=== PATIENT | female | born 1970 | race Caucasian/White ===

== ENCOUNTER → 2016-09-09 | Outpatient (CLI) | payer BC ==
[~2016-09-09] MED LIST: ALPR1TAB2 PO; ATEN25TA PO; ATEN50TA PO; CARI350T PO; CEFD300C3 PO; CYCL10TA9 PO; DIAZ10TA3 PO; GABA-486 PO; GABA-488 PO; IPRA3AMP IH; IPRA4AER IH; LEVO100T7 PO; METH4TAB PO; METH5TAB5 PO; NITR-65 PO; NITR100C10 PO; ORPH100T PO; OXYC-202 PO; PHEN-639 PO; PRD20T PO; RT-ALBUINH IH; TRAM-42 PO
--- OUTSIDE RECORDS SUMMARY | 2016-09-09 15:17 | XMS REPORT | Continuity of Care Document ---
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 Phone INDIRA MEJIA MD PCP Insurance Providers Payer Name Policy Number [id number] Maximino Warner 01 Advance Directives Directive Response Recorded Date/Time Advance Directives No 12/15/15 12:30pm Resuscitation Status Full Code 12/15/15 12:30pm Chief Complaint and Reason for Visit Chief Complaint SYNCOPE,CONCUSSION,HYPERTHYROIDISM,UTI Reason for Visit Degenerative disc disease Hyperthyroidism Syncope and collapse Urinary tract infection Problems Active Problems Medical Problem Onset Date Status Abnormal finding on CT scan Unknown Acute Chronic generalized pain Unknown Acute Chronic low back pain with right-sided sciatica Unknown Acute Concussion with brief loss of consciousness Unknown Acute Degenerative disc disease Unknown Acute Hyperthyroidism Unknown Acute Syncope and collapse Unknown Acute Urinary tract infection Unknown Acute Medications Current Home Medications Medication Dose Units Route Directions Days/Qty Instructions Start Date Alprazolam 1 Mg 1 Mg Oral Twice A Day as needed for Spasms 09/13/15 Diazepam 10 Mg 10 Mg Oral Bedtime 12/15/15 Gabapentin 100 Mg 100 Mg Oral Twice A Day 12/15/15 Oxycodone Hcl/Acetaminophen 1 Each 1 Each Oral Three Times A Day Albuterol Sulfate 18 Gm 1-2 Puff Inhalation Twice A Day 12/15/15 Nitrofurantoin Monohyd/M-Cryst 100 Mg 100 Mg Oral Twice A Day 14 12/15 Atenolol 25 Mg 25 Mg Oral Daily 30 12/16/15 Past Home Medications Medication Directions Ordered Status Carisoprodol 350 Mg Tablet, 350 Mg Oral 09/13/15 Discontinued Methylprednisolone 4 Mg Tab.ds.pk, 4 Mg Oral As Directed 09/13/15 Discontinued Cyclobenzaprine Hcl 10 Mg Tablet, 10 Mg Oral Every 8HRS 09/13/15 Discontinued Tramadol Hcl 50 Mg Tablet, 50 Mg Oral Every 4HRS 09/13/15 Discontinued Atenolol 50 Mg Tablet, 50 Mg Oral Daily 12/15/15 Discontinued Social History Social History Problem Response Recorded Date/Time Alcohol Use Occasionally Uses 12/15/2015 12:30pm Recreational Drug Use N DENIES 12/15/2015 12:30pm Recent Foreign Travel No 12/15/2015 12:30pm Recent Infectious Disease Exposure No 12/15/2015 12:30pm Hospitalization with Isolation Denies 12/16/2015 5:20pm Smoking Status Current Everyday Smoker 12/15/2015 12:30pm Query Response Start Date Stop Date Smoking Status Current Everyday Smoker 08/14/2015 Hospital Discharge Instructions Patient Instructions Physician Instructions New, Converted or Re-Newed RX: Transmitted to Pharmacy Goal/Follow Up Appt: Follow-up with Dr. Mejia as scheduled 12/20/15 at 1:20pm Discharge Diet: No Restrictions Pneu Vac Indicated: Yes Care Plan Goal:: Follow-up with Dr. Mejia as scheduled 12/20/15 at 1:20pm Plan of Care Discharge Date 12/16/15 3:40pm Disposition 01 HOME, SELF-CARE Instructions/Education Provided Syncope (DC) Forms Provided Follow-Up Fax Prescriptions See Medication Section Referrals (Unspecified) - Reason(s) for Referral: follow up with dr moffett in one month. Care Plan and Goals See Discharge Instructions Section Functional Status Query Response Date Recorded Patient Orientation Person Place Time Situation December 16, 2015 5:20pm Patient Orientation Person Place Time Situation December 16, 2015 5:20pm Comprehension Ability Understands Concepts December 15, 2015 9:00pm Allergies, Adverse Reactions, Alerts Allergen Type Severity Reaction Status Last Updated Sulfa (Sulfonamide Antibiotics) ([id number]) Allergy Unknown HIVES Active 09/13/15 Immunizations No immunization records. Vital Signs Acute Vital Signs Vital Response Date/Time Temperature (Fahrenheit) 97.0 degrees F (97.6 - 99.5) 12/16/2015 12:24pm Temperature (Calculated Celsius) 36.40084 degrees C (36.4 - 37.5) 12/16/2015 12:24pm Temperature Source Tympanic 12/16/2015 12:24pm Pulse Rate (adult) 60 bpm (60 - 90) 12/16/2015 1:15pm Respiratory Rate 16 bpm (12 - 24) 12/16/2015 12:24pm O2 Sat by Pulse Oximetry 97 % (88 - 100) 12/16/2015 12:24pm Blood Pressure 125/56 mm Hg 12/16/2015 12:24pm Blood Pressure Mean 79 mm Hg 12/16/2015 12:24pm Pain Pain Intensity 7 12/16/2015 1:36pm Height (Feet) 5 feet 12/15/2015 12:30pm Height (Inches) 6.00 inches 12/15/2015 12:30pm Height (Calculated Centimeters) 167.007983 cm 12/15/2015 12:30pm Weight (Pounds) 108 pounds 12/16/2015 5:24am Weight (Ounces) 0.0 oz 12/16/2015 5:24am Weight (Calculated Grams) 33526.976 gm 12/16/2015 5:24am Weight (Calculated Kilograms) 48.258547 kilograms 12/16/2015 5:24am Calculated BMI 18.2 12/15/2015 12:30pm Results Laboratory Results Test Name Result Units Flags Reference Collection Date/Time Result Date/ Time Comments White Blood Count 3.6 10^3/uL L 4.3-11.0 12/16/2015 4:27am 12/16/2015 4: 44am Red Blood Count 4.50 10^6/uL 4.35-5.85 12/16/2015 4:27am 12/16/2015 4: 44am Hemoglobin 11.8 G/DL 11.5-16.0 12/16/2015 4:12/16/2015 4:44am Hematocrit 36 % 35-52 12/16/2015 4:27am 12/16/2015 4:44am Mean Corpuscular Volume 79 FL L 80-99 12/16/2015 4:am 12/16/2015 4: 44am Mean Corpuscular Hemoglobin 26 PG 25-34 12/16/2015 4:12/16/2015 4: 44am Mean Corpuscular Hemoglobin Concent 33 G/DL 32-36 12/16/2015 4: 4:44am Red Cell Distribution Width 13.3 % 10.0-14.5 12/16/2015 4:2015 4:44am Platelet Count 169 10^3/uL 130-400 12/16/2015 4:12/16/2015 4:44am Mean Platelet Volume 10.4 FL 7.4-10.4 12/16/2015 4:12/16/2015 4: 44am Neutrophils (%) (Auto) 39 % L 42-75 12/16/2015 4:12/16/2015 4:44am Lymphocytes (%) (Auto) 47 % H 12-44 12/16/2015 4:12/16/2015 4:44am Monocytes (%) (Auto) 11 % 0-12 12/16/2015 4:12/16/2015 4:44am Eosinophils (%) (Auto) 3 % 0-10 12/16/2015 4:12/16/2015 4:44am Basophils (%) (Auto) 0 % 0-10 12/16/2015 4:12/16/2015 4:44am Neutrophils # (Auto) 1.4 X 10^3 L 1.8-7.8 12/16/2015 4:12/16/2015 4: 44am Lymphocytes # (Auto) 1.7 X 10^3 1.0-4.0 12/16/2015 4:12/16/2015 4: 44am Monocytes # (Auto) 0.4 X 10^3 0.0-1.0 12/16/2015 4:12/16/2015 4: 44am Eosinophils # (Auto) 0.1 10^3/uL 0.0-0.3 12/16/2015 4:12/16/2015 4 :44am Basophils # (Auto) 0.0 10^3/uL 0.0-0.1 12/16/2015 4:12/16/2015 4: 44am Urine Color YELLOW 12/15/2015 10:12/15/2015 10:24am Urine Clarity SLIGHTLY CLOUDY 12/15/2015 10:12/15/2015 10: 24am Urine pH 6 5-9 12/15/2015 10:12/15/2015 10:24am Urine Specific [place] 1.010 * 1.016-1.022 12/15/2015 10:2015 10:24am Urine Protein NEGATIVE NEGATIVE 12/15/2015 10:12/15/2015 10: 24am Urine Glucose (UA) NEGATIVE NEGATIVE 12/15/2015 10:0912/15/2015 10 :24am Urine RBC (Auto) NEGATIVE NEGATIVE 12/15/2015 10:12/15/2015 10: 24am Urine Ketones NEGATIVE NEGATIVE 12/15/2015 10:12/15/2015 10: 24am Urine Nitrite POSITIVE * NEGATIVE 12/15/2015 10:12/15/2015 10: 24am Urine Bilirubin NEGATIVE NEGATIVE 12/15/2015 10:12/15/2015 10: 24am Urine Urobilinogen NORMAL MG/DL NORMAL 12/15/2015 10:12/15/2015 10 :24am Urine Leukocyte Esterase NEGATIVE NEGATIVE 12/15/2015 10:2015 10:24am Urine RBC NONE /HPF 12/15/2015 10:12/15/2015 10:24am Urine WBC 0-2 /HPF 12/15/2015 10:12/15/2015 10:24am Urine Bacteria LARGE /HPF * 12/15/2015 10:12/15/2015 10:24am Urine Squamous Epithelial Cells 2-5 /HPF 12/15/2015 10:2015 10:24am Urine Crystals NONE /LPF 12/15/2015 10:12/15/2015 10:24am Urine Casts NONE /LPF 12/15/2015 10:0912/15/2015 10:24am Urine Mucus NEGATIVE /LPF 12/15/2015 10:0912/15/2015 10:24am Urine Culture Indicated YES 12/15/2015 10:0912/15/2015 10:24am Sodium Level 141 MMOL/L 135-145 12/16/2015 4:2712/16/2015 4:55am Potassium Level 3.9 MMOL/L 3.6-5.0 12/16/2015 4:12/16/2015 4:55am Chloride Level 112 MMOL/L H 98-107 12/16/2015 4:12/16/2015 4:55am Carbon Dioxide Level 20 MMOL/L L 21-32 12/16/2015 4:12/16/2015 4: 55am Anion Gap 9 MMOL/L 5-14 12/16/2015 4:12/16/2015 4:55am Blood Urea Nitrogen 19 MG/DL H 7-18 12/16/2015 4:12/16/2015 4:55am Creatinine 0.60 MG/DL 0.60-1.30 12/16/2015 4:12/16/2015 4:55am BUN/Creatinine Ratio 32 12/16/2015 4:12/16/2015 4:55am Estimat Glomerular Filtration Rate > 60 12/16/2015 4:2015 4:55am GFR INTERPRETIVE DATA UNITS FOR ESTIMATED GFR (eGFR): mL/min/1.73 M2 REFERENCE RANGE FOR ESTIMATED GFR (eGFR) eGFR NORMAL eGFR >60 MODERATELY DECREASED eGFR 30-59 SEVERLY DECREASED eGFR 15-29 KIDNEY FAILURE <15 (OR DIALYSIS) Glucose Level 121 MG/DL H 70-105 12/16/2015 4:12/16/2015 4:55am Glucometer 122 MG/DL H 70-110 12/15/2015 8:41am 12/15/2015 8:58am Calcium Level 8.6 MG/DL 8.5-10.1 12/16/2015 4:12/16/2015 4:55am Magnesium Level 1.9 MG/DL 1.8-2.4 12/15/2015 8:3512/15/2015 9:30am Total Bilirubin 0.7 MG/DL 0.1-1.0 12/15/2015 8:35am 12/15/2015 9:30am Alkaline Phosphatase 116 U/L 40-136 12/15/2015 8:35am 12/15/2015 9: 30am Aspartate Amino Transf (AST/SGOT) 22 U/L 5-34 12/15/2015 8:35am 2015 9:30am Alanine Aminotransferase (ALT/SGPT) 22 U/L 0-55 12/15/2015 8:35am 12/14 9:30am Troponin I < 0.30 NG/ML <0.30 12/15/2015 8:35am 12/15/2015 10:29am Total Protein 7.3 G/DL 6.4-8.2 12/15/2015 8:35am 12/15/2015 9:30am Albumin 4.0 G/DL 3.2-4.5 12/15/2015 8:35am 12/15/2015 9:30am Thyroid Stimulating Hormone (TSH) 0.00 UIU/ML L 0.35-4.94 12/15/2015 8: 35am 12/15/2015 10:29am Free Thyroxine 3.07 NG/DL H 0.70-1.48 12/15/2015 8:35am 12/15/2015 10: 29am Acetaminophen Screen NEGATIVE NEGATIVE 12/15/2015 10:09am 12/15/2015 10:54am APAP=ACETAMINOPHEN/PARACETAMOL Microbiology Results Procedure Source Result Collection Date/Time Result Date/Time Urine Culture Urine, Clean Catch ESCHERICHIA COLI 12/15/2015 10:09am 2015 2:59pm Procedures Procedure Status Date Provider(s) Tracing only of electrocardiogram Active 12/15/15 YAMILET SHARP MD Color Doppler echocardiography Active 12/15/15 CHELSI MOFFETT MD FACP [facility] CCDS Encounters Encounter Location Arrival/Admit Date Discharge/Depart Date Attending Provider Discharged Inpatient (obs) [facility] 12/15/15 11:58am 12/16/15 3:40pm INDIRA MEJIA MD Recent Diagnosis Degenerative disc disease Hyperthyroidism Syncope and collapse Urinary tract infection
--- NOTE | 2016-09-09 16:06 | Diagnostic Imaging Report ---
PROCEDURE: CT chest without contrast. TECHNIQUE: Multiple contiguous axial images were obtained through the chest without the use of intravenous contrast. INDICATION: Pulmonary nodule. COMPARISON: CT thoracolumbar spine 09/13/2015. FINDINGS: Gnhrxwwy-jd-epiijtyo centrilobular emphysematous changes in both lungs, greatest in the lung apices. A 6 mm solid pulmonary nodule in the peripheral left upper lobe (series 2, image 16). Focal area of pleural thickening adjacent to the pulmonary nodule appears stable since the prior exam. Stable pleural thickening in the right lung apex. A 6 mm pulmonary nodule in the lingula is also stable (image 26). Tiny nonspecific nodular opacities in the left costophrenic angle were not previously identified. Calcified granuloma in the right lung base. Several scattered 2 mm or less pulmonary nodules in the right lung. No pleural or pericardial effusions. No mediastinal, hilar, or axillary lymphadenopathy. The visualized upper abdominal contents, including the adrenal glands, are unremarkable on this noncontrast exam. Thoracolumbar scoliosis. No acute osseous findings. IMPRESSION: 1. Mjrbqibo-fr-jurrtblw centrilobular emphysematous changes. 2. Scattered pulmonary nodules in both lungs measuring up to 6 mm. There are also scattered areas of pleural thickening/scarring. These findings appear stable since the prior 09/03/2015 thoracolumbar spine examination. Continued followup recommendations below. Fleischner Society Guidelines for Management of Small Pulmonary Nodules NODULE SIZE LOW RISK PATIENT HIGH RISK PATIENT 4mm or less No follow-up needed Follow-up CT at 12 months 4 to <6mm Follow-up CT at 12 months Initial follow-up CT at 6-12 months 6 to <8mm Initial follow-up CT at 6-12 months Initial follow-up CT at 3-6 months >8mm Follow-up CT at around 3, 9, and 24 Same as for low risk. months, PET, and/or biopsy. Dictated by: Dictated on workstation # [id number]
== END ==
LOC: RAD 15:14
PROVIDERS: ATTEND Family Medicine
DX: R91.8 Other nonspecific abnormal finding of lung field (principal); J43.8 Other emphysema
CPT/HCPCS: 71250

== ENCOUNTER 2016-11-23 18:07 | Observation (INO) | payer BC ==
[~2016-11-23] VITALS: Ht 167.6 cm; Wt 51.9 kg
[2016-11-23] MEDS ORDERED: CYCL10TA9 PO (18:21)
[2016-11-23] MEDS ORDERED: LEDI1TAB (18:21)
[2016-11-23] MEDS ORDERED: KETOROLAC 30 MG/ML VIAL IVP ONE (18:45)
[2016-11-23] MEDS ORDERED: NS 1000 ML IV BAG IV ONE (18:45)
[2016-11-23] MEDS ORDERED: ONDANSETRON 4 MG/2 ML (SDV) Z0FRAN IV ONE (18:45)
--- NOTE | 2016-11-23 18:45 | ED General ---
General Chief Complaint: Abdominal/GI Problems Stated Complaint: FEVER/VOMITING Nursing Triage Note: INTERMITTANT FEVER, N/V X2 DAYS Nursing Sepsis Screen: Possible Sepsis Risk Source of Information: Patient Exam Limitations: No Limitations History of Present Illness Time Seen by Provider: 18:42 Initial Comments Patient has been sick with a temperature as high as 100.6 since . She complains of myalgias worse back pain and headache. She also has a nonproductive cough. No sick contacts. No tick bites. Patient has been vomiting for 2 days and is benign. Keep down medications including her Percocet. Allergies and Home Medications Allergies Coded Allergies: Sulfa (Sulfonamide Antibiotics) (Verified Allergy, Unknown, HIVES, 02/23/16 ) Home Medications Alprazolam 1 Mg Tablet, 1 MG PO BID PRN for SPASMS, (Reported) Cyclobenzaprine HCl 10 Mg Tablet, #60 (Reported) Diazepam 10 Mg Tablet, 10 MG PO HS, (Reported) Gabapentin 300 Mg Capsule, 300 MG PO HS, (Reported) Ipratropium/Albuterol Sulfate 3 Ml Ampul.neb, 3 ML IH Q4H PRN for SHORTNESS OF BREATH, #50 Prescribed by: ESTRELLA JACKSON on 02/12/16 0849 Ledipasvir/Sofosbuvir 1 Each Tablet, #28 (Reported) Levothyroxine Sodium 100 Mcg Tablet, 100 MCG PO DAILY, (Reported) Oxycodone HCl/Acetaminophen 1 Each Tablet, 1 EACH PO QID PRN for BACK PAIN, ( Reported) Constitutional: chills, fever, malaise, weakness Respiratory: cough Cardiovascular: no symptoms reported Gastrointestinal: nausea, vomiting Genitourinary: no symptoms reported Musculoskeletal: no symptoms reported Skin: no symptoms reported All Other Systems Reviewed Negative Unless Noted: Yes Past Figczus-Thispg-Ckhfhk Hx Patient Social History Alcohol Use: Denies Use Recreational Drug Use: No Smoking Status: Current Everyday Smoker Type Used: Cigarettes Former Smoker/When Quit: Aug 14, 2015 2nd Hand Smoke Exposure: Yes Recent Foreign Travel: No Contact w/Someone Who Travel: No Recent Infectious Disease Expo: No Recent Hopitalizations: No Immunizations Up To Date Tetanus Booster (TDap): Less than 5yrs PED Vaccines UTD: Yes Seasonal Allergies Seasonal Allergies: No Surgeries HX Surgeries: Yes (PYELOPLASTY/URETERAL REPAIR/URETERAL STENT ) Surgeries: Section, Renal, Tubal Ligation Respiratory Hx Respiratory Disorders: Yes Respiratory Disorders: Asthma, COPD Cardiovascular Hx Cardiac Disorders: Yes (TACHYCARDIA WHEN HYPERTHYROIDISM) Cardiac Disorders: Syncope Neurological Hx Neurological Disorders: Yes Neurological Disorders: Concussion, Neuropathy 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 System : No Hx 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 Disorders: No Sexually Transmitted Disease: No HIV/AIDS: No Female 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 Disorders: 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 Genitourinary Hx Genitourinary Disorders: Yes (URETERAL STENOSIS--S/P PYELOPLASTY/URETERAL REPAIR/STENT) Genitourinary Disorders: Bladder Infection, Kidney Stones, UTI-Chronic Gastrointestinal Hx Gastrointestinal Disorders: Yes Gastrointestinal Disorders: Gastroesophageal Reflux Musculoskeletal Hx Musculoskeletal Disorders: Yes (SCIATICA, scoliosis, spinal stenosis, 5 BULGING DISCS) Musculoskeletal Disorders: Degenerate Disk Disease, Scoliosis, Chronic Back Pain Endocrine Hx Endocrine Disorders: Yes (GRAVES) Endocrine Disorders: Hyperthyroidism, Hypothyroidsim HEENT HX ENT Disorders: No Cancer Hx Cancer: No Psychosocial Hx Psychiatric Problems: Yes Behavioral Health Disorders: Anxiety Integumentary HX Skin/Integumentary Disorder: No Blood Transfusions Hx Blood Disorders: No Family Medical History Significant Family History: No Pertinent Family Hx Family Medial History: Alzheimer's disease 19 MOTHER FH: epilepsy 19 MOTHER FH: lupus 19 MOTHER Fibromyalgia 19 MOTHER Hypertension 19 MOTHER Thyroid disease 19 MOTHER (HYPOTHYROID) Physical Exam Vital Signs Vital Sign - Last 12Hours 11/23/16 18:22 Temp 97.8 Pulse 96 Resp 18 B/P (MAP) 144/102 Pulse Ox 98 O2 Delivery Room Air Capillary Refill : Less Than 3 Seconds General Appearance: No Apparent Distress, WD/WN, Thin Eyes: Bilateral Eye EOMI, Bilateral Eye Normal Inspection, Bilateral Eye PERRL HEENT: PERRL/EOMI, Pharynx Normal Neck: Supple Respiratory: Lungs Clear, Normal Breath Sounds Cardiovascular: Regular Rate, Rhythm Gastrointestinal: Soft Back: Normal Inspection Extremity: Normal Inspection Neurologic/Psychiatric: Alert, No Motor/Sensory Deficits Skin: Normal Color, Warm/Dry Focused Exam Lactic Acid Level Laboratory Tests Test 11/23/16 18:20 Lactic Acid Level 0.84 MMOL/L (0.50-2.00) Progress/Results/Core Measures Results/Orders Lab Results Laboratory Tests Test 11/23/16 18:20 Range/Units White Blood Count 7.9 4.3-11.0 10^3/uL Red Blood Count 5.16 4.35-5.85 10^6/uL Hemoglobin 15.0 11.5-16.0 G/DL Hematocrit 45 35-52 % Mean Corpuscular Volume 87 80-99 FL Mean Corpuscular Hemoglobin 29 25-34 PG Mean Corpuscular Hemoglobin Concent 33 32-36 G/DL Red Cell Distribution Width 12.9 10.0-14.5 % Platelet Count 318 130-400 10^3/uL Mean Platelet Volume 9.0 7.4-10.4 FL Neutrophils (%) (Auto) 72 42-75 % Lymphocytes (%) (Auto) 22 12-44 % Monocytes (%) (Auto) 5 0-12 % Eosinophils (%) (Auto) 1 0-10 % Basophils (%) (Auto) 0 0-10 % Neutrophils # (Auto) 5.7 1.8-7.8 X 10^3 Lymphocytes # (Auto) 1.8 1.0-4.0 X 10^3 Monocytes # (Auto) 0.4 0.0-1.0 X 10^3 Eosinophils # (Auto) 0.0 0.0-0.3 10^3/uL Basophils # (Auto) 0.0 0.0-0.1 10^3/uL Urine Color YELLOW Urine Clarity VERY CLOUDY H Urine pH 6 5-9 Urine Specific [place] 1.015 L 1.016-1.022 Urine Protein 1+ H NEGATIVE Urine Glucose (UA) NEGATIVE NEGATIVE Urine Ketones NEGATIVE NEGATIVE Urine Nitrite NEGATIVE NEGATIVE Urine Bilirubin NEGATIVE NEGATIVE Urine Urobilinogen 1 NORMAL MG/DL Urine Leukocyte Esterase 1+ H NEGATIVE Urine RBC (Auto) 2+ H NEGATIVE Urine RBC NONE /HPF Urine WBC 5-10 H /HPF Urine Squamous Epithelial Cells 5-10 /HPF Urine Crystals NONE /LPF Urine Bacteria LARGE H /HPF Urine Casts NONE /LPF Urine Mucus NEGATIVE /LPF Urine Culture Indicated YES Sodium Level 143 135-145 MMOL/L Potassium Level 3.4 L 3.6-5.0 MMOL/L Chloride Level 106 98-107 MMOL/L Carbon Dioxide Level 26 21-32 MMOL/L Anion Gap 11 5-14 MMOL/L Blood Urea Nitrogen 9 7-18 MG/DL Creatinine 0.85 0.60-1.30 MG/DL Estimat Glomerular Filtration Rate > 60 BUN/Creatinine Ratio 11 Glucose Level 94 70-105 MG/DL Lactic Acid Level 0.84 0.50-2.00 MMOL/L Calcium Level 10.0 8.5-10.1 MG/DL Total Bilirubin 0.4 0.1-1.0 MG/DL Aspartate Amino Transf (AST/SGOT) 18 5-34 U/L Alanine Aminotransferase (ALT/SGPT) 10 0-55 U/L Alkaline Phosphatase 95 40-136 U/L Total Protein 8.5 H 6.4-8.2 G/DL Albumin 4.3 3.2-4.5 G/DL Lipase 22 8-78 U/L Thyroid Stimulating Hormone (TSH) 1.50 0.35-4.94 UIU/ML My Orders Orders - JORDIN BERGMAN MD Cbc With Automated Diff (11/23/16 18:40) Comprehensive Metabolic Panel (11/23/16 18:40) Lactic Acid Analyzer (11/23/16 18:40) Lipase (11/23/16 18:40) Thyroid Stimulating Hormone (11/23/16 18:40) Ua Culture If Indicated (11/23/16 18:40) Chest 1 View, Ap/Pa Only (11/23/16 18:40) Ketorolac Injection (Toradol Injection) (11/23/16 18:45) Ondansetron Injection (Zofran Injectio (11/23/16 18:45) Ns Iv 1000 Ml (Sodium Chloride 0.9%) (11/23/16 18:45) Saline Lock/Iv-Start (11/23/16 19:04) Urine Culture (11/23/16 18:20) Fentanyl Injection (Sublimaze Injection (11/23/16 20:00) Ceftriaxone Injection (Rocephin Injectio (11/23/16 20:45) Medications Given in ED Current Medications Medications Dose Ordered Sig/Kayla Route Start Time Stop Time Status Last Admin Dose Admin Fentanyl Citrate 100 mcg ONCE ONCE IVP 11/23/16 20:00 11/23/16 20:01 DC 11/23/16 19:57 100 MCG Ketorolac Tromethamine 30 mg ONCE ONCE IVP 11/23/16 18:45 11/23/16 18:46 DC 11/23/16 18:56 30 MG Ondansetron HCl 4 mg ONCE ONCE IV 11/23/16 18:45 11/23/16 18:46 DC 11/23/16 18:56 4 MG Sodium Chloride 1,000 ml ONCE ONCE IV 11/23/16 18:45 11/23/16 18:46 DC 11/23/16 18:56 1,000 ML Vital Signs/I&O Vital Sign - Last 12Hours 11/23/16 18:22 Temp 97.8 Pulse 96 Resp 18 B/P (MAP) 144/102 Pulse Ox 98 O2 Delivery Room Air Blood Pressure Mean: 116 Progress Note : Time: 20:39 Progress Note Patient still very sick. She states she feels like she will just start vomiting again if she goes home. UTI treated with Rocephin in the emergency department. I spoke with Dr. Aldana who agrees to admit for observation. Departure Communication Time/Spoke to Admitting Phy: 20:40 Communication I spoke with Dr. Luis Aldana who agreed to admit. Impression Impression: Primary Impression: Urinary tract infection Additional Impressions: Dehydration Intractable vomiting Disposition: ADMITTED INPATIENT Condition: Stable Decision to Admit Reason: Admit from ER (General) Decision to Admit/Date: November 23, 2016 Time/Decision to Admit Time: 20:40 Departure-Patient Inst. Referrals: ESTRELLA JACKSON DO (PCP/Family) Primary Care Physician JORDIN BERGMAN MD November 23, 2016 18:44
[2016-11-23 19:08] LABS: BILIRUBIN,URINE NEGATIVE (NEGATIVE); KETONES,URINE NEGATIVE (NEGATIVE); LEUKOCYTE ESTERASE ,URINE 1+ (NEGATIVE); NITRITE,URINE NEGATIVE (NEGATIVE); PH,URINE 6 (5-9); PROTEIN,URINE 1+ (NEGATIVE); UROBILINOGEN,URINE 1 MG/DL (NORMAL)
[2016-11-23 19:11] LABS: BASOPHILS % (AUTO) 0 % (0-10); EOSINOPHILS % (AUTO) 1 % (0-10); LYMPHOCYTES # (AUTO) 1.8 X 10^3 (1.0-4.0); LYMPHOCYTES % (AUTO) 22 % (12-44); MEAN CORPUSCULAR HEMOGLOBIN 29 PG (25-34); MEAN CORPUSCULAR HGB CONC 33 G/DL (32-36); MEAN CORPUSCULAR VOLUME 87 FL (80-99); MONOCYTES # (AUTO) 0.4 X 10^3 (0.0-1.0); MONOCYTES % (AUTO) 5 % (0-12); NEUTROPHILS # (AUTO) 5.7 X 10^3 (1.8-7.8); NEUTROPHILS % (AUTO) 72 % (42-75); PLATELET COUNT 318 10^3/uL (130-400); RED BLOOD COUNT 5.16 10^6/uL (4.35-5.85); RED CELL DISTRIBUTION WIDTH 12.9 % (10.0-14.5); WHITE BLOOD COUNT 7.9 10^3/uL (4.3-11.0)
--- NOTE | 2016-11-23 19:14 | Diagnostic Imaging Report ---
INDICATION: Fever for two days. History of COPD and asthma. Patient has had lumbar surgery. Patient had pneumonia at 8 weeks of age and never regained full inflation of the left lung. FINDINGS: Portable upright view of the chest is compared to a chest radiograph from February [address] scan from September 09. Loss of volume on the left side is again identified. Pleural thickening of the left apex is stable. Emphysematous changes are present with chronic blunting of the left costophrenic angle. A nodule over the left chest is consistent with the patient's nipple. A similar nodule is seen in the right chest. Heart size and vascularity are normal. IMPRESSION: Stable chest with emphysematous changes, loss of volume on the left side and pleural thickening. Dictated by: Dictated on workstation # [id number]
[2016-11-23 19:40] LABS: ALANINE AMINOTRANSFERASE 10 U/L (0-55); ALBUMIN 4.3 G/DL (3.2-4.5); ANION GAP 11 MMOL/L (5-14); ASPARTATE AMINO TRANSFERASE 18 U/L (5-34); BILIRUBIN,TOTAL 0.4 MG/DL (0.1-1.0); BLOOD UREA NITROGEN 9 MG/DL (7-18); BUN/CREATININE RATIO 11; CARBON DIOXIDE 26 MMOL/L (21-32); CHLORIDE 106 MMOL/L (98-107); CREATININE SERUM 0.85 MG/DL (0.60-1.30); GFR ESTIMATED > 60; GLUCOSE 94 MG/DL (70-105); LIPASE 22 U/L (8-78); POTASSIUM 3.4 MMOL/L (3.6-5.0); SODIUM 143 MMOL/L (135-145); TOTAL PROTEIN 8.5 G/DL (6.4-8.2)
[2016-11-23] MEDS ORDERED: fentaNYL INJECTION 100 MCG/2 ML AMP IVP ONE (20:00)
[2016-11-23] MEDS ORDERED: cefTRIAXone INJECTION 1,000 MG in NS (IVPB) 50 ML IV ONE (20:45)
[2016-11-23] MEDS ORDERED: CATHETER FLUSH 10 ML SYR IV PRN (21:45)
[2016-11-23] MEDS ORDERED: ONDANSETRON 4 MG/2 ML (SDV) Z0FRAN IV PRN (21:45)
[2016-11-23] MEDS: CATHETER FLUSH 10 ML SYR IV SCH (21:51)
[2016-11-23] MEDS: NS IV 1000 ML 1,000 ML IV SCH (21:52)
[2016-11-23] MEDS ORDERED: RT-ALBUINH IH (22:10)
[2016-11-23] MEDS: morphine INJ 4 MG/ML 1 ML (VIAL/SYRINGE) IV PRN (22:44)
[2016-11-24 00:21] VITALS: BP 119/68
[2016-11-24] MEDS: morphine INJ 4 MG/ML 1 ML (VIAL/SYRINGE) IV PRN ×2 (02:37→06:48)
[2016-11-24 04:23] VITALS: BP 119/70
[2016-11-24] MEDS: NS IV 1000 ML 1,000 ML IV SCH ×2 (06:48→10:50)
[2016-11-24] MEDS: CATHETER FLUSH 10 ML SYR IV SCH ×2 (06:48→08:45)
[2016-11-24 08:00] VITALS: BP 96/54
--- NOTE | 2016-11-24 08:37 | History & Physical ---
History of Present Illness History of Present Illness Reason for visit/HPI 44-year-old female with intractable nausea and vomiting presenting to the emergency department on 11/23/16 found to have a urinary tract infection with cultures growing Escherichia coli. Patient has not been on any antibiotics recently. patient reports starting on , November 20, 2016 she started having fevers around 100.6 Fahrenheit along with suprapubic pain. She reports the fevers broke and for the past couple days she has had intractable nausea and vomiting. Her throat is sore from retching and vomiting. Denies any blood in her emesis. Patient does have chronic pain which she follows with Dr. Morro Chairez. Patient also has a history of hepatitis C in which she underwent treatment with harvoni. While in the emergency department, patient received IV fluids and Zofran and Rocephin for her urinary tract infection. patient was admitted for observation to get control over her intractable nausea and vomiting and start treatment on her infection. No overnight events. Patient does continue to report pain not completely controlled with morphine IV. Patient did eat 3 cups of Jell-O this morning and is wanting to advance her diet. Patient has not had any episodes of emesis on fourth floor. Date of Admission November 23, 2016 at 20:35 I consulted on this patient on 11/24/16 08:[address] Birch Admitting Physician Tanner Barragan MD Consult Allergies and Home Medications Allergies Coded Allergies: Sulfa (Sulfonamide Antibiotics) (Verified Allergy, Unknown, HIVES, 02/23/16 ) Home Medications Albuterol Sulfate 1 Puff Puff, 2 PUFF IH Q4H, (Reported) 1 PUFF = 90 MCG Alprazolam 1 Mg Tablet, 1 MG PO BID PRN for SPASMS, (Reported) Cyclobenzaprine HCl 10 Mg Tablet, PO HS PRN for BACK PAIN, #60 (Reported) Diazepam 10 Mg Tablet, 10 MG PO HS, (Reported) Gabapentin 300 Mg Capsule, 600 MG PO HS, (Reported) Ipratropium/Albuterol Sulfate 3 Ml Ampul.neb, 3 ML IH Q4H PRN for SHORTNESS OF BREATH, #50 Prescribed by: ESTRELLA BIRCH on 02/12/16 0849 Levothyroxine Sodium 100 Mcg Tablet, 88 MCG PO DAILY, (Reported) Oxycodone HCl/Acetaminophen 1 Each Tablet, 1 EACH PO Q4H PRN for BACK PAIN, ( Reported) Past Cjyrffi-Ggryby-Gjlszc Hx Patient Social History Alcohol Use: Rarely Uses Recreational Drug Use: No Smoking Status: Current Everyday Smoker Former smoker/When Quit: Aug 14, 2015 Type Used: Cigarettes 2nd Hand Smoke Exposure: Yes Physical Abuse Screen: No Sexual Abuse: No Recent Foreign Travel: No Contact w/other who traveled: No Recent Hopitalizations: No Recent Infectious Disease Expo: No Immunizations Up To Date Tetanus Booster (TDap): Less than 5yrs Seasonal Allergies Seasonal Allergies: No Surgeries HX Surgeries: Yes (PYELOPLASTY/URETERAL REPAIR/URETERAL STENT ) Surgeries: Section, Renal, Tubal Ligation Respiratory Hx Respiratory Disorders: Yes Cardiovascular Hx Cardiovascular Disorders: Yes (TACHYCARDIA WHEN HYPERTHYROIDISM) Cardiac Disorders: Syncope Neurological Hx Neurological Disorders: Yes Neurological Disorders: Concussion, Neuropathy 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 System : No Hx 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 Disorders: No Sexually Transmitted Disease: No HIV/AIDS: No Female 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 Disorders: Denies Genitourinary Hx Genitourinary Disorders: Yes (URETERAL STENOSIS--S/P PYELOPLASTY/URETERAL REPAIR/STENT) Genitourinary Disorders: Kidney Infection Gastrointestinal Hx Gastrointestinal Disorders: Yes Gastrointestinal Disorders: Gastroesophageal Reflux, Liver Disease/Jaundice ( history of hepatitis C) Musculoskeletal Hx Musculoskeletal Disorders: Yes (SCIATICA, scoliosis, spinal stenosis, 5 BULGING DISCS) Musculoskeletal Disorders: Degenerate Disk Disease, Scoliosis, Chronic Back Pain Endocrine Hx Endocrine Disorders: Yes (GRAVES) Endocrine Disorders: Hyperthyroidism (s/p ablation), Hypothyroidsim HEENT HX ENT Disorders: No Cancer Hx Cancer: No Psychosocial Hx Psychiatric Problems: Yes Behavioral Health Disorders: Anxiety Integumentary HX Skin/Integumentary Disorder: No Blood Transfusions Hx Blood Disorders: No Family Medical History Significant Family History: No Pertinent Family Hx Family Hx: Alzheimer's disease 19 MOTHER FH: epilepsy 19 MOTHER FH: lupus 19 MOTHER Fibromyalgia 19 MOTHER Hypertension 19 MOTHER Thyroid disease 19 MOTHER (HYPOTHYROID) Review of Systems Review of Systems General: No Chills, No Night Sweats HEENT: No Head Aches, No Visual Changes Pulmonary: No Dyspnea, No Cough Cardiovascular: No: Chest Pain, Orthopnea, Palpitations Gastrointestinal: Abdominal Pain, Nausea, No: Vomiting Genitourinary: Dysuria, Frequency Musculoskeletal: back pain, No: neck pain, shoulder pain Neurological: No: Numbness, Weakness All Other Systems Reviewed All Other Systems Reviewed: Yes Physical Exam Vital Signs Vital Sign - Last 12Hours 11/23/16 18:22 Temp 97.8 Pulse 96 Resp 18 B/P (MAP) 144/102 Pulse Ox 98 O2 Delivery Room Air Capillary Refill : Less Than 3 Seconds General Appearance: No No Apparent Distress, WD/WN HEENT: PERRL/EOMI Neck: Full Range of Motion, Non Tender, Supple Respiratory: Chest Non Tender, Normal Breath Sounds, No Accessory Muscle Use, No Respiratory Distress Cardiovascular: Regular Rate, Rhythm, No Edema Gastrointestinal: Tenderness (suprapubic ) Rectal: Deferred Extremity: Normal Capillary Refill, Normal Inspection, Normal Range of Motion, Non Tender, No Calf Tenderness Neurologic/Psychiatric: Alert, Oriented x3, No Motor/Sensory Deficits Skin: Normal Color, Warm/Dry Assessment/Plan Assessment/Plan Assessment/Plan 46 yo F intractable nausea/vomiting- improved- zofran UTI w/o hematuria- on rocephin - e.coli growing in culture- will look for susceptibilities- plan on d/c to home with 5 days of cefdinir Chronic pain- morphine while inpt- pt to resume her home meds on discharge hypokalemia- due to vomiting- will correct with resolution of vomiting anxiety- takes xanax h/o hep c- s/p harvoni treatment cigarette dependence- pt plans to quit so she can get her back surgery. Dispo: advancing diet today- if no issues with lunch will d/c to home this afternoon. plan on d/c to home with 5 days of cefdinir Problems: Clinical Quality Measures DVT/VTE Risk/Contraindication: Risk Factor Score Per Nursin RFS Level Per Nursing on Admit: 4+=Very High TANNER BARRAGAN MD November 24, 2016 08:37
[2016-11-24] MEDS ORDERED: ENOXAPARIN 40 MG/0.4 ML (LOVENOX) SYR SQ SCH (09:00)
[2016-11-24] MEDS ORDERED: cefTRIAXone 1 GM/NS 50 ML IVPB IV SCH ×2 (09:00)
[2016-11-24] MEDS ORDERED: oxyCODONE/APAP 10/325MG (PERCOCET 10) TABLET PO PRN (11:15)
[2016-11-24] MEDS ORDERED: CEFD300C3 PO (12:43)
[2016-11-24] MEDS ORDERED: ONDA4TAB11 PO (12:43)
--- NOTE | 2016-11-24 12:45 | Discharge Inst-Simple/Standard ---
Discharge Inst-Standard Patient Instructions/Follow Up Plan of Care/Instructions/FU: complete cefdinir 300mg BID x 5 days stay hydration with water may use zofran for nausea Follow up with Dr. Birch in 1 week Activity as Tolerated: Yes Discharge Diet: Regular Diet [facility] to [facility]: new concerns worsening symptoms Planned Outpatient Orders/Ref. Pneu Vac Indicated: Yes RICHARD BARRAGAN MD November 24, 2016 12:45 pm
== END 2016-11-24 12:44 | disposition home or self-care (01) ==
LOC: EDUNIT# 18:07 → ER 18:08 → 4TH 20:35 → UNDOADMOB 20:35 → 4TH 21:15 → UNDODISOB 11-24 13:18
PROVIDERS: ADMIT Family Medicine; ATTEND Family Medicine
DX: N39.0 Urinary tract infection, site not specified (principal); B96.20 Unspecified Escherichia coli [E. coli] as the cause of diseases classified elsewhere; E87.6 Hypokalemia; F41.9 Anxiety disorder, unspecified; B19.20 Unspecified viral hepatitis C without hepatic coma; F17.210 Nicotine dependence, cigarettes, uncomplicated
CPT/HCPCS: 36415; 71010; 80053; 81000; 83605; 83690; 84443; 85025; 87088; 87186; G0378

== ENCOUNTER 2016-12-11 09:55 | Emergency (ER) | payer BC ==
[~2016-12-11] VITALS: Ht 167.6 cm; Wt 52.2 kg
[~2016-12-11 09:55] MED LIST changes: +LEDI1TAB; +ONDA4TAB11 PO
--- NOTE | 2016-12-11 10:52 | ED Fall/Injury ---
General Chief Complaint: Trauma-Non Activation Stated Complaint: SYNCOPAL EPISODE/FALL R WRIST/R ANKLE INJURY Nursing Triage Note: SEE TRAUMA NOTE. Source: patient Exam Limitations: no limitations History of Present Illness Time seen by provider: 10:50 Initial Comments To ER from home with reports of a fall. Patient states that she has a history of vasovagal syncope and falls frequently. This morning she was having an episode of dizziness and she felt syncope one of her typical syncopal episodes coming on. She walked to the kitchen to get a towel to put around her neck. In doing so she fell. She landed on the right arm and complains of pain to the right wrist, right ankle, she did strike her head on the floor. She states that she is awaiting back surgery Location Injury Occurred: HOME Severity: moderate Injuries/Pain Location: head, neck Loss of Consciousness: brief (seconds) Associated Symptoms (Fall): Headache, Neck Pain Allergies and Home Medications Allergies Coded Allergies: Sulfa (Sulfonamide Antibiotics) (Verified Allergy, Unknown, HIVES, 02/23/16 ) Home Medications Albuterol Sulfate 1 Puff Puff, 2 PUFF IH Q4H, (Reported) 1 PUFF = 90 MCG Alprazolam 1 Mg Tablet, 1 MG PO BID PRN for SPASMS, (Reported) Cefdinir 300 Mg Capsule, 300 MG PO BID for 5 Days, #10 Prescribed by: RICHARD BARRAGAN on 11/24/16 1243 Cyclobenzaprine HCl 10 Mg Tablet, PO HS PRN for BACK PAIN, #60 (Reported) Diazepam 10 Mg Tablet, 10 MG PO HS, (Reported) Gabapentin 300 Mg Capsule, 600 MG PO HS, (Reported) Ipratropium/Albuterol Sulfate 3 Ml Ampul.neb, 3 ML IH Q4H PRN for SHORTNESS OF BREATH, #50 Prescribed by: ESTRELLA JACKSON on 02/12/16 0849 Levothyroxine Sodium 100 Mcg Tablet, 88 MCG PO DAILY, (Reported) Ondansetron 4 Mg Tab.rapdis, 4 MG PO Q6H PRN for NAUSEA/VOMITING-1ST LINE, #30 Prescribed by: RICHARD BARRAGAN on 11/24/16 1243 Oxycodone HCl/Acetaminophen 1 Each Tablet, 1 EACH PO Q4H PRN for BACK PAIN, ( Reported) Constitutional: see HPI Eyes: No Symptoms Reported Ears, Nose, Mouth, Throat: no symptoms reported Respiratory: no symptoms reported Cardiovascular: no symptoms reported Genitourinary: no symptoms reported Musculoskeletal: see HPI Skin: no symptoms reported Psychiatric/Neurological: No Symptoms Reported Past Yqmonty-Dfdqzu-Wcxsil Hx Patient Social History Alcohol Use: Occasionally Uses Recreational Drug Use: No Smoking Status: Current Everyday Smoker Type Used: Cigarettes Former Smoker/When Quit: Aug 14, 2015 2nd Hand Smoke Exposure: Yes Recent Foreign Travel: No Contact w/Someone Who Travel: No Recent Infectious Disease Expo: No Recent Hopitalizations: No Immunizations Up To Date Tetanus Booster (TDap): Less than 5yrs PED Vaccines UTD: Yes Seasonal Allergies Seasonal Allergies: No Surgeries HX Surgeries: Yes (PYELOPLASTY/URETERAL REPAIR/URETERAL STENT ) Surgeries: Section, Renal, Tubal Ligation Respiratory Hx Respiratory Disorders: Yes Respiratory Disorders: Asthma, COPD, Emphysema Cardiovascular Hx Cardiac Disorders: Yes (TACHYCARDIA WHEN HYPERTHYROIDISM) Cardiac Disorders: Syncope Neurological Hx Neurological Disorders: Yes Neurological Disorders: Concussion, Neuropathy 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 System Hx 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 Disorders: No Sexually Transmitted Disease: No HIV/AIDS: No Female 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 Disorders: Denies AROMATHERAPIST History: Tubal Ligation Genitourinary Hx Genitourinary Disorders: Yes (URETERAL STENOSIS--S/P PYELOPLASTY/URETERAL REPAIR/STENT) Genitourinary Disorders: Kidney Infection Gastrointestinal Hx Gastrointestinal Disorders: Yes Gastrointestinal Disorders: Gastroesophageal Reflux, Liver Disease/Jaundice Musculoskeletal Hx Musculoskeletal Disorders: Yes (SCIATICA, scoliosis, spinal stenosis, 5 BULGING DISCS) Musculoskeletal Disorders: Degenerate Disk Disease, Scoliosis, Chronic Back Pain Endocrine Hx Endocrine Disorders: Yes (GRAVES) Endocrine Disorders: Hyperthyroidism, Hypothyroidsim HEENT HX ENT Disorders: No Cancer Hx Cancer: No Psychosocial Hx Psychiatric Problems: Yes Behavioral Health Disorders: Anxiety Integumentary HX Skin/Integumentary Disorder: No Blood Transfusions Hx Blood Disorders: No Family Medical History Significant Family History: No Pertinent Family Hx Family Medial History: Alzheimer's disease 19 MOTHER FH: epilepsy 19 MOTHER FH: lupus 19 MOTHER Fibromyalgia 19 MOTHER Hypertension 19 MOTHER Thyroid disease 19 MOTHER (HYPOTHYROID) Physical Exam Vital Signs Vital Sign - Last 12Hours 12/11/16 10:25 Temp 98.1 Pulse 73 Resp 16 B/P (MAP) 108/60 Pulse Ox 98 O2 Delivery Room Air Capillary Refill : Less Than 3 Seconds General Appearance: WD/WN, no apparent distress HEENT: PERRL/EOMI, normal ENT inspection Neck: non-tender, full range of motion Cardiovascular: regular rate, rhythm, no murmur Respiratory: normal breath sounds, no respiratory distress, no accessory muscle use Gastrointestinal: normal bowel sounds, non tender, soft Extremities: normal range of motion, non-tender, normal inspection Neurologic/Psychiatric: alert, normal mood/affect, oriented x 3 Skin: normal color, warm/dry Progress/Results/Core Measures Results/Orders My Orders Orders - ALEM NAVARRO APRN Ct Head/Cervical Spine Wo (12/11/16 10:46) Wrist, Right, 3 Views Or More (12/11/16 10:46) Ankle, Right, 3 Views (12/11/16 10:46) Vital Signs/I&O Vital Sign - Last 12Hours 12/11/16 10:25 Temp 98.1 Pulse 73 Resp 16 B/P (MAP) 108/60 Pulse Ox 98 O2 Delivery Room Air Blood Pressure Mean: 76 Departure Communication Progress Notes K tracks shows that she is currently on Xanax 1 mg tablet twice a day, oxycodone 10 325 one tablet every 4 hours, tramadol 50 mg 3 times a day, Valium 10 mg daily. Impression Impression: Primary Impression: Syncope and collapse Additional Impressions: Wrist contusion Chronic pain Disposition: 01 HOME, SELF-CARE Condition: Stable Departure-Patient Inst. Decision time for Depature: 10:54 Referrals: ESTRELLA JACKSON DO (PCP/Family) Primary Care Physician Patient Instructions: CHRONIC PAIN Add. Discharge Instructions: All discharge instructions reviewed with patient and/or family. Voiced understanding. ALEM NAVARRO APRN Dec 11, 2016 10:52
--- NOTE | 2016-12-11 11:17 | Diagnostic Imaging Report ---
PROCEDURE: CT head and CT cervical spine without contrast. TECHNIQUE: Multiple contiguous axial images were obtained through the brain and cervical spine without the use of intravenous contrast. Sagittal and coronal reformations through the cervical spine were then performed. INDICATION: Passed out today and hit the back of the head. Neck pain posteriorly and to the right side. FINDINGS: CT head: There is no intracranial hemorrhage, edema, or mass effect. The brain parenchyma and chadwick-white differentiation is preserved. There is no extra-axial fluid collection or hemorrhage. The calvarium, the paranasal sinuses, and orbits visualized portions appear grossly unremarkable. CT cervical spine: There is satisfactory alignment of the posterior spinal line, the facet joints, and lateral masses of C1 and C2. There is a straightening of the upper cervical curvature, is presumably positional. No widening of the predental space with degenerative changes around the atlantodental joint seen. The vertebral body heights are preserved. No significant disc height loss is seen. There are posterior osteophytes noted at C4-C5 and C5-C6 levels. There is [id number] foramina stenosis on the left side at C5-C6 level. The other foramina demonstrate minimal or no significant stenosis. No fracture seen. The prevertebral soft tissues appear unremarkable. The lung apices demonstrate apical bulla. IMPRESSION: CT head: Unremarkable exam. CT cervical spine: No fracture seen. Degenerative changes. Bilateral apical lung bulla. Dictated by: Dictated on workstation # [id number]
--- NOTE | 2016-12-11 11:21 | Diagnostic Imaging Report ---
Three views of the right ankle. INDICATION: Fall. FINDINGS: There is no fracture, dislocation or radiopaque foreign body. The ankle mortise is normal in configuration. IMPRESSION: Unremarkable exam. Dictated by: Dictated on workstation # [id number]
--- NOTE | 2016-12-11 11:30 | Diagnostic Imaging Report ---
Three views of the right wrist. INDICATION: Pain around the right chest after passing out. FINDINGS: No fracture, dislocation or radiopaque foreign body. Joint alignment is satisfactory. IMPRESSION: Unremarkable exam. Dictated by: Dictated on workstation # [id number]
[2016-12-11 11:48] VITALS: BP 108/60
== END 2016-12-11 11:48 | disposition home or self-care (01) ==
LOC: EDUNIT# 09:55 → ER 09:59
DX: S60.211A Contusion of right wrist, initial encounter (principal); R55 Syncope and collapse; J44.9 Chronic obstructive pulmonary disease, unspecified; F17.210 Nicotine dependence, cigarettes, uncomplicated; W18.30XA Fall on same level, unspecified, initial encounter
CPT/HCPCS: 70450; 72125; 73110; 73610; 99282

== ENCOUNTER 2016-12-21 11:38 | Emergency (ER) | payer BC ==
[~2016-12-21] VITALS: Ht 167.6 cm; Wt 52.3 kg
--- NOTE | 2016-12-21 12:53 | ED General ---
General Stated Complaint: WEIGHT LOSS/THROAT DISCOMFORT Source of Information: Patient Exam Limitations: No Limitations History of Present Illness Time Seen by Provider: 12:50 Initial Comments to ER with reports of throat discomfort. She states that when she is talking she feels as though her throat spasms and is achy. This is been for several weeks. She also reports weight loss for 7 months. She states that she has not addressed this with her primary care provider. She did see her primary care provider who wanted some labs to be done however the patient has these lab orders with her but has not yet had them done. She takes Synthroid for Graves' disease. She was formerly on Xanax 3 times a day and Percocet but she stopped taking these 2 days ago because she felt like they might be masking something. Currently she states she feels "like I'm going to, unglued on the inside". No fevers or chills. Chronic low back pain for which she states she is to have surgery. Timing/Duration: Constant Severity: Moderate Associated Systoms: No Cough Allergies and Home Medications Allergies Coded Allergies: Sulfa (Sulfonamide Antibiotics) (Verified Allergy, Unknown, HIVES, 02/23/16 ) Home Medications Albuterol Sulfate 1 Puff Puff, 2 PUFF IH Q4H, (Reported) 1 PUFF = 90 MCG Alprazolam 1 Mg Tablet, 1 MG PO BID PRN for SPASMS, (Reported) Cefdinir 300 Mg Capsule, 300 MG PO BID for 5 Days, #10 Prescribed by: RICHARD BARRAGAN on 11/24/16 1243 Cyclobenzaprine HCl 10 Mg Tablet, PO HS PRN for BACK PAIN, #60 (Reported) Diazepam 10 Mg Tablet, 10 MG PO HS, (Reported) Gabapentin 300 Mg Capsule, 600 MG PO HS, (Reported) Ipratropium/Albuterol Sulfate 3 Ml Ampul.neb, 3 ML IH Q4H PRN for SHORTNESS OF BREATH, #50 Prescribed by: ESTRELLA BIRCH on 02/12/16 0849 Levothyroxine Sodium 100 Mcg Tablet, 88 MCG PO DAILY, (Reported) Ondansetron 4 Mg Tab.rapdis, 4 MG PO Q6H PRN for NAUSEA/VOMITING-1ST LINE, #30 Prescribed by: RICHARD BARRAGAN on 11/24/16 1243 Oxycodone HCl/Acetaminophen 1 Each Tablet, 1 EACH PO Q4H PRN for BACK PAIN, ( Reported) Constitutional: see HPI, No chills, No fever, weight loss EENTM: see HPI Respiratory: no symptoms reported Cardiovascular: no symptoms reported Genitourinary: no symptoms reported Musculoskeletal: see HPI, back pain Skin: no symptoms reported Psychiatric/Neurological: No Symptoms Reported Hematologic/Lymphatic: No Symptoms Reported Past Mhuiutn-Ikbrxg-Jninzn Hx Patient Social History Type Used: Cigarettes Former Smoker/When Quit: Aug 14, 2015 2nd Hand Smoke Exposure: Yes Recent Foreign Travel: No Contact w/Someone Who Travel: No Recent Hopitalizations: No Immunizations Up To Date Tetanus Booster (TDap): Less than 5yrs PED Vaccines UTD: Yes Seasonal Allergies Seasonal Allergies: No Surgeries HX Surgeries: Yes (PYELOPLASTY/URETERAL REPAIR/URETERAL STENT ) Surgeries: Section, Renal, Tubal Ligation Respiratory Hx Respiratory Disorders: Yes Respiratory Disorders: Asthma, COPD, Emphysema Cardiovascular Hx Cardiac Disorders: Yes (TACHYCARDIA WHEN HYPERTHYROIDISM) Cardiac Disorders: Syncope Neurological Hx Neurological Disorders: Yes Neurological Disorders: Concussion, Neuropathy 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 System Hx 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 Disorders: No Sexually Transmitted Disease: No HIV/AIDS: No Female 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 Disorders: Denies [employer]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 Genitourinary Hx Genitourinary Disorders: Yes (URETERAL STENOSIS--S/P PYELOPLASTY/URETERAL REPAIR/STENT) Genitourinary Disorders: Kidney Infection Gastrointestinal Hx Gastrointestinal Disorders: Yes Gastrointestinal Disorders: Gastroesophageal Reflux, Liver Disease/Jaundice Musculoskeletal Hx Musculoskeletal Disorders: Yes (SCIATICA, scoliosis, spinal stenosis, 5 BULGING DISCS) Musculoskeletal Disorders: Degenerate Disk Disease, Scoliosis, Chronic Back Pain Endocrine Hx Endocrine Disorders: Yes (GRAVES) Endocrine Disorders: Hyperthyroidism, Hypothyroidsim HEENT HX ENT Disorders: No Cancer Hx Cancer: No Psychosocial Hx Psychiatric Problems: Yes Behavioral Health Disorders: Anxiety Integumentary HX Skin/Integumentary Disorder: No Blood Transfusions Hx Blood Disorders: No Family Medical History Significant Family History: No Pertinent Family Hx Family Medial History: Alzheimer's disease 19 MOTHER FH: epilepsy 19 MOTHER FH: lupus 19 MOTHER Fibromyalgia 19 MOTHER Hypertension 19 MOTHER Thyroid disease 19 MOTHER (HYPOTHYROID) Physical Exam Vital Signs Vital Sign - Last 12Hours 12/21/16 13:19 Temp 98.7 Pulse 105 Resp 18 B/P (MAP) 153/112 Pulse Ox 98 O2 Delivery Room Air Capillary Refill : General Appearance: No Apparent Distress, WD/WN, Anxious Eyes: Bilateral Eye EOMI, Bilateral Eye Normal Inspection, Bilateral Eye PERRL HEENT: PERRL/EOMI, TMs Normal, Normal ENT Inspection Neck: Full Range of Motion, Normal Inspection Respiratory: Normal Breath Sounds, No Accessory Muscle Use, No Respiratory Distress Cardiovascular: Normal Peripheral Pulses, Tachycardia (115-120 regular) Gastrointestinal: Non Tender, Soft Extremity: Normal Capillary Refill, Normal Inspection Neurologic/Psychiatric: Alert, Oriented x3, No Motor/Sensory Deficits Skin: Normal Color, Warm/Dry Progress/Results/Core Measures Results/Orders Lab Results Laboratory Tests Test 12/21/16 12:50 12/21/16 12:55 Range/Units White Blood Count 7.3 4.3-11.0 10^3/uL Red Blood Count 5.46 4.35-5.85 10^6/uL Hemoglobin 15.8 11.5-16.0 G/DL Hematocrit 47 35-52 % Mean Corpuscular Volume 87 80-99 FL Mean Corpuscular Hemoglobin 29 25-34 PG Mean Corpuscular Hemoglobin Concent 33 32-36 G/DL Red Cell Distribution Width 12.9 10.0-14.5 % Platelet Count 232 130-400 10^3/uL Mean Platelet Volume 8.9 7.4-10.4 FL Neutrophils (%) (Auto) 67 42-75 % Lymphocytes (%) (Auto) 27 12-44 % Monocytes (%) (Auto) 5 0-12 % Eosinophils (%) (Auto) 0 0-10 % Basophils (%) (Auto) 1 0-10 % Neutrophils # (Auto) 4.9 1.8-7.8 X 10^3 Lymphocytes # (Auto) 2.0 1.0-4.0 X 10^3 Monocytes # (Auto) 0.4 0.0-1.0 X 10^3 Eosinophils # (Auto) 0.0 0.0-0.3 10^3/uL Basophils # (Auto) 0.0 0.0-0.1 10^3/uL Sodium Level 140 135-145 MMOL/L Potassium Level 4.3 3.6-5.0 MMOL/L Chloride Level 105 98-107 MMOL/L Carbon Dioxide Level 27 21-32 MMOL/L Anion Gap 8 5-14 MMOL/L Blood Urea Nitrogen 12 7-18 MG/DL Creatinine 0.81 0.60-1.30 MG/DL Estimat Glomerular Filtration Rate > 60 BUN/Creatinine Ratio 15 0-20 Glucose Level 109 H 70-105 MG/DL Calcium Level 10.2 H 8.5-10.1 MG/DL Total Bilirubin 0.5 0.1-1.0 MG/DL Aspartate Amino Transf (AST/SGOT) 21 5-34 U/L Alanine Aminotransferase (ALT/SGPT) 14 0-55 U/L Alkaline Phosphatase 111 40-136 U/L Total Protein 8.6 H 6.4-8.2 GM/DL Albumin 4.5 3.2-4.5 GM/DL Thyroid Stimulating Hormone (TSH) 2.05 0.35-4.94 UIU/ML Free Thyroxine 1.04 0.70-1.48 NG/DL Urine Color YELLOW Urine Clarity SLIGHTLY CLOUDY Urine pH 7 5-9 Urine Specific Baker 1.010 L 1.016-1.022 Urine Protein NEGATIVE NEGATIVE Urine Glucose (UA) NEGATIVE NEGATIVE Urine Ketones NEGATIVE NEGATIVE Urine Nitrite NEGATIVE NEGATIVE Urine Bilirubin NEGATIVE NEGATIVE Urine Urobilinogen NORMAL NORMAL MG/DL Urine Leukocyte Esterase 1+ H NEGATIVE Urine RBC (Auto) NEGATIVE NEGATIVE Urine RBC NONE /HPF Urine WBC 0-2 /HPF Urine Squamous Epithelial Cells 5-10 /HPF Urine Crystals NONE /LPF Urine Bacteria NEGATIVE /HPF Urine Casts NONE /LPF Urine Mucus NEGATIVE /LPF Urine Culture Indicated NO Urine Opiates Screen NEGATIVE NEGATIVE Urine Oxycodone Screen NEGATIVE NEGATIVE Urine Methadone Screen NEGATIVE NEGATIVE Urine Propoxyphene Screen NEGATIVE NEGATIVE Urine Barbiturates Screen NEGATIVE NEGATIVE Ur Tricyclic Antidepressants Screen POSITIVE H NEGATIVE Urine Phencyclidine Screen NEGATIVE NEGATIVE Urine Amphetamines Screen NEGATIVE NEGATIVE Urine Methamphetamines Screen NEGATIVE NEGATIVE Urine Benzodiazepines Screen NEGATIVE NEGATIVE Urine Cocaine Screen NEGATIVE NEGATIVE Urine Cannabinoids Screen NEGATIVE NEGATIVE My Orders Orders - ALEM NAVARRO APRN Ua Culture If Indicated (12/21/16 12:49) Cbc With Automated Diff (12/21/16 12:49) Thyroid Stimulating Hormone (12/21/16 12:49) Free T4 (Free Thyroxine) (12/21/16 12:49) Comprehensive Metabolic Panel (12/21/16 12:49) Ekg Tracing (12/21/16 12:49) Chest Pa/Lat (2 View) (12/21/16 12:49) Metoprolol Tartrate (Ir) Tab (Lopressor (12/21/16 13:00) Drug Screen Stat (Urine) (12/21/16 12:56) Hydrocodone/Apap 10/325 Tablet (Lortab 1 (12/21/16 13:45) Medications Given in ED Current Medications Medications Dose Ordered Sig/Kayla Route Start Time Stop Time Status Last Admin Dose Admin Metoprolol Tartrate 25 mg ONCE ONCE PO 12/21/16 13:00 12/21/16 13:01 DC 12/21/16 13:03 25 MG Vital Signs/I&O Vital Sign - Last 12Hours 12/21/16 13:19 Temp 98.7 Pulse 105 Resp 18 B/P (MAP) 153/112 Pulse Ox 98 O2 Delivery Room Air Diagnostic Imaging Diagonstic Imaging: Xray Comments NAME: JESSE WARNER [facility] REC#: [id number] PT STATUS: REG ER : 1970 PHYSICIAN: ALEM NAVARRO APRN ADMIT DATE: 12/21/16/ER Signed Date of Exam:12/21/16 CHEST PA/LAT (2 VIEW) INDICATION: Back pain. FINDINGS: PA and lateral chest shows the heart size and vascularity to be normal. There is obstructive airway disease with no mass or infiltrate seen. There is no pleural effusion. IMPRESSION: COPD. No acute abnormality is seen. There is no significant change from 11/23/16. Dictated by: Dictated on workstation # [id number] Dict: 12/21/16 1318 Trans: 12/21/16 1325 [id number] Interpreted by: ASHLEY KINSEY MD Electronically signed by: ASHLEY KINSEY MD 12/21/16 1325 Departure Impression Impression: Primary Impression: Chronic back pain Additional Impressions: Hypertension Anxiety Weight loss Disposition: 01 HOME, SELF-CARE Condition: Stable Departure-Patient Inst. Decision time for Depature: 13:44 Referrals: ESTRELLA BIRCH DO (PCP/Family) Primary Care Physician Patient Instructions: NO INSTRUCTIONS GIVEN Add. Discharge Instructions: 1. Follow-up with Dr. Birch later this week for further evaluation 2. Copy Copies To 1: ESTRELLA BIRCH DO; TANESHA PATTERSON MD, PETER J APRN Dec 21, 2016 12:53
[2016-12-21] MEDS ORDERED: meTOprolol TARTRATE 25 MG (LOPRESSOR) TABLET PO ONE (13:00)
[2016-12-21 13:09] LABS: BILIRUBIN,URINE NEGATIVE (NEGATIVE); KETONES,URINE NEGATIVE (NEGATIVE); LEUKOCYTE ESTERASE ,URINE 1+ (NEGATIVE); NITRITE,URINE NEGATIVE (NEGATIVE); PH,URINE 7 (5-9); PROTEIN,URINE NEGATIVE (NEGATIVE); UROBILINOGEN,URINE NORMAL (NORMAL)
[2016-12-21 13:14] LABS: BASOPHILS % (AUTO) 1 % (0-10); EOSINOPHILS % (AUTO) 0 % (0-10); LYMPHOCYTES % (AUTO) 27 % (12-44); MEAN CORPUSCULAR HEMOGLOBIN 29 PG (25-34); MEAN CORPUSCULAR HGB CONC 33 G/DL (32-36); MEAN CORPUSCULAR VOLUME 87 FL (80-99); MEAN PLATELET VOLUME 8.9 FL (7.4-10.4); MONOCYTES # (AUTO) 0.4 X 10^3 (0.0-1.0); MONOCYTES % (AUTO) 5 % (0-12); NEUTROPHILS # (AUTO) 4.9 X 10^3 (1.8-7.8); NEUTROPHILS % (AUTO) 67 % (42-75); PLATELET COUNT 232 10^3/uL (130-400); RED BLOOD COUNT 5.46 10^6/uL (4.35-5.85); RED CELL DISTRIBUTION WIDTH 12.9 % (10.0-14.5); WHITE BLOOD COUNT 7.3 10^3/uL (4.3-11.0)
[2016-12-21 13:17] LABS: WBC,URINE 0-2 /HPF
[2016-12-21 13:22] LABS: ALANINE AMINOTRANSFERASE 14 U/L (0-55); ALBUMIN 4.5 GM/DL (3.2-4.5); ANION GAP 8 MMOL/L (5-14); ASPARTATE AMINO TRANSFERASE 21 U/L (5-34); BILIRUBIN,TOTAL 0.5 MG/DL (0.1-1.0); BLOOD UREA NITROGEN 12 MG/DL (7-18); BUN/CREATININE RATIO 15 (0-20); CALCIUM 10.2 MG/DL (8.5-10.1); CARBON DIOXIDE 27 MMOL/L (21-32); CHLORIDE 105 MMOL/L (98-107); CREATININE SERUM 0.81 MG/DL (0.60-1.30); GFR ESTIMATED > 60; GLUCOSE 109 MG/DL (70-105); HEMOLYSIS 7 (-100-29); ICTERUS 0.4 (-100-1.9); LIPEMIA 3 (-100-49); POTASSIUM 4.3 MMOL/L (3.6-5.0); SODIUM 140 MMOL/L (135-145); TOTAL PROTEIN 8.6 GM/DL (6.4-8.2)
--- NOTE | 2016-12-21 13:25 | Diagnostic Imaging Report ---
INDICATION: Back pain. FINDINGS: PA and lateral chest shows the heart size and vascularity to be normal. There is obstructive airway disease with no mass or infiltrate seen. There is no pleural effusion. IMPRESSION: COPD. No acute abnormality is seen. There is no significant change from 11/23/16. Dictated by: Dictated on workstation # [id number]
[2016-12-21 13:43] LABS: THYROID STIMULATING HORMONE 2.05 UIU/ML (0.35-4.94)
[2016-12-21] MEDS ORDERED: HYDROcodone/APAP 10 MG/325 MG (LORTAB) TAB PO ONE (13:45)
[2016-12-21 14:07] VITALS: BP 140/94
--- OUTSIDE RECORDS SUMMARY | 2016-12-22 18:30 | XMS REPORT | Continuity of Care Document ---
Author Author [facility] Organization [facility] Address Unknown Phone Unavailable Allergies Active Description Code Type Severity Reaction Onset Reported/Identified Relationship to Patient Clinical Status Yes Sulfa (Sulfonamide Antibiotics) [id number] Drug Allergy Unknown HIVES 02/23/2016 Medications Problems Date Dx Coded Attending Type Code Diagnosis Diagnosed By 09/13/2015 CATE CORBIN DO K Ot F17.211 NICOTINE DEPENDENCE, CIGARETTES, IN [place] 09/13/2015 SHAQUILLE DO CATE K Ot G89.29 OTHER CHRONIC PAIN 09/13/2015 SHAQUILLE DO CATE K Ot M51.36 OTHER INTERVERTEBRAL DISC DEGENERATION, 09/13/2015 SHAQUILLE FALCON CATE K Ot M54.41 LUMBAGO WITH SCIATICA, RIGHT SIDE 09/14/2015 SHAQUILLE DO CATE K Ot F17.211 09/14/2015 SHAQUILLE DO CATE K Ot G89.29 09/14/2015 SHAQUILLE DO CATE K Ot M51.36 09/14/2015 SHAQUILLE DO CATE K Ot M54.41 10/12/2015 DOMONIQUE VALENZUELA SWEATER OPERATOR Ot E03.9 HYPOTHYROIDISM, UNSPECIFIED 10/25/2015 DOMONIQUE VALENZUELA SWEATER OPERATOR Ot E03.9 HYPOTHYROIDISM, UNSPECIFIED 10/26/2015 INDIRA MEJIA MD Ot Z12.31 ENCNTR SCREEN MAMMOGRAM FOR MALIGNANT NE 11/02/2015 DOMONIQUE VALENZUELA Ot E03.9 HYPOTHYROIDISM, UNSPECIFIED 11/02/2015 MARLA FRANCISCO, RICHARD Samuel Ot C34.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 11/02/2015 MARLA FRANCISCO, RICHARD Samuel Ot C79.31 SECONDARY MALIGNANT NEOPLASM OF BRAIN 11/02/2015 INDIRA MEJIA MD Ot Z12.31 ENCNTR SCREEN MAMMOGRAM FOR MALIGNANT NE 11/05/2015 INDIRA MEJIA MD Ot M51.26 OTHER INTERVERTEBRAL DISC DISPLACEMENT, 11/05/2015 INDIRA MEJIA MD Ot M51.27 OTHER INTERVERTEBRAL DISC DISPLACEMENT, 11/07/2015 INDIRA MEJIA MD Ot Z12.31 ENCNTR SCREEN MAMMOGRAM FOR MALIGNANT NE 11/08/2015 RICHARD GUTIÉRREZ MD Ot 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 11/22/2015 RICHARD GUTIÉRREZ MD Ot C34.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 11/22/2015 RICHARD GUTIÉRREZ MD Ot C79.31 SECONDARY MALIGNANT NEOPLASM OF BRAIN 11/23/2015 RICHARD GUTIÉRREZ MD Ot 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 11/27/2015 INDIRA MEJIA MD, Ot M51.26 OTHER INTERVERTEBRAL DISC DISPLACEMENT, 11/27/2015 INDIRA MEJIA MD, Ot M51.27 OTHER INTERVERTEBRAL DISC DISPLACEMENT, 12/15/2015 DOMONIQUE VALENZUELA Ot E03.9 HYPOTHYROIDISM, UNSPECIFIED 12/15/2015 RICHARD GUTIÉRREZ MD Ot C34.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 12/15/2015 RICHARD GUTIÉRREZ MD, Ot C79.31 SECONDARY MALIGNANT NEOPLASM OF BRAIN 12/15/2015 INDIRA MEJIA MD, Ot Z12.31 ENCNTR SCREEN MAMMOGRAM FOR MALIGNANT NE 12/15/2015 RICHARD GUTIÉRREZ MD Ot 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 12/15/2015 INDIRA MEJIA MD, Ot M51.26 OTHER INTERVERTEBRAL DISC DISPLACEMENT, 12/15/2015 INDIRA MEJIA MD, Ot M51.27 OTHER INTERVERTEBRAL DISC DISPLACEMENT, 12/16/2015 INDIRA MEJIA MD Ot B96.20 UNSP ESCHERICHIA COLI THE CAUSE OF DI 12/16/2015 INDIRA MEJIA MD Ot E05.90 THYROTOXICOSIS, UNSP WITHOUT THYROTOXIC 12/16/2015 INDIRA MEJIA MD Ot F17.210 NICOTINE DEPENDENCE, CIGARETTES, UNCOMPL 12/16/2015 INDIRA MEJIA MD Ot G89.29 OTHER CHRONIC PAIN 12/16/2015 INDIRA MEJAI MD, Ot J44.9 CHRONIC OBSTRUCTIVE PULMONARY DISEASE, U 12/16/2015 INDIRA MEJIA MD Ot M51.9 UNSP THORACIC, THORACOLUM AND LUMBOSACR 12/16/2015 HUERTER MD, INDIRA F Ot N39.0 URINARY TRACT INFECTION, SITE NOT SPECIF 12/16/2015 INDIRA MEJIA MD Ot R55 SYNCOPE AND COLLAPSE 12/16/2015 INDIRA MEJIA MD Ot S06.0X1A CONCUSSION W LOC OF 30 MINUTES OR LESS , 12/16/2015 INDIRA MEJIA MD Ot W19.XXXA UNSPECIFIED FALL, INITIAL ENCOUNTER 12/16/2015 INDIRA MEJIA MD Ot 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, 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 01/15/2016 MARLA FRANCISCO, RICHARD Samuel Ot C34.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 01/15/2016 RICHARD GUTIÉRREZ MD Ot C79.31 SECONDARY MALIGNANT NEOPLASM OF BRAIN 02/10/2016 DOMONIQUE VALENZUELA Ot E03.9 HYPOTHYROIDISM, UNSPECIFIED 02/10/2016 INDIRA MEJIA MD Ot Z12.31 ENCNTR SCREEN MAMMOGRAM FOR MALIGNANT NE 02/10/2016 RICHARD GUTIÉRREZ MD Ot 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 02/10/2016 INDIRA MEJIA MD Ot M51.26 OTHER INTERVERTEBRAL DISC DISPLACEMENT, 02/10/2016 INDIRA MEJIA MD Ot M51.27 OTHER INTERVERTEBRAL DISC DISPLACEMENT, 02/10/2016 RICHARD GUTIÉRREZ MD Ot C34.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 02/10/2016 RICHARD GUTIÉRREZ MD Ot C79.31 SECONDARY MALIGNANT NEOPLASM OF BRAIN 02/12/2016 ORENDER DO, ESTRELLA S Ot E03.9 HYPOTHYROIDISM, UNSPECIFIED 02/12/2016 ORENDER DO, ESTRELLA S Ot E05.90 THYROTOXICOSIS, UNSP WITHOUT THYROTOXIC 02/12/2016 ORENDER DO, ESTRELLA S Ot F17.210 NICOTINE DEPENDENCE, CIGARETTES, UNCOMPL 02/12/2016 ORENDER DO, ESTRELLA S Ot J44.9 CHRONIC OBSTRUCTIVE PULMONARY DISEASE , U 02/12/2016 ORENDER DO, ESTRELLA S Ot M54.5 LOW BACK PAIN 02/12/2016 ORENDER DO, ESTRELLA S Ot N39.0 URINARY TRACT INFECTION, SITE NOT SPECIF 02/12/2016 ORENDER DO, ESTRELLA S Ot R00.1 BRADYCARDIA, UNSPECIFIED 02/12/2016 ORENDER DO, ESTRELLA S Ot E03.9 HYPOTHYROIDISM, UNSPECIFIED 02/12/2016 ESTRELLA JACKSON DO Ot E05.90 THYROTOXICOSIS, UNSP WITHOUT THYROTOXIC 02/12/2016 ESTRELLA JACKSON DO Ot F17.210 NICOTINE DEPENDENCE, CIGARETTES, UNCOMPL 02/12/2016 ESTRELLA JACKSON DO Ot J44.9 CHRONIC OBSTRUCTIVE PULMONARY DISEASE , U 02/12/2016 ESTRELLA JACKSON DO Ot M54.5 LOW BACK PAIN 02/12/2016 ESTRELLA JACKSON DO Ot N39.0 URINARY TRACT INFECTION, SITE NOT SPECIF 02/12/2016 ESTRELLA JACKSON DO Ot R00.1 BRADYCARDIA, UNSPECIFIED 02/23/2016 MARLA FRANCISCO, RICHARD Samuel Ot C34.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 02/23/2016 RICHARD GUTIÉRREZ MD Ot C79.31 SECONDARY MALIGNANT NEOPLASM OF BRAIN 02/23/2016 ALEM NAVARRO SUPERVISOR HEAT TREATING Ot S61.011A LACERATION W/O FB OF RIGHT THUMB W/O DAM 02/23/2016 ALEM NAVARRO SUPERVISOR HEAT TREATING Ot S63.502A UNSPECIFIED SPRAIN OF LEFT WRIST, INITIA 02/23/2016 ALEM NAVARRO SUPERVISOR HEAT TREATING Ot W45.8XXA OTH FOREIGN BODY OR OBJECT ENTERING THRO 02/23/2016 ALEM NAVARRO SUPERVISOR HEAT TREATING Ot X58.XXXA EXPOSURE TO OTHER SPECIFIED FACTORS, INI 02/23/2016 ALEM NAVARRO SUPERVISOR HEAT TREATING Ot Y92.[address] IN [facility] NON[facility] ( PRIVATE 02/23/2016 ALEM NAVARRO SUPERVISOR HEAT TREATING Ot Y99.8 OTHER EXTERNAL CAUSE STATUS 02/23/2016 DOMONIQUE VALENZUELA [facility] Ot E03.9 HYPOTHYROIDISM, UNSPECIFIED 02/23/2016 INDIRA MEJIA MD Ot Z12.31 ENCNTR SCREEN MAMMOGRAM FOR MALIGNANT NE 02/23/2016 MARLA FRANCISCO, RICHARD Samuel Ot 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 02/23/2016 INDIRA MEJIA MD Ot M51.26 OTHER INTERVERTEBRAL DISC DISPLACEMENT, 02/23/2016 INDIRA MEJIA MD Ot M51.27 OTHER INTERVERTEBRAL DISC DISPLACEMENT, 02/23/2016 RICHARD GUTIÉRREZ MD Ot C34.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 02/23/2016 MARLA FRANCISCO, RICHARD E Ot C79.31 SECONDARY MALIGNANT NEOPLASM OF BRAIN 02/26/2016 SHAQUILLE CATE Carbone Ot F17.210 NICOTINE DEPENDENCE, CIGARETTES, UNCOMPL 02/26/2016 SHAQUILLE CATE FALCON K Ot G89.29 OTHER CHRONIC PAIN 02/26/2016 SHAQUILLE , CATE K Ot K59.00 CONSTIPATION, UNSPECIFIED 02/26/2016 SHAQUILLE CATE K Ot M54.5 LOW BACK PAIN 02/26/2016 SHAQUILLE DO, CATE K Ot R10.31 RIGHT LOWER QUADRANT PAIN 02/26/2016 SHAQUILLE CATE K Ot R10.32 LEFT LOWER QUADRANT PAIN 02/27/2016 SHAQUILLE CATE K Ot F17.210 NICOTINE DEPENDENCE, CIGARETTES, UNCOMPL 02/27/2016 SHAQUILLE CATE K Ot G89.29 OTHER CHRONIC PAIN 02/27/2016 SHAQUILLE CATE K Ot K59.00 CONSTIPATION, UNSPECIFIED 02/27/2016 SHAQUILLE CATE K Ot M54.5 LOW BACK PAIN 02/27/2016 SHAQUILLE CATE K Ot R10.31 RIGHT LOWER QUADRANT PAIN 02/27/2016 SHAQIULLE , CATE K Ot R10.32 LEFT LOWER QUADRANT PAIN 02/28/2016 ALEM NAVARRO APRN Ot S61.011A LACERATION W/O FB OF RIGHT THUMB W/O DAM 02/28/2016 ALEM NAVARRO SUPERVISOR HEAT TREATING Ot S63.502A UNSPECIFIED SPRAIN OF LEFT WRIST, INITIA 02/28/2016 ALEM NAVARRO APRN Ot W45.8XXA OTH FOREIGN BODY OR OBJECT ENTERING THRO 02/28/2016 ALEM NAVARRO SUPERVISOR HEAT TREATING Ot X58.XXXA EXPOSURE TO OTHER SPECIFIED FACTORS, INI 02/28/2016 ALEM NAVARRO APRN Ot Y92.[address] IN [facility] ( PRIVATE 02/28/2016 ALEM NAVARRO SUPERVISOR HEAT TREATING Ot Y99.8 OTHER EXTERNAL CAUSE STATUS 03/07/2016 SHAQUILLE CATE Tona Ot F17.210 NICOTINE DEPENDENCE, CIGARETTES, UNCOMPL 03/07/2016 SHAQUILLE CATE Carbone Ot G89.29 OTHER CHRONIC PAIN 03/07/2016 SHAQUILLE , CATE K Ot K59.00 CONSTIPATION, UNSPECIFIED 03/07/2016 SHAQUILLE , CATE Carbone Ot M54.5 LOW BACK PAIN 03/07/2016 SHAQUILLE , CATE Carbone Ot R10.31 RIGHT LOWER QUADRANT PAIN 03/07/2016 SHAQUILLE , CATE Carbone Ot R10.32 LEFT LOWER QUADRANT PAIN 04/04/2016 ALEM NAVARRO APRN Ot S61.011A LACERATION W/O FB OF RIGHT THUMB W/O DAM 04/04/2016 ALEM NAVARRO APRN Ot S63.502A UNSPECIFIED SPRAIN OF LEFT WRIST, INITIA 04/04/2016 ALEM NAVARRO APRN Ot W45.8XXA OTH FOREIGN BODY OR OBJECT ENTERING THRO 04/04/2016 ALEM NAVARRO APRN Ot X58.XXXA EXPOSURE TO OTHER SPECIFIED FACTORS, INI 04/04/2016 ALEM NAVARRO APRN Ot Y92.[address] IN [facility] NON[facility] ( PRIVATE 04/04/2016 ALEM NAVARRO APRN Ot Y99.8 OTHER EXTERNAL CAUSE STATUS 04/04/2016 ALEM NAVARRO APRN Ot S61.011A LACERATION W/O FB OF RIGHT THUMB W/O DAM 04/04/2016 ALEM NAVARRO APRN Ot S63.502A UNSPECIFIED SPRAIN OF LEFT WRIST, INITIA 04/04/2016 ALEM NAVARRO APRN Ot W45.8XXA OTH FOREIGN BODY OR OBJECT ENTERING THRO 04/04/2016 ALEM NAVARRO APRN Ot X58.XXXA EXPOSURE TO OTHER SPECIFIED FACTORS, INI 04/04/2016 ALEM NAVARRO APRN Ot Y92.[address] IN [facility] ( PRIVATE 04/04/2016 ALEM NAVARRO APRN Ot Y99.8 OTHER EXTERNAL CAUSE STATUS 04/25/2016 DOMONIQUE VALENZUELA [facility] Ot E03.9 HYPOTHYROIDISM, UNSPECIFIED 04/25/2016 INDIRA MEJIA MD Ot Z12.31 ENCNTR SCREEN MAMMOGRAM FOR MALIGNANT NE 04/25/2016 MARLA FRANCISCO, RICHARD Samuel Ot 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 04/25/2016 INDIRA MEJIA MD Ot M51.26 OTHER INTERVERTEBRAL DISC DISPLACEMENT, 04/25/2016 INDIRA MEJIA MD Ot M51.27 OTHER INTERVERTEBRAL DISC DISPLACEMENT, 04/25/2016 RICHARD GUTIÉRREZ MD Ot C34.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 04/25/2016 RICHARD GUTIÉRREZ MD Ot C79.31 SECONDARY MALIGNANT NEOPLASM OF BRAIN 04/25/2016 DOMONIQUE VALENZUELAP Ot E03.9 HYPOTHYROIDISM, UNSPECIFIED 04/25/2016 INDIRA MEIJA MD Ot Z12.31 ENCNTR SCREEN MAMMOGRAM FOR MALIGNANT NE 04/25/2016 RICHARD GUTIÉRREZ MD Ot 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 04/25/2016 INDIRA MEJIA MD Ot M51.26 OTHER INTERVERTEBRAL DISC DISPLACEMENT, 04/25/2016 INDIRA MEJIA MD, Ot M51.27 OTHER INTERVERTEBRAL DISC DISPLACEMENT, 04/25/2016 RICHARD GUTIÉRREZ MD Ot C34.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 04/25/2016 RICHARD GUTIÉRREZ MD Ot C79.31 SECONDARY MALIGNANT NEOPLASM OF BRAIN 04/28/2016 DOMONIQUE VALENZUELA [facility] Ot E03.9 HYPOTHYROIDISM, UNSPECIFIED 04/28/2016 INDIRA MEJIA MD Ot Z12.31 ENCNTR SCREEN MAMMOGRAM FOR MALIGNANT NE 04/28/2016 RICHARD GUTIÉRREZ MD Ot 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 04/28/2016 INDIRA MEJIA MD Ot M51.26 OTHER INTERVERTEBRAL DISC DISPLACEMENT, 04/28/2016 INDIRA MEJIA MD Ot M51.27 OTHER INTERVERTEBRAL DISC DISPLACEMENT, 04/28/2016 RICHARD GUTIÉRREZ MD Ot C34.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 04/28/2016 RICHARD GUTIÉRREZ MD Ot C79.31 SECONDARY MALIGNANT NEOPLASM OF BRAIN 05/01/2016 Ot B17.10 ACUTE HEPATITIS C WITHOUT HEPATIC COMA 05/02/2016 Ot B17.10 ACUTE HEPATITIS C WITHOUT HEPATIC COMA 05/02/2016 Ot E03.9 HYPOTHYROIDISM, UNSPECIFIED 05/02/2016 Ot N91.1 SECONDARY AMENORRHEA 05/02/2016 Ot B17.10 ACUTE HEPATITIS C WITHOUT HEPATIC COMA 05/16/2016 Ot B17.10 ACUTE HEPATITIS C WITHOUT HEPATIC COMA 05/16/2016 Ot E03.9 HYPOTHYROIDISM, UNSPECIFIED 05/16/2016 Ot N91.1 SECONDARY AMENORRHEA 06/04/2016 DOMONIQUE VALENZUELA Ot E03.9 HYPOTHYROIDISM, UNSPECIFIED 06/04/2016 INDIRA MEJIA MD Ot Z12.31 ENCNTR SCREEN MAMMOGRAM FOR MALIGNANT NE 06/04/2016 MARLA FRANCISCO, RICHARD Samuel Ot 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 06/04/2016 INDIRA MEJIA MD Ot M51.26 OTHER INTERVERTEBRAL DISC DISPLACEMENT, 06/04/2016 INDIRA MEJIA MD Ot M51.27 OTHER INTERVERTEBRAL DISC DISPLACEMENT, 06/04/2016 MARLA FRANCISCO, RICHARD Samuel Ot C34.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 06/04/2016 RICHARD GUTIÉRREZ MD Ot C79.31 SECONDARY MALIGNANT NEOPLASM OF BRAIN 06/04/2016 Ot B17.10 ACUTE HEPATITIS C WITHOUT HEPATIC COMA 06/04/2016 Ot E03.9 HYPOTHYROIDISM, UNSPECIFIED 06/04/2016 Ot N91.1 SECONDARY AMENORRHEA 06/10/2016 ERIN, NANCY L SUPERVISOR HEAT TREATING Ot B19.20 UNSPECIFIED VIRAL HEPATITIS C WITHOUT HE 06/11/2016 ERIN, NANCY L SUPERVISOR HEAT TREATING Ot B19.20 UNSPECIFIED VIRAL HEPATITIS C WITHOUT HE 06/12/2016 ERIN, NANCY L SUPERVISOR HEAT TREATING Ot B19.20 UNSPECIFIED VIRAL HEPATITIS C WITHOUT HE 06/25/2016 AIDA MARCH DO Ot E03.9 HYPOTHYROIDISM, UNSPECIFIED 06/27/2016 ERIN, NANCY L SUPERVISOR HEAT TREATING Ot B19.20 UNSPECIFIED VIRAL HEPATITIS C WITHOUT HE 09/09/2016 ORENDER DO, ESTRELLA S Ot J43.8 OTHER EMPHYSEMA 09/09/2016 ORENDER DO, ESTRELLA S Ot R91.8 OTHER NONSPECIFIC ABNORMAL FINDING OF ELVA 09/11/2016 ORENDER DO, ESTRELLA S Ot J43.8 OTHER EMPHYSEMA 09/11/2016 ORENDER DO, ESTRELLA S Ot R91.8 OTHER NONSPECIFIC ABNORMAL FINDING OF ELVA 09/15/2016 ORENDER DO, ESTRELLA S Ot J43.8 OTHER EMPHYSEMA 09/15/2016 ORENDER DO, ESTRELLA S Ot R91.8 OTHER NONSPECIFIC ABNORMAL FINDING OF ELVA 09/24/2016 ORENDER DO, ESTRELLA S Ot J43.8 OTHER EMPHYSEMA 09/24/2016 ORENDER DO, ESTRELLA S Ot R91.8 OTHER NONSPECIFIC ABNORMAL FINDING OF ELVA 11/24/2016 RICHARD BARRAGAN MD Ot B19.20 UNSPECIFIED VIRAL HEPATITIS C WITHOUT HE 11/24/2016 RICHARD BARRAGAN MD Ot B96.20 UNSP ESCHERICHIA COLI THE CAUSE OF DI 11/24/2016 RICHARD BARRAGAN MD Ot E87.6 HYPOKALEMIA 11/24/2016 RICHARD BARRAGAN MD Ot F17.210 NICOTINE DEPENDENCE, CIGARETTES, UNCOMPL 11/24/2016 RICHARD BARRAGAN MD Ot F41.9 ANXIETY DISORDER, UNSPECIFIED 11/24/2016 RICHARD BARRAGAN MD Ot N39.0 URINARY TRACT INFECTION, SITE NOT SPECIF 12/17/2016 ALEM NAVARRO APRN Ot F17.210 NICOTINE DEPENDENCE, CIGARETTES, UNCOMPL 12/17/2016 ALEM NAVARRO APRN Ot J44.9 CHRONIC OBSTRUCTIVE PULMONARY DISEASE, U 12/17/2016 ALEM NAVARRO APRN Ot R55 SYNCOPE AND COLLAPSE 12/17/2016 ALEM NAVARRO APRN Ot S60.211A CONTUSION OF RIGHT WRIST, INITIAL ENCOUN 12/17/2016 ALEM NAVARRO APRN Ot S69.91XA UNSP INJURY OF RIGHT WRIST, HAND AND FIN 12/17/2016 ALEM NAVARRO APRN Ot W18.30XA FALL ON SAME LEVEL, UNSPECIFIED, INITIAL Procedures Encounters ACCT No. Visit Date/Time Discharge Status Pt. Type Provider Facility Loc./Unit Complaint [id number] 12/11/2016 09:59:00 2016 11:48:00 DIS Outpatient ALEM NAVARRO APRN [facility] ER SYNCOPAL EPISODE/FALL R WRIST/R ANKLE INJURY [id number] 11/23/2016 20:35:00 2016 13:18:00 DIS Inpatient RICHARD BARRAGAN MD [facility] 4TH UTI,INTRACTABLE VOMITING,DEHYDRATION [id number] 06/10/2016 08:00:00 2015 15:20:00 DIS Outpatient NANCY KHAN APRN [facility] RAD POSITIVE HEP C [id number] 06/06/2016 05:36:00 2015 10:01:00 DIS Outpatient MARIBEL JARQUIN MD [facility] PREOP POSITIVE HEP C [id number] 02/26/2016 02:51:00 2015 05:18:00 DIS Emergency CATE CORBIN DO [facility] ER SEVERE BACK PAIN [id number] 02/23/2016 12:19:00 2015 13:30:00 DIS Emergency ALEM NAVARRO SUPERVISOR HEAT TREATING [facility] ER R HAND LAC/L WRIST INJ [id number] 02/10/2016 17:20:00 2015 11:28:00 DIS Inpatient ESTRELLA JACKSON DO [facility] ICU BRADYCARDIA, UTI, H/O COPD [id number] 12/18/2015 14:36:00 2015 00:01:00 DIS Outpatient RICHARD GUTIÉRREZ MD [facility] ONC [id number] 09/13/2015 19:14:00 2015 22:44:00 DIS Emergency CATE CORBIN DO [facility] ER BACK PAIN AND RIGHT LEG PAIN [id number] 09/09/2016 15:14:00 ACT Outpatient ESTRELLA JACKSON DO [facility] RAD PULMONARY NODULE [id number] 06/09/2016 14:08:00 ACT Outpatient MARCHANA CRISTINA GALLO DOISON Naheed [facility] LAB HYPOTHYROIDISM [id number] 05/01/2016 07:45:00 Document Registration [id number] 04/30/2016 07:06:00 Document Registration [id number] 01/16/2016 00:10:00 PEN Preadmit RICHARD GUTIÉRREZ MD [facility] ONC [id number] 12/15/2015 11:58:00 ACT Inpatient INDIRA MEJIA MD [facility] ICU SYNCOPE,CONCUSSION,HYPERTHYROIDISM,UTI [id number] 11/07/2015 13:20:00 ACT Outpatient RICHARD GUTIÉRREZ MD [facility] CARD GRAVES DISEASE [id number] 11/02/2015 13:40:00 ACT Outpatient INDIRA MEJIA MD [facility] RAD LUMBAR DISC DISEASE [id number] 10/24/2015 10:00:00 ACT Outpatient INDIRA MEJIA MD [facility] RAD SCREENING [id number] 10/11/2015 11:00:00 ACT Outpatient DOMONIQUE VALENZUELA [facility] CARD HYPOTHYROIDISM
== END 2016-12-21 14:07 | disposition home or self-care (01) ==
LOC: EDUNIT# 11:38 → ER 11:39
DX: M54.9 Dorsalgia, unspecified (principal); G89.29 Other chronic pain; F41.9 Anxiety disorder, unspecified; I10 Essential (primary) hypertension; R63.4 Abnormal weight loss; J43.9 Emphysema, unspecified; E03.9 Hypothyroidism, unspecified; Z87.891 Personal history of nicotine dependence; Z98.51 Tubal ligation status
CPT/HCPCS: 36415; 71020; 80053; 80306; 81000; 84439; 84443; 85025; 93005

== ENCOUNTER → 2016-12-22 | Outpatient (CLI) | payer BC ==
[2016-12-22 16:31] LABS: %SAT TOTAL IRON BINDING CAPIC 21 % (15-50); TIBC 381 ug/dL (280-380)
[2016-12-22 16:42] LABS: UIBC 300 ug/dL
[2016-12-23 07:10] LABS: FOLLICLE STIMULATING HORMONE 63.8 mIU/mL; LUTEINIZING HORMONE 24.9 mIU/mL
== END ==
LOC: LAB 14:40
PROVIDERS: ATTEND Internal Medicine Endocrinology, Diabetes & Metabolism
DX: N91.1 Secondary amenorrhea (principal); R63.4 Abnormal weight loss; E03.9 Hypothyroidism, unspecified
CPT/HCPCS: 36415; 82728; 83001; 83002; 83540; 84443; 86255

== ENCOUNTER 2017-01-15 18:46 | Emergency (ER) | payer OTHER, BC ==
[~2017-01-15] VITALS: Ht 167.6 cm; Wt 53.1 kg
[2017-01-15] MEDS ORDERED: fentaNYL INJECTION 100 MCG/2 ML AMP IM STA (20:05)
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
[2017-01-15] MEDS ORDERED: ORPHENADRINE 60 MG/2 ML (NORFLEX) AMP IM ONE (21:00)
[2017-01-15] MEDS ORDERED: PRD20T PO (21:18)
[2017-01-15 21:26] VITALS: BP 128/99
== END 2017-01-15 21:26 | disposition home or self-care (01) ==
LOC: EDUNIT# 18:46 → ER 18:48
DX: S16.1XXA Strain of muscle, fascia and tendon at neck level, initial encounter (principal); J43.9 Emphysema, unspecified; J45.909 Unspecified asthma, uncomplicated; E03.9 Hypothyroidism, unspecified; E05.90 Thyrotoxicosis, unspecified without thyrotoxic crisis or storm; F41.9 Anxiety disorder, unspecified; F17.210 Nicotine dependence, cigarettes, uncomplicated; Z98.51 Tubal ligation status; Z96.0 Presence of urogenital implants; V47.6XXA Car passenger injured in collision with fixed or stationary object in traffic accident, initial encounter; Y92.481 Parking lot as the place of occurrence of the external cause
CPT/HCPCS: 72125; 96372; 99284

== ENCOUNTER 2017-03-26 08:14 | Outpatient (RCR) | payer OTHER, BC | END 2017-03-28 | disposition home or self-care (01) | PROVIDERS: ATTEND Internal Medicine | DX: V47.1XXA Car passenger injured in collision with fixed or stationary object in nontraffic accident, initial encounter; Y99.8 Other external cause status; Y92.410 Unspecified street and highway as the place of occurrence of the external cause; S13.4XXA Sprain of ligaments of cervical spine, initial encounter ==

== ENCOUNTER 2017-04-10 08:37 | Outpatient (RCR) | payer OTHER, BC | END 2017-04-24 16:18 | disposition home or self-care (01) | PROVIDERS: ATTEND Internal Medicine | DX: S13.4XXA Sprain of ligaments of cervical spine, initial encounter (principal); V47.1XXA Car passenger injured in collision with fixed or stationary object in nontraffic accident, initial encounter ==

== ENCOUNTER 2017-07-16 16:01 | Emergency (ER) | payer SELFPAY ==
[~2017-07-16] VITALS: Ht 170.2 cm; Wt 61.2 kg
[2017-07-16] MEDS ORDERED: LACTATED RINGERS 1,000 ML IV ONE ×2 (16:57→19:00)
[2017-07-16] MEDS ORDERED: ORPHENADRINE 60 MG/2 ML (NORFLEX) AMP IV STA (16:57)
[2017-07-16] MEDS ORDERED: KETOROLAC 30 MG/ML VIAL IVP STA (16:57)
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
[2017-07-16 17:30] LABS: BASOPHILS # (AUTO) 0.1 10^3/uL (0.0-0.1); BASOPHILS % (AUTO) 1 % (0-10); EOSINOPHILS # (AUTO) 0.2 10^3/uL (0.0-0.3); EOSINOPHILS % (AUTO) 2 % (0-10); HEMATOCRIT 38 % (35-52); HEMOGLOBIN 13.2 G/DL (11.5-16.0); LYMPHOCYTES # (AUTO) 2.9 X 10^3 (1.0-4.0); LYMPHOCYTES % (AUTO) 42 % (12-44); MEAN CORPUSCULAR HEMOGLOBIN 31 PG (25-34); MEAN CORPUSCULAR HGB CONC 35 G/DL (32-36); MEAN CORPUSCULAR VOLUME 90 FL (80-99); MEAN PLATELET VOLUME 8.9 FL (7.4-10.4); MONOCYTES # (AUTO) 0.4 X 10^3 (0.0-1.0); MONOCYTES % (AUTO) 6 % (0-12); NEUTROPHILS # (AUTO) 3.3 X 10^3 (1.8-7.8); NEUTROPHILS % (AUTO) 48 % (42-75); PLATELET COUNT 226 10^3/uL (130-400); RED BLOOD COUNT 4.27 10^6/uL (4.35-5.85); RED CELL DISTRIBUTION WIDTH 13.2 % (10.0-14.5); WHITE BLOOD COUNT 6.8 10^3/uL (4.3-11.0)
[2017-07-16 17:49] LABS: ALANINE AMINOTRANSFERASE 18 U/L (0-55); ALBUMIN 3.8 GM/DL (3.2-4.5); ALKALINE PHOSPHATASE 77 U/L (40-136); BILIRUBIN,TOTAL 0.2 MG/DL (0.1-1.0); BUN/CREATININE RATIO 9; CARBON DIOXIDE 27 MMOL/L (21-32); CHLORIDE 103 MMOL/L (98-107); CREATININE SERUM 0.82 MG/DL (0.60-1.30); GFR ESTIMATED > 60; GLUCOSE 83 MG/DL (70-105); POTASSIUM 3.9 MMOL/L (3.6-5.0); SODIUM 140 MMOL/L (135-145)
--- NOTE | 2017-07-16 18:52 | Diagnostic Imaging Report ---
INDICATION: Fall. Pain. COMPARISON: 12/21/2016. FINDINGS: Single frontal view of the chest is obtained. Heart size is normal. The pulmonary vessels appear unremarkable. There is no pneumothorax, mediastinal widening, or pleural fluid. Some chronic blunting of the left costophrenic angle is unchanged. No new pulmonary parenchymal abnormality is seen. IMPRESSION: No acute abnormality is seen. No interval change from the prior study. Dictated by: Dictated on workstation # [id number]
--- NOTE | 2017-07-16 18:52 | Diagnostic Imaging Report ---
INDICATION: Fall. Pain. COMPARISON: None FINDINGS: AP view of the pelvis and 2 views of the right hip were obtained. No acute fracture, malalignment or osseous destructive process is seen. There is some degenerative spurring and mild joint space narrowing of the hips bilaterally slightly worse on the left. The sacroiliac joints appear unremarkable. IMPRESSION: Degenerative changes. No acute fracture is seen. Dictated by: Dictated on workstation # [id number]
--- NOTE | 2017-07-16 18:53 | Diagnostic Imaging Report ---
INDICATION: Fall. Pain. COMPARISON: None. EXAMINATION: Three views of the right shoulder were obtained. FINDINGS: No acute fracture, malalignment or osseous destructive process is seen. The glenohumeral and acromioclavicular joints appear unremarkable. IMPRESSION: Negative right shoulder. Dictated by: Dictated on workstation # [id number]
[2017-07-16] MEDS ORDERED: ORPHENADRINE 60 MG/2 ML (NORFLEX) AMP ONE (19:00)
[2017-07-16] MEDS ORDERED: KETOROLAC 30 MG/ML VIAL ONE (19:00)
--- NOTE | 2017-07-16 19:16 | Diagnostic Imaging Report ---
INDICATION: Fall with right-sided chest pain and back pain. EXAMINATION: CT of the chest was obtained without IV contrast. FINDINGS: There is volume loss of the left hemithorax with shift of the mediastinum toward the left side. There are no overt enlarged nodes in the mediastinum or gregory. There are no enlarged axillary nodes. There is some chronic pleural thickening in the left costophrenic angle without evidence of fluid. There are calcified granulomata in the right lower lobe. There are biapical emphysematous changes. There is some dependent atelectatic change in the right base. There is some apparent parenchymal scarring in the left lung base, anteriorly, which appears similar to 09/09/2016. There is some left apical scarring. There is no pneumothorax. Nodular density in the left upper lobe, laterally, measures about 5 mm, which is stable compared to the previous study. IMPRESSION: Chronic volume loss in left hemithorax, similar to the previous study of 09/09/2016. Stable 5 mm nodule in the left upper lobe, laterally. Stable emphysematous changes. Stable parenchymal scarring in the left upper lung field and base as well as in the right lower lobe. Old granulomatous changes in right base. No pleural fluid, pneumothorax or other acute finding. Consider continued followup of left upper lobe nodule up to two years, to exclude growth. The most recent prior as well as the oldest chest CT was from 09/09/2016. Dictated by: Dictated on workstation # [id number]
--- NOTE | 2017-07-16 19:24 | Diagnostic Imaging Report ---
PROCEDURE: CT head and CT cervical spine without contrast. TECHNIQUE: Multiple contiguous axial images were obtained through the brain and cervical spine without the use of intravenous contrast. Sagittal and coronal reformations through the cervical spine were then performed. INDICATION: Fall on ice. Neck pain. COMPARISON: Cervical spine CT 01/15/2017. FINDINGS: Head CT: No acute intracranial hemorrhage, mass effect or midline shift is seen. The ventricles appear normal. There is ill-defined low density in the left occipital lobe and posterior parietal lobe which is transcortical best demonstrated on series 2 image 19. Some subtle edema here is not entirely excluded. No additional focal abnormality is seen. The paranasal sinuses and mastoids are clear as visualized. There is no evidence of basilar skull fracture. Cervical spine CT: No acute fracture, malalignment or osseous destructive process is seen. Vertebral body heights are maintained. There are degenerative changes in the cervical spine with disc space narrowing and spurring at C4/C5 and C5/C6. Uncovertebral joint spurring at these levels results in moderate foraminal narrowing. There are multiple levels of facet degenerative changes. The prevertebral soft tissues appear unremarkable. There is coarse parenchymal opacity in the right lung apices likely represents some scarring. IMPRESSION: 1. Possible area of edema involving the posterior left parietal and left occipital lobe, nonspecific. MRI would be of additional benefit for further evaluation. 2. There is, however, no evidence of acute intracranial hemorrhage and there is no mass effect or midline shift. 3. No acute cervical spine fracture is seen. Degenerative changes as described. Report was called to Dr. Yana Lala in the [facility] ER at 7:21 p.m. By meme (for ). Dictated by: Dictated on workstation # [id number]
--- NOTE | 2017-07-16 19:29 | Diagnostic Imaging Report ---
INDICATION: Fell on ice with back pain EXAMINATION: CT of the thoracic and lumbar spine was obtained with axial slices without contrast and sagittal and coronal reconstructions. FINDINGS: There is dextroscoliotic change of the thoracic spine and levoscoliotic change of the lumbar spine. There is disc space narrowing degenerative endplate change at L3-4, without subluxation. Remaining disc levels are otherwise unremarkable. There is no acute fracture or compression deformity. IMPRESSION: Scoliotic changes of the thoracolumbar spine, as described above. No acute fracture or subluxation. There is disc space narrowing and degenerative endplate change as well as facet degenerative change at L3-4. There is some facet degenerative change at L4-5 and L5-S1 as well. There is no acute appearing abnormality. Dictated by: Dictated on workstation # [id number]
[2017-07-16 20:15] LABS: BILIRUBIN,URINE NEGATIVE (NEGATIVE); CLARITY,URINE CLEAR; COLOR,URINE YELLOW; GLUCOSE, URINE (UA) NEGATIVE (NEGATIVE); KETONES,URINE NEGATIVE (NEGATIVE); LEUKOCYTE ESTERASE ,URINE NEGATIVE (NEGATIVE); NITRITE,URINE POSITIVE (NEGATIVE); PH,URINE 6.5 (5-9); PROTEIN,URINE NEGATIVE (NEGATIVE); UROBILINOGEN,URINE NORMAL (NORMAL)
[2017-07-16] MEDS ORDERED: methylPREDNISolone 125 MG (Solu-MEDROL) VIAL IVP ONE (20:15)
[2017-07-16] MEDS ORDERED: METH4TAB PO (20:18)
[2017-07-16 20:27] LABS: BACTERIA,URINE LARGE /HPF
[2017-07-16 20:28] LABS: AMPHETAMINE SCREEN, URINE NEGATIVE (NEGATIVE); BARBITURATE SCREEN URINE NEGATIVE (NEGATIVE); BENZODIAZEPINES SCREEN URINE POSITIVE (NEGATIVE); CANNABINOID SCREEN, URINE NEGATIVE (NEGATIVE); COCAINE SCREEN URINE NEGATIVE (NEGATIVE); METHADONE STAT NEGATIVE (NEGATIVE); METHAMPHETAMINE SCREEN URINE S NEGATIVE (NEGATIVE); OPIATE SCREEN URINE NEGATIVE (NEGATIVE); OXYCODONE STAT POSITIVE (NEGATIVE); PROPOXYPHENE STAT NEGATIVE (NEGATIVE); TRICYCLIC ANTIDEPRESSANTS SCRE POSITIVE (NEGATIVE)
[2017-07-16 20:32] VITALS: BP 142/92
== END 2017-07-16 20:31 | disposition home or self-care (01) ==
LOC: EDUNIT# 16:01 → ER 16:03
DX: S09.90XA Unspecified injury of head, initial encounter (principal); S16.1XXA Strain of muscle, fascia and tendon at neck level, initial encounter; S29.012A Strain of muscle and tendon of back wall of thorax, initial encounter; M54.5 Low back pain; G89.29 Other chronic pain; R93.0 Abnormal findings on diagnostic imaging of skull and head, not elsewhere classified; F41.9 Anxiety disorder, unspecified; E03.9 Hypothyroidism, unspecified; M48.00 Spinal stenosis, site unspecified; K21.9 Gastro-esophageal reflux disease without esophagitis; J43.9 Emphysema, unspecified; F12.90 Cannabis use, unspecified, uncomplicated; F17.210 Nicotine dependence, cigarettes, uncomplicated; Z98.51 Tubal ligation status; Z87.59 Personal history of other complications of pregnancy, childbirth and the puerperium; Z96.0 Presence of urogenital implants; W00.0XXA Fall on same level due to ice and snow, initial encounter
CPT/HCPCS: 36415; 70450; 71045; 71250; 72125; 72128; 72131; 73030; 80053; 80306; 81000; 84703; 85025; 87088; 87186; 96361; 96374; 96375

== ENCOUNTER → 2017-07-27 | Outpatient (CLI) | payer SELFPAY ==
--- NOTE | 2017-07-27 10:50 | Diagnostic Imaging Report ---
PROCEDURE: MR imaging of the brain without contrast. TECHNIQUE: Multiplanar, multisequence MR imaging of the brain was performed without contrast. INDICATION: Fall with head pain. Comparison with prior CT head 07/16/2017. FINDINGS: The ventricles and sulci are within normal limits. There is no hydrocephalus. There is no midline shift. There is no intracranial mass, hemorrhage or extra-axial fluid collection. There are no areas of diffusion restriction appreciated to suggest an acute CVA. The frontal, ethmoid, sphenoid and maxillary sinuses are clear. Mastoid air cells are clear. The globes and intraorbital structures are unremarkable. The central, arterial and dural venous sinus flow voids are preserved. IMPRESSION: Unremarkable MRI brain. Dictated by: Dictated on workstation # [id number]
== END ==
LOC: RAD 09:08
PROVIDERS: ATTEND Family Medicine
DX: R51 Headache (principal); R93.0 Abnormal findings on diagnostic imaging of skull and head, not elsewhere classified; W19.XXXA Unspecified fall, initial encounter
CPT/HCPCS: 70551

== ENCOUNTER 2017-10-04 14:09 | Emergency (ER) | payer SELFPAY ==
[~2017-10-04] VITALS: Ht 167.6 cm; Wt 61.2 kg
--- OUTSIDE RECORDS SUMMARY | 2017-10-04 14:19 | XMS REPORT | Continuity of Care Document ---
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 0.1-1.0 Serum or plasma alkaline phosphatase measurement (enzymatic activity/volume) 154 U/L 40-136 Serum or plasma aspartate aminotransferase measurement (enzymatic activity/ volume) 44 U/L 5-34 Serum or plasma alanine aminotransferase measurement (enzymatic activity/volume ) 38 U/L 0-55 Serum or plasma protein measurement (mass/volume) 7.8 g/dL 6.4-8.2 Serum or plasma albumin measurement (mass/volume) 4.4 g/dL 3.2-4.5 Magnesium - 02/10/16 16:35 Magnesium 2.4 mg/dL 1.8-2.4 Serum or plasma troponin i.cardiac measurement (mass/volume) - 02/10/16 16:35 Serum or plasma troponin i.cardiac measurement (mass/volume) < ng/ mL <0.30 Serum or plasma thyroxine (T4) free measurement (mass/volume) - 02/10/16 16:35 Serum or plasma thyroxine (T4) free measurement (mass/volume) < ng/ dL 0.70-1.48 Serum or plasma lithium measurement (moles/volume) - 02/10/16 16:35 BNP level < pg/mL <100.0 Complete blood count (CBC) with automated white blood cell (WBC) differential - 02/10/16 16:35 Blood leukocytes automated count (number/volume) 4.8 10*3/uL 4.3-11.0 Blood erythrocytes automated count (number/volume) 5.16 10*6/uL 4.35-5.85 Venous blood hemoglobin measurement (mass/volume) 13.9 g/dL 11.5-16.0 Blood hematocrit (volume fraction) 42 % 35-52 Automated erythrocyte mean corpuscular volume 82 [foz_us] 80-99 Automated erythrocyte mean corpuscular hemoglobin (mass per erythrocyte) 27 pg 25-34 Automated erythrocyte mean corpuscular hemoglobin concentration measurement ( mass/volume) 33 g/dL 32-36 Automated erythrocyte distribution width ratio 16.4 % 10.0-14.5 Automated blood platelet count (count/volume) 155 10*3/uL 130-400 Automated blood platelet mean volume measurement 8.7 [foz_us] 7.4-10.4 Automated blood neutrophils/100 leukocytes 49 % 42-75 Automated blood lymphocytes/100 leukocytes 44 % 12-44 Blood monocytes/100 leukocytes 4 % 0-12 Automated blood eosinophils/100 leukocytes 2 % 0-10 Automated blood basophils/100 leukocytes 1 % 0-10 Blood neutrophils automated count (number/volume) 2.3 10*3 1.8-7.8 Blood lymphocytes automated count (number/volume) 2.1 10*3 1.0-4.0 Blood monocytes automated count (number/volume) 0.2 10*3 0.0-1.0 Automated eosinophil count 0.1 10*3/uL 0.0-0.3 Automated blood basophil count (count/volume) 0.1 10*3/uL 0.0-0.1 Serum or plasma thyrotropin measurement by detection limit <=0.05 miu/l (units/ volume) - 02/10/16 16:35 Serum or plasma thyrotropin measurement by detection limit <=0.05 miu/l (units/ volume) 41.09 u[iU]/mL 0.35-4.94 Serum or plasma acetaminophen measurement (mass/volume) - 02/10/16 16:35 Serum or plasma acetaminophen measurement (mass/volume) < ug/mL 10-30 Serum or plasma ethanol measurement (mass/volume) - 02/10/16 16:35 Serum or plasma ethanol measurement (mass/volume) < mg/dL <10 Complete blood count (CBC) with automated white blood cell (WBC) differential - 02/11/16 04:25 Blood leukocytes automated count (number/volume) 4.4 10*3/uL 4.3-11.0 Blood erythrocytes automated count (number/volume) 5.14 10*6/uL 4.35-5.85 Venous blood hemoglobin measurement (mass/volume) 13.6 g/dL 11.5-16.0 Blood hematocrit (volume fraction) 42 % 35-52 Automated erythrocyte mean corpuscular volume 81 [foz_us] 80-99 Automated erythrocyte mean corpuscular hemoglobin (mass per erythrocyte) 27 pg 25-34 Automated erythrocyte mean corpuscular hemoglobin concentration measurement ( mass/volume) 33 g/dL 32-36 Automated erythrocyte distribution width ratio 16.3 % 10.0-14.5 Automated blood platelet count (count/volume) 162 10*3/uL 130-400 Automated blood platelet mean volume measurement 9.0 [foz_us] 7.4-10.4 Automated blood neutrophils/100 leukocytes 69 % 42-75 Automated blood lymphocytes/100 leukocytes 30 % 12-44 Blood monocytes/100 leukocytes 1 % 0-12 Automated blood eosinophils/100 leukocytes 0 % 0-10 Automated blood basophils/100 leukocytes 0 % 0-10 Blood neutrophils automated count (number/volume) 3.0 10*3 1.8-7.8 Blood lymphocytes automated count (number/volume) 1.3 10*3 1.0-4.0 Blood monocytes automated count (number/volume) 0.0 10*3 0.0-1.0 Automated eosinophil count 0.0 10*3/uL 0.0-0.3 Automated blood basophil count (count/volume) 0.0 10*3/uL 0.0-0.1 Comprehensive metabolic panel - 02/11/16 04:25 Serum or plasma sodium measurement (moles/volume) 137 mmol/L 135-145 Serum or plasma potassium measurement (moles/volume) 4.5 mmol/L 3.6-5.0 Serum or plasma chloride measurement (moles/volume) 105 mmol/L 98-107 Carbon dioxide 21 mmol/L 21-32 Serum or plasma anion gap determination (moles/volume) 11 mmol/L 5-14 Serum or plasma urea nitrogen measurement (mass/volume) 16 mg/dL 7-18 Serum or plasma creatinine measurement (mass/volume) 1.00 mg/dL 0.60-1.30 Serum or plasma urea nitrogen/creatinine mass ratio 16 NRG Serum or plasma creatinine measurement with calculation of estimated glomerular filtration rate 60 NRG Serum or plasma glucose measurement (mass/volume) 150 mg/dL 70-105 Serum or plasma calcium measurement (mass/volume) 9.1 mg/dL 8.5-10.1 Serum or plasma total bilirubin measurement (mass/volume) 0.3 mg/dL 0.1-1.0 Serum or plasma alkaline phosphatase measurement (enzymatic activity/volume) 147 U/L 40-136 Serum or plasma aspartate aminotransferase measurement (enzymatic activity/ volume) 41 U/L 5-34 Serum or plasma alanine aminotransferase measurement (enzymatic activity/volume ) 39 U/L 0-55 Serum or plasma protein measurement (mass/volume) 7.2 g/dL 6.4-8.2 Serum or plasma albumin measurement (mass/volume) 4.1 g/dL 3.2-4.5 Complete blood count (CBC) with automated white blood cell (WBC) differential - 02/12/16 04:05 Blood leukocytes automated count (number/volume) 5.9 10*3/uL 4.3-11.0 Blood erythrocytes automated count (number/volume) 4.61 10*6/uL 4.35-5.85 Venous blood hemoglobin measurement (mass/volume) 12.5 g/dL 11.5-16.0 Blood hematocrit (volume fraction) 38 % 35-52 Automated erythrocyte mean corpuscular volume 83 [foz_us] 80-99 Automated erythrocyte mean corpuscular hemoglobin (mass per erythrocyte) 27 pg 25-34 Automated erythrocyte mean corpuscular hemoglobin concentration measurement ( mass/volume) 33 g/dL 32-36 Automated erythrocyte distribution width ratio 16.7 % 10.0-14.5 Automated blood platelet count (count/volume) 162 10*3/uL 130-400 Automated blood platelet mean volume measurement 9.6 [foz_us] 7.4-10.4 Automated blood neutrophils/100 leukocytes 61 % 42-75 Automated blood lymphocytes/100 leukocytes 36 % 12-44 Blood monocytes/100 leukocytes 3 % 0-12 Automated blood eosinophils/100 leukocytes 0 % 0-10 Automated blood basophils/100 leukocytes 0 % 0-10 Blood neutrophils automated count (number/volume) 3.6 10*3 1.8-7.8 Blood lymphocytes automated count (number/volume) 2.1 10*3 1.0-4.0 Blood monocytes automated count (number/volume) 0.2 10*3 0.0-1.0 Automated eosinophil count 0.0 10*3/uL 0.0-0.3 Automated blood basophil count (count/volume) 0.0 10*3/uL 0.0-0.1 Comprehensive metabolic panel - 02/12/16 04:05 Serum or plasma sodium measurement (moles/volume) 140 mmol/L 135-145 Serum or plasma potassium measurement (moles/volume) 3.9 mmol/L 3.6-5.0 Serum or plasma chloride measurement (moles/volume) 109 mmol/L 98-107 Carbon dioxide 23 mmol/L 21-32 Serum or plasma anion gap determination (moles/volume) 8 mmol/L 5-14 Serum or plasma urea nitrogen measurement (mass/volume) 15 mg/dL 7-18 Serum or plasma creatinine measurement (mass/volume) 1.00 mg/dL 0.60-1.30 Serum or plasma urea nitrogen/creatinine mass ratio 15 NRG Serum or plasma creatinine measurement with calculation of estimated glomerular filtration rate 60 NRG Serum or plasma glucose measurement (mass/volume) 118 mg/dL 70-105 Serum or plasma calcium measurement (mass/volume) 8.5 mg/dL 8.5-10.1 Serum or plasma total bilirubin measurement (mass/volume) 0.2 mg/dL 0.1-1.0 Serum or plasma alkaline phosphatase measurement (enzymatic activity/volume) 110 U/L 40-136 Serum or plasma aspartate aminotransferase measurement (enzymatic activity/ volume) 27 U/L 5-34 Serum or plasma alanine aminotransferase measurement (enzymatic activity/volume ) 28 U/L 0-55 Serum or plasma protein measurement (mass/volume) 6.2 g/dL 6.4-8.2 Serum or plasma albumin measurement (mass/volume) 3.5 g/dL 3.2-4.5 Magnesium - 02/12/16 04:05 Magnesium 2.3 mg/dL 1.8-2.4 Complete blood count (CBC) with automated white blood cell (WBC) differential - 02/26/16 03:04 Blood leukocytes automated count (number/volume) 2.1 10*3/uL 4.3-11.0 Blood erythrocytes automated count (number/volume) 5.41 10*6/uL 4.35-5.85 Venous blood hemoglobin measurement (mass/volume) 14.5 g/dL 11.5-16.0 Blood hematocrit (volume fraction) 44 % 35-52 Automated erythrocyte mean corpuscular volume 81 [foz_us] 80-99 Automated erythrocyte mean corpuscular hemoglobin (mass per erythrocyte) 27 pg 25-34 Automated erythrocyte mean corpuscular hemoglobin concentration measurement ( mass/volume) 33 g/dL 32-36 Automated erythrocyte distribution width ratio 17.7 % 10.0-14.5 Automated blood platelet count (count/volume) 142 10*3/uL 130-400 Automated blood platelet mean volume measurement 8.7 [foz_us] 7.4-10.4 Automated blood neutrophils/100 leukocytes 38 % 42-75 Automated blood lymphocytes/100 leukocytes 55 % 12-44 Blood monocytes/100 leukocytes 4 % 0-12 Automated blood eosinophils/100 leukocytes 1 % 0-10 Automated blood basophils/100 leukocytes 1 % 0-10 Blood neutrophils automated count (number/volume) 0.8 10*3 1.8-7.8 Blood lymphocytes automated count (number/volume) 1.2 10*3 1.0-4.0 Blood monocytes automated count (number/volume) 0.1 10*3 0.0-1.0 Automated eosinophil count 0.0 10*3/uL 0.0-0.3 Automated blood basophil count (count/volume) 0.0 10*3/uL 0.0-0.1 Comprehensive metabolic panel - 02/26/16 03:04 Serum or plasma sodium measurement (moles/volume) 139 mmol/L 135-145 Serum or plasma potassium measurement (moles/volume) 3.9 mmol/L 3.6-5.0 Serum or plasma chloride measurement (moles/volume) 104 mmol/L 98-107 Carbon dioxide 23 mmol/L 21-32 Serum or plasma anion gap determination (moles/volume) 12 mmol/L 5-14 Serum or plasma urea nitrogen measurement (mass/volume) 13 mg/dL 7-18 Serum or plasma creatinine measurement (mass/volume) 1.33 mg/dL 0.60-1.30 Serum or plasma urea nitrogen/creatinine mass ratio 10 NRG Serum or plasma creatinine measurement with calculation of estimated glomerular filtration rate 43 NRG Serum or plasma glucose measurement (mass/volume) 99 mg/dL 70-105 Serum or plasma calcium measurement (mass/volume) 8.8 mg/dL 8.5-10.1 Serum or plasma total bilirubin measurement (mass/volume) 0.4 mg/dL 0.1-1.0 Serum or plasma alkaline phosphatase measurement (enzymatic activity/volume) 174 U/L 40-136 Serum or plasma aspartate aminotransferase measurement (enzymatic activity/ volume) 120 U/L 5-34 Serum or plasma alanine aminotransferase measurement (enzymatic activity/volume ) 120 U/L 0-55 Serum or plasma protein measurement (mass/volume) 7.9 g/dL 6.4-8.2 Serum or plasma albumin measurement (mass/volume) 4.4 g/dL 3.2-4.5 Serum or plasma amylase measurement (enzymatic activity/volume) - 02/26/16 03: 04 Serum or plasma amylase measurement (enzymatic activity/volume) 83 U /L 25-125 Lipase - 02/26/16 03:04 Lipase 28 U/L 8-78 Acute hepatitis panel - 02/26/16 03:04 Confirmatory quantitative serum or plasma hepatitis B virus surface antigen measurement Non-Reactive Non-Reactive Hepatitis A virus IgM antibody assay Non-Reactive Non- Reactive Hepatitis B virus core IgM antibody assay Non-Reactive Non-Reactive Serum hepatitis C virus antibody detection Reactive Non- Reactive Hepatitis C virus ab signal/cutoff in serum or plasma by immunoassay > % 0.00-0.79 Serum or plasma choriogonadotropin ( test) detection - 02/26/16 03:20 Serum or plasma choriogonadotropin ( test) detection NEGATIVE NEGATIVE Complete urinalysis with reflex to culture - 02/26/16 03:20 Urine color determination TIFFANI NRG Urine clarity determination CLEAR NRG Urine pH measurement by test strip 6.5 5-9 Specific gravity of urine by test strip 1.015 1.016- 1.022 Urine protein assay by test strip, semi-quantitative 1+ NEGATIVE Urine glucose detection by automated test strip NEGATIVE NEGATIVE Erythrocytes detection in urine sediment by light microscopy NEGATIVE NEGATIVE Urine ketones detection by automated test strip NEGATIVE NEGATIVE Urine nitrite detection by test strip NEGATIVE NEGATIVE Urine total bilirubin detection by test strip NEGATIVE NEGATIVE Urine urobilinogen measurement by automated test strip (mass/volume) 1 mg/dL NORMAL Urine leukocyte esterase detection by dipstick 1+ NEGATIVE Automated urine sediment erythrocyte count by microscopy (number/high power field) NONE NRG Automated urine sediment leukocyte count by microscopy (number/high power field ) RARE NRG Bacteria detection in urine sediment by light microscopy TRACE NRG Squamous epithelial cells detection in urine sediment by light microscopy 10-25 NRG Crystals detection in urine sediment by light microscopy NONE NRG Casts detection in urine sediment by light microscopy NONE NRG Mucus detection in urine sediment by light microscopy NEGATIVE NRG Complete urinalysis with reflex to culture NO NRG Urine drug screening test - 02/26/16 03:20 Urine phencyclidine detection by screening method NEGATIVE NEGATIVE Urine benzodiazepines detection by screening method POSITIVE NEGATIVE Urine cocaine detection NEGATIVE NEGATIVE Urine amphetamines detection by screening method NEGATIVE NEGATIVE Urine methamphetamine detection by screening method NEGATIVE NEGATIVE Urine cannabinoids detection by screening method NEGATIVE NEGATIVE Urine opiates detection by screening method POSITIVE NEGATIVE Urine barbiturates detection POSITIVE NEGATIVE Screening urine tricyclic antidepressants detection NEGATIVE NEGATIVE Hepatitis C virus RNA viral load by probe and target amplification method ( units/volume) - 04/30/16 07:41 Hepatitis C virus (HCV) RNA viral load measurement (log number/volume) 6.63 % <=1.07 Hepatitis C virus (HCV) RNA detection by PCR with reflex to quantitation [id number] <=11 HEPATITIS C GENOTYPE - 04/30/16 07:41 Blood hepatitis C virus genotype identification by probe and target amplification method Type 1A NRG Serum or plasma estradiol (E2) measurement (mass/volume) - 04/30/16 07:42 Serum or plasma estradiol (E2) measurement (mass/volume) < pg/mL NRG [id number] - 04/30/16 07:42 Serum or plasma follicle stimulating hormone (FSH) and luteinizing hormone (LH ) panel (units/volume) 55.0 % NRG Luteinizing hormone (LH) measurement - 04/30/16 07:42 Luteinizing hormone (LH) measurement 22.6 % NRG THYROID STIMULATING HORMONE - 06/09/16 14:25 THYROID STIMULATING HORMONE 0.35 u[iU]/mL 0.35-4.94 Complete blood count (CBC) with automated white blood cell (WBC) differential - 06/10/16 08:20 Blood leukocytes automated count (number/volume) 5.7 10*3/uL 4.3-11.0 Blood erythrocytes automated count (number/volume) 4.92 10*6/uL 4.35-5.85 Venous blood hemoglobin measurement (mass/volume) 14.9 g/dL 11.5-16.0 Blood hematocrit (volume fraction) 45 % 35-52 Automated erythrocyte mean corpuscular volume 92 [foz_us] 80-99 Automated erythrocyte mean corpuscular hemoglobin (mass per erythrocyte) 30 pg 25-34 Automated erythrocyte mean corpuscular hemoglobin concentration measurement ( mass/volume) 33 g/dL 32-36 Automated erythrocyte distribution width ratio 13.1 % 10.0-14.5 Automated blood platelet count (count/volume) 248 10*3/uL 130-400 Automated blood platelet mean volume measurement 9.0 [foz_us] 7.4-10.4 Automated blood neutrophils/100 leukocytes 47 % 42-75 Automated blood lymphocytes/100 leukocytes 45 % 12-44 Blood monocytes/100 leukocytes 6 % 0-12 Automated blood eosinophils/100 leukocytes 2 % 0-10 Automated blood basophils/100 leukocytes 1 % 0-10 Blood neutrophils automated count (number/volume) 2.7 10*3 1.8-7.8 Blood lymphocytes automated count (number/volume) 2.6 10*3 1.0-4.0 Blood monocytes automated count (number/volume) 0.4 10*3 0.0-1.0 Automated eosinophil count 0.1 10*3/uL 0.0-0.3 Automated blood basophil count (count/volume) 0.0 10*3/uL 0.0-0.1 PT panel in platelet poor plasma by coagulation assay - 06/10/16 08:20 Prothrombin time (PT) in platelet poor plasma by coagulation assay 13.2 s 12.2-14.7 INR in platelet poor plasma or blood by coagulation assay 1.0 0.8-1.4 Activated partial thromboplastin time (aPTT) in platelet poor plasma bycoagulation assay - 06/10/16 08:20 Activated partial thromboplastin time (aPTT) in platelet poor plasma bycoagulation assay 29 s 24-35 Urine beta human chorionic gonadotropin (hCG) measurement - 06/10/16 08:20 Urine beta human chorionic gonadotropin (hCG) measurement NEGATIVE NEGATIVE Methicillin resistant Staphylococcus aureus (MRSA) screening culture - 09:05 Methicillin resistant Staphylococcus aureus (MRSA) screening culture NEG NRG Complete blood count (CBC) with automated white blood cell (WBC) differential - 11/23/16 18:20 Blood leukocytes automated count (number/volume) 7.9 10*3/uL 4.3-11.0 Blood erythrocytes automated count (number/volume) 5.16 10*6/uL 4.35-5.85 Venous blood hemoglobin measurement (mass/volume) 15.0 g/dL 11.5-16.0 Blood hematocrit (volume fraction) 45 % 35-52 Automated erythrocyte mean corpuscular volume 87 [foz_us] 80-99 Automated erythrocyte mean corpuscular hemoglobin (mass per erythrocyte) 29 pg 25-34 Automated erythrocyte mean corpuscular hemoglobin concentration measurement ( mass/volume) 33 g/dL 32-36 Automated erythrocyte distribution width ratio 12.9 % 10.0-14.5 Automated blood platelet count (count/volume) 318 10*3/uL 130-400 Automated blood platelet mean volume measurement 9.0 [foz_us] 7.4-10.4 Automated blood neutrophils/100 leukocytes 72 % 42-75 Automated blood lymphocytes/100 leukocytes 22 % 12-44 Blood monocytes/100 leukocytes 5 % 0-12 Automated blood eosinophils/100 leukocytes 1 % 0-10 Automated blood basophils/100 leukocytes 0 % 0-10 Blood neutrophils automated count (number/volume) 5.7 10*3 1.8-7.8 Blood lymphocytes automated count (number/volume) 1.8 10*3 1.0-4.0 Blood monocytes automated count (number/volume) 0.4 10*3 0.0-1.0 Automated eosinophil count 0.0 10*3/uL 0.0-0.3 Automated blood basophil count (count/volume) 0.0 10*3/uL 0.0-0.1 Complete urinalysis with reflex to culture - 11/23/16 18:20 Urine color determination YELLOW NRG Urine clarity determination VERY CLOUDY NRG Urine pH measurement by test strip 6 5-9 Specific gravity of urine by test strip 1.015 1.016- 1.022 Urine protein assay by test strip, semi-quantitative 1+ NEGATIVE Urine glucose detection by automated test strip NEGATIVE NEGATIVE Erythrocytes detection in urine sediment by light microscopy 2+ NEGATIVE Urine ketones detection by automated test strip NEGATIVE NEGATIVE Urine nitrite detection by test strip NEGATIVE NEGATIVE Urine total bilirubin detection by test strip NEGATIVE NEGATIVE Urine urobilinogen measurement by automated test strip (mass/volume) 1 mg/dL NORMAL Urine leukocyte esterase detection by dipstick 1+ NEGATIVE Automated urine sediment erythrocyte count by microscopy (number/high power field) NONE NRG Automated urine sediment leukocyte count by microscopy (number/high power field ) [HPF] NRG Bacteria detection in urine sediment by light microscopy LARGE NRG Squamous epithelial cells detection in urine sediment by light microscopy 5-10 NRG Crystals detection in urine sediment by light microscopy NONE NRG Casts detection in urine sediment by light microscopy NONE NRG Mucus detection in urine sediment by light microscopy NEGATIVE NRG Complete urinalysis with reflex to culture YES NRG Blood lactic acid measurement (moles/volume) - 11/23/16 18:20 Blood lactic acid measurement (moles/volume) 0.84 mmol/L 0.50-2.00 Comprehensive metabolic panel - 11/23/16 18:20 Serum or plasma sodium measurement (moles/volume) 143 mmol/L 135-145 Serum or plasma potassium measurement (moles/volume) 3.4 mmol/L 3.6-5.0 Serum or plasma chloride measurement (moles/volume) 106 mmol/L 98-107 Carbon dioxide 26 mmol/L 21-32 Serum or plasma anion gap determination (moles/volume) 11 mmol/L 5-14 Serum or plasma urea nitrogen measurement (mass/volume) 9 mg/dL 7-18 Serum or plasma creatinine measurement (mass/volume) 0.85 mg/dL 0.60-1.30 Serum or plasma urea nitrogen/creatinine mass ratio 11 NRG Serum or plasma creatinine measurement with calculation of estimated glomerular filtration rate > NRG Serum or plasma glucose measurement (mass/volume) 94 mg/dL 70-105 Serum or plasma calcium measurement (mass/volume) 10.0 mg/dL 8.5-10.1 Serum or plasma total bilirubin measurement (mass/volume) 0.4 mg/dL 0.1-1.0 Serum or plasma alkaline phosphatase measurement (enzymatic activity/volume) 95 U/L 40-136 Serum or plasma aspartate aminotransferase measurement (enzymatic activity/ volume) 18 U/L 5-34 Serum or plasma alanine aminotransferase measurement (enzymatic activity/volume ) 10 U/L 0-55 Serum or plasma protein measurement (mass/volume) 8.5 g/dL 6.4-8.2 Serum or plasma albumin measurement (mass/volume) 4.3 g/dL 3.2-4.5 Lipase - 11/23/16 18:20 Lipase 22 U/L 8-78 THYROID STIMULATING HORMONE - 11/23/16 18:20 THYROID STIMULATING HORMONE 1.50 u[iU]/mL 0.35-4.94 Bacterial urine culture - 11/23/16 18:20 Bacterial urine culture [id number] NR COLONY COUNT >100,000/ML NR FTX;REPORTABLE SENSITIVITY REPORTED 11/24/16 16:[address] [facility] Bacterial susceptibility panel - 11/23/16 18:20 Gentamicin susceptibility test by minimum inhibitory concentration < = NRG Trimethoprim/sulfamethoxazole susceptibility test by minimum inhibitoryconcentration <= NRG Ampicillin susceptibility test by minimum inhibitory concentration > = NRG Tobramycin susceptibility test by minimum inhibitory concentration < = NRG Cefazolin susceptibility test by minimum inhibitory concentration < = NRG Ceftriaxone susceptibility test by minimum inhibitory concentration <= NRG Ampicillin/sulbactam susceptibility test by minimum inhibitory concentration 16 NRG Piperacillin/tazobactam susceptibility test by minimum inhibitory concentration <= NRG Ciprofloxacin susceptibility test by minimum inhibitory concentration 1 NRG Meropenem susceptibility test by minimum inhibitory concentration < = NRG Nitrofurantoin susceptibility test by minimum inhibitory concentration <= NRG Aztreonam susceptibility test by minimum inhibitory concentration < = NRG Extended spectrum beta lactamase (ESBL) producing bacteria susceptibility test by minimum inhibitory concentration - NRG Complete blood count (CBC) with automated white blood cell (WBC) differential - 12/21/16 12:50 Blood leukocytes automated count (number/volume) 7.3 10*3/uL 4.3-11.0 Blood erythrocytes automated count (number/volume) 5.46 10*6/uL 4.35-5.85 Venous blood hemoglobin measurement (mass/volume) 15.8 g/dL 11.5-16.0 Blood hematocrit (volume fraction) 47 % 35-52 Automated erythrocyte mean corpuscular volume 87 [foz_us] 80-99 Automated erythrocyte mean corpuscular hemoglobin (mass per erythrocyte) 29 pg 25-34 Automated erythrocyte mean corpuscular hemoglobin concentration measurement ( mass/volume) 33 g/dL 32-36 Automated erythrocyte distribution width ratio 12.9 % 10.0-14.5 Automated blood platelet count (count/volume) 232 10*3/uL 130-400 Automated blood platelet mean volume measurement 8.9 [foz_us] 7.4-10.4 Automated blood neutrophils/100 leukocytes 67 % 42-75 Automated blood lymphocytes/100 leukocytes 27 % 12-44 Blood monocytes/100 leukocytes 5 % 0-12 Automated blood eosinophils/100 leukocytes 0 % 0-10 Automated blood basophils/100 leukocytes 1 % 0-10 Blood neutrophils automated count (number/volume) 4.9 10*3 1.8-7.8 Blood lymphocytes automated count (number/volume) 2.0 10*3 1.0-4.0 Blood monocytes automated count (number/volume) 0.4 10*3 0.0-1.0 Automated eosinophil count 0.0 10*3/uL 0.0-0.3 Automated blood basophil count (count/volume) 0.0 10*3/uL 0.0-0.1 Comprehensive metabolic panel - 12/21/16 12:50 Serum or plasma sodium measurement (moles/volume) 140 mmol/L 135-145 Serum or plasma potassium measurement (moles/volume) 4.3 mmol/L 3.6-5.0 Serum or plasma chloride measurement (moles/volume) 105 mmol/L 98-107 Carbon dioxide 27 mmol/L 21-32 Serum or plasma anion gap determination (moles/volume) 8 mmol/L 5-14 Serum or plasma urea nitrogen measurement (mass/volume) 12 mg/dL 7-18 Serum or plasma creatinine measurement (mass/volume) 0.81 mg/dL 0.60-1.30 Serum or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
[2017-10-04] MEDS ORDERED: RT-ALBUTEROL/IPRATROPIUM 3 ML (DUONEB) VIAL INH ONE (14:30)
[2017-10-04] MEDS ORDERED: RT-ALBUTEROL SULF 2.5 MG/3 ML PRE-MIX VIAL ONE (14:30)
--- NOTE | 2017-10-04 14:51 | ED Cough/URI ---
General Chief Complaint: Respiratory Problems Stated Complaint: COUGH Nursing Triage Note: AMB TO ROOM C/O COUGH CONGESTION FOR 3 DAYS. COUGHING UP GREEN PHELGM Source: patient Exam Limitations: no limitations History of Present Illness Date Seen by Provider: Oct 04, 2017 Time Seen by Provider: 14:50 Initial Comments 47-year-old female patient presents to the emergency department complaints of cough, congestion, and shortness of air for 3 days. Patient states she has been coughing up green phlegm. Patient has a history of emphysema, COPD, and asthma. States she has been using her albuterol inhaler without improvement in symptoms. Timing/Duration: getting worse, other (3 day onset) Severity/Quality: productive cough Prior Episodes/Possible Cause: occasional episodes Modifying Factors: Worse With Albuterol Inhaler, Worse With Coughing Allergies and Home Medications Allergies Coded Allergies: Sulfa (Sulfonamide Antibiotics) (Verified Allergy, Unknown, HIVES, 02/23/16 ) Home Medications Albuterol Sulfate 1 Puff Puff, 2 PUFF IH Q4H, (Reported) 1 PUFF = 90 MCG Albuterol Sulfate 2.5 Mg/3 Ml Vial.neb, 2.5 MG IH Q6H PRN for SHORTNESS OF BREATH Prescribed by: THIAGO THAYER on 10/04/17 1720 Alprazolam 1 Mg Tablet, 1 MG PO BID PRN for SPASMS, (Reported) Cyclobenzaprine HCl 10 Mg Tablet, PO HS PRN for BACK PAIN, (Reported) Diazepam 10 Mg Tablet, 10 MG PO HS, (Reported) Doxycycline Hyclate 100 Mg Capsule, 100 MG PO BID Prescribed by: THIAGO THAYER on 10/04/17 1720 Gabapentin 300 Mg Capsule, 600 MG PO HS, (Reported) Ipratropium/Albuterol Sulfate 3 Ml Ampul.neb, 3 ML IH Q4H PRN for SHORTNESS OF BREATH Prescribed by: ESTRELLA JACKSON on 02/12/16 0849 Levothyroxine Sodium 100 Mcg Tablet, 88 MCG PO DAILY, (Reported) Ondansetron 4 Mg Tab.rapdis, 4 MG PO Q6H PRN for NAUSEA/VOMITING-1ST LINE Prescribed by: RICHARD BARRAGAN on 11/24/16 1243 Oxycodone HCl/Acetaminophen 1 Each Tablet, 1 EACH PO Q4H PRN for BACK PAIN, ( Reported) Prednisone 20 Mg Tab, 40 MG PO DAILY Prescribed by: SANYA LAGUNAS on 01/15/172117 Prednisone 20 Mg Tab, 40 MG PO DAILY Prescribed by: THIAGO TAHYER on 10/04/17 1720 Patient Home Medication List Home Medication List Reviewed: Yes Review of Systems Constitutional: chills, No diaphoresis, No fever, malaise, other (fatigue) EENTM: nose congestion, No ear pain, No throat pain, No throat swelling Respiratory: cough, phlegm, short of breath, wheezing Cardiovascular: no symptoms reported Gastrointestinal: No abdominal pain, No constipation, No diarrhea, loss of appetite, No nausea, No vomiting Genitourinary: no symptoms reported Musculoskeletal: no symptoms reported Skin: no symptoms reported Psychiatric/Neurological: No Symptoms Reported All Other Systems Reviewed Negative Unless Noted: Yes (Negative excepted noted.) Past Zcnqatn-Gjjham-Dbulhx Hx Patient Social History Alcohol Use: Denies Use Number of Drinks Today: AA Alcohol Beverage of Choice: Beer Recreational Drug Use: No Type Used: Cigarettes 2nd Hand Smoke Exposure: Yes Recent Foreign Travel: No Contact w/Someone Who Travel: No Recent Infectious Disease Expo: No Recent Hopitalizations: No Immunizations Up To Date Tetanus Booster (TDap): Less than 5yrs PED Vaccines UTD: Yes Seasonal Allergies Seasonal Allergies: No Past Medical History Surgeries: Yes (PYELOPLASTY/URETERAL REPAIR/URETERAL STENT;) Section, Renal, Tubal Ligation Respiratory: Yes Asthma, COPD, Emphysema Currently Using CPAP: No Currently Using BIPAP: No Cardiac: Yes (TACHYCARDIA WHEN HYPERTHYROIDISM) Syncope Neurological: Yes Concussion, Neuropathy 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 Disorders: No Female 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 Disorders: Denies [employer] History: Tubal Ligation, Menopausal Sexually Transmitted Disease: No HIV/AIDS: No Genitourinary: Yes Kidney Infection Gastrointestinal: Yes (HEPATITIS C-NO TREATMENT) Gastroesophageal Reflux, Liver Disease/Jaundice, Hepatitis Musculoskeletal: Yes (SCIATICA, scoliosis, spinal stenosis, 5 BULGING DISCS) Degenerate Disk Disease, Scoliosis, Chronic Back Pain Endocrine: Yes (GRAVES DISEASE) Hyperthyroidism, Hypothyroidsim HEENT: No Cancer: No Psychosocial: Yes Anxiety Integumentary: No Blood Disorders: No Family Medical History Reviewed Nursing Family Hx Alzheimer's disease 19 MOTHER FH: epilepsy 19 MOTHER FH: lupus 19 MOTHER Fibromyalgia 19 MOTHER Hypertension 19 MOTHER Thyroid disease 19 MOTHER (HYPOTHYROID) No Pertinent Family Hx Physical Exam Vital Signs Vital Signs - First Documented 4/8/18 14:12 Temp 98.2 Pulse 88 Resp 18 B/P (MAP) 142/111 (121) Pulse Ox 98 O2 Delivery Room Air Capillary Refill : Less Than 3 Seconds General Appearance: WD/WN, mild distress HEENT: PERRL/EOMI, normal ENT inspection, TMs normal, pharyngeal erythema Neck: non-tender, supple, normal inspection Respiratory: respiratory distress, decreased breath sounds, No accessory muscle use, rhonchi, wheezing Cardiovascular: normal peripheral pulses, regular rate, rhythm, no edema, no murmur Gastrointestinal: normal bowel sounds, non tender, soft, no organomegaly, No distended Extremities: no pedal edema, no calf tenderness, normal capillary refill Neurologic/Psychiatric: alert, normal mood/affect, oriented x 3 Skin: normal color, warm/dry Progress/Results/Core Measures Suspected Sepsis Recent Fever Within 48 Hours: No Infection Criteria Present: None New/Unexplained Altered Menta: No Sepsis Screen: No Definite Risk Sepsis Diagnosis: SIRS Temperature:98.2 Pulse: 88 Respiratory Rate: 18 Laboratory Tests 10/04/17 15:09: White Blood Count 9.9 Blood Pressure 142 /111 Mean: 121 Laboratory Tests 10/04/17 15:09: Creatinine 0.85, Platelet Count 309, Total Bilirubin 0.4 Results/Orders Lab Results Laboratory Tests Test 10/04/17 15:09 10/04/17 15:25 Range/Units White Blood Count 9.9 4.3-11.0 10^3/uL Red Blood Count 4.97 4.35-5.85 10^6/uL Hemoglobin 14.8 11.5-16.0 G/DL Hematocrit 44 35-52 % Mean Corpuscular Volume 89 80-99 FL Mean Corpuscular Hemoglobin 30 25-34 PG Mean Corpuscular Hemoglobin Concent 34 32-36 G/DL Red Cell Distribution Width 13.2 10.0-14.5 % Platelet Count 309 130-400 10^3/uL Mean Platelet Volume 8.8 7.4-10.4 FL Neutrophils (%) (Auto) 70 42-75 % Lymphocytes (%) (Auto) 23 12-44 % Monocytes (%) (Auto) 5 0-12 % Eosinophils (%) (Auto) 2 0-10 % Basophils (%) (Auto) 0 0-10 % Neutrophils # (Auto) 7.0 1.8-7.8 X 10^3 Lymphocytes # (Auto) 2.2 1.0-4.0 X 10^3 Monocytes # (Auto) 0.5 0.0-1.0 X 10^3 Eosinophils # (Auto) 0.2 0.0-0.3 10^3/uL Basophils # (Auto) 0.0 0.0-0.1 10^3/uL D-Dimer 0.30 0.00-0.49 UG/ML Sodium Level 142 135-145 MMOL/L Potassium Level 3.5 L 3.6-5.0 MMOL/L Chloride Level 105 98-107 MMOL/L Carbon Dioxide Level 27 21-32 MMOL/L Anion Gap 10 5-14 MMOL/L Blood Urea Nitrogen 9 7-18 MG/DL Creatinine 0.85 0.60-1.30 MG/DL Estimat Glomerular Filtration Rate > 60 BUN/Creatinine Ratio 11 Glucose Level 122 H 70-105 MG/DL Calcium Level 10.2 H 8.5-10.1 MG/DL Total Bilirubin 0.4 0.1-1.0 MG/DL Aspartate Amino Transf (AST/SGOT) 20 5-34 U/L Alanine Aminotransferase (ALT/SGPT) 11 0-55 U/L Alkaline Phosphatase 95 40-136 U/L Troponin I < 0.30 <0.30 NG/ML C-Reactive Protein High Sensitivity 0.28 0.00-0.50 MG/DL Total Protein 8.4 H 6.4-8.2 GM/DL Albumin 4.6 H 3.2-4.5 GM/DL Urine Color YELLOW Urine Clarity SLIGHTLY CLOUDY Urine pH 6.5 5-9 Urine Specific [place] 1.010 L 1.016-1.022 Urine Protein NEGATIVE NEGATIVE Urine Glucose (UA) NEGATIVE NEGATIVE Urine Ketones NEGATIVE NEGATIVE Urine Nitrite POSITIVE H NEGATIVE Urine Bilirubin NEGATIVE NEGATIVE Urine Urobilinogen NORMAL NORMAL MG/DL Urine Leukocyte Esterase 1+ H NEGATIVE Urine RBC (Auto) NEGATIVE NEGATIVE Urine RBC RARE /HPF Urine WBC 5-10 H /HPF Urine Squamous Epithelial Cells 10-25 H /HPF Urine Renal Epithelial Cells NONE /HPF Urine Crystals NONE /LPF Urine Bacteria LARGE H /HPF Urine Casts NONE /LPF Urine Mucus NEGATIVE /LPF Urine Culture Indicated YES Urine Opiates Screen POSITIVE H NEGATIVE Urine Oxycodone Screen NEGATIVE NEGATIVE Urine Methadone Screen NEGATIVE NEGATIVE Urine Propoxyphene Screen NEGATIVE NEGATIVE Urine Barbiturates Screen NEGATIVE NEGATIVE Ur Tricyclic Antidepressants Screen POSITIVE H NEGATIVE Urine Phencyclidine Screen NEGATIVE NEGATIVE Urine Amphetamines Screen NEGATIVE NEGATIVE Urine Methamphetamines Screen NEGATIVE NEGATIVE Urine Benzodiazepines Screen POSITIVE H NEGATIVE Urine Cocaine Screen NEGATIVE NEGATIVE Urine Cannabinoids Screen NEGATIVE NEGATIVE Micro Results Microbiology 10/04/17 Influenza Types A,B Antigen (YOLIS) - Final, Complete My Orders Orders - THIAGO THAYER PA Albuterol/Ipra Inhalation Soln (Duoneb I (10/04/17 14:30) Svn Sm Volume Nebulizer Rt-Rfs (10/04/17 14:20) Albuterol Pre-Mix Nebs (Rt) (Proventil (10/04/17 14:30) Chest 1 View, Ap/Pa Only (10/04/17 14:57) Cbc With Automated Diff (10/04/17 14:58) Comprehensive Metabolic Panel (10/04/17 14:58) Hs C Reactive Protein (10/04/17 14:58) Fibrin Degradation Products (10/04/17 14:58) Drug Screen Stat (Urine) (10/04/17 14:58) Troponin I (10/04/17 14:58) Ua Culture If Indicated (10/04/17 14:58) Saline Lock/Iv-Start (10/04/17 14:58) Methylprednisolone Sod Succ (Solu-Medrol (10/04/17 14:58) Ketorolac Injection (Toradol Injection) (10/04/17 14:58) Diazepam Injection (Valium Injection) (10/04/17 15:00) Morphine Injection (Morphine Injection (10/04/17 16:00) Ceftriaxone Injection (Rocephin Injectio (10/04/17 16:00) Ns Iv 1000 Ml (Sodium Chloride 0.9%) (10/04/17 16:00) Dexamethasone Injection (Decadron Inject (10/04/17 16:00) Guaifenesin Tablet (Mucinex Tablet) (10/04/17 16:00) Influenza A And B Antigens (10/04/17 16:00) Urine Culture (10/04/17 15:25) Dexamethasone Pf Injection (Decadron Pf (10/04/17 16:15) Dexamethasone Injection (Decadron Inject (10/04/17 16:06) Dexamethasone Injection (Decadron Inject (10/04/17 16:15) Rx-Doxycycline Tablet (Rx-Vibramycin Tab (10/04/17 17:20) Rx-Albuterol Nebs (Rx-Proventil Nebs) (10/04/17 17:20) Oxycodone/Apap 5/325mg Tablet (Percocet (10/04/17 17:30) Medications Given in ED Current Medications Medications Dose Ordered Sig/Kayla Route Start Time Stop Time Status Last Admin Dose Admin Albuterol Sulfate 2.5 mg STK-MED ONCE .ROUTE 10/04/17 14:30 10/04/17 14:35 DC 10/04/17 14:38 12.5 MG Albuterol/ Ipratropium 3 ml ONCE ONCE INH 10/04/17 14:30 10/04/17 14:31 DC 10/04/17 14:28 3 ML Ceftriaxone Sodium 1000 mg/ Sodium Chloride 100 ml @ 200 mls/hr ONCE ONCE IV 10/04/17 16:00 10/04/17 16:29 DC 10/04/17 16:35 200 MLS/HR Dexamethasone Sodium Phosphate 12 mg ONCE ONCE IH 10/04/17 16:15 10/04/17 16:16 DC 10/04/17 16:16 12 MG Diazepam 5 mg ONCE ONCE IV 10/04/17 15:00 10/04/17 15:02 DC 10/04/17 15:20 5 MG Guaifenesin 600 mg ONCE ONCE PO 10/04/17 16:00 10/04/17 16:04 DC 10/04/17 16:40 600 MG Oxycodone/ Acetaminophen 2 tab ONCE ONCE PO 10/04/17 17:30 10/04/17 17:31 DC 10/04/17 17:45 2 TAB Sodium Chloride 1,000 ml @ 0 mls/hr Q0M ONCE IV 10/04/17 16:00 10/04/17 16:04 DC 10/04/17 16:35 1,000 MLS/HR Vital Signs/I&O 10/04/17 10/04/17 10/04/17 10/04/17 14:12 14:28 14:39 16:16 Temp 98.2 Pulse 88 Resp 18 B/P (MAP) 142/111 (121) Pulse Ox 98 96 99 94 O2 Delivery Room Air Room Air Room Air Room Air 10/04/17 18:04 Pulse 95 Resp 18 B/P (MAP) 142/104 Pulse Ox 97 O2 Delivery Room Air Capillary Refill : Less Than 3 Seconds Blood Pressure Mean: 121 Diagnostic Imaging Diagonstic Imaging: Xray Plain Films/CT/US/NM/MRI: chest Comments INDICATION: Chest pain and shortness of breath. COMPARISON: Prior chest CT from 07/16/2017. FINDINGS: Left thoracic volume loss, unchanged. Chronic interstitial changes appear stable. Nodular density along the left lateral chest wall is stable. There is no new infiltrate evident. There is no effusion. There is no pneumothorax. Mediastinal contours are appropriate without findings to suggest failure. IMPRESSION: Stable radiographic appearance of the chest. No acute cardiopulmonary process evident. Dictated by: Dictated on workstation # [id number] Reviewed: Reviewed by Me (radiology report reviewed by me) Departure Communication (Admissions) All laboratory and diagnostic findings discussed with the patient. Patient was given a DuoNeb treatment followed by a one-hour long albuterol treatment. Patient was unable to tolerate the hour-long albuterol treatment and due to feeling "jittery and shaky". Patient was also given 125 mg of Solu-Medrol IV and 2 mg of Decadron inhaled with improvement in symptoms. Patient showed minimal expiratory wheeze bilaterally following medications. Patient states she feels much better. Patient is alert/oriented 4, no acute distress. Plan for discharge to home. Patient to return immediately for worsened symptoms or any other concerns. Otherwise she is to follow-up with her PCP in the next 1-2 days for recheck. Patient verbalizes understanding and agrees with the treatment plan. Impression Primary Impression: Acute bronchitis Qualified Codes: J20.9 - Acute bronchitis, unspecified Additional Impressions: COPD exacerbation acute exacerbation of chronic back pain Disposition: HOME, SELF-CARE Condition: Improved Departure-Patient Inst. Decision time for Depature: 17:16 Referrals: INDIRA MEJIA MD (PCP/Family) Primary Care Physician Patient Instructions: Acute Bronchitis, Adult (DC) Add. Discharge Instructions: All discharge instructions reviewed with patient and/or family. Voiced understanding. Medications as instructed. Tylenol extra strength over-the- counter as directed for pain. Ibuprofen [id number] 800 mg by mouth every 8 hours as needed for pain. Throat lozenges and throat sprays as needed for symptoms. You may use a humidifier if needed. Mucinex [id number] as needed for congestion. Follow-up with [facility] early this week for recheck. Call for appointment time first thing Thursday morning. Return to the emergency department for worsened symptoms or any other concerns. Scripts Prednisone (Prednisone) 20 Mg Tab 40 MG PO DAILY, #10 TAB 0 Refills Prov: THIAGO THAYER 10/04/17 Albuterol Sulfate (Albuterol Sulfate) 2.5 Mg/3 Ml Vial.neb 2.5 MG IH Q6H Y for SHORTNESS OF BREATH, #25 EA 0 Refills Prov: THIAGO THAYER 10/04/17 Doxycycline Hyclate (Doxycycline Hyclate) 100 Mg Capsule 100 MG PO BID, #14 CAP 0 Refills Prov: THIAGO THAYER 10/04/17 Copy Copies To 1: INDIRA MEJIA MD, GRETCHEN L PA Oct 04, 2017 14:51
[2017-10-04] MEDS ORDERED: KETOROLAC 30 MG/ML VIAL IVP STA (14:58)
[2017-10-04] MEDS ORDERED: methylPREDNISolone 125 MG (Solu-MEDROL) VIAL IV STA (14:58)
[2017-10-04] MEDS ORDERED: DIAZEPAM INJ 10 MG/2 ML (VALIUM) SYR IV ONE (15:00)
--- NOTE | 2017-10-04 15:16 | Diagnostic Imaging Report ---
EXAMINATION: Single view of the chest. INDICATION: Chest pain and shortness of breath. COMPARISON: Prior chest CT from 07/16/2017. FINDINGS: Left thoracic volume loss, unchanged. Chronic interstitial changes appear stable. Nodular density along the left lateral chest wall is stable. There is no new infiltrate evident. There is no effusion. There is no pneumothorax. Mediastinal contours are appropriate without findings to suggest failure. IMPRESSION: Stable radiographic appearance of the chest. No acute cardiopulmonary process evident. Dictated by: Dictated on workstation # [id number]
[2017-10-04 15:18] LABS: BASOPHILS % (AUTO) 0 % (0-10); EOSINOPHILS # (AUTO) 0.2 10^3/uL (0.0-0.3); EOSINOPHILS % (AUTO) 2 % (0-10); HEMATOCRIT 44 % (35-52); HEMOGLOBIN 14.8 G/DL (11.5-16.0); LYMPHOCYTES # (AUTO) 2.2 X 10^3 (1.0-4.0); LYMPHOCYTES % (AUTO) 23 % (12-44); MEAN CORPUSCULAR HEMOGLOBIN 30 PG (25-34); MEAN CORPUSCULAR HGB CONC 34 G/DL (32-36); MEAN CORPUSCULAR VOLUME 89 FL (80-99); MEAN PLATELET VOLUME 8.8 FL (7.4-10.4); MONOCYTES # (AUTO) 0.5 X 10^3 (0.0-1.0); MONOCYTES % (AUTO) 5 % (0-12); NEUTROPHILS % (AUTO) 70 % (42-75); PLATELET COUNT 309 10^3/uL (130-400); RED BLOOD COUNT 4.97 10^6/uL (4.35-5.85); RED CELL DISTRIBUTION WIDTH 13.2 % (10.0-14.5); WHITE BLOOD COUNT 9.9 10^3/uL (4.3-11.0)
[2017-10-04 15:35] LABS: BILIRUBIN,URINE NEGATIVE (NEGATIVE); CLARITY,URINE SLIGHTLY CLOUDY; COLOR,URINE YELLOW; GLUCOSE, URINE (UA) NEGATIVE (NEGATIVE); KETONES,URINE NEGATIVE (NEGATIVE); LEUKOCYTE ESTERASE ,URINE 1+ (NEGATIVE); NITRITE,URINE POSITIVE (NEGATIVE); PH,URINE 6.5 (5-9); PROTEIN,URINE NEGATIVE (NEGATIVE); UROBILINOGEN,URINE NORMAL (NORMAL)
[2017-10-04 15:36] LABS: ALANINE AMINOTRANSFERASE 11 U/L (0-55); ALBUMIN 4.6 GM/DL (3.2-4.5); ALKALINE PHOSPHATASE 95 U/L (40-136); BILIRUBIN,TOTAL 0.4 MG/DL (0.1-1.0); BUN/CREATININE RATIO 11; CALCIUM 10.2 MG/DL (8.5-10.1); CARBON DIOXIDE 27 MMOL/L (21-32); CHLORIDE 105 MMOL/L (98-107); CREATININE SERUM 0.85 MG/DL (0.60-1.30); GFR ESTIMATED > 60; GLUCOSE 122 MG/DL (70-105); POTASSIUM 3.5 MMOL/L (3.6-5.0); SODIUM 142 MMOL/L (135-145); TOTAL PROTEIN 8.4 GM/DL (6.4-8.2)
[2017-10-04 15:43] LABS: AMPHETAMINE SCREEN, URINE NEGATIVE (NEGATIVE); BARBITURATE SCREEN URINE NEGATIVE (NEGATIVE); BENZODIAZEPINES SCREEN URINE POSITIVE (NEGATIVE); CANNABINOID SCREEN, URINE NEGATIVE (NEGATIVE); COCAINE SCREEN URINE NEGATIVE (NEGATIVE); METHADONE STAT NEGATIVE (NEGATIVE); METHAMPHETAMINE SCREEN URINE S NEGATIVE (NEGATIVE); OPIATE SCREEN URINE POSITIVE (NEGATIVE); OXYCODONE STAT NEGATIVE (NEGATIVE); PROPOXYPHENE STAT NEGATIVE (NEGATIVE); TRICYCLIC ANTIDEPRESSANTS SCRE POSITIVE (NEGATIVE)
[2017-10-04 15:53] LABS: BACTERIA,URINE LARGE /HPF; RBC,URINE RARE /HPF
[2017-10-04] MEDS ORDERED: morphine INJ 10 MG/ML 1ML (SYR OR VIAL) IVP STA (16:00)
[2017-10-04] MEDS ORDERED: guaiFENesin (MUCINEX) 600 MG TAB PO ONE (16:00)
[2017-10-04] MEDS ORDERED: NS IV 1000 ML 1,000 ML IV ONE (16:00)
[2017-10-04] MEDS ORDERED: cefTRIAXone INJECTION 1,000 MG in NS (IVPB) 100 ML IV ONE (16:00)
[2017-10-04] MEDS ORDERED: DEXAMETHASONE 10 MG/ML (DECADRON) 1 ML VIAL INH ONE (16:00)
[2017-10-04] MEDS ORDERED: DEXAMETHASONE 4 MG/ML SDV (DECADRON) ONE (16:06)
[2017-10-04] MEDS ORDERED: DEXAMETHASONE 4 MG/ML SDV (DECADRON) IH ONE (16:15)
[2017-10-04] MEDS ORDERED: DEXAMETHASONE PF 10 MG/ML (DECADRON) VIAL INH ONE (16:15)
[2017-10-04] MEDS ORDERED: RX-ALBUTEROL NEB 2.5 MG/3 ML PACK #5 IH STA (17:20)
[2017-10-04] MEDS ORDERED: ALBU2.5V4 IH (17:20)
[2017-10-04] MEDS ORDERED: DOXY100C2 PO (17:20)
[2017-10-04] MEDS ORDERED: PRD20T PO (17:20)
[2017-10-04] MEDS ORDERED: RX-DOXYCYCLINE 100 MG (VIBRAMYCIN) TAB PPK#2 PO STA (17:20)
[2017-10-04] MEDS ORDERED: oxyCODONE/APAP 5/325MG (PERCOCET 5) TABLET PO ONE (17:30)
[2017-10-04 18:04] VITALS: BP 142/104
== END 2017-10-04 18:03 | disposition home or self-care (01) ==
LOC: EDUNIT# 14:09 → ER 14:10
DX: J20.9 Acute bronchitis, unspecified (principal); J44.1 Chronic obstructive pulmonary disease with (acute) exacerbation; M54.9 Dorsalgia, unspecified; G89.29 Other chronic pain; E05.90 Thyrotoxicosis, unspecified without thyrotoxic crisis or storm; E03.9 Hypothyroidism, unspecified; F41.9 Anxiety disorder, unspecified; B19.20 Unspecified viral hepatitis C without hepatic coma; K21.9 Gastro-esophageal reflux disease without esophagitis; Z88.2 Allergy status to sulfonamides; Z79.51 Long term (current) use of inhaled steroids; Z87.19 Personal history of other diseases of the digestive system; Z79.52 Long term (current) use of systemic steroids; Z77.22 Contact with and (suspected) exposure to environmental tobacco smoke (acute) (chronic); Z96.0 Presence of urogenital implants; Z87.59 Personal history of other complications of pregnancy, childbirth and the puerperium; Z98.51 Tubal ligation status
CPT/HCPCS: 36415; 71045; 80053; 80306; 81000; 84484; 85025; 85379; 86141; 87088; 87186; 87804; 94640

== ENCOUNTER → 2017-12-15 | Outpatient (CLI) | payer SELFPAY ==
[~2017-12-15] MED LIST changes: +ALBU2.5V4 IH; +DOXY100C2 PO
--- NOTE | 2017-12-15 12:36 | Diagnostic Imaging Report ---
PROCEDURE: MRI lumbar spine. TECHNIQUE: Multiplanar, multisequence MRI of the lumbar spine was performed without contrast. INDICATION: Back pain. FINDINGS: There is some left convexity degenerative lumbar rotoscoliosis. The vertebral body heights are well maintained. There is no spondylolysis or spondylolisthesis. No fractures are identified. Conus medullaris is seen at L1 and is normal in appearance. T12-L1 disc is unremarkable. At L1-2, there is some minimal annular bulging as well as some facet disease and thickening of the ligamentum flavum. There is slight effacement of the ventral thecal sac with moderate right and mild left neural foraminal encroachment. At L2-3, there is loss of disc height and signal intensity. There is some facet disease and thickening of the ligamentum flavum. There is slight effacement of the ventral thecal sac and mild central spinal stenosis. There is moderate right and moderate left neural foraminal encroachment. At L3-4, there is loss of disc height and signal intensity. There is broad-based annular bulging, facet disease, and thickening of the ligamentum flavum. There is moderate central spinal stenosis with encroachment upon the lateral recess bilaterally. There is severe right neural foraminal encroachment and moderate left neural foraminal encroachment. At L4-5, there is loss of disc height and signal intensity. There is broad-based annular bulging, facet disease, and thickening of the ligamentum flavum. There is moderate central spinal stenosis with mild encroachment upon the left lateral recess. There is mild bilateral neural foraminal encroachment. At L5-S1, there is mild annular bulging and facet disease. There is slight effacement of the ventral thecal sac with mild left neural foraminal encroachment. The abdominal aorta is nonaneurysmal. Kidneys are unremarkable. IMPRESSION: Diffuse lumbar spondylosis and multilevel degenerative disc disease with some left convexity degenerative lumbar rotoscoliosis as detailed above. Dictated by: Dictated on workstation # [id number]
== END ==
LOC: RAD 10:52
PROVIDERS: ATTEND Internal Medicine
DX: M48.061 Spinal stenosis, lumbar region without neurogenic claudication (principal); M99.73 Connective tissue and disc stenosis of intervertebral foramina of lumbar region; M51.17 Intervertebral disc disorders with radiculopathy, lumbosacral region; M47.26 Other spondylosis with radiculopathy, lumbar region; M41.86 Other forms of scoliosis, lumbar region
CPT/HCPCS: 72148

== ENCOUNTER 2018-04-17 16:01 | Emergency (ER) | payer SELFPAY ==
[~2018-04-17] VITALS: Ht 167.6 cm; Wt 62.1 kg
[~2018-04-17 16:01] MED LIST changes: -IPRA3AMP IH; +IPRA3AMP31 IH; -OXYC-202 PO; +OXYC1TAB12 PO
[2018-04-17] MEDS ORDERED: ORPHENADRINE 60 MG/2 ML (NORFLEX) AMP IM ONE (16:45)
[2018-04-17] MEDS ORDERED: KETOROLAC 60 MG/2 ML VIAL IM ONE (16:45)
--- NOTE | 2018-04-17 17:19 | ED Back Pain ---
General Chief Complaint: Back Problems Stated Complaint: BACK PAIN,NECK PAIN/HAS HAD BACK PROBLEMS Nursing Triage Note: ARRIVED VIA AMB TO ROOM 07. PT HAS CHRONIC BACK PAIN BUT FELL WHEN SITTING DOWN ON THURSDAY CAUSING MORE PAIN. STATES SHE ALSO HAS HEAD PAIN BUT DID NOT HIT HER HEAD. ASLO STATES SHE TAKES PERCOCET 10'S FOR PAIN BUT THEY ARE NOT HELPING. Nursing Sepsis Screen: No Definite Risk Source of Information: Patient Exam Limitations: No Limitations History of Present Illness Date Seen by Provider: Apr 17, 2018 Time Seen by Provider: 16:25 Initial Comments Patient is a 47-year-old female who presents to the emergency room with complaints of low back pain for the past 5 days she reports that she always has chronic low back pain but last Thursday she slipped out of a chair landing right on her tailbone and this has caused her more pain than normal. She has Percocet 10mg at home but they're not helping with the pain. Denies numbness and tingling to genital region and loss of bowel or bladder. Location: Lumbar Spine Timing/Duration: 1 Week Associated Symptoms: No numbness in legs/feet, No tingling in legs/feet, No loss of bladder control, No loss of bowel control Allergies and Home Medications Allergies Coded Allergies: Sulfa (Sulfonamide Antibiotics) (Verified Allergy, Unknown, HIVES, 02/23/16 ) Home Medications Albuterol Sulfate 1 Puff Puff, 2 PUFF IH Q4H, (Reported) 1 PUFF = 90 MCG Albuterol Sulfate 2.5 Mg/3 Ml Vial.neb, 2.5 MG IH Q6H PRN for SHORTNESS OF BREATH Prescribed by: THIAGO THAYER on 10/04/17 1720 Alprazolam 1 Mg Tablet, 1 MG PO BID PRN for SPASMS, (Reported) Gabapentin 300 Mg Capsule, 600 MG PO HS, (Reported) Ipratropium/Albuterol Sulfate 3 Ml Ampul.neb, 3 ML IH Q4H PRN for SHORTNESS OF BREATH Prescribed by: ESTRELLA JACKSON on 02/12/16 0849 Levothyroxine Sodium 100 Mcg Tablet, 88 MCG PO DAILY, (Reported) Oxycodone HCl/Acetaminophen 1 Each Tablet, 1 EACH PO Q4H PRN for BACK PAIN, ( Reported) Patient Home Medication List Home Medication List Reviewed: Yes Review of Systems Constitutional: see HPI; No chills, No fever Musculoskeletal: see HPI, back pain All Other Systems Reviewed Negative Unless Noted: Yes Past Ssrnaka-Cusndb-Qqlowo Hx Past Med/Social Hx: Reviewed Nursing Past Med/Soc Hx Patient Social History Alcohol Use: Denies Use Alcohol Beverage of Choice: Beer Recreational Drug Use: No Smoking Status: Current Everyday Smoker Type Used: Cigarettes 2nd Hand Smoke Exposure: Yes Recent Foreign Travel: No Contact w/Someone Who Travel: No Recent Infectious Disease Expo: No Recent Hopitalizations: No Immunizations Up To Date Tetanus Booster (TDap): Less than 5yrs PED Vaccines UTD: Yes Seasonal Allergies Seasonal Allergies: No Past Medical History Surgeries: Yes (PYELOPLASTY/URETERAL REPAIR/URETERAL STENT;) Section, Renal, Tubal Ligation Respiratory: Yes Asthma, COPD, Emphysema Currently Using CPAP: No Currently Using BIPAP: No Cardiac: Yes (TACHYCARDIA WHEN HYPERTHYROIDISM) Syncope Neurological: Yes Concussion, Neuropathy 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 Disorders: No Female 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 Disorders: Denies [employer] History: Tubal Ligation, Menopausal Sexually Transmitted Disease: No HIV/AIDS: No Genitourinary: Yes Kidney Infection Gastrointestinal: Yes (HEPATITIS C-NO TREATMENT) Gastroesophageal Reflux, Liver Disease/Jaundice, Hepatitis Musculoskeletal: Yes (SCIATICA, scoliosis, spinal stenosis, 5 BULGING DISCS) Degenerate Disk Disease, Scoliosis, Chronic Back Pain Endocrine: Yes (GRAVES DISEASE) Hyperthyroidism, Hypothyroidsim HEENT: No Cancer: No Psychosocial: Yes Anxiety Integumentary: No Blood Disorders: No Family Medical History Reviewed Nursing Family Hx Alzheimer's disease 19 MOTHER FH: epilepsy 19 MOTHER FH: lupus 19 MOTHER Fibromyalgia 19 MOTHER Hypertension 19 MOTHER Thyroid disease 19 MOTHER (HYPOTHYROID) No Pertinent Family Hx Physical Exam Vital Signs Vital Signs - First Documented 04/17/18 16:11 Temp 98.0 Pulse 120 Resp 18 B/P (MAP) 129/100 (110) Pulse Ox 100 O2 Delivery Room Air Capillary Refill : Less Than 3 Seconds Height, Weight, BMI Height: 5'6.00" Weight: 137lbs. 5.0oz. 62.809805gu; 18.5 BMI Method:Stated General Appearance: No Apparent Distress, WD/WN HEENT: PERRL/EOMI, TMs Normal, Normal ENT Inspection, Pharynx Normal Cardiovascular: Regular Rate, Rhythm, No Edema, No Gallop, No JVD, No Murmur, Normal Peripheral Pulses Respiratory: Chest Non Tender, Lungs Clear, Normal Breath Sounds, No Accessory Muscle Use, No Respiratory Distress, Accessory Muscle Use Back: Normal Inspection, No CVA Tenderness, No Vertebral Tenderness, CVA Tenderness (L), CVA Tenderness (R), Other Extremity: Normal Capillary Refill Neurologic/Psychiatric: Alert, Oriented x3, Normal Mood/Affect Skin: Normal Color, Warm/Dry Progress/Results/Core Measures Results/Orders My Orders Orders - OLAYINKA STEEL Ketorolac Injection (Toradol Injection) (04/17/18 16:45) Orphenadrine Injection (Norflex Injectio (04/17/18 16:45) Ct Lumbar Spine Wo (04/17/18 16:34) Morphine Injection (Morphine Injection (04/17/18 18:30) Medications Given in ED Vital Signs/I&O 04/17/18 04/17/18 16:11 19:26 Temp 98.0 98.0 Pulse 120 100 Resp 18 16 B/P (MAP) 129/100 (110) 132/102 (112) Pulse Ox 100 99 O2 Delivery Room Air Room Air Blood Pressure Mean: 110 Progress Progress Note : Time: 18:30 Progress Note I have seen and evaluated the patient. Her pain has improved with medication administration. She was informed of unchanged CT findings. She agrees with plans of care, plans for discharge, return precautions were given. Diagnostic Imaging Diagonstic Imaging: CT Comments NAME: JESSE WARNER [facility] REC#: [id number] PHYSICIAN: OLAYINKA STEEL CC: ARAMIS STEEL LARRY C MD Page 2 of 2 RADIOLOGY REPORT VIA [place], [place] CC: ARAMIS STEEL LARRY C MD Page 1 of 1 RADIOLOGY REPORT NAME: TIMMYJESSE Tu [facility] REC#: [id number] PT STATUS: REG ER : 1970 PHYSICIAN: OLAYINKA STEEL ADMIT DATE: 04/17/18/ER Signed Date of Exam: 04/17/18 CT LUMBAR SPINE WO PROCEDURE: CT lumbar spine without contrast. TECHNIQUE: Multiple contiguous axial images were obtained through the lumbar spine without the use of intravenous contrast. Sagittal and coronal reformations were then performed. INDICATION: Back pain after fall. FINDINGS: There is some left convexity degenerative lumbar rotoscoliosis. The vertebral body heights are well-maintained. There is no spondylolysis or spondylolisthesis. There is marked degenerative disc disease at L3-4 particularly on the right where there is loss of disc space, subchondral sclerosis and marginal osteophytosis. At L2-3, there is broad-based annular bulging, facet disease and thickening of ligamentum flavum. There is moderate spinal stenosis with encroachment on the lateral recess bilaterally and mild bilateral neural foraminal encroachment. At L3-4, there is loss of disc height. There is broad-based annular bulging, facet disease and thickening of ligamentum flavum. There is moderate spinal stenosis. There is moderate right and mild left neural foraminal encroachment. At L4-5, there is broad-based annular bulging, facet disease and thickening of ligamentum flavum. There is moderate spinal stenosis and mild bilateral neural foraminal encroachment. At L5-S1, there is broad-based annular bulging with slight effacement of ventral thecal sac and mild bilateral neural foraminal encroachment. Abdominal aorta is nonaneurysmal. There are no other focal soft tissue abnormalities. IMPRESSION: Moderate lumbar spondylosis and degenerative disc disease without acute fracture or traumatic subluxation. Dictated by: Dictated on workstation # [id number] Dict: 04/17/18 1804 Trans: 04/17/181850 Interpreted by: ANTONIO FERRO MD Electronically signed by: ANTONIO FERRO MD 04/17/181850 Reviewed: Reviewed by Me Departure Impression Primary Impression: Chronic back pain Disposition: 01 HOME, SELF-CARE Condition: Stable/Unchanged Departure-Patient Inst. Decision time for Depature: 18:38 Referrals: INDIRA MEJIA MD (PCP/Family) Primary Care Physician Patient Instructions: Low Back Pain (DC) Add. Discharge Instructions: Continue your home medications as previous described. Follow-up with Dr. Yu first thing Thursday morning by calling for an appointment time. Return back to the emergency room for any worsening symptoms or concerns as needed. All discharge instructions reviewed with patient and/or family. Voiced understanding. OLAYINKA STEEL Apr 17, 2018 17:19
--- NOTE | 2018-04-17 18:13 | Diagnostic Imaging Report ---
PROCEDURE: CT lumbar spine without contrast. TECHNIQUE: Multiple contiguous axial images were obtained through the lumbar spine without the use of intravenous contrast. Sagittal and coronal reformations were then performed. INDICATION: Back pain after fall. FINDINGS: There is some left convexity degenerative lumbar rotoscoliosis. The vertebral body heights are well-maintained. There is no spondylolysis or spondylolisthesis. There is marked degenerative disc disease at L3-4 particularly on the right where there is loss of disc space, subchondral sclerosis and marginal osteophytosis. At L2-3, there is broad-based annular bulging, facet disease and thickening of ligamentum flavum. There is moderate spinal stenosis with encroachment on the lateral recess bilaterally and mild bilateral neural foraminal encroachment. At L3-4, there is loss of disc height. There is broad-based annular bulging, facet disease and thickening of ligamentum flavum. There is moderate spinal stenosis. There is moderate right and mild left neural foraminal encroachment. At L4-5, there is broad-based annular bulging, facet disease and thickening of ligamentum flavum. There is moderate spinal stenosis and mild bilateral neural foraminal encroachment. At L5-S1, there is broad-based annular bulging with slight effacement of ventral thecal sac and mild bilateral neural foraminal encroachment. Abdominal aorta is nonaneurysmal. There are no other focal soft tissue abnormalities. IMPRESSION: Moderate lumbar spondylosis and degenerative disc disease without acute fracture or traumatic subluxation. Dictated by: Dictated on workstation # [id number]
[2018-04-17] MEDS ORDERED: morphine INJ 10 MG/ML 1ML (SYR OR VIAL) IJ ONE (18:30)
[2018-04-17 19:26] VITALS: BP 132/102
== END 2018-04-17 19:30 | disposition home or self-care (01) ==
LOC: EDUNIT# 16:01 → ER 16:04
DX: M54.5 Low back pain (principal); G89.29 Other chronic pain; J43.9 Emphysema, unspecified; E05.90 Thyrotoxicosis, unspecified without thyrotoxic crisis or storm; K21.9 Gastro-esophageal reflux disease without esophagitis; E03.9 Hypothyroidism, unspecified; F41.9 Anxiety disorder, unspecified; F17.210 Nicotine dependence, cigarettes, uncomplicated; Z96.0 Presence of urogenital implants; Z87.448 Personal history of other diseases of urinary system; Z87.19 Personal history of other diseases of the digestive system; Z98.51 Tubal ligation status; Z88.2 Allergy status to sulfonamides; Z79.51 Long term (current) use of inhaled steroids
CPT/HCPCS: 72131

== ENCOUNTER 2018-05-27 08:31 | Emergency (ER) | payer SELFPAY ==
[~2018-05-27] VITALS: Ht 167.6 cm; Wt 61.2 kg
[2018-05-27] MEDS ORDERED: IBUPROFEN 600 MG (MOTRIN) TAB PO ONE (09:15)
[2018-05-27 09:36] LABS: BASOPHILS % (AUTO) 0 % (0-10); EOSINOPHILS # (AUTO) 0.2 10^3/uL (0.0-0.3); EOSINOPHILS % (AUTO) 2 % (0-10); HEMATOCRIT 39 % (35-52); HEMOGLOBIN 12.8 G/DL (11.5-16.0); LYMPHOCYTES # (AUTO) 1.5 X 10^3 (1.0-4.0); LYMPHOCYTES % (AUTO) 15 % (12-44); MEAN CORPUSCULAR HEMOGLOBIN 30 PG (25-34); MEAN CORPUSCULAR HGB CONC 33 G/DL (32-36); MEAN CORPUSCULAR VOLUME 90 FL (80-99); MEAN PLATELET VOLUME 8.6 FL (7.4-10.4); MONOCYTES # (AUTO) 0.5 X 10^3 (0.0-1.0); MONOCYTES % (AUTO) 5 % (0-12); NEUTROPHILS # (AUTO) 7.8 X 10^3 (1.8-7.8); NEUTROPHILS % (AUTO) 78 % (42-75); PLATELET COUNT 212 10^3/uL (130-400); RED BLOOD COUNT 4.33 10^6/uL (4.35-5.85); RED CELL DISTRIBUTION WIDTH 13.5 % (10.0-14.5)
[2018-05-27 09:44] LABS: BILIRUBIN,URINE NEGATIVE (NEGATIVE); CLARITY,URINE SLIGHTLY CLOUDY; COLOR,URINE YELLOW; GLUCOSE, URINE (UA) NEGATIVE (NEGATIVE); KETONES,URINE NEGATIVE (NEGATIVE); LEUKOCYTE ESTERASE ,URINE 1+ (NEGATIVE); NITRITE,URINE POSITIVE (NEGATIVE); PH,URINE 7 (5-9); PROTEIN,URINE NEGATIVE (NEGATIVE); UROBILINOGEN,URINE NORMAL (NORMAL)
[2018-05-27 09:53] LABS: ALANINE AMINOTRANSFERASE 12 U/L (0-55); ALBUMIN 3.8 GM/DL (3.2-4.5); ALKALINE PHOSPHATASE 104 U/L (40-136); BILIRUBIN,TOTAL 0.2 MG/DL (0.1-1.0); BUN/CREATININE RATIO 11; CALCIUM 9.2 MG/DL (8.5-10.1); CARBON DIOXIDE 23 MMOL/L (21-32); CHLORIDE 102 MMOL/L (98-107); CREATININE SERUM 0.87 MG/DL (0.60-1.30); GFR ESTIMATED > 60; GLUCOSE 100 MG/DL (70-105); POTASSIUM 4.3 MMOL/L (3.6-5.0); SODIUM 136 MMOL/L (135-145); TOTAL PROTEIN 7.3 GM/DL (6.4-8.2)
[2018-05-27 09:59] LABS: BACTERIA,URINE MODERATE /HPF
--- NOTE | 2018-05-27 11:18 | ED General ---
General Chief Complaint: Fever-Adult/Adol Stated Complaint: FEVER Nursing Triage Note: ARRIVED VIA AMB WITH COMPLAINTS OF FEVER AND FEELING WEEK STARTING YESTERDAY. STATES SHE HAS BEEN TAKING HER PRESCRIBED PERCOCET BUT THE FEVER KEEPS COMING BACK. Nursing Sepsis Screen: Possible Sepsis Risk Source of Information: Patient History of Present Illness Date Seen by Provider: May 27, 2018 Time Seen by Provider: 11:14 Initial Comments The patient is a 47-year-old white female who presents with complaints of fever and body aches beginning last Thursday. This is apparently waxed and waned. She had Percocet at home for pain and took it and found that it helped reduce her fever. She has a cough but no sputum production. There has been no burning or frequency of urination. There has been no nausea vomiting or diarrhea. Timing/Duration: 5-6 Days Severity: Moderate Modifying Factors: improves with Medication Allergies and Home Medications Allergies Coded Allergies: Sulfa (Sulfonamide Antibiotics) (Verified Allergy, Unknown, HIVES, 02/23/16 ) Home Medications Albuterol Sulfate 1 Puff Puff, 2 PUFF IH Q4H, (Reported) 1 PUFF = 90 MCG Albuterol Sulfate 2.5 Mg/3 Ml Vial.neb, 2.5 MG IH Q6H PRN for SHORTNESS OF BREATH Prescribed by: THIAGO THAYER on 10/04/17 1720 Alprazolam 1 Mg Tablet, 1 MG PO BID PRN for SPASMS, (Reported) Gabapentin 300 Mg Capsule, 600 MG PO HS, (Reported) Ipratropium/Albuterol Sulfate 3 Ml Ampul.neb, 3 ML IH Q4H PRN for SHORTNESS OF BREATH Prescribed by: ESTRELLA JACKSON on 02/12/16 0849 Levothyroxine Sodium 100 Mcg Tablet, 88 MCG PO DAILY, (Reported) Oxycodone HCl/Acetaminophen 1 Each Tablet, 1 EACH PO Q4H PRN for BACK PAIN, ( Reported) Patient Home Medication List Home Medication List Reviewed: Yes Review of Systems Review of Systems Constitutional: see HPI EENTM: no symptoms reported Respiratory: cough Cardiovascular: no symptoms reported Gastrointestinal: no symptoms reported Genitourinary: no symptoms reported Musculoskeletal: muscle pain, muscle stiffness Skin: no symptoms reported Psychiatric/Neurological: No Symptoms Reported Hematologic/Lymphatic: No Symptoms Reported Immunological/Allergic: no symptoms reported Past Pcdjyfg-Yxzdgq-Ebzzxa Hx Patient Social History Alcohol Use: Denies Use Alcohol Beverage of Choice: Beer Recreational Drug Use: No Smoking Status: Current Everyday Smoker Type Used: Cigarettes 2nd Hand Smoke Exposure: Yes Recent Foreign Travel: No Contact w/Someone Who Travel: No Recent Infectious Disease Expo: No Recent Hopitalizations: No Immunizations Up To Date Tetanus Booster (TDap): Less than 5yrs PED Vaccines UTD: Yes Seasonal Allergies Seasonal Allergies: No Past Medical History Surgeries: Yes (PYELOPLASTY/URETERAL REPAIR/URETERAL STENT;) Section, Renal, Tubal Ligation Respiratory: Yes Asthma, COPD, Emphysema Currently Using CPAP: No Currently Using BIPAP: No Cardiac: Yes (TACHYCARDIA WHEN HYPERTHYROIDISM) Syncope Neurological: Yes Concussion, Neuropathy 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 Disorders: No Female 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 Disorders: Denies [employer] History: Tubal Ligation, Menopausal Sexually Transmitted Disease: No HIV/AIDS: No Genitourinary: Yes Kidney Infection Gastrointestinal: Yes (HEPATITIS C-NO TREATMENT) Gastroesophageal Reflux, Liver Disease/Jaundice, Hepatitis Musculoskeletal: Yes (SCIATICA, scoliosis, spinal stenosis, 5 BULGING DISCS) Degenerate Disk Disease, Scoliosis, Chronic Back Pain Endocrine: Yes (GRAVES DISEASE) Hyperthyroidism, Hypothyroidsim HEENT: No Cancer: No Psychosocial: Yes Anxiety Integumentary: No Blood Disorders: No Family Medical History Alzheimer's disease 19 MOTHER FH: epilepsy 19 MOTHER FH: lupus 19 MOTHER Fibromyalgia 19 MOTHER Hypertension 19 MOTHER Thyroid disease 19 MOTHER (HYPOTHYROID) No Pertinent Family Hx Physical Exam Vital Signs Vital Signs - First Documented 05/27/18 09:07 Temp 102.3 Pulse 106 Resp 16 B/P (MAP) 139/99 (112) Pulse Ox 96 O2 Delivery Room Air Capillary Refill : Less Than 3 Seconds Height, Weight, BMI Height: 5'6.00" Weight: 135lbs. 5.0oz. 61.063408is; 18.5 BMI Method:Stated General Appearance: Mild Distress, Moderate Distress Eyes: Bilateral Eye Normal Inspection HEENT: Normal ENT Inspection Neck: Full Range of Motion Respiratory: Chest Non Tender, Lungs Clear, Normal Breath Sounds, No Accessory Muscle Use, No Respiratory Distress Cardiovascular: Regular Rate, Rhythm, No Edema, No Gallop, No JVD, No Murmur, Normal Peripheral Pulses Gastrointestinal: Normal Bowel Sounds, Tenderness Back: Normal Inspection Extremity: Normal Capillary Refill, Normal Inspection, Normal Range of Motion, Non Tender, No Calf Tenderness, No Pedal Edema Neurologic/Psychiatric: Alert, Oriented x3, No Motor/Sensory Deficits, Normal Mood/Affect Skin: Normal Color, Warm/Dry Lymphatic: No Adenopathy Comments Heavily tattooed Focused Exam Lactate Level 05/27/18 09:20: Lactic Acid Level 1.02 Lactic Acid Level Laboratory Tests Test 05/27/18 09:20 Lactic Acid Level 1.02 MMOL/L (0.50-2.00) Progress/Results/Core Measures Suspected Sepsis Recent Fever Within 48 Hours: Yes Infection Criteria Present: Suspected New Infection New/Unexplained Altered Menta: No Sepsis Screen: Possible Sepsis Risk SIRS Temperature:99.3 Pulse: 106 Respiratory Rate: 16 Laboratory Tests 05/27/18 09:20: White Blood Count 10.0 Blood Pressure 139 /99 Mean: 112 05/27/18 09:20: Lactic Acid Level 1.02 Laboratory Tests 05/27/18 09:20: Creatinine 0.87, Platelet Count 212, Total Bilirubin 0.2 Results/Orders Lab Results Laboratory Tests Test 05/27/18 09:20 05/27/18 09:37 Range/Units White Blood Count 10.0 4.3-11.0 10^3/uL Red Blood Count 4.33 L 4.35-5.85 10^6/uL Hemoglobin 12.8 11.5-16.0 G/DL Hematocrit 39 35-52 % Mean Corpuscular Volume 90 80-99 FL Mean Corpuscular Hemoglobin 30 25-34 PG Mean Corpuscular Hemoglobin Concent 33 32-36 G/DL Red Cell Distribution Width 13.5 10.0-14.5 % Platelet Count 212 130-400 10^3/uL Mean Platelet Volume 8.6 7.4-10.4 FL Neutrophils (%) (Auto) 78 H 42-75 % Lymphocytes (%) (Auto) 15 12-44 % Monocytes (%) (Auto) 5 0-12 % Eosinophils (%) (Auto) 2 0-10 % Basophils (%) (Auto) 0 0-10 % Neutrophils # (Auto) 7.8 1.8-7.8 X 10^3 Lymphocytes # (Auto) 1.5 1.0-4.0 X 10^3 Monocytes # (Auto) 0.5 0.0-1.0 X 10^3 Eosinophils # (Auto) 0.2 0.0-0.3 10^3/uL Basophils # (Auto) 0.0 0.0-0.1 10^3/uL Sodium Level 136 135-145 MMOL/L Potassium Level 4.3 3.6-5.0 MMOL/L Chloride Level 102 98-107 MMOL/L Carbon Dioxide Level 23 21-32 MMOL/L Anion Gap 11 5-14 MMOL/L Blood Urea Nitrogen 10 7-18 MG/DL Creatinine 0.87 0.60-1.30 MG/DL Estimat Glomerular Filtration Rate > 60 BUN/Creatinine Ratio 11 Glucose Level 100 70-105 MG/DL Lactic Acid Level 1.02 0.50-2.00 MMOL/L Calcium Level 9.2 8.5-10.1 MG/DL Corrected Calcium 9.4 8.5-10.1 MG/DL Total Bilirubin 0.2 0.1-1.0 MG/DL Aspartate Amino Transf (AST/SGOT) 18 5-34 U/L Alanine Aminotransferase (ALT/SGPT) 12 0-55 U/L Alkaline Phosphatase 104 40-136 U/L Total Protein 7.3 6.4-8.2 GM/DL Albumin 3.8 3.2-4.5 GM/DL Urine Color YELLOW Urine Clarity SLIGHTLY CLOUDY Urine pH 7 5-9 Urine Specific [place] 1.010 L 1.016-1.022 Urine Protein NEGATIVE NEGATIVE Urine Glucose (UA) NEGATIVE NEGATIVE Urine Ketones NEGATIVE NEGATIVE Urine Nitrite POSITIVE H NEGATIVE Urine Bilirubin NEGATIVE NEGATIVE Urine Urobilinogen NORMAL NORMAL MG/DL Urine Leukocyte Esterase 1+ H NEGATIVE Urine RBC (Auto) NEGATIVE NEGATIVE Urine RBC NONE /HPF Urine WBC 5-10 H /HPF Urine Squamous Epithelial Cells 10-25 H /HPF Urine Crystals NONE /LPF Urine Bacteria MODERATE H /HPF Urine Casts NONE /LPF Urine Mucus NEGATIVE /LPF Urine Culture Indicated YES Micro Results Microbiology 05/27/18 Influenza Types A,B Antigen (YOLIS) - Final, Complete My Orders Orders - RIKY SANTANA MD Cbc With Automated Diff (05/27/18 09:08) Comprehensive Metabolic Panel (05/27/18 09:08) Ua Culture If Indicated (05/27/18 09:08) Blood Culture (05/27/18 09:08) Lactic Acid Analyzer (05/27/18 09:08) Ibuprofen Tablet (Motrin Tablet) (05/27/18 09:15) Influenza A And B Antigens (05/27/18 09:35) Urine Culture (05/27/18 09:37) Chest 1 View, Ap/Pa Only (05/27/18 11:06) Medications Given in ED Current Medications Medications Dose Ordered Sig/Kayla Route Start Time Stop Time Status Last Admin Dose Admin Ibuprofen 600 mg ONCE ONCE PO 05/27/18 09:15 05/27/18 09:16 DC 05/27/18 09:24 600 MG Vital Signs/I&O 05/27/18 05/27/18 09:07 10:45 Temp 102.3 99.3 Pulse 106 Resp 16 B/P (MAP) 139/99 (112) Pulse Ox 96 O2 Delivery Room Air Capillary Refill : Less Than 3 Seconds Blood Pressure Mean: 112 Point of Care Testing Urine -Bedside: Negative Departure Communication (Admissions) Chest x-ray is very similar to previous. Impression Primary Impression: upper respiratory infection Additional Impression: urinary tract infection Disposition: 01 HOME, SELF-CARE Condition: Stable/Unchanged Departure-Patient Inst. Decision time for Depature: 12:06 Referrals: INDIRA MEJIA MD (PCP/Family) Primary Care Physician Patient Instructions: Dehydration, Adult (DC) Add. Discharge Instructions: All discharge instructions reviewed with patient and/or family. Voiced understanding. Plenty of liquids. Get ibuprofen at the pharmacy and take 600 mg up to 4 times daily as needed to control fever. Omnicef for urinary tract Scripts Cefdinir (Cefdinir) 300 Mg Capsule 300 MG PO twice a day, #10 CAP Prov: RIKY SANTANA MD 05/27/18 RIKY SANTANA MD May 27, 2018 11:18
[2018-05-27] MEDS ORDERED: CEFD300C3 PO (12:07)
--- NOTE | 2018-05-27 12:15 | Diagnostic Imaging Report ---
INDICATION: Fever. TIME OF EXAMINATION: 11:33 a.m. COMPARISON: Correlation is made with prior study from 10/04/2017. FINDINGS: Right convexity thoracic scoliotic curvature is seen. The heart is enlarged but stable. There is some density in the left base. The right lung is clear. Apical thickening on the left is unchanged. No pneumothorax is identified. IMPRESSION: Cardiomegaly and chronic left apical thickening. There is some density in the left base which may be chronic as well. Dictated by: Dictated on workstation # [id number]
[2018-05-27 12:28] VITALS: BP 105/70
== END 2018-05-27 12:28 | disposition home or self-care (01) ==
LOC: EDUNIT# 08:31 → ER 08:32
DX: J06.9 Acute upper respiratory infection, unspecified (principal); N39.0 Urinary tract infection, site not specified; J43.9 Emphysema, unspecified; E05.90 Thyrotoxicosis, unspecified without thyrotoxic crisis or storm; K21.9 Gastro-esophageal reflux disease without esophagitis; F41.9 Anxiety disorder, unspecified; E03.9 Hypothyroidism, unspecified; F17.210 Nicotine dependence, cigarettes, uncomplicated; Z88.2 Allergy status to sulfonamides; Z87.19 Personal history of other diseases of the digestive system; Z79.51 Long term (current) use of inhaled steroids
CPT/HCPCS: 36415; 71045; 80053; 81000; 83605; 84703; 85025; 87040; 87077; 87088; 87186; 87804

== ENCOUNTER 2018-07-05 22:13 | Emergency (ER) | payer SELFPAY ==
[~2018-07-05] VITALS: Ht 162.6 cm; Wt 54.4 kg
--- OUTSIDE RECORDS SUMMARY | 2018-07-05 22:19 | XMS REPORT ---
Author Author INDIRA MEJIA Organization 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 Active 33865506 Problem Scoliosis M41.9 Active 755386426 Problem Hyperthyroidism E05.90 Active 01404959 Problem Postablative hypothyroidism E89.0 Active 547832543 Problem Mild intermittent asthma without complication J45.20 Active 288549905 Problem Strain of neck muscle, subsequent encounter S16.1XXD Active 829823541 Problem Lumbar disc disease M51.9 Active 76994620 Problem Cigarette nicotine dependence without complication F17.210 Active 84670712 Problem Tachycardia R00.0 Active 6095569 ALLERGIES No Information ENCOUNTERS Encounter Location Date Diagnosis [place] [id number] [place] [address] 67661- 9372 May, Lumbar disc disease M51.9 [place] [address] [place] [id number] [place] [address] 49528- 5700 Apr, Lumbar disc disease M51.9 [facility] [id number] [place] [address] 14198- 5699 Mar, Lumbar disc disease M51.9 [place] [address] 05043- 3530 15 Mar, 2018 Hyperthyroidism E05.90 [place] [address] [id number] [place] [address] 93608- 1143 08 Mar, 2018 Lumbar disc disease M51.9 ; Mild intermittent asthma without complication J45.20 and Postablative hypothyroidism E89.0 [facility] [address] [place] [address] 28356- 4380 Feb, Lumbar disc disease M51.9 [facility] [id number] [place] [address] 16030- 1316 Jan, Lumbar disc disease M51.9 [facility] [id number] [place] [address] 75756 2546 Jan, Hyperthyroidism E05.90 [facility] [id number] [place] [address] 92003 2546 Dec, Lumbar disc disease M51.9 [facility] [id number] [place] [address] 10189- 8636 Dec, Hyperthyroidism E05.90 [facility] [id number] [place] [address] 20623- 8326 Dec, [facility] [id number] [place] [address] 66640- 0309 Dec, Lumbar disc disease M51.9 ; Acute cystitis without hematuria N30.00 and Postablative hypothyroidism E89.0 [facility] [id number] [place] [address] 81490- 2835 Nov, Lumbar disc disease M51.9 [facility] [id number] [place] [address] 43499- 4045 Nov, Lumbar disc disease M51.9 [facility] [id number] [place] [address] 77182- 0983 October, Lumbar radiculopathy M54.16 [facility] [id number] [place] [address] 56040- 4246 October, [facility] [id number] [place] [address] 13972- 1317 October, Lumbar disc disease M51.9 [facility] [id number] [place] [address] 68437- 8204 October, [facility] [address] [address]- 7925 October, Lumbar disc disease M51.9 [facility] [address] [place] [address] 589631- 1767 October, Lumbar disc disease M51.9 [facility] [id number] [place] [address] 55183- 1280 Sep, [facility] [id number] [place] [address] 71225- 3672 Sep, Lumbar disc disease M51.9 [facility] [id number] [place] [address] 21811- 3105 Aug, [facility] [address] [place] [address] 68355- 6701 Aug, Lumbar disc disease M51.9 [facility] [id number] [place] [address] 64026- 5146 Aug, Lumbar disc disease M51.9 [facility] [address] [place] [address] 20928- 1603 Jul, Lumbar disc disease M51.9 [facility] [address] [place] [address] 02698- 7428 Jul, [facility] [address] [place] [address] 69642- 8608 Jul, Lumbar disc disease M51.9 and Mild intermittent asthma without complication J45.20 [facility] [address] [address] 4911 Jun, [facility] [id number] [place] [address] 58241- 3457 Jun, [facility] [address] [place] [address] [id number] [address] Jun, Abnormal CT of the head R93.0 [facility] [id number] [address]- 1750 Jun, Lumbar disc disease M51.9 [facility] [address] [facility] [id number] [address]- 0468 May, Lumbar disc disease M51.9 and Strain of neck muscle, subsequent encounter S16.1XXD [facility] [address] [id number] [address]- 9896 Apr, Strain of neck muscle, subsequent encounter S16.1XXD [facility] [address] [id number] [place] [address]- 4351 Apr, Strain of neck muscle, subsequent encounter S16.1XXD [facility] [address] [facility] [id number] [place] [address] 02977- 2036 Apr, [facility] [address] [facility] [id number] [place] [address] 12968- 3378 Apr, Strain of neck muscle, subsequent encounter S16.1XXD ; Lumbar disc disease M51.9 and Cigarette nicotine dependence without complication F17.210 [facility] [address] [id number] [place] [address] 5[address] Mar, [facility] [address] [facility] [id number] [address] 2845 Mar, [facility] [address] [facility] [id number] [address]- 1553 Mar, Strain of neck muscle, subsequent encounter S16.1XXD and Lumbar disc disease M51.9 [facility] [address] [facility] [id number] [place] [address]- 3316 Feb, Tachycardia R00.[address] [facility] [address] [facility] [id number] [place] [address] 73153- 4106 Feb, Strain of neck muscle, subsequent encounter S16.1XXD and Tachycardia R00.0 [facility] [address] [facility] [id number] [place] [address]- 8726 Jan, [facility] [address] [address]- 8150 Jan, Acute strain of neck muscle, initial encounter S16.1XXA [facility] [address] [facility] [id number] [place] [address] 2542 Jan, Hyperthyroidism E05.90 [facility] [address] [place] [id number] [place] [address] 30277- 4356 Dec, Hyperthyroidism E05.90 [facility] [address] [facility] [id number] [place] [address] 01885 2545 Dec, [facility] [id number] [place] [address] 50751- 4031 Dec, [facility] [address] [place] [id number] [place] [address] 11047- 1826 Dec, Hyperthyroidism E05.90 and Lumbar disc disease M51.9 [facility] [address] [place] [address] 98247- 8885 Dec, [facility] [address] [place] [address] [id number] [place] [address] 13432- 7874 Dec, [facility] [address] [address]- 0590 Dec, [facility] [address] [address]- 2413 Nov, [facility] [address] [place] [address] 79697 2541 Nov, Lumbar disc disease M51.9 ; Hyperthyroidism E05.[address] [facility] [address] [address] 2546 Nov, [facility] [address] [address] 2541 Nov, [facility] [address] [place] [address] 80219- 8142 October, Arthritis M19.90 [place] [address] [place] [address] [id number] [place] [address] 40584- 9750 October, Lumbar disc disease M51.9 ; Scoliosis M41.9 ; Arthritis M19.90 and Reactive depression F32.9 [place] [address] [place] [id number] [place] [address] 85019- 8523 October, Unspecified thoracic, thoracolumbar and lumbosacral intervertebral disc disorder M51.9 [place] [address] [place] [id number] [place] [address] 86034- 0007 October, [place] [address] 18773- 1593 October, Lumbar disc disease M51.9 and Anxiety F41.9 [place] [id number] [place] [address] 44661- 3660 Sep, [place] [address] [place] [id number] [place] [address] 45476- 7508 Sep, Screening for breast cancer Z12.39 ; Hyperthyroidism E05.90 and Scoliosis M41.9 [place] [id number] [place] [address] 60609- 3945 Sep, Thyrotoxicosis without thyroid storm E05.90 [place] [address] [place] [id number] [place] [address] 61267- 3016 Sep, Thyrotoxicosis without thyroid storm E05.90 [place] [address] [place] [id number] [place] [address] 89578- 4845 Sep, Scoliosis M41.9 ; Arthritis M19.90 and Hyperthyroidism E05.90 IMMUNIZATIONS No Known Immunizations SOCIAL HISTORY Never Assessed REASON FOR VISIT Controlled Med Refill PLAN OF CARE VITAL SIGNS MEDICATIONS Medication Instructions Dosage Frequency Start Date End Date Duration Status Valium 10 mg Orally Twice a day 1 tablet 12h 05 Mar, 2017 28 days Active Tramadol HCl 50 mg Orally 3 times a day 1 tablet as needed 8h 28 days Active Percocet 10-325 MG Orally q4 h prn pain 1 tablet as needed 17 Dec, 2018 28 days Active RESULTS No Results PROCEDURES No Known procedures INSTRUCTIONS MEDICATIONS ADMINISTERED No Known Medications MEDICAL (GENERAL) HISTORY Type Description Date Medical History copd Medical History asthma Medical History hyperthyroidism s/p radioiodine ablation 11/07/15 Medical History chronic pain - degenerative disc disease, coliosis, spinal stenosis Medical History nodule in left lung Medical History hx kidney stones Surgical History x 1 Surgical History tubal ligation Surgical History pyloplasty 2013 Surgical History Ablation 10/2015 Surgical History Kidney/scar tissue/stints 2014 Hospitalization History thyroid storm 2015 Hospitalization History respiratory issues. numerous hospitalizations Hospitalization History VC Syncope 12/16/2015 Hospitalization History UTI
--- OUTSIDE RECORDS SUMMARY | 2018-07-05 22:20 | XMS REPORT ---
Author Author INDIRA MEJIA [facility] Address [address] [place] [address] Care Team Providers Care Mixer Blender Name Role Phone INDIRA MEJIA Unavailable PROBLEMS ALLERGIES No Information ENCOUNTERS IMMUNIZATIONS No Known Immunizations SOCIAL HISTORY No smoking Hx information available REASON FOR VISIT PLAN OF CARE VITAL SIGNS MEDICATIONS RESULTS No Results PROCEDURES No Known procedures INSTRUCTIONS MEDICATIONS ADMINISTERED No Known Medications MEDICAL (GENERAL) HISTORY
--- OUTSIDE RECORDS SUMMARY | 2018-07-05 22:20 | XMS REPORT ---
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 Active 95369523 Problem Scoliosis M41.9 Active 977858314 Problem Hyperthyroidism E05.90 Active 57830517 Problem Postablative hypothyroidism E89.0 Active 117740947 Problem Mild intermittent asthma without complication J45.20 Active 534322919 Problem Strain of neck muscle, subsequent encounter S16.1XXD Active 676165300 Problem Lumbar disc disease M51.9 Active 15547312 Problem Cigarette nicotine dependence without complication F17.210 Active 07437281 Problem Tachycardia R00.0 Active 8530767 ALLERGIES No Information ENCOUNTERS Encounter Location Date Diagnosis [facility] [id number] [place] [address] 14139- 8321 Mar, [facility] [address] [place] [address] 58630- 8133 Jan, Lumbar disc disease M51.9 [facility] [address] [place] [address] 18107- 0621 Jan, Hyperthyroidism E05.90 [facility] [address] [place] [id number] [place] [address] 69168- 6790 Dec, Lumbar disc disease M51.9 [facility] [address] [place] [address] 98973- 1293 Dec, Hyperthyroidism E05.90 [facility] [address] [place] [address] 91284- 5252 Dec, [facility] [address] [facility] [id number], [place] [address]- 2011 Dec, Lumbar disc disease M51.9 ; Acute cystitis without hematuria N30.00 and Postablative hypothyroidism E89.0 [facility] [address] [id number], [place] [address]- 9026 Nov, Lumbar disc disease M51.9 [facility] [id number] [place] [address] 15378- 8072 Nov, Lumbar disc disease M51.9 [facility] [address] [id number] [place] [address] 17378- 6586 October, Lumbar radiculopathy M54.16 [facility] [address] [id number] [place] [address] 11822- 9106 October, [facility] [address] [facility] [id number] [place] [address] 92098- 6760 October, Lumbar disc disease M51.9 [facility] [address] [id number], [place] [address]- 3909 October, [facility] [address] [facility] [id number] [place] [address] 13202- 9522 October, Lumbar disc disease M51.9 [facility] [address] [facility] [id number], [place] [address]- 4116 October, Lumbar disc disease M51.9 [facility] [address] [facility] [id number], [place] [address]- 5189 Sep, [facility] [address] [id number], [place] [address]- 0996 Sep, Lumbar disc disease M51.9 [facility] [address] [facility] [id number], [place] [address]- 3316 Aug, [facility] [address] [facility] [id number], [place] [address]- 4137 Aug, Lumbar disc disease M51.9 [facility] [address] [place] [address] 27513- 8013 Aug, Lumbar disc disease M51.9 [facility] [address] [place] [id number] [place] [address] 53477- 0949 Jul, Lumbar disc disease M51.9 [facility] [id number] [place] [address] 91542- 2647 Jul, [facility] [address] [id number] [place] [address] 51501- 3503 Jul, Lumbar disc disease M51.9 and Mild intermittent asthma without complication J45.20 [facility] [address] [id number] [place] [address] 64728- 5370 Jun, [facility] [address] [id number] [place] [address] 00272- 5220 Jun, [facility] [id number] Jun, Abnormal CT of the head R93.0 [facility] [address] [place] [id number] [place] [address] 35409- 3959 Jun, Lumbar disc disease M51.9 [facility] [address] [id number] [place] [address] 31395- 6017 13 May, 2017 Lumbar disc disease M51.9 and Strain of neck muscle, subsequent encounter S16.1XXD [facility] [id number] [place] [address] 28607- 4283 Apr, Strain of neck muscle, subsequent encounter S16.1XXD [facility] [id number] [place] [address] 69545- 9227 17 Apr, 2017 Strain of neck muscle, subsequent encounter S16.1XXD [facility] [address] [place] [address] 74390- 3980 Apr, [facility] [id number] [place] [address] 08373- 2704 Apr, Strain of neck muscle, subsequent encounter S16.1XXD ; Lumbar disc disease M51.9 and Cigarette nicotine dependence without complication F17.210 [facility] [address] [address]- 1046 Mar, [facility] [id number] [place] [address] 24541- 3919 Mar, [facility] [id number] [place] [address] 47181- 7998 Mar, Strain of neck muscle, subsequent encounter S16.1XXD and Lumbar disc disease M51.9 [facility] [id number] [place] [address] 80443- 3046 Feb, Tachycardia R00.0 [facility] [id number] [place] [address] 56125- 8052 Feb, Strain of neck muscle, subsequent encounter S16.1XXD and Tachycardia R00.0 [facility] [address] [place] [address] 87135- 8980 Jan, [facility] [id number] [place] [address] 36674- 3156 Jan, Acute strain of neck muscle, initial encounter S16.1XXA [facility] [address] [place] [address] 34984- 8117 Jan, Hyperthyroidism E05.90 [facility] [address] [place] [address] 19178- 8145 Dec, [facility] [id number] [place] [address] 57077- 6536 Dec, Hyperthyroidism E05.90 [facility] [address] [place] [address] 88266- 6281 Dec, [facility] [address] [place] [address] 31835- 6267 Dec, Hyperthyroidism E05.90 and Lumbar disc disease M51.9 [facility] [address] [id number] [address]- 7554 Dec, [facility] [id number] [place] [address] 18166- 3615 Dec, [facility] [id number] [place] [address] 63531- 9976 Dec, [facility] [id number] [place] [address] 37387- 9722 Nov, [facility] [id number] [place] [address] 31367- 4442 Nov, Lumbar disc disease M51.9 ; Hyperthyroidism E05.90 and Anxiety F41.9 [facility] [id number] [place] [address] 16738- 4093 Nov, [facility] [id number] [place] [address] 72123- 9882 Nov, [facility] [id number] [place] [address] 83611- 2156 October, Arthritis M19.90 [facility] [id number] [place] [address] 34429- 0586 October, Lumbar disc disease M51.9 ; Scoliosis M41.9 ; Arthritis M19.90 and Reactive depression F32.9 [facility] [id number] [place] [address] 77863- 6385 October, Unspecified thoracic, thoracolumbar and lumbosacral intervertebral disc disorder M51.9 [facility] [id number] [place] [address] 77085- 0828 October, [facility] [id number] [place] [address] 64379- 6584 October, Lumbar disc disease M51.9 and Anxiety F41.9 [facility] [id number] [place] [address] 39218- 0402 Sep, [place] [id number] [address]- 0160 Sep, Screening for breast cancer Z12.39 ; Hyperthyroidism E05.90 and Scoliosis M41.9 [place] [place] [address] [id number] [address] Sep, Thyrotoxicosis without thyroid storm E05.90 [address] [id number] [address] Sep, Thyrotoxicosis without thyroid storm E05.90 [place] [id number] [address] Sep, Scoliosis M41.9 ; Arthritis M19.90 and Hyperthyroidism E05.90 IMMUNIZATIONS No Known Immunizations SOCIAL HISTORY Never Assessed REASON FOR VISIT medication refill PLAN OF CARE VITAL SIGNS MEDICATIONS Medication Instructions Dosage Frequency Start Date End Date Duration Status Levothyroxine Sodium 100 MCG Orally Once a day 1 tablet 24h Active RESULTS No Results PROCEDURES No Known [...] Surgical History tubal ligation Surgical History pyloplasty 2014 Surgical History Ablation 10/2015 Surgical History Kidney/scar tissue/stints 2014 Hospitalization History thyroid storm 2015 Hospitalization History respiratory issues. numerous hospitalizations Hospitalization History [facility] Syncope 12/16/2015 Hospitalization History UTI
--- OUTSIDE RECORDS SUMMARY | 2018-07-05 22:20 | XMS REPORT ---
Author Author INDIRA MEJIA [facility] Address [address] [place] [address] Care Team Providers Care Retention Representative Name Role Phone INDIRA MEJIA Unavailable PROBLEMS Type Condition ICD9-CM Code USO78-OG Code Onset Dates Condition Status SNOMED Code Problem Arthritis M19.90 Active 1055626 Problem Anxiety F41.9 Active 09815900 Problem Thyrotoxicosis without thyroid storm E05.90 Active 58822428 Problem Scoliosis M41.9 Active 407519623 Problem Hyperthyroidism E05.90 Active 28232632 Problem Postablative hypothyroidism E89.0 Active 183497595 Problem Mild intermittent asthma without complication J45.20 Active 338400725 Problem Strain of neck muscle, subsequent encounter S16.1XXD Active 381849533 Problem Lumbar disc disease M51.9 Active 82388694 Problem Cigarette nicotine dependence without complication F17.210 Active 52765176 Problem Tachycardia R00.0 Active [id number] ALLERGIES No Information ENCOUNTERS Encounter Location Date Diagnosis [place] [id number] [place] [address] 91846- 7495 Mar, Hyperthyroidism E05.90 [place] [address] [place] [id number] [place] [address] 50450- 7220 Mar, Lumbar disc disease M51.9 ; Mild intermittent asthma without complication J45.20 and Postablative hypothyroidism E89.0 [facility] [id number] [place] [address] 13911- 2726 Feb, Lumbar disc disease M51.9 [place] [address] [place] [id number] [place] [address] 04056- 8433 Jan, Lumbar disc disease M51.9 [facility] [id number] [place] [address] 25597- 3934 Jan, Hyperthyroidism E05.90 [facility] [address] [facility] [id number] [place] [address] 09212- 9323 Dec, Lumbar disc disease M51.9 [facility] [address] [id number] [place] [address] 57535 2546 Dec, Hyperthyroidism E05.90 [facility] [id number] [place] [address] 19028 2546 Dec, [facility] [id number] [place] [address] 55527 2540 Dec, Lumbar disc disease M51.9 ; Acute cystitis without hematuria N30.00 and Postablative hypothyroidism E89.0 [facility] [id number] [place] [address] 12799- 6849 Nov, Lumbar disc disease M51.9 [facility] [id number] [place] [address] 83475- 6172 Nov, Lumbar disc disease M51.9 [facility] [id number] [place] [address] 65226- 4975 October, Lumbar radiculopathy M54.16 [facility] [id number] [place] [address] 06809- 7190 October, [facility] [id number] [place] [address] 74048- 4250 October, Lumbar disc disease M51.9 [facility] [id number] [place] [address] 75646- 2625 October, [facility] [id number] [place] [address] 62859- 6473 October, Lumbar disc disease M51.9 [facility] [address] [place] [id number] [place] [address] [id number] 1242 October, Lumbar disc disease M51.9 [facility] [address] [id number] [place] [address] 67388- 3717 Sep, [facility] [address] [place] [address] 81911- 8765 Sep, Lumbar disc disease M51.9 [facility] [address] [id number] [place] [address] 46955- 6608 Aug, [facility] [id number] [place] [address] 22083- 1548 Aug, Lumbar disc disease M51.9 [facility] [id number] [place] [address] 35368- 2027 Aug, Lumbar disc disease M51.9 [facility] [address] [place] [id number] [place] [address] 52318- 3551 Jul, Lumbar disc disease M51.9 [facility] [address] [place] [id number] [place] [address] 96730- 0741 Jul, [facility] [address] [place] [address] [id number] [place] [address] 88584- 0235 Jul, Lumbar disc disease M51.9 and Mild intermittent asthma without complication J45.20 [facility] [address] [place] [id number] [place] [address] 44092- 1145 Jun, [facility] [address] [address] [id number] [place] [address] 43029- 5737 Jun, [facility] [address] [place] [id number] [place] [id number], [address] of the head R93.0 [facility] [address] [place] [address] 89356- 1111 Jun, Lumbar disc disease M51.9 [facility] [address] [place] [id number] [place] [address] 05225- 0989 May, Lumbar disc disease M51.9 and Strain of neck muscle, subsequent encounter S16.1XXD [facility] [address] [place] [address] 36361- 3654 Apr, Strain of neck muscle, subsequent encounter S16.1XXD [facility] [address] [id number] [address]- 5124 Apr, Strain of neck muscle, subsequent encounter S16.1XXD [facility] [id number] [place] [address] 10338- 4656 Apr, [facility] [address] [facility] [id number] [place] [address] 11335- 5369 Apr, Strain of neck muscle, subsequent encounter S16.1XXD ; Lumbar disc disease M51.9 and Cigarette nicotine dependence without complication F17.210 [facility] [id number] [place] [address] 10477- 7772 Mar, [facility] [address] [facility] [id number] [place] [address] 43389- 8551 Mar, [facility] [address] [facility] [id number] [place] [address] 52793- 6488 Mar, Strain of neck muscle, subsequent encounter S16.1XXD and Lumbar disc disease M51.9 [facility] [id number] [place] [address] 08812- 9830 Feb, Tachycardia R00.0 [facility] [address] [facility] [id number] [place] [address] 46607- 0142 Feb, Strain of neck muscle, subsequent encounter S16.1XXD and Tachycardia R00.0 [facility] [address] [facility] [id number] [place] [address] 83704- 9075 Jan, [facility] [address] [facility] [id number] [place] [address] 98291- 2548 Jan, Acute strain of neck muscle, initial encounter S16.1XXA [facility] [address] [facility] [id number] [place] [address] 96135 2546 Jan, Hyperthyroidism E05.90 [facility] [address] [facility] [id number] [place] [address] 44276 2546 Dec, Hyperthyroidism E05.90 [facility] [address] [address]- 1615 Dec, [facility] [address] [place] [id number] [place] [address] 66976- 8136 Dec, [facility] [address] [place] [id number] [place] [address] 11641- 4699 Dec, Hyperthyroidism E05.90 and Lumbar disc disease M51.9 [facility] [address] [place] [id number] [place] [address] 70297- 3748 Dec, [facility] [address] [place] [id number] [place] [address] 95225- 1612 Dec, [facility] [address] [place] [id number] [place] [address] 36988- 5452 Dec, [facility] [address] [place] [id number] [place] [address] 18267- 8897 Nov, [facility] [address] [place] [id number] [place] [address] 61846- 9870 Nov, Lumbar disc disease M51.9 ; Hyperthyroidism E05.90 and Anxiety F41.9 [facility] [address] [place] [id number] [place] [address] 88992- 5836 Nov, [facility] [address] [place] [id number] [place] [address] 61264- 7225 Nov, [facility] [address] [place] [id number] [place] [address] 84175- 2438 October, Arthritis M19.90 [facility] [address] [place] [id number] [place] [address] 26839- 2119 October, Lumbar disc disease M51.9 ; Scoliosis M41.9 ; Arthritis M19.90 and Reactive depression F32.9 [facility] [address] [address]- 2216 October, Unspecified thoracic, thoracolumbar and lumbosacral intervertebral disc disorder M51.9 [place] [id number] [place] [address] 11254- 6195 October, [place] [address] [place] [id number] [place] [address] 33531- 8012 October, Lumbar disc disease M51.9 and Anxiety F41.9 [place] [id number] [place] [address] 67797- 3318 Sep, [place] [address] [place] [id number] [place] [address] 15627- 6285 Sep, Screening for breast cancer Z12.39 ; Hyperthyroidism E05.90 and Scoliosis M41.9 [place] [id number] [place] [address] 74004- 2411 Sep, Thyrotoxicosis without thyroid storm E05.90 [place] [id number] [place] [address] 96890- 4470 Sep, Thyrotoxicosis without thyroid storm E05.90 [place] [address] [place] [id number] [place] [address] 52105- 8003 Sep, Scoliosis M41.9 ; Arthritis M19.90 and Hyperthyroidism E05.90 IMMUNIZATIONS No Known Immunizations SOCIAL HISTORY Never Assessed REASON FOR VISIT PLAN OF CARE VITAL SIGNS MEDICATIONS Medication Instructions Dosage Frequency Start Date End Date Duration Status Levothyroxine Sodium 125 MCG Orally Once a day 1 tablet [...]
--- OUTSIDE RECORDS SUMMARY | 2018-07-05 22:20 | XMS REPORT ---
Author Author [facility] Address [address] [place] [address] Care Team Providers Care Weld Technician Name Role Phone INDIRA MEJIA Unavailable PROBLEMS Type Condition ICD9-CM Code IQM99-YK Code Onset Dates Condition Status SNOMED Code Problem Arthritis M19.90 Active 0804928 Problem Anxiety F41.9 Active 83728886 Problem Thyrotoxicosis without thyroid storm E05.90 Active 89638731 Problem Scoliosis M41.9 Active 417063032 Problem Hyperthyroidism E05.90 Active 18975986 Problem Postablative hypothyroidism E89.0 Active 088953771 Problem Mild intermittent asthma without complication J45.20 Active 220967466 Problem Strain of neck muscle, subsequent encounter S16.1XXD Active 949013121 Problem Lumbar disc disease M51.9 Active 79786895 Problem Cigarette nicotine dependence without complication F17.210 Active 01625694 Problem Tachycardia R00.0 Active [id number] ALLERGIES No Information ENCOUNTERS Encounter Location Date Diagnosis [facility] [id number] [place] [address] 78961- 8428 Mar, [facility] [address] [place] [address] 28481- 3791 Jan, Lumbar disc disease M51.9 [facility] [address] [place] [address] 79643- 7476 Jan, Hyperthyroidism E05.90 [facility] [address] [place] [id number] [place] [address] 84435- 2960 Dec, Lumbar disc disease M51.9 [facility] [address] [place] [address] 80543- 0102 Dec, Hyperthyroidism E05.90 [facility] [address] [place] [address] 41896- 7329 Dec, [facility] [address] [facility] [id number], [place] [address]- 7237 Dec, Lumbar disc disease M51.9 ; Acute cystitis without hematuria N30.00 and Postablative hypothyroidism E89.0 [facility] [address] [id number], [place] [address]- 4466 Nov, Lumbar disc disease M51.9 [facility] [id number] [place] [address] 03174- 3391 Nov, Lumbar disc disease M51.9 [facility] [id number] [place] [address] 41386- 5286 October, Lumbar radiculopathy M54.16 [facility] [id number] [place] [address] 07347- 9706 October, [facility] [address] [facility] [id number] [place] [address] 14779- 4819 October, Lumbar disc disease M51.9 [facility] [address] [id number], [place] [address]- 5303 October, [facility] [address] [facility] [id number] [place] [address] 72966- 7602 October, Lumbar disc disease M51.9 [facility] [address] [facility] [id number], [place] [address]- 6746 October, Lumbar disc disease M51.9 [facility] [address] [facility] [id number], [place] [address]- 4757 Sep, [facility] [address] [id number], [place] [address]- 6396 Sep, Lumbar disc disease M51.9 [facility] [address] [facility] [id number], [place] [address]- 6826 Aug, [facility] [address] [facility] [id number], [place] [address]- 4314 Aug, Lumbar disc disease M51.9 [facility] [address] [place] [address] 89746- 3357 Aug, Lumbar disc disease M51.9 [facility] [address] [place] [id number] [place] [address] 46308- 2149 Jul, Lumbar disc disease M51.9 [facility] [address] [place] [id number] [place] [address] 79335- 1320 Jul, [facility] [address] [place] [id number] [place] [address] 47827- 9990 Jul, Lumbar disc disease M51.9 and Mild intermittent asthma without complication J45.20 [facility] [address] [place] [id number] [place] [address] 46577- 3819 Jun, [facility] [address] [id number] [place] [address] 58622- 1313 Jun, [facility] [id number] Jun, Abnormal CT of the head R93.0 [facility] [address] [place] [id number] [place] [address] 03903- 0519 Jun, Lumbar disc disease M51.9 [facility] [address] [place] [id number] [place] [address] 87149- 0356 13 May, 2017 Lumbar disc disease M51.9 and Strain of neck muscle, subsequent encounter S16.1XXD [facility] [address] [place] [id number] [place] [address] 67412- 0463 Apr, Strain of neck muscle, subsequent encounter S16.1XXD [facility] [address] [address] [id number] [place] [address] 36542- 8444 17 Apr, 2017 Strain of neck muscle, subsequent encounter S16.1XXD [facility] [address] [place] [address] 51195- 3775 Apr, [facility] [address] [id number] [place] [address] 00225- 5287 Apr, Strain of neck muscle, subsequent encounter S16.1XXD ; Lumbar disc disease M51.9 and Cigarette nicotine dependence without complication F17.210 [facility] [address] [place] [address] 62883- 1563 Mar, [facility] [id number] [place] [address] 19541- 0702 Mar, [facility] [address] [address] [id number] [place] [address] 94065- 6782 Mar, Strain of neck muscle, subsequent encounter S16.1XXD and Lumbar disc disease M51.9 [facility] [address] [place] [id number] [place] [address] 67257- 6586 Feb, Tachycardia R00.0 [facility] [id number] [place] [address] 23124- 5379 Feb, Strain of neck muscle, subsequent encounter S16.1XXD and Tachycardia R00.0 [facility] [id number] [place] [address] 38476- 1316 Jan, [facility] [id number] [place] [address] 68753- 6594 Jan, Acute strain of neck muscle, initial encounter S16.1XXA [facility] [address] [place] [address] 86237- 5546 Jan, Hyperthyroidism E05.90 [facility] [address] [place] [address] 47661- 2930 Dec, Hyperthyroidism E05.90 [facility] [id number] [place] [address] 84081- 5316 Dec, [facility] [address] [place] [address] 22263- 5533 Dec, [facility] [address] [place] [address] 69686- 0456 Dec, Hyperthyroidism E05.90 and Lumbar disc disease M51.9 [facility] [address] [id number], [place] [address]- 8801 Dec, [facility] [id number] [place] [address] 06393- 9946 Dec, [facility] [id number] [place] [address] 13899- 4975 Dec, [facility] [id number] [place] [address] 96575- 7181 Nov, [facility] [id number] [place] [address] 88678- 6316 Nov, Lumbar disc disease M51.9 ; Hyperthyroidism E05.90 and Anxiety F41.9 [facility] [id number] [place] [address] 73216- 0343 Nov, [facility] [id number] [place] [address] 17460- 9400 Nov, [facility] [id number] [place] [address] 03373- 8117 October, Arthritis M19.90 [facility] [id number] [place] [address] 83869- 2140 October, Lumbar disc disease M51.9 ; Scoliosis M41.9 ; Arthritis M19.90 and Reactive depression F32.9 [facility] [id number] [place] [address] 39369- 7934 October, Unspecified thoracic, thoracolumbar and lumbosacral intervertebral disc disorder M51.9 [facility] [id number] [place] [address] 23811- 5458 October, [facility] [id number] [place] [address] 39868- 1131 October, Lumbar disc disease M51.9 and Anxiety F41.9 [facility] [id number] [place] [address] 17782- 1390 Sep, [place] [address] [facility] [id number], [place] [address]- 6795 Sep, Screening for breast cancer Z12.39 ; Hyperthyroidism E05.90 and Scoliosis M41.9 [place] [address] [id number], [place] [address]- 5177 Sep, Thyrotoxicosis without thyroid storm E05.90 [place] [address], [place] [address]- 6671 Sep, Thyrotoxicosis without thyroid storm E05.90 [place] [address] [facility] [id number], [place] [address]- 7581 Sep, Scoliosis M41.9 ; Arthritis M19.90 and Hyperthyroidism E05.90 IMMUNIZATIONS No Known Immunizations SOCIAL HISTORY Never Assessed REASON FOR VISIT Controlled Med Refill PLAN OF CARE VITAL SIGNS MEDICATIONS Medication Instructions Dosage Frequency Start Date End Date Duration Status Tramadol HCl 50 mg Orally 3 times a day 1 tablet as needed 8h Active Valium 10 mg Orally Twice a day 1 tablet 12h Mar, Active Percocet 10-325 MG Orally q4 h prn pain 1 tablet as needed Jan, 28 days Active RESULTS No Results PROCEDURES [...]
--- OUTSIDE RECORDS SUMMARY | 2018-07-05 22:20 | XMS REPORT ---
Author Author INDIRA MEJIA [facility] Address [address] [place] [address] Care Team Providers Care Hand Heel Seat Fitter Name Role Phone INDIRA MEJIA Unavailable PROBLEMS Type Condition ICD9-CM Code ZRU62-JV Code Onset Dates Condition Status SNOMED Code Problem Arthritis M19.90 Active 3344014 Problem Anxiety F41.9 Active 50229976 Problem Thyrotoxicosis without thyroid storm E05.90 Active 58829179 Problem Scoliosis M41.9 Active 477740680 Problem Hyperthyroidism E05.90 Active 47366577 Problem Postablative hypothyroidism E89.0 Active 694481844 Problem Mild intermittent asthma without complication J45.20 Active 739122984 Problem Strain of neck muscle, subsequent encounter S16.1XXD Active 522358468 Problem Lumbar disc disease M51.9 Active 11861702 Problem Cigarette nicotine dependence without complication F17.210 Active 15803430 Problem Tachycardia R00.0 Active 9461526 ALLERGIES No Information ENCOUNTERS Encounter Location Date Diagnosis [facility] [id number] [place] [address] 67945- 5472 Jan, Lumbar disc disease M51.9 [facility] [id number] [place] [address] 54481- 3262 Jan, Hyperthyroidism E05.90 [facility] [id number] [place] [address] 82297- 7452 Dec, Lumbar disc disease M51.9 [facility] [id number] [place] [address] 74491- 5914 Dec, Hyperthyroidism E05.90 [facility] [address] [address] 5268 Dec, [facility] [id number] [place] [address] 87321- 7659 Dec, Lumbar disc disease M51.9 ; Acute cystitis without hematuria N30.00 and Postablative hypothyroidism E89.0 [facility] [id number] [place] [address] 61937- 3676 Nov, Lumbar disc disease M51.9 [facility] [id number] [place] [address] 36814- 4966 Nov, Lumbar disc disease M51.9 [facility] [id number] [place] [address] 08223- 0550 October, Lumbar radiculopathy M54.16 [facility] [id number] [place] [address] 77345- 1296 October, [facility] [id number] [place] [address] 60279- 7580 October, Lumbar disc disease M51.9 [facility] [id number] [place] [address] 48645- 1116 October, [facility] [id number] [place] [address] 31920- 0438 October, Lumbar disc disease M51.9 [facility] [id number] [place] [address] 78444- 1250 October, Lumbar disc disease M51.9 [facility] [id number] [place] [address] 71794- 5576 Sep, [facility] [id number] [place] [address] 08012- 3380 Sep, Lumbar disc disease M51.9 [facility] [id number] [place] [address] 10460- 2066 Aug, [facility] [id number] [place] [address] 61517- 5006 Aug, Lumbar disc disease M51.9 [facility] [id number] [place] [address] 81551- 9000 Aug, Lumbar disc disease M51.9 [facility] [address] [facility] [id number], [place] [address]- 3010 Jul, Lumbar disc disease M51.9 [facility] [address] [facility] [id number], [place] [address] 5700 07 Jul, 2017 [facility] [id number] [place] [address] 69006- 7239 Jul, Lumbar disc disease M51.9 and Mild intermittent asthma without complication J45.20 [facility] [id number], [place] [address]- 6385 Jun, [facility] [id number] [place] [address] 71146- 1559 Jun, [facility] [id number] [place] [id number], [address] of the head R93.0 [facility] [id number] [place] [address] 94709- 9097 Jun, Lumbar disc disease M51.9 [facility] [id number] [place] [address] 56977- 6068 May, Lumbar disc disease M51.9 and Strain of neck muscle, subsequent encounter S16.1XXD [facility] [address], [place] [address]- 4908 Apr, Strain of neck muscle, subsequent encounter S16.1XXD [facility] [address], [place] [address]- 3154 Apr, Strain of neck muscle, subsequent encounter S16.1XXD [facility] [id number] [place] [address] 76634- 7043 Apr, [facility] [id number], [place] [address]- 4966 06 Apr, 2017 Strain of neck muscle, subsequent encounter S16.1XXD ; Lumbar disc disease M51.9 and Cigarette nicotine dependence without complication F17.210 [facility] [id number] [place] [address] 24279- 2015 Mar, [facility] [id number] [place] [address] 13131- 0950 Mar, [facility] [id number] [place] [address] 21457- 9835 Mar, Strain of neck muscle, subsequent encounter S16.1XXD and Lumbar disc disease M51.9 [facility] [id number] [place] [address] 71725- 2783 Feb, Tachycardia R00.0 [facility] [id number] [place] [address] 82970- 9605 Feb, Strain of neck muscle, subsequent encounter S16.1XXD and Tachycardia R00.0 [facility] [id number] [place] [address] 04923- 3090 Jan, [facility] [id number] [place] [address] 53231- 5949 Jan, Acute strain of neck muscle, initial encounter S16.1XXA [facility] [id number] [place] [address] 85650- 5983 Jan, Hyperthyroidism E05.90 [facility] [id number] [place] [address] 76902- 9816 Dec, Hyperthyroidism E05.90 [facility] [id number] [place] [address] 26658- 254 Dec, [facility] [id number] [place] [address] 09498- 4377 Dec, [facility] [id number] [place] [address] 58614- 2544 Dec, Hyperthyroidism E05.90 and Lumbar disc disease M51.9 [facility] [id number] [place] [address] 89584- 2824 Dec, [facility] [id number] [place] [address] 53460- 5216 Dec, [facility] [id number] [place] [address] 02964- 6326 Dec, [facility] [id number] [place] [address] 49039- 0028 Nov, [facility] [id number] [place] [address] 77708- 7537 Nov, Lumbar disc disease M51.9 ; Hyperthyroidism E05.90 and Anxiety F41.9 [facility] [id number] [place] [address] 98098- 4401 Nov, [facility] [id number] [place] [address] 69820- 4492 Nov, [facility] [id number] [place] [address] 79923- 4412 October, Arthritis M19.90 [facility] [id number] [place] [address] 24849- 6495 October, Lumbar disc disease M51.9 ; Scoliosis M41.9 ; Arthritis M19.90 and Reactive depression F32.9 [facility] [id number] [place] [address] 91693- 7862 October, Unspecified thoracic, thoracolumbar and lumbosacral intervertebral disc disorder M51.9 [facility] [id number] [place] [address] 11727- 1564 October, [facility] [id number] [place] [address] 48704- 0551 October, Lumbar disc disease M51.9 and Anxiety F41.9 [facility] [id number] [place] [address] 34603- 2556 Sep, [facility] [id number] [place] [address] 19556- 3333 Sep, Screening for breast cancer Z12.39 ; Hyperthyroidism E05.90 and Scoliosis M41.9 [place] [id number], [place] [address]- 1948 Sep, Thyrotoxicosis without thyroid storm E05.90 [place] [address] [facility] [id number], [place] [address]- 5454 Sep, Thyrotoxicosis without thyroid storm E05.90 [place] [address] [facility] [id number], [place] [address]- 4086 Sep, Scoliosis M41.9 ; Arthritis M19.90 and Hyperthyroidism E05.90 IMMUNIZATIONS No Known Immunizations SOCIAL HISTORY Never Assessed REASON FOR VISIT Controlled Med Refill PLAN OF CARE VITAL SIGNS MEDICATIONS Medication Instructions Dosage Frequency Start Date End Date Duration Status Valium 10 mg Orally Twice a day 1 tablet 12h Mar, Active Percocet 10-325 MG Orally q4 h prn pain 1 tablet as needed Dec, 28 days Active Tramadol HCl 50 mg Orally 3 times a day 1 tablet as needed 8h Active RESULTS No Results PROCEDURES No Known [...]
--- OUTSIDE RECORDS SUMMARY | 2018-07-05 22:20 | XMS REPORT ---
Author Author INDIRA MEJIA [facility] Address [address] [place] [address] Care Team Providers Care Superintendent Police Name Role Phone INDIRA MEJIA Unavailable PROBLEMS Type Condition ICD9-CM Code WSU55-XT Code Onset Dates Condition Status SNOMED Code Problem Arthritis M19.90 Active 1110708 Problem Anxiety F41.9 Active 47643707 Problem Thyrotoxicosis without thyroid storm E05.90 Active 89666342 Problem Scoliosis M41.9 Active 693933334 Problem Hyperthyroidism E05.90 Active 24416736 Problem Postablative hypothyroidism E89.0 Active 454081005 Problem Mild intermittent asthma without complication J45.20 Active 195477619 Problem Strain of neck muscle, subsequent encounter S16.1XXD Active 429699874 Problem Lumbar disc disease M51.9 Active 39545349 Problem Cigarette nicotine dependence without complication F17.210 Active 68471404 Problem Tachycardia R00.0 Active 9344382 ALLERGIES No Information ENCOUNTERS Encounter Location Date Diagnosis [facility] [id number] [place] [address] 63914- 7989 Jan, Lumbar disc disease M51.9 [facility] [id number] [place] [address] 11315- 2903 Jan, Hyperthyroidism E05.90 [facility] [id number] [place] [address] 75595- 0298 Dec, Lumbar disc disease M51.9 [facility] [id number] [place] [address] 32217- 7309 Dec, Hyperthyroidism E05.90 [facility] [address], [place] [address]- 3490 Dec, [facility] [id number] [place] [address] 27956- 9493 Dec, Lumbar disc disease M51.9 ; Acute cystitis without hematuria N30.00 and Postablative hypothyroidism E89.0 [facility] [id number] [place] [address] 42239- 2136 Nov, Lumbar disc disease M51.9 [facility] [id number] [place] [address] 87478- 0196 Nov, Lumbar disc disease M51.9 [facility] [id number] [place] [address] 61285- 9386 October, Lumbar radiculopathy M54.16 [facility] [id number] [place] [address] 48567- 4496 October, [facility] [id number] [place] [address] 96378- 6777 October, Lumbar disc disease M51.9 [facility] [id number] [place] [address] 07039- 4296 October, [facility] [id number] [place] [address] 00248- 5388 October, Lumbar disc disease M51.9 [facility] [id number] [place] [address] 23264- 8583 October, Lumbar disc disease M51.9 [facility] [id number] [place] [address] 80883- 5516 Sep, [facility] [id number] [place] [address] 56340- 7465 Sep, Lumbar disc disease M51.9 [facility] [id number] [place] [address] 10555- 5466 Aug, [facility] [id number] [place] [address] 62526- 2946 Aug, Lumbar disc disease M51.9 [facility] [id number] [place] [address] 89908- 0536 Aug, Lumbar disc disease M51.9 [facility] [address] [facility] [id number], [place] [address]- 7064 Jul, Lumbar disc disease M51.9 [facility] [address] [facility] [id number], [place] [address]- 9194 07 Jul, 2017 [facility] [id number] [place] [address] 77312- 3866 Jul, Lumbar disc disease M51.9 and Mild intermittent asthma without complication J45.20 [facility] [address] [id number], [place] [address]- 4493 Jun, [facility] [id number] [place] [address] 50451- 2777 Jun, [facility] [id number] [place] [id number], [address] of the head R93.0 [facility] [id number] [place] [address] 16675- 5549 Jun, Lumbar disc disease M51.9 [facility] [id number] [place] [address] 05121- 4047 May, Lumbar disc disease M51.9 and Strain of neck muscle, subsequent encounter S16.1XXD [facility] [address], [place] [address]- 0108 Apr, Strain of neck muscle, subsequent encounter S16.1XXD [facility] [address], [place] [address]- 9939 Apr, Strain of neck muscle, subsequent encounter S16.1XXD [facility] [id number] [place] [address] 18753- 3075 Apr, [facility] [id number], [place] [address]- 4618 06 Apr, 2017 Strain of neck muscle, subsequent encounter S16.1XXD ; Lumbar disc disease M51.9 and Cigarette nicotine dependence without complication F17.210 [facility] [id number] [place] [address] 83993- 2432 Mar, [facility] [id number] [place] [address] 45421- 3969 Mar, [facility] [id number] [place] [address] 94966- 9280 Mar, Strain of neck muscle, subsequent encounter S16.1XXD and Lumbar disc disease M51.9 [facility] [id number] [place] [address] 45398- 3080 Feb, Tachycardia R00.0 [facility] [id number] [place] [address] 56542- 9494 Feb, Strain of neck muscle, subsequent encounter S16.1XXD and Tachycardia R00.0 [facility] [id number] [place] [address] 34227- 7274 Jan, [facility] [id number] [place] [address] 92472- 2169 Jan, Acute strain of neck muscle, initial encounter S16.1XXA [facility] [id number] [place] [address] 02379- 8470 Jan, Hyperthyroidism E05.90 [facility] [id number] [place] [address] 77520- 5826 Dec, Hyperthyroidism E05.90 [facility] [id number] [place] [address] 81812- 2548 Dec, [facility] [id number] [place] [address] 72797- 6432 Dec, [facility] [id number] [place] [address] 80528- 2543 Dec, Hyperthyroidism E05.90 and Lumbar disc disease M51.9 [facility] [id number] [place] [address] 66256- 8034 Dec, [facility] [id number] [place] [address] 34131- 8717 Dec, [facility] [id number] [place] [address] 25435- 8008 Dec, [facility] [id number] [place] [address] 96029- 3958 Nov, [facility] [id number] [place] [address] 01619- 1478 Nov, Lumbar disc disease M51.9 ; Hyperthyroidism E05.90 and Anxiety F41.9 [facility] [id number] [place] [address] 80491- 6135 Nov, [facility] [id number] [place] [address] 00270- 3351 Nov, [facility] [id number] [place] [address] 83101- 6889 October, Arthritis M19.90 [facility] [id number] [place] [address] 51912- 6607 October, Lumbar disc disease M51.9 ; Scoliosis M41.9 ; Arthritis M19.90 and Reactive depression F32.9 [facility] [id number] [place] [address] 49072- 9807 October, Unspecified thoracic, thoracolumbar and lumbosacral intervertebral disc disorder M51.9 [facility] [id number] [place] [address] 41970- 6205 October, [facility] [id number] [place] [address] 06655- 4903 October, Lumbar disc disease M51.9 and Anxiety F41.9 [facility] [id number] [place] [address] 34033- 4552 Sep, [facility] [id number] [place] [address] 38257- 4718 Sep, Screening for breast cancer Z12.39 ; Hyperthyroidism E05.90 and Scoliosis M41.9 [place] [id number], [place] [address]- 7534 Sep, Thyrotoxicosis without thyroid storm E05.90 [place] [id number], [place] [address]- 2701 Sep, Thyrotoxicosis without thyroid storm E05.90 [place] [id number], [place] [address]- 8178 Sep, Scoliosis M41.9 ; Arthritis M19.90 and Hyperthyroidism E05.90 IMMUNIZATIONS No Known Immunizations SOCIAL HISTORY Never Assessed REASON FOR VISIT Med change PLAN OF CARE VITAL SIGNS MEDICATIONS Medication [...]
--- OUTSIDE RECORDS SUMMARY | 2018-07-05 22:21 | XMS REPORT ---
Author Author INDIRA MEJIA [facility] Address [address] [place] [address] Care Team Providers Care Cost Accountant Name Role Phone INDIRA MEJIA Unavailable PROBLEMS Type Condition ICD9-CM Code GLZ28-EW Code Onset Dates Condition Status SNOMED Code Problem Arthritis M19.90 Active 0950961 Problem Anxiety F41.9 Active 34329671 Problem Thyrotoxicosis without thyroid storm E05.90 Active 41499303 Problem Scoliosis M41.9 Active 463066140 Problem Hyperthyroidism E05.90 Active 06229600 Problem Postablative hypothyroidism E89.0 Active 665125917 Problem Mild intermittent asthma without complication J45.20 Active 519438596 Problem Strain of neck muscle, subsequent encounter S16.1XXD Active 635173941 Problem Lumbar disc disease M51.9 Active 73525100 Problem Cigarette nicotine dependence without complication F17.210 Active 93258002 Problem Tachycardia R00.0 Active 4681816 ALLERGIES No Information ENCOUNTERS Encounter Location Date Diagnosis [facility] [id number] [place] [address] 64907- 6930 Jan, Lumbar disc disease M51.9 [facility] [id number] [place] [address] 74729- 6996 Jan, Hyperthyroidism E05.90 [facility] [id number] [place] [address] 23439- 0854 Dec, Lumbar disc disease M51.9 [facility] [id number] [place] [address] 06819- 1376 Dec, Hyperthyroidism E05.90 [facility] [address] [address] 6927 Dec, [facility] [id number] [place] [address] 42683- 0395 Dec, Lumbar disc disease M51.9 ; Acute cystitis without hematuria N30.00 and Postablative hypothyroidism E89.0 [facility] [id number] [place] [address] 86623- 0486 Nov, Lumbar disc disease M51.9 [facility] [id number] [place] [address] 31873- 8816 Nov, Lumbar disc disease M51.9 [facility] [id number] [place] [address] 69367- 3484 October, Lumbar radiculopathy M54.16 [facility] [id number] [place] [address] 24317- 5156 October, [facility] [id number] [place] [address] 22164- 9631 October, Lumbar disc disease M51.9 [facility] [id number] [place] [address] 43534- 2736 October, [facility] [id number] [place] [address] 55542- 9473 October, Lumbar disc disease M51.9 [facility] [id number] [place] [address] 41454- 8981 October, Lumbar disc disease M51.9 [facility] [id number] [place] [address] 65723- 6026 Sep, [facility] [id number] [place] [address] 96077- 8384 Sep, Lumbar disc disease M51.9 [facility] [id number] [place] [address] 65379- 8236 Aug, [facility] [id number] [place] [address] 33402- 6836 Aug, Lumbar disc disease M51.9 [facility] [id number] [place] [address] 38211- 5748 Aug, Lumbar disc disease M51.9 [facility] [address] [facility] [id number] [address]- 4731 Jul, Lumbar disc disease M51.9 [facility] [address] [facility] [id number], [place] [address]- 2936 07 Jul, 2017 [facility] [id number] [place] [address] 92113- 5561 Jul, Lumbar disc disease M51.9 and Mild intermittent asthma without complication J45.20 [facility] [address] [id number] [address]- 9873 Jun, [facility] [id number] [place] [address] 15343- 5290 Jun, [facility] [id number] [place] [id number], [address] of the head R93.0 [facility] [address] [place] [address] 63689- 7323 Jun, Lumbar disc disease M51.9 [facility] [id number] [place] [address] 15941- 1393 May, Lumbar disc disease M51.9 and Strain of neck muscle, subsequent encounter S16.1XXD [facility] [address] [address]- 1342 Apr, Strain of neck muscle, subsequent encounter S16.1XXD [facility] [address], [place] [address]- 8301 Apr, Strain of neck muscle, subsequent encounter S16.1XXD [facility] [id number] [place] [address] 95613- 0594 Apr, [facility] [address] [id number] [address]- 3848 06 Apr, 2017 Strain of neck muscle, subsequent encounter S16.1XXD ; Lumbar disc disease M51.9 and Cigarette nicotine dependence without complication F17.210 [facility] [address] [place] [address] 55006- 5529 Mar, [facility] [id number] [place] [address] 47440- 1044 Mar, [facility] [id number] [place] [address] 68329- 1102 Mar, Strain of neck muscle, subsequent encounter S16.1XXD and Lumbar disc disease M51.9 [facility] [id number] [place] [address] 81815- 5024 Feb, Tachycardia R00.0 [facility] [id number] [place] [address] 89988- 3975 Feb, Strain of neck muscle, subsequent encounter S16.1XXD and Tachycardia R00.0 [facility] [id number] [place] [address] 76649- 6234 Jan, [facility] [id number] [place] [address] 58820- 2779 Jan, Acute strain of neck muscle, initial encounter S16.1XXA [facility] [id number] [place] [address] 01515- 4021 Jan, Hyperthyroidism E05.90 [facility] [id number] [place] [address] 35060- 1306 Dec, Hyperthyroidism E05.90 [facility] [id number] [place] [address] 68263- 254 Dec, [facility] [id number] [place] [address] 11953- 5347 Dec, [facility] [id number] [place] [address] 55165- 2547 Dec, Hyperthyroidism E05.90 and Lumbar disc disease M51.9 [facility] [id number] [place] [address] 25405- 1444 Dec, [facility] [id number] [place] [address] 22858- 9264 Dec, [facility] [id number] [place] [address] 53211- 9425 Dec, [facility] [id number] [place] [address] 40451- 3731 Nov, [facility] [id number] [place] [address] 83488- 8996 Nov, Lumbar disc disease M51.9 ; Hyperthyroidism E05.90 and Anxiety F41.9 [facility] [id number] [place] [address] 13209- 3951 Nov, [facility] [id number] [place] [address] 82946- 4507 Nov, [facility] [id number] [place] [address] 18083- 3190 October, Arthritis M19.90 [facility] [id number] [place] [address] 59383- 3893 October, Lumbar disc disease M51.9 ; Scoliosis M41.9 ; Arthritis M19.90 and Reactive depression F32.9 [facility] [id number] [place] [address] 98013- 1398 October, Unspecified thoracic, thoracolumbar and lumbosacral intervertebral disc disorder M51.9 [facility] [id number] [place] [address] 16794- 8032 October, [facility] [id number] [place] [address] 30100- 5421 October, Lumbar disc disease M51.9 and Anxiety F41.9 [facility] [id number] [place] [address] 61801- 9700 Sep, [facility] [id number] [place] [address] 95041- 7231 Sep, Screening for breast cancer Z12.39 ; Hyperthyroidism E05.90 and Scoliosis M41.9 [place] [address] [address]- 8307 Sep, Thyrotoxicosis without thyroid storm E05.90 [place] [id number] [address]- 3497 Sep, Thyrotoxicosis without thyroid storm E05.90 [place] [id number] [address]- 9834 Sep, Scoliosis M41.9 ; Arthritis M19.90 and Hyperthyroidism E05.90 IMMUNIZATIONS No Known Immunizations SOCIAL HISTORY Never Assessed REASON FOR VISIT Requests return call/labs PLAN OF CARE VITAL SIGNS MEDICATIONS Unknown Medications RESULTS No Results PROCEDURES No Known procedures [...]
--- OUTSIDE RECORDS SUMMARY | 2018-07-05 22:21 | XMS REPORT ---
Author Author INDIRA MEJIA [facility] Address [address] [place] [address] Care Team Providers Care Television Operator Name Role Phone INDIRA MEJIA Unavailable PROBLEMS Type Condition ICD9-CM Code GZX92-UK Code Onset Dates Condition Status SNOMED Code Problem Arthritis M19.90 Active 6062667 Problem Anxiety F41.9 Active 46916491 Problem Thyrotoxicosis without thyroid storm E05.90 Active 19236023 Problem Scoliosis M41.9 Active 419660466 Problem Hyperthyroidism E05.90 Active 24985909 Problem Postablative hypothyroidism E89.0 Active 942402040 Problem Mild intermittent asthma without complication J45.20 Active 236363430 Problem Strain of neck muscle, subsequent encounter S16.1XXD Active 614545951 Problem Lumbar disc disease M51.9 Active 40131283 Problem Cigarette nicotine dependence without complication F17.210 Active 89676402 Problem Tachycardia R00.0 Active 8122345 ALLERGIES No Information ENCOUNTERS Encounter Location Date Diagnosis [place] [id number] [place] [address] 28487- 3447 Jan, Hyperthyroidism E05.90 [place] [address] [place] [address] 30723- 0057 Dec, Lumbar disc disease M51.9 [facility] [address] [place] [address] 37370- 7575 Dec, Hyperthyroidism E05.90 [facility] [place] [id number] [place] [address] 03397- 8149 Dec, [place] [id number] [place] [address] 90883- 1118 Dec, Lumbar disc disease M51.9 ; Acute cystitis without hematuria N30.00 and Postablative hypothyroidism E89.0 [place] [address] [id number] [address]- 0706 Nov, Lumbar disc disease M51.9 [facility] [place] [address] [facility] [id number] [place] [address]- 6716 Nov, Lumbar disc disease M51.9 [facility] [place] [address] [id number] [place] [address]- 5136 October, Lumbar radiculopathy M54.16 [facility] [place] [address] [id number] [place] [address]- 5156 October, [facility] [place] [id number] [place] [address] 11499- 4616 October, Lumbar disc disease M51.9 [facility] [place] [address] [id number], [place] [address]- 6296 October, [facility] [place] [address] [facility] [id number], [place] [address]- 0746 October, Lumbar disc disease M51.9 [facility] [place] [address] [facility] [id number], [place] [address]- 5736 October, Lumbar disc disease M51.9 [facility] [place] [address] [facility] [id number], [place] [address]- 2866 Sep, [facility] [place] [address] [id number], [place] [address]- 2136 Sep, Lumbar disc disease M51.9 [facility] [place] [address] [facility] [id number], [place] [address]- 8986 Aug, [facility] [place] [address] [id number], [place] [address] 2546 Aug, Lumbar disc disease M51.9 [facility] [place] [address] [facility] [id number], [place] [address]- 2546 Aug, Lumbar disc disease M51.9 [facility] [place] [address] [facility] [id number], [place] [address]- 3435 12 Jul, 2017 Lumbar disc disease M51.9 [facility] [place] [address] [place] [address] 04796- 1460 07 Jul, 2017 [facility] [place] [address] [place] [address] 76953- 1845 05 Jul, 2017 Lumbar disc disease M51.9 and Mild intermittent asthma without complication J45.20 [facility] [place] [id number] [place] [address] 30396- 4978 Jun, [facility] [place] [address] [place] [address] 95492- 7784 Jun, [facility] [address] [id number] Jun, Abnormal CT of the head R93.0 [facility] [place] [address] [place] [address] 67281- 2570 Jun, Lumbar disc disease M51.9 [facility] [place] [address] [place] [address] 80435- 4412 May, Lumbar disc disease M51.9 and Strain of neck muscle, subsequent encounter S16.1XXD [facility] [place] [address] [place] [address] 92578- 1824 Apr, Strain of neck muscle, subsequent encounter S16.1XXD [facility] [place] [address] [place] [address] 15854- 4725 Apr, Strain of neck muscle, subsequent encounter S16.1XXD [facility] [place] [address] [place] [address] 75134- 2021 Apr, [facility] [place] [id number] [place] [address] 62501- 7965 06 Apr, 2017 Strain of neck muscle, subsequent encounter S16.1XXD ; Lumbar disc disease M51.9 and Cigarette nicotine dependence without complication F17.210 [facility] [place] [address] [place] [address] 69204- 3818 Mar, [facility] [place] [address] [facility] [id number], [place] [address]- 3919 Mar, [facility] [place] [address] [facility] [id number], [place] [address]- 2556 Mar, Strain of neck muscle, subsequent encounter S16.1XXD and Lumbar disc disease M51.9 [facility] [place] [address] [id number], [place] [address] 2546 Feb, Tachycardia R00.0 [facility] [place] [address] [facility] [id number], [place] [address] 2546 Feb, Strain of neck muscle, subsequent encounter S16.1XXD and Tachycardia R00.0 [facility] [place] [address] [facility] [id number], [place] [address]- 8396 Jan, [facility] [place] [address] [facility] [id number], [place] [address]- 2547 Jan, Acute strain of neck muscle, initial encounter S16.1XXA [facility] [place] [address] [facility] [id number], [place] [address] 2546 Jan, Hyperthyroidism E05.90 [facility] [place] [address] [facility] [id number], [place] [address]- 5286 Dec, [facility] [place] [address] [facility] [id number], [place] [address]- 0156 Dec, Hyperthyroidism E05.90 [facility] [place] [address] [facility] [id number], [place] [address]- 2546 Dec, [facility] [place] [address] [facility] [id number], [place] [address] 2549 Dec, Hyperthyroidism E05.90 and Lumbar disc disease M51.9 [facility] [place] [address] [facility] [id number], [place] [address] 2546 Dec, [facility] [place] [address] [facility] [id number], [place] [address]- 6422 Dec, [facility] [place] [address], [place] [address]- 7981 Dec, [facility] [place] [id number] [place] [address] 33824- 2930 Nov, [facility] [id number] [place] [address] 10727- 7234 Nov, Lumbar disc disease M51.9 ; Hyperthyroidism E05.90 and Anxiety F41.9 [facility] [place] [id number] [place] [address] 24045- 0681 Nov, [facility] [id number] [place] [address] 29819- 8706 Nov, [facility] [id number] [place] [address] 46141- 0667 October, Arthritis M19.90 [facility] [place] [id number] [place] [address] 19960- 9842 October, Lumbar disc disease M51.9 ; Scoliosis M41.9 ; Arthritis M19.90 and Reactive depression F32.9 [facility] [place] [id number] [place] [address] 64620- 0423 October, Unspecified thoracic, thoracolumbar and lumbosacral intervertebral disc disorder M51.9 [facility] [place] [address] [place] [address] 10116- 2686 October, [facility] [id number] [place] [address] 77161- 9620 October, Lumbar disc disease M51.9 and Anxiety F41.9 [facility] [place] [id number] [place] [address] 98688- 2585 Sep, [facility] [address] [place] [address] 23457- 0786 Sep, Screening for breast cancer Z12.39 ; Hyperthyroidism E05.90 and Scoliosis M41.9 [facility] [place] [address] [facility] [id number] [place] [address]- 1330 Sep, Thyrotoxicosis without thyroid storm E05.90 [facility] [place] [address] [facility] [id number], [place] [address] Sep, Thyrotoxicosis without thyroid storm E05.90 [facility] [place] [address] [facility] [id number], [place] [address] Sep, Scoliosis M41.9 ; Arthritis M19.90 and Hyperthyroidism E05.90 IMMUNIZATIONS No Known Immunizations SOCIAL HISTORY Never Assessed REASON FOR VISIT Controlled x's 3_ _ 11/30 PLAN OF CARE VITAL SIGNS MEDICATIONS Medication Instructions Dosage Frequency Start Date End Date Duration Status Tramadol HCl 50 mg Orally 3 times a day 1 tablet as needed 8h Active Valium 10 mg Orally Twice a day 1 tablet 12h Mar, Active Percocet 10-325 MG Orally q4 h prn pain 1 tablet as needed Nov, 28 days Active RESULTS No Results PROCEDURES [...]
--- OUTSIDE RECORDS SUMMARY | 2018-07-05 22:21 | XMS REPORT ---
Author Author INDIRA MEJIA [facility] Address [address] [place] [address] Care Team Providers Care Improvement Analyst Name Role Phone INDIRA MEJIA Unavailable PROBLEMS Type Condition ICD9-CM Code [id number] Code Onset Dates Condition Status SNOMED Code Problem Arthritis M19.90 Active 5566526 Problem Anxiety F41.9 Active 41364523 Problem Thyrotoxicosis without thyroid storm E05.90 Active 07808228 Problem Scoliosis M41.9 Active 396862985 Problem Hyperthyroidism E05.90 Active 09739478 Problem Postablative hypothyroidism E89.0 Active 200851766 Problem Mild intermittent asthma without complication J45.20 Active 719433360 Problem Strain of neck muscle, subsequent encounter S16.1XXD Active 208023568 Problem Lumbar disc disease M51.9 Active 45327917 Problem Cigarette nicotine dependence without complication F17.210 Active 55802589 Problem Tachycardia R00.0 Active 0557864 ALLERGIES No Information ENCOUNTERS Encounter Location Date Diagnosis [facility] [id number] [place] [address] 29433- 3179 Jan, Lumbar disc disease M51.9 [facility] [id number] [place] [address] 85557- 2708 Jan, Hyperthyroidism E05.90 [facility] [id number] [place] [address] 85835- 9021 Dec, Lumbar disc disease M51.9 [facility] [id number] [place] [address] 58223- 5772 Dec, Hyperthyroidism E05.90 [facility] [address] [address] 0768 Dec, [facility] [id number] [place] [address] 64022- 6299 Dec, Lumbar disc disease M51.9 ; Acute cystitis without hematuria N30.00 and Postablative hypothyroidism E89.0 [facility] [id number] [place] [address] 50536- 9316 Nov, Lumbar disc disease M51.9 [facility] [id number] [place] [address] 67865- 3086 Nov, Lumbar disc disease M51.9 [facility] [id number] [place] [address] 99762- 9959 October, Lumbar radiculopathy M54.16 [facility] [id number] [place] [address] 57866- 8696 October, [facility] [id number] [place] [address] 33861- 6968 October, Lumbar disc disease M51.9 [facility] [id number] [place] [address] 97158- 7906 October, [facility] [id number] [place] [address] 65881- 1114 October, Lumbar disc disease M51.9 [facility] [id number] [place] [address] 60660- 0853 October, Lumbar disc disease M51.9 [facility] [id number] [place] [address] 80274- 8646 Sep, [facility] [id number] [place] [address] 38285- 7248 Sep, Lumbar disc disease M51.9 [facility] [id number] [place] [address] 42007- 2826 Aug, [facility] [id number] [place] [address] 34477- 6926 Aug, Lumbar disc disease M51.9 [facility] [id number] [place] [address] 94409- 6572 Aug, Lumbar disc disease M51.9 [facility] [address] [facility] [id number] [address] 1695 Jul, Lumbar disc disease M51.9 [facility] [address] [facility] [id number], [place] [address] 2[address] 07 Jul, 2017 [facility] [id number] [place] [address] 05077- 7392 Jul, Lumbar disc disease M51.9 and Mild intermittent asthma without complication J45.20 [facility] [id number] [address] 1929 Jun, [facility] [id number] [place] [address] 31656- 3196 Jun, [facility] [id number] [place] [id number], [address] of the head R93.0 [facility] [id number] [place] [address] 24313- 2941 Jun, Lumbar disc disease M51.9 [facility] [id number] [place] [address] 54214- 8443 May, Lumbar disc disease M51.9 and Strain of neck muscle, subsequent encounter S16.1XXD [facility] [address], [place] [address]- 2666 Apr, Strain of neck muscle, subsequent encounter S16.1XXD [facility] [address], [place] [address]- 9230 Apr, Strain of neck muscle, subsequent encounter S16.1XXD [facility] [id number] [place] [address] 80133- 3009 Apr, [facility] [id number] [address]- 6714 06 Apr, 2017 Strain of neck muscle, subsequent encounter S16.1XXD ; Lumbar disc disease M51.9 and Cigarette nicotine dependence without complication F17.210 [facility] [id number] [place] [address] 93568- 9335 Mar, [facility] [id number] [place] [address] 81629- 8734 Mar, [facility] [id number] [place] [address] 62362- 1580 Mar, Strain of neck muscle, subsequent encounter S16.1XXD and Lumbar disc disease M51.9 [facility] [id number] [place] [address] 81970- 9737 Feb, Tachycardia R00.0 [facility] [id number] [place] [address] 83339- 6890 Feb, Strain of neck muscle, subsequent encounter S16.1XXD and Tachycardia R00.0 [facility] [id number] [place] [address] 18741- 5547 Jan, [facility] [id number] [place] [address] 29691- 6926 Jan, Acute strain of neck muscle, initial encounter S16.1XXA [facility] [id number] [place] [address] 19495- 7853 Jan, Hyperthyroidism E05.90 [facility] [id number] [place] [address] 64591- 3666 Dec, Hyperthyroidism E05.90 [facility] [id number] [place] [address] 66451- 2541 Dec, [facility] [id number] [place] [address] 80786- 1240 Dec, [facility] [id number] [place] [address] 22441- 254 Dec, Hyperthyroidism E05.90 and Lumbar disc disease M51.9 [facility] [id number] [place] [address] 04329- 9871 Dec, [facility] [id number] [place] [address] 82834- 6666 Dec, [facility] [id number] [place] [address] 27040- 1885 Dec, [facility] [id number] [place] [address] 19152- 6543 Nov, [facility] [id number] [place] [address] 92203- 4108 Nov, Lumbar disc disease M51.9 ; Hyperthyroidism E05.90 and Anxiety F41.9 [facility] [id number] [place] [address] 29602- 3859 Nov, [facility] [id number] [place] [address] 47683- 5833 Nov, [facility] [id number] [place] [address] 21648- 0413 October, Arthritis M19.90 [facility] [id number] [place] [address] 23977- 0812 October, Lumbar disc disease M51.9 ; Scoliosis M41.9 ; Arthritis M19.90 and Reactive depression F32.9 [facility] [id number] [place] [address] 63171- 5878 October, Unspecified thoracic, thoracolumbar and lumbosacral intervertebral disc disorder M51.9 [facility] [id number] [place] [address] 32470- 5699 October, [facility] [id number] [place] [address] 91478- 5945 October, Lumbar disc disease M51.9 and Anxiety F41.9 [facility] [id number] [place] [address] 74010- 3901 Sep, [facility] [id number] [place] [address] 83918- 1475 Sep, Screening for breast cancer Z12.39 ; Hyperthyroidism E05.90 and Scoliosis M41.9 [facility] [id number] [address]- 4172 Sep, Thyrotoxicosis without thyroid storm E05.90 [facility] [id number] [address]- 3007 Sep, Thyrotoxicosis without thyroid storm E05.90 [facility] [address] [facility] [id number], [place] [address]- 7714 Sep, Scoliosis M41.9 ; Arthritis M19.90 and Hyperthyroidism E05.90 IMMUNIZATIONS No Known Immunizations SOCIAL HISTORY Never Assessed REASON FOR VISIT Controled x's 3- Due 12/28 PLAN OF CARE VITAL SIGNS MEDICATIONS Medication Instructions Dosage Frequency Start Date End Date Duration Status Tramadol HCl 50 mg Orally 3 times a day 1 tablet as needed 8h Active Percocet 10-325 MG Orally q4 h prn pain 1 tablet as needed Dec, 28 days Active Valium 10 mg Orally Twice a day 1 tablet 12h Mar, Active RESULTS No Results PROCEDURES No Known [...]
--- OUTSIDE RECORDS SUMMARY | 2018-07-05 22:21 | XMS REPORT ---
Author Author INDIRA MEJIA [facility] Address [address] [place] [address] Care Team Providers Care District Plant Supervisor Name Role Phone INDIRA MEJIA Unavailable PROBLEMS Type Condition ICD9-CM Code [id number] Code Onset Dates Condition Status SNOMED Code Problem Arthritis M19.90 Active 0829554 Problem Anxiety F41.9 Active 94107474 Problem Thyrotoxicosis without thyroid storm E05.90 Active 24655628 Problem Scoliosis M41.9 Active 317353471 Problem Hyperthyroidism E05.90 Active 03280195 Problem Postablative hypothyroidism E89.0 Active 863821744 Problem Mild intermittent asthma without complication J45.20 Active 920478074 Problem Strain of neck muscle, subsequent encounter S16.1XXD Active 146234515 Problem Lumbar disc disease M51.9 Active 04288514 Problem Cigarette nicotine dependence without complication F17.210 Active 21756358 Problem Tachycardia R00.0 Active 3963809 ALLERGIES Substance Reaction Event Type Date Status Sulfamethoxazole-Trimethoprim hives Drug Allergy Dec, Active Morphine Sulfate nausea Drug Allergy Dec, Active ENCOUNTERS Encounter Location Date Diagnosis [facility] [id number] [address]- 2092 Jan, Lumbar disc disease M51.9 [facility] [id number] [address]- 9249 Jan, Hyperthyroidism E05.90 [facility] [address], [place] [address]- 3284 Dec, Lumbar disc disease M51.9 [facility] [address], [place] [address]- 6041 Dec, Hyperthyroidism E05.90 [facility] [address] [address]- 2507 Dec, [facility] [address] [facility] [id number], [place] [address]- 2321 Dec, Lumbar disc disease M51.9 ; Acute cystitis without hematuria N30.00 and Postablative hypothyroidism E89.0 [facility] [address] [id number], [place] [address] 2546 Nov, Lumbar disc disease M51.9 [facility] [id number] [place] [address] 29029 2546 Nov, Lumbar disc disease M51.9 [facility] [address] [id number], [place] [address]- 9666 October, Lumbar radiculopathy M54.16 [facility] [address] [facility] [id number], [place] [address]- 9566 October, [facility] [address] [facility] [id number] [place] [address] 84714- 5586 October, Lumbar disc disease M51.9 [facility] [address] [id number], [place] [address]- 3948 October, [facility] [address] [facility] [id number], [place] [address]- 4000 October, Lumbar disc disease M51.9 [facility] [address] [facility] [id number], [place] [address]- 1216 October, Lumbar disc disease M51.9 [facility] [address] [facility] [id number] [address]- 7166 Sep, [facility] [address] [id number], [place] [address]- 1690 Sep, Lumbar disc disease M51.9 [facility] [address] [facility] [id number], [place] [address]- 2726 Aug, [facility] [address] [facility] [id number], [place] [address]- 2556 Aug, Lumbar disc disease M51.9 [facility] [id number] [place] [address] 68181- 2716 Aug, Lumbar disc disease M51.9 [facility] [id number] [place] [address] 35718- 5884 12 Jul, 2017 Lumbar disc disease M51.9 [facility] [id number] [place] [address] 10396- 2867 Jul, [facility] [id number] [place] [address] 00400- 5424 Jul, Lumbar disc disease M51.9 and Mild intermittent asthma without complication J45.20 [facility] [id number] [place] [address] 82752- 8871 Jun, [facility] [id number] [place] [address] 28325- 4247 Jun, [facility] [id number] Jun, Abnormal CT of the head R93.0 [facility] [id number] [place] [address] 59272- 7960 Jun, Lumbar disc disease M51.9 [facility] [id number] [place] [address] 54024- 1492 May, Lumbar disc disease M51.9 and Strain of neck muscle, subsequent encounter S16.1XXD [facility] [id number] [place] [address] 37412- 9632 Apr, Strain of neck muscle, subsequent encounter S16.1XXD [facility] [id number] [place] [address] 13061- 8660 17 Apr, 2017 Strain of neck muscle, subsequent encounter S16.1XXD [facility] [id number] [place] [address] 56404- 2375 Apr, [facility] [id number] [place] [address] 92692- 1095 Apr, Strain of neck muscle, subsequent encounter S16.1XXD ; Lumbar disc disease M51.9 and Cigarette nicotine dependence without complication F17.210 [facility] [id number] [place] [address] 21032- 1929 Mar, [facility] [id number] [place] [address] 67550- 4737 Mar, [facility] [id number] [place] [address] 13889- 5706 Mar, Strain of neck muscle, subsequent encounter S16.1XXD and Lumbar disc disease M51.9 [facility] [id number] [place] [address] 01674- 8061 Feb, Tachycardia R00.0 [facility] [id number] [place] [address] 89417- 9653 Feb, Strain of neck muscle, subsequent encounter S16.1XXD and Tachycardia R00.0 [facility] [id number] [place] [address] 69911- 7000 Jan, [facility] [id number] [place] [address] 06266- 5943 Jan, Acute strain of neck muscle, initial encounter S16.1XXA [facility] [id number] [place] [address] 79503- 3315 Jan, Hyperthyroidism E05.90 [facility] [id number] [place] [address] 65669- 8967 Dec, Hyperthyroidism E05.90 [facility] [id number] [place] [address] 53496- 1300 Dec, [facility] [id number] [place] [address] 41661- 6132 Dec, [facility] [id number] [place] [address] 18864- 6183 Dec, Hyperthyroidism E05.90 and Lumbar disc disease M51.9 [facility] [id number] [place] [address] 94420- 6450 Dec, [facility] [id number] [place] [address] 58907- 5767 Dec, [facility] [id number] [place] [address] 96439- 0707 Dec, [facility] [id number] [place] [address] 50965- 0901 Nov, [facility] [id number] [place] [address] 21923- 9964 Nov, Lumbar disc disease M51.9 ; Hyperthyroidism E05.90 and Anxiety F41.9 [facility] [id number] [place] [address] 73801- 5573 Nov, [facility] [id number] [place] [address] 62577- 3756 Nov, [facility] [id number] [place] [address] 34193- 2785 October, Arthritis M19.90 [facility] [id number] [place] [address] 89110- 3058 October, Lumbar disc disease M51.9 ; Scoliosis M41.9 ; Arthritis M19.90 and Reactive depression F32.9 [facility] [id number] [place] [address] 56422- 6423 October, Unspecified thoracic, thoracolumbar and lumbosacral intervertebral disc disorder M51.9 [facility] [id number] [place] [address] 44967- 1866 October, [facility] [id number] [place] [address] 68930- 4665 October, Lumbar disc disease M51.9 and Anxiety F41.9 [facility] [id number] [place] [address] 27339- 7542 Sep, [facility] [id number] [address]- 0293 Sep, Screening for breast cancer Z12.39 ; Hyperthyroidism E05.90 and Scoliosis M41.9 [facility] [address], [place] [address]- 4883 Sep, Thyrotoxicosis without thyroid storm E05.90 [facility] [id number] [place] [address] 25312- 3322 Sep, Thyrotoxicosis without thyroid storm E05.90 [facility] [id number] [place] [address] 93968- 6049 Sep, Scoliosis M41.9 ; Arthritis M19.90 and Hyperthyroidism E05.90 IMMUNIZATIONS No Known Immunizations SOCIAL HISTORY Never Assessed REASON FOR VISIT 3 mo f/u, Pt reports that for the last month her right kidney has been hurting ( PT notes that in 2011 she had to have robotic surgery on her left kidney to 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, Along with a stint placement/removal ) - Harry MILLS PLAN OF CARE Activity Details Follow Up 3 Months Reason: VITAL SIGNS Height 66 in 2018-01-11 Weight 130.1 lbs 2018-01-11 Temperature 98.8 degrees Fahrenheit 2018-01-11 Heart Rate 106 bpm 2018-01-11 Respiratory Rate 18 2018-01-11 Oximetry on room air:97 % 2018-01-11 BMI 21.00 kg/m2 2018-01-11 Blood pressure systolic 130 mmHg 2018-01-11 Blood pressure diastolic 72 mmHg 2018-01-11 MEDICATIONS Medication Instructions Dosage Frequency Start Date End Date Duration Status Ventolin HFA 108 (90 Base) MCG/ACT Inhalation every 4 hrs 2 puffs as needed 4h Active Levothyroxine Sodium 88 MCG Orally Once a day 1 tablet on an empty stomach in the morning 24h Active Cipro 500 mg Orally 2 times a day 1 tablet 12h 16 Dec, 2017 Dec, 03 days Active Amitriptyline HCl 25 MG Orally 3 times a day 1 tablet 8h Active Gabapentin 600 MG TAKE ONE (1) TABLET BY MOUTH FOUR (4) TIMES DAILY 30 Active Neurontin 600 MG Orally 4 times a day 1 6h 30 days Active Atenolol 25 mg Orally Once a day 0.5 tablet 24h 21 Sep, 2015 Active Tramadol HCl 50 mg Orally 3 times a day 1 tablet as needed 8h Active Valium 10 mg Orally Twice a day 1 tablet 12h Mar, Active Percocet 10-325 MG Orally q4 h prn pain 1 tablet as needed Dec, 28 days Active RESULTS No Results PROCEDURES Procedure Date Ordered Result Body Site URINALYSIS, AUTO, W/O SCOPE January 11, 2018 COMPREHEN METABOLIC PANEL January 11, 2018 ASSAY THYROID STIM HORMONE January 11, 2018 VENIPUNCT, ROUTINE* January 11, 2018 INSTRUCTIONS MEDICATIONS ADMINISTERED No Known Medications MEDICAL [...]
--- OUTSIDE RECORDS SUMMARY | 2018-07-05 22:21 | XMS REPORT ---
Author Author INDIRA MEJIA [facility] Address [address] [place] [address] Care Team Providers Care Forger Helper Name Role Phone INDIRA MEJIA Unavailable PROBLEMS Type Condition ICD9-CM Code RJS88-MQ Code Onset Dates Condition Status SNOMED Code Problem Arthritis M19.90 Active 9080144 Problem Anxiety F41.9 Active 80496925 Problem Thyrotoxicosis without thyroid storm E05.90 Active 35977026 Problem Scoliosis M41.9 Active 493521706 Problem Hyperthyroidism E05.90 Active 48571689 Problem Postablative hypothyroidism E89.0 Active 178957355 Problem Mild intermittent asthma without complication J45.20 Active 230478965 Problem Strain of neck muscle, subsequent encounter S16.1XXD Active 382120993 Problem Lumbar disc disease M51.9 Active 24333887 Problem Cigarette nicotine dependence without complication F17.210 Active 20302058 Problem Tachycardia R00.0 Active 0884952 ALLERGIES No Information ENCOUNTERS Encounter Location Date Diagnosis [place] [id number] [place] [address] 76377- 2657 Jan, Hyperthyroidism E05.90 [place] [address] [place] [address] 62864- 9161 Dec, Lumbar disc disease M51.9 [facility] [address] [place] [address] 27310- 4537 Dec, Hyperthyroidism E05.90 [facility] [address] [place] [id number] [place] [address] 07950- 6391 Dec, [place] [address] [place] [id number] [place] [address] 28185- 4126 Dec, Lumbar disc disease M51.9 ; Acute cystitis without hematuria N30.00 and Postablative hypothyroidism E89.0 [place] [address] [id number] [address] 9329 Nov, Lumbar disc disease M51.9 [facility] [address] [facility] [place] [id number] [place] [address] 2486 Nov, Lumbar disc disease M51.9 [facility] [address] [id number] [place] [address] 8516 October, Lumbar radiculopathy M54.16 [facility] [address] [id number] [place] [address]- 3886 October, [facility] [id number] [place] [address] 51254- 3836 October, Lumbar disc disease M51.9 [facility] [address] [id number] [address] 3836 October, [facility] [address] [facility] [place] [id number] [address]- 8596 October, Lumbar disc disease M51.9 [facility] [address] [facility] [place] [id number] [address]- 6776 October, Lumbar disc disease M51.9 [facility] [address] [facility] [place] [id number] [address]- 1086 Sep, [facility] [address] [id number] [address] 8826 Sep, Lumbar disc disease M51.9 [facility] [address] [facility] [id number] [address] 4386 Aug, [facility] [address] [id number] [address] 2546 Aug, Lumbar disc disease M51.9 [facility] [address] [facility] [place] [id number] [address]- 2546 Aug, Lumbar disc disease M51.9 [facility] [address] [facility] [id number] [address] 3851 12 Jul, 2017 Lumbar disc disease M51.9 [facility] [address] [place] [address] 58004- 1565 07 Jul, 2017 [facility] [address] [place] [address] 91663- 3247 05 Jul, 2017 Lumbar disc disease M51.9 and Mild intermittent asthma without complication J45.20 [facility] [id number] [place] [address] 08909- 0791 Jun, [facility] [address] [place] [address] 95423- 3850 Jun, [facility] [id number] Jun, Abnormal CT of the head R93.0 [facility] [address] [place] [address] 19993- 6093 Jun, Lumbar disc disease M51.9 [facility] [address] [place] [address] 70069- 7207 May, Lumbar disc disease M51.9 and Strain of neck muscle, subsequent encounter S16.1XXD [facility] [address] [place] [address] 92031- 0562 Apr, Strain of neck muscle, subsequent encounter S16.1XXD [facility] [address] [place] [address] 84088- 7458 Apr, Strain of neck muscle, subsequent encounter S16.1XXD [facility] [address] [place] [address] 16868- 6531 Apr, [facility] [address] [place] [id number] [place] [address] 38187- 6859 06 Apr, 2017 Strain of neck muscle, subsequent encounter S16.1XXD ; Lumbar disc disease M51.9 and Cigarette nicotine dependence without complication F17.210 [facility] [address] [place] [address] 62687- 8625 Mar, [facility] [address] [facility] [place] [id number] [address]- 9576 Mar, [facility] [address] [facility] [place] [id number] [address]- 2966 Mar, Strain of neck muscle, subsequent encounter S16.1XXD and Lumbar disc disease M51.9 [facility] [address] [id number] [address] 2546 Feb, Tachycardia R00.0 [facility] [address] [facility] [place] [id number] [address] 2546 Feb, Strain of neck muscle, subsequent encounter S16.1XXD and Tachycardia R00.0 [facility] [address] [facility] [id number]370[place] 1176 Jan, [facility] [address] [facility] [id number] [address]- 254 Jan, Acute strain of neck muscle, initial encounter S16.1XXA [facility] [address] [facility] [id number] [address] 2541 Jan, Hyperthyroidism E05.90 [facility] [address] [facility] [place] [id number] [address] 2546 Dec, Hyperthyroidism E05.90 [facility] [address] [facility] [id number] [address] 2546 Dec, [facility] [address] [facility] [id number] [address] 2546 Dec, [facility] [address] [facility] [id number] [address] 2541 Dec, Hyperthyroidism E05.90 and Lumbar disc disease M51.9 [facility] [address] [facility] [id number] [address] 2546 Dec, [facility] [address]65100[place] [address]- 4536 Dec, [facility] [address]100[place] [address]- 3506 Dec, [facility] [address] [place] [address] [id number] [place] [address] 04944- 8076 Nov, [facility] [address] [place] [address] [id number] [place] [address] 21948- 0293 Nov, Lumbar disc disease M51.9 ; Hyperthyroidism E05.90 and Anxiety F41.9 [facility] [address] [place] [address] [id number] [place] [address] 59092- 1227 Nov, [facility] [address] [place] [id number] [place] [address] 00684- 6366 Nov, [facility] [address] [place] [id number] [place] [address] 14929- 8128 October, Arthritis M19.90 [facility] [address] [place] [address] [id number] [place] [address] 92619- 0683 October, Lumbar disc disease M51.9 ; Scoliosis M41.9 ; Arthritis M19.90 and Reactive depression F32.9 [facility] [address] [place] [id number] [place] [address] 68445- 6743 October, Unspecified thoracic, thoracolumbar and lumbosacral intervertebral disc disorder M51.9 [facility] [address] [place] [address] 91156- 5867 October, [facility] [address] [address] [id number] [place] [address] 94584- 2302 October, Lumbar disc disease M51.9 and Anxiety F41.9 [facility] [address] [place] [address] [id number] [place] [address] 65920- 8698 Sep, [facility] [address] [place] [address] 25095- 1520 Sep, Screening for breast cancer Z12.39 ; Hyperthyroidism E05.90 and Scoliosis M41.9 [facility] [address] [facility] [id number] [place] [address]- 2621 Sep, Thyrotoxicosis without thyroid storm E05.90 [facility] [address] [facility] [id number] [address]- 8654 Sep, Thyrotoxicosis without thyroid storm E05.90 [facility] [address] [facility] [id number] [address]- 3428 Sep, Scoliosis M41.9 ; Arthritis M19.90 and Hyperthyroidism E05.90 IMMUNIZATIONS No Known Immunizations SOCIAL HISTORY Never Assessed REASON FOR VISIT MRI required PLAN OF CARE VITAL SIGNS MEDICATIONS Unknown [...]
--- OUTSIDE RECORDS SUMMARY | 2018-07-05 22:22 | XMS REPORT ---
Author Author INDIRA MEJIA [facility] Address [address] [place] [address] Care Team Providers Care Slots Manager Name Role Phone INDIRA MEJIA Unavailable PROBLEMS Type Condition ICD9-CM Code QYY02-[place] Code Onset Dates Condition Status SNOMED Code Problem Arthritis M19.90 Active 9559053 Problem Anxiety F41.9 Active 65066105 Problem Thyrotoxicosis without thyroid storm E05.90 Active 31156510 Problem Scoliosis M41.9 Active 358717366 Problem Hyperthyroidism E05.90 Active 80658856 Problem Postablative hypothyroidism E89.0 Active 914689388 Problem Mild intermittent asthma without complication J45.20 Active 140733481 Problem Strain of neck muscle, subsequent encounter S16.1XXD Active 149217650 Problem Lumbar disc disease M51.9 Active 10944067 Problem Cigarette nicotine dependence without complication F17.210 Active 05560484 Problem Tachycardia R00.0 Active 5634188 ALLERGIES No Information ENCOUNTERS Encounter Location Date Diagnosis [place] [address] [place] [address] 29925- 8164 Jan, Hyperthyroidism E05.90 [place] [address] [place] [id number] [place] [address] 59424- 3941 Dec, Lumbar disc disease M51.9 [facility] [address] [place] [address] 94599- 0643 Dec, Hyperthyroidism E05.90 [facility] [address] [place] [id number] [place] [address] 60976- 7442 Dec, [place] [address] [place] [id number] [place] [address] 45636- 9873 Dec, Lumbar disc disease M51.9 ; Acute cystitis without hematuria N30.00 and Postablative hypothyroidism E89.0 [place] [address] [id number], [place] [address]- 7517 Nov, Lumbar disc disease M51.9 [facility] [address] [facility] [id number] [place] [address]- 0406 Nov, Lumbar disc disease M51.9 [facility] [address] [id number] [place] [address]- 5166 October, Lumbar radiculopathy M54.16 [facility] [address] [id number] [place] [address]- 3036 October, [facility] [id number] [place] [address] 86003- 4946 October, Lumbar disc disease M51.9 [facility] [address] [id number], [place] [address]- 3066 October, [facility] [address] [facility] [id number], [place] [address]- 8206 October, Lumbar disc disease M51.9 [facility] [address] [facility] [id number], [place] [address]- 7306 October, Lumbar disc disease M51.9 [facility] [address] [facility] [id number], [place] [address]- 6036 Sep, [facility] [address] [id number], [place] [address]- 3466 Sep, Lumbar disc disease M51.9 [facility] [address] [facility] [id number], [place] [address]- 5366 Aug, [facility] [address] [id number], [place] [address] 2546 Aug, Lumbar disc disease M51.9 [facility] [address] [facility] [id number], [place] [address]- 2546 Aug, Lumbar disc disease M51.9 [facility] [address] [facility] [id number], [place] [address]- 3865 12 Jul, 2017 Lumbar disc disease M51.9 [facility] [address] [place] [address] 83553- 7097 07 Jul, 2017 [facility] [address] [place] [address] 18940- 3367 05 Jul, 2017 Lumbar disc disease M51.9 and Mild intermittent asthma without complication J45.20 [facility] [address] [place] [id number] [place] [address] 64486- 5391 Jun, [facility] [address] [place] [address] 93924- 4904 Jun, [facility] [id number] Jun, Abnormal CT of the head R93.0 [facility] [address] [place] [address] 22252- 3685 Jun, Lumbar disc disease M51.9 [facility] [address] [place] [address] 41639- 7940 May, Lumbar disc disease M51.9 and Strain of neck muscle, subsequent encounter S16.1XXD [facility] [address] [place] [address] 28440- 5586 Apr, Strain of neck muscle, subsequent encounter S16.1XXD [facility] [address] [place] [address] 68550- 2269 Apr, Strain of neck muscle, subsequent encounter S16.1XXD [facility] [address] [place] [address] 29910- 2595 Apr, [facility] [address] [place] [id number] [place] [address] 79535- 9386 06 Apr, 2017 Strain of neck muscle, subsequent encounter S16.1XXD ; Lumbar disc disease M51.9 and Cigarette nicotine dependence without complication F17.210 [facility] [address] [place] [address] 00197- 0744 Mar, [facility] [address] [facility] [id number], [place] [address]- 7570 Mar, [facility] [address] [facility] [id number], [place] [address]- 4016 Mar, Strain of neck muscle, subsequent encounter S16.1XXD and Lumbar disc disease M51.9 [facility] [address] [id number], [place] [address] 2546 Feb, Tachycardia R00.0 [facility] [address] [facility] [id number], [place] [address] 2546 Feb, Strain of neck muscle, subsequent encounter S16.1XXD and Tachycardia R00.0 [facility] [address] [facility] [id number][place] [address]- 7136 Jan, [facility] [address] [facility] [id number], [place] [address]- 2548 Jan, Acute strain of neck muscle, initial encounter S16.1XXA [facility] [address] [facility] [id number], [place] [address] 2546 Jan, Hyperthyroidism E05.90 [facility] [address] [facility] [id number], [place] [address]- 7086 Dec, [facility] [address] [facility] [id number], [place] [address]- 8446 Dec, Hyperthyroidism E05.90 [facility] [address] [facility] [id number], [place] [address]- 2546 Dec, [facility] [address] [facility] [id number], [place] [address] 2548 Dec, Hyperthyroidism E05.90 and Lumbar disc disease M51.9 [facility] [address] [facility] [id number], [place] [address] 2546 Dec, [facility] [address] [facility] [id number], [place] [address]- 1735 Dec, [facility] [address]65100[place], [place] [address]- 6519 Dec, [facility] [address] [place] [id number] [place] [address] 73787- 8851 Nov, [facility] [address] [place] [address] [id number] [place] [address] 30597- 8284 Nov, Lumbar disc disease M51.9 ; Hyperthyroidism E05.90 and Anxiety F41.9 [facility] [address] [place] [id number] [place] [address] 45367- 8264 Nov, [facility] [address] [place] [id number] [place] [address] 12856- 1424 Nov, [facility] [address] [place] [id number] [place] [address] 12720- 9621 October, Arthritis M19.90 [facility] [address] [place] [id number] [place] [address] 00663- 3052 October, Lumbar disc disease M51.9 ; Scoliosis M41.9 ; Arthritis M19.90 and Reactive depression F32.9 [facility] [address] [place] [id number] [place] [address] 92776- 8053 October, Unspecified thoracic, thoracolumbar and lumbosacral intervertebral disc disorder M51.9 [facility] [address] [place] [address] 38339- 5886 October, [facility] [address] [place] [id number] [place] [address] 54314- 5382 October, Lumbar disc disease M51.9 and Anxiety F41.9 [facility] [address] [place] [id number] [place] [address] 49215- 3309 Sep, [facility] [address] [place] [address] 15481- 5823 Sep, Screening for breast cancer Z12.39 ; Hyperthyroidism E05.90 and Scoliosis M41.9 [facility] [address] [facility] [id number] [place] [address]- 1903 Sep, Thyrotoxicosis without thyroid storm E05.90 [facility] [address] [facility] [id number], [place] [address]- 6393 Sep, Thyrotoxicosis without thyroid storm E05.90 [facility] [address] [facility] [id number], [place] [address]- 2771 Sep, Scoliosis M41.9 ; Arthritis M19.90 and Hyperthyroidism E05.90 IMMUNIZATIONS No Known Immunizations SOCIAL HISTORY Never Assessed REASON FOR VISIT Requests return call PLAN OF CARE VITAL SIGNS MEDICATIONS Unknown [...]
--- OUTSIDE RECORDS SUMMARY | 2018-07-05 22:22 | XMS REPORT ---
Author Author INDIRA MEJIA [facility] Address [address] [place] [address] Care Team Providers Care Sailmaker Name Role Phone INDIRA MEJIA Unavailable PROBLEMS Type Condition ICD9-CM Code BAL04-JM Code Onset Dates Condition Status SNOMED Code Problem Arthritis M19.90 Active 9100976 Problem Anxiety F41.9 Active 71531002 Problem Thyrotoxicosis without thyroid storm E05.90 Active 27796172 Problem Scoliosis M41.9 Active 663887112 Problem Hyperthyroidism E05.90 Active 69085963 Problem Postablative hypothyroidism E89.0 Active 745428527 Problem Mild intermittent asthma without complication J45.20 Active 926157951 Problem Strain of neck muscle, subsequent encounter S16.1XXD Active 194288195 Problem Lumbar disc disease M51.9 Active 50489246 Problem Cigarette nicotine dependence without complication F17.210 Active 10573189 Problem Tachycardia R00.0 Active 5587672 ALLERGIES No Information ENCOUNTERS Encounter Location Date Diagnosis [place] [id number] [place] [address] 71169- 9230 Dec, Lumbar disc disease M51.9 [place] [id number] [place] [address] 40778- 1399 Dec, Hyperthyroidism E05.90 [facility] [id number] [place] [address] 60593- 5220 Dec, [place] [id number] [place] [address] 62291- 1314 Dec, Lumbar disc disease M51.9 ; Acute cystitis without hematuria N30.00 and Postablative hypothyroidism E89.0 [place] [id number] [place] [address] 30551- 3273 Nov, Lumbar disc disease M51.9 [place] [address] [id number] [address] 8485 Nov, Lumbar disc disease M51.9 [facility] [address] [id number] [address] 1196 October, Lumbar radiculopathy M54.16 [facility] [address] [id number] [address] 2036 October, [facility] [address] [facility] [id number] [place] [address] 14488- 8125 October, Lumbar disc disease M51.9 [facility] [address] [id number] [place] [address] 13011- 7936 October, [facility] [address] [facility] [id number] [place] [address] 20159- 5288 October, Lumbar disc disease M51.9 [facility] [address] [facility] [id number] [place] [address] 87321- 8539 October, Lumbar disc disease M51.9 [facility] [address] [id number] [address] 9394 Sep, [facility] [address] [facility] [id number][place] [address]- 5657 Sep, Lumbar disc disease M51.9 [facility] [address] [facility] [id number] [address]- 2276 Aug, [facility] [address] [facility] [id number][place] [address]- 4941 Aug, Lumbar disc disease M51.9 [facility] [address] [id number][place] [address]- 6239 Aug, Lumbar disc disease M51.9 [facility] [address] [facility] [id number][place] [address]- 1006 Jul, Lumbar disc disease M51.9 [facility] [address] [facility] [id number] [address]- 1678 07 Jul, 2017 [facility] [id number] [place] [address] 24051- 8355 05 Jul, 2017 Lumbar disc disease M51.9 and Mild intermittent asthma without complication J45.20 [facility] [address] [id number][place] [address]- 4515 Jun, [facility] [id number] [place] [address] 01158- 3117 Jun, [facility] [id number] [place] [id number], [address] of the head R93.0 [facility] [address] [place] [address] 18892- 3266 Jun, Lumbar disc disease M51.9 [facility] [id number] [place] [address] 92966- 0776 May, Lumbar disc disease M51.9 and Strain of neck muscle, subsequent encounter S16.1XXD [facility] [id number] [place] [address] 24084- 4447 Apr, Strain of neck muscle, subsequent encounter S16.1XXD [facility] [address] [id number] [address]- 0614 Apr, Strain of neck muscle, subsequent encounter S16.1XXD [facility] [address] [id number] [address]- 8956 Apr, [facility] [id number] [place] [address] 07775- 1064 Apr, Strain of neck muscle, subsequent encounter S16.1XXD ; Lumbar disc disease M51.9 and Cigarette nicotine dependence without complication F17.210 [facility] [address] [id number] [address]- 5781 Mar, [facility] [id number] [place] [address] 37964- 6675 Mar, [facility] [address] [facility] [id number] 8142 Mar, Strain of neck muscle, subsequent encounter S16.1XXD and Lumbar disc disease M51.9 [facility] [address] [id number] [address] 2546 Feb, Tachycardia R00.0 [facility] [address] [facility] [id number] [address] 2546 Feb, Strain of neck muscle, subsequent encounter S16.1XXD and Tachycardia R00.0 [facility] [address] [id number][place] [address]- 9536 Jan, [facility] [address] [facility] [id number] [address]- 2546 Jan, Acute strain of neck muscle, initial encounter S16.1XXA [facility] [address] [facility] [id number][place] [address]- 1127 Jan, Hyperthyroidism E05.90 [facility] [address] [facility] [id number] [place] [address] 10516 2546 Dec, Hyperthyroidism E05.90 [facility] [address] [facility] [id number][place] [address]- 3466 Dec, [facility] [address]65100[place] [address]- 6680 Dec, [facility] [address] [place] [address] 34656 2548 Dec, Hyperthyroidism E05.90 and Lumbar disc disease M51.9 [facility] [address] [facility] [id number] [address] 2546 Dec, [facility] [address] [facility] [id number][place] [address]- 2546 Dec, [facility] [address]65100[place] [address]- 4488 Dec, [facility] [id number] [place] [address] 81343- 7494 Nov, [facility] [address] 70861- 0018 Nov, Lumbar disc disease M51.9 ; Hyperthyroidism E05.90 and Anxiety F41.9 [facility] [address] 97671- 1065 Nov, [facility] [id number] [place] [address] 24077- 0265 Nov, [facility] [address] 48800- 1389 October, Arthritis M19.90 [facility] [id number] [place] [address] 98562- 0130 October, Lumbar disc disease M51.9 ; Scoliosis M41.9 ; Arthritis M19.90 and Reactive depression F32.9 [facility] [id number] [place] [address] 51615- 6298 October, Unspecified thoracic, thoracolumbar and lumbosacral intervertebral disc disorder M51.9 [facility] [id number] [place] [address] 01179- 7118 October, [facility] [id number] [place] [address] 99611- 7143 October, Lumbar disc disease M51.9 and Anxiety F41.9 [facility] [id number] [place] [address] 29454- 8753 Sep, [facility] [id number] [place] [address] 87311- 9870 Sep, Screening for breast cancer Z12.39 ; Hyperthyroidism E05.90 and Scoliosis M41.9 [facility] [id number] [place] [address] 04576- 2050 Sep, Thyrotoxicosis without thyroid storm E05.90 [facility] [address] [facility] [id number] [place] [address]- 4868 Sep, Thyrotoxicosis without thyroid storm E05.90 [facility] [address] [facility] [id number] [place] [address]- 8105 Sep, Scoliosis M41.9 ; Arthritis M19.90 and Hyperthyroidism E05.90 IMMUNIZATIONS No Known Immunizations SOCIAL HISTORY Never Assessed REASON FOR VISIT COntrolled meds X's 3, due 11/02 PLAN OF CARE VITAL SIGNS MEDICATIONS Medication Instructions Dosage Frequency Start Date End Date Duration Status Tramadol HCl 50 mg Orally 3 times a day 1 tablet as needed 8h Active Valium 10 mg Orally Twice a day 1 tablet 12h Mar, Active Percocet 10-325 MG Orally q4 h prn pain 1 tablet as needed October, 28 days Active RESULTS No Results PROCEDURES [...]
--- OUTSIDE RECORDS SUMMARY | 2018-07-05 22:22 | XMS REPORT ---
Author Author INDIRA MEJIA [facility] Address [address] [place] [address] Care Team Providers Care Supervisor [employer] Name Role Phone INDIRA MEJIA Unavailable PROBLEMS Type Condition ICD9-CM Code WES34-XG Code Onset Dates Condition Status SNOMED Code Problem Arthritis M19.90 Active 2187634 Problem Anxiety F41.9 Active 15126181 Problem Thyrotoxicosis without thyroid storm E05.90 Active 59108249 Problem Scoliosis M41.9 Active 073448924 Problem Hyperthyroidism E05.90 Active 40836594 Problem Postablative hypothyroidism E89.0 Active 822688242 Problem Mild intermittent asthma without complication J45.20 Active 861115867 Problem Strain of neck muscle, subsequent encounter S16.1XXD Active 427229361 Problem Lumbar disc disease M51.9 Active 06191690 Problem Cigarette nicotine dependence without complication F17.210 Active 49758602 Problem Tachycardia R00.0 Active 6697425 ALLERGIES No Information ENCOUNTERS Encounter Location Date Diagnosis [place] [id number] [place] [address] 42997- 7454 Jan, Hyperthyroidism E05.90 [place] [address] [place] [address] 76359- 0789 Dec, Lumbar disc disease M51.9 [facility] [place] [facility] [address] [place] [address] 98694- 2960 Dec, Hyperthyroidism E05.90 [facility] [place] [facility] [id number] [place] [address] 75099- 5837 Dec, [place] [id number] [place] [address] 98415- 9185 Dec, Lumbar disc disease M51.9 ; Acute cystitis without hematuria N30.00 and Postablative hypothyroidism E89.0 [place] [address] [id number] [address]- 0669 Nov, Lumbar disc disease M51.9 [facility] [place] [facility] [address] [facility] [id number] [place] [address]- 5386 Nov, Lumbar disc disease M51.9 [facility] [place] [facility] [address] [id number] [place] [address]- 1846 October, Lumbar radiculopathy M54.16 [facility] [place] [facility] [address] [id number] [place] [address]- 7466 October, [facility] [place] [facility] [id number] [place] [address] 28769- 3216 October, Lumbar disc disease M51.9 [facility] [place] [facility] [address] [id number], [place] [address]- 3396 October, [facility] [place] [facility] [address] [facility] [id number], [place] [address]- 0696 October, Lumbar disc disease M51.9 [facility] [place] [facility] [address] [facility] [id number], [place] [address]- 9566 October, Lumbar disc disease M51.9 [facility] [place] [facility] [address] [facility] [id number], [place] [address]- 8276 Sep, [facility] [place] [facility] [address] [id number], [place] [address]- 3366 Sep, Lumbar disc disease M51.9 [facility] [place] [facility] [address] [facility] [id number], [place] [address]- 5526 Aug, [facility] [place] [facility] [address] [id number], [place] [address] 2546 Aug, Lumbar disc disease M51.9 [facility] [place] [facility] [address] [facility] [id number], [place] [address]- 2546 Aug, Lumbar disc disease M51.9 [facility] [place] [facility] [address] [facility] [id number], [place] [address]- 8920 12 Jul, 2017 Lumbar disc disease M51.9 [facility] [place] [facility] [address] [place] [address] 47522- 7845 07 Jul, 2017 [facility] [place] [facility] [address] [place] [address] 66979- 1339 05 Jul, 2017 Lumbar disc disease M51.9 and Mild intermittent asthma without complication J45.20 [facility] [place] [facility] [id number] [place] [address] 06646- 6759 Jun, [facility] [place] [facility] [address] [place] [address] 74057- 4460 Jun, [facility] [id number] Jun, Abnormal CT of the head R93.0 [facility] [place] [facility] [address] [place] [address] 45533- 6962 Jun, Lumbar disc disease M51.9 [facility] [place] [facility] [address] [place] [address] 50050- 4105 May, Lumbar disc disease M51.9 and Strain of neck muscle, subsequent encounter S16.1XXD [facility] [place] [facility] [address] [place] [address] 31761- 0609 Apr, Strain of neck muscle, subsequent encounter S16.1XXD [facility] [place] [facility] [address] [place] [address] 30279- 6898 Apr, Strain of neck muscle, subsequent encounter S16.1XXD [facility] [place] [facility] [address] [place] [address] 86750- 2624 Apr, [facility] [place] [facility] [id number] [place] [address] 01675- 0125 06 Apr, 2017 Strain of neck muscle, subsequent encounter S16.1XXD ; Lumbar disc disease M51.9 and Cigarette nicotine dependence without complication F17.210 [facility] [place] [facility] [address] [place] [address] 16376- 5853 Mar, [facility] [place] [facility] [address] [facility] [id number], [place] [address]- 4556 Mar, [facility] [place] [facility] [address] [facility] [id number], [place] [address]- 7466 Mar, Strain of neck muscle, subsequent encounter S16.1XXD and Lumbar disc disease M51.9 [facility] [place] [facility] [address] [id number], [place] [address] 2546 Feb, Tachycardia R00.0 [facility] [place] [facility] [address] [facility] [id number], [place] [address] 2546 Feb, Strain of neck muscle, subsequent encounter S16.1XXD and Tachycardia R00.0 [facility] [place] [facility] [address] [facility] [id number][place]- 2176 Jan, [facility] [place] [facility] [address] [facility] [id number], [place] [address]- 2545 Jan, Acute strain of neck muscle, initial encounter S16.1XXA [facility] [place] [facility] [address] [facility] [id number], [place] [address] 2541 Jan, Hyperthyroidism E05.90 [facility] [place] [facility] [address] [facility] [id number], [place] [address] 2546 Dec, Hyperthyroidism E05.90 [facility] [place] [facility] [address] [facility] [id number], [place] [address] 2546 Dec, [facility] [place] [facility] [address] [facility] [id number], [place] [address] 2546 Dec, [facility] [place] [facility] [address] [facility] [id number], [place] [address] 2542 Dec, Hyperthyroidism E05.90 and Lumbar disc disease M51.9 [facility] [place] [facility] [address] [facility] [id number], [place] [address] 2546 Dec, [facility] [place] [facility] [address]00565100[place], [place] [address]- 3686 Dec, [facility] [place] [facility] [address]00565100[place], [place] [address]- 5219 Dec, [facility] [place] [facility] [id number] [place] [address] 69646- 3106 Nov, [facility] [place] [facility] [id number] [place] [address] 23375- 4072 Nov, Lumbar disc disease M51.9 ; Hyperthyroidism E05.90 and Anxiety F41.9 [facility] [place] [facility] [id number] [place] [address] 37514- 4110 Nov, [facility] [place] [facility] [id number] [place] [address] 32213- 7234 Nov, [facility] [place] [facility] [id number] [place] [address] 68568- 1036 October, Arthritis M19.90 [facility] [place] [facility] [id number] [place] [address] 39018- 3303 October, Lumbar disc disease M51.9 ; Scoliosis M41.9 ; Arthritis M19.90 and Reactive depression F32.9 [facility] [place] [facility] [id number] [place] [address] 01085- 8487 October, Unspecified thoracic, thoracolumbar and lumbosacral intervertebral disc disorder M51.9 [facility] [place] [facility] [address] [place] [address] 57201- 9683 October, [facility] [place] [facility] [id number] [place] [address] 97900- 7346 October, Lumbar disc disease M51.9 and Anxiety F41.9 [facility] [place] [facility] [id number] [place] [address] 53579- 2854 Sep, [facility] [place] [facility] [address] [place] [address] 99512- 7792 Sep, Screening for breast cancer Z12.39 ; Hyperthyroidism E05.90 and Scoliosis M41.9 [facility] [place] [facility] [address] [facility] [id number] [place] [address]- 2950 Sep, Thyrotoxicosis without thyroid storm E05.90 [facility] [place] [facility] [address] [facility] [id number], [place] [address]- 3984 Sep, Thyrotoxicosis without thyroid storm E05.90 [facility] [place] [facility] [address] [facility] [id number], [place] [address]- 2507 Sep, Scoliosis M41.9 ; Arthritis M19.90 and Hyperthyroidism E05.90 IMMUNIZATIONS No Known Immunizations SOCIAL HISTORY Never Assessed REASON FOR VISIT PLAN OF CARE VITAL SIGNS MEDICATIONS Unknown Medications RESULTS Name Result Date Reference Range MRI : Lumbar w/o contrast 2017-11-25 PROCEDURES No Known procedures INSTRUCTIONS MEDICATIONS ADMINISTERED [...]
--- OUTSIDE RECORDS SUMMARY | 2018-07-05 22:22 | XMS REPORT ---
Author Author INDIRA MEJIA [facility] Address [address] [place] [address] Care Team Providers Care Hair And Makeup Designer Name Role Phone INDIRA MEJIA Unavailable PROBLEMS Type Condition ICD9-CM Code SZJ52-AA Code Onset Dates Condition Status SNOMED Code Problem Arthritis M19.90 Active 2564921 Problem Anxiety F41.9 Active 90617184 Problem Thyrotoxicosis without thyroid storm E05.90 Active 80048814 Problem Scoliosis M41.9 Active 418437111 Problem Hyperthyroidism E05.90 Active 83723419 Problem Postablative hypothyroidism E89.0 Active 718358501 Problem Mild intermittent asthma without complication J45.20 Active 376951517 Problem Strain of neck muscle, subsequent encounter S16.1XXD Active 420439019 Problem Lumbar disc disease M51.9 Active 17297012 Problem Cigarette nicotine dependence without complication F17.210 Active 40246216 Problem Tachycardia R00.0 Active 0642991 ALLERGIES No Information ENCOUNTERS Encounter Location Date Diagnosis [place] [id number] [place] [address] 63688- 6580 Jan, Hyperthyroidism E05.90 [place] [address] [place] [id number] [place] [address] 88346- 6723 Dec, Lumbar disc disease M51.9 [facility] [id number] [place] [address] 13370- 9957 Dec, Hyperthyroidism E05.90 [facility] [id number] [place] [address] 41032- 3479 Dec, [place] [id number] [place] [address] 64242- 8072 Dec, Lumbar disc disease M51.9 ; Acute cystitis without hematuria N30.00 and Postablative hypothyroidism E89.0 [place] [address] [id number] [address] 2161 Nov, Lumbar disc disease M51.9 [facility] [address] [facility] [id number] [place] [address] 2966 Nov, Lumbar disc disease M51.9 [facility] [address] [id number] [place] [address] 3756 October, Lumbar radiculopathy M54.16 [facility] [address] [id number] [place] [address] 8116 October, [facility] [id number] [place] [address] 76346- 7966 October, Lumbar disc disease M51.9 [facility] [address] [id number], [place] [address] 0326 October, [facility] [address] [facility] [id number], [place] [address]- 6626 October, Lumbar disc disease M51.9 [facility] [address] [facility] [id number], [place] [address] 9946 October, Lumbar disc disease M51.9 [facility] [address] [facility] [id number], [place] [address] 9046 Sep, [facility] [address] [id number], [place] [address] 0226 Sep, Lumbar disc disease M51.9 [facility] [address] [facility] [id number], [place] [address] 3506 Aug, [facility] [address] [id number], [place] [address] 2546 Aug, Lumbar disc disease M51.9 [facility] [address] [facility] [id number], [place] [address]- 2546 Aug, Lumbar disc disease M51.9 [facility] [address] [facility] [id number], [place] [address]- 2812 12 Jul, 2017 Lumbar disc disease M51.9 [facility] [address] [place] [address] 01498- 5452 07 Jul, 2017 [facility] [address] [place] [address] 37323- 9058 05 Jul, 2017 Lumbar disc disease M51.9 and Mild intermittent asthma without complication J45.20 [facility] [id number] [place] [address] 93949- 5745 Jun, [facility] [address] [place] [address] 89571- 7422 Jun, [facility] [id number] Jun, Abnormal CT of the head R93.0 [facility] [address] [place] [address] 65677- 2177 Jun, Lumbar disc disease M51.9 [facility] [address] [place] [address] 62660- 9467 May, Lumbar disc disease M51.9 and Strain of neck muscle, subsequent encounter S16.1XXD [facility] [address] [place] [address] 54501- 0733 Apr, Strain of neck muscle, subsequent encounter S16.1XXD [facility] [address] [place] [address] 18829- 6173 Apr, Strain of neck muscle, subsequent encounter S16.1XXD [facility] [address] [place] [address] 38509- 7853 Apr, [facility] [address] [place] [id number] [place] [address] 57029- 2567 06 Apr, 2017 Strain of neck muscle, subsequent encounter S16.1XXD ; Lumbar disc disease M51.9 and Cigarette nicotine dependence without complication F17.210 [facility] [address] [place] [address] 77415- 4322 Mar, [facility] [address] [facility] [id number], [place] [address]- 6725 Mar, [facility] [address] [facility] [id number], [place] [address]- 5326 Mar, Strain of neck muscle, subsequent encounter S16.1XXD and Lumbar disc disease M51.9 [facility] [address] [id number], [place] [address] 2546 Feb, Tachycardia R00.0 [facility] [address] [facility] [id number], [place] [address] 2546 Feb, Strain of neck muscle, subsequent encounter S16.1XXD and Tachycardia R00.0 [facility] [address] [facility] [id number], [place] [address]- 2696 Jan, [facility] [address] [facility] [id number], [place] [address]- 254 Jan, Acute strain of neck muscle, initial encounter S16.1XXA [facility] [address] [facility] [id number], [place] [address] 2546 Jan, Hyperthyroidism E05.90 [facility] [address] [facility] [id number], [place] [address]- 6606 Dec, [facility] [address] [facility] [id number], [place] [address]- 9966 Dec, Hyperthyroidism E05.90 [facility] [address] [facility] [id number], [place] [address]- 2546 Dec, [facility] [address] [facility] [id number], [place] [address] 2541 Dec, Hyperthyroidism E05.90 and Lumbar disc disease M51.9 [facility] [address] [facility] [id number], [place] [address] 2546 Dec, [facility] [address] [facility] [id number], [place] [address]- 3125 Dec, [facility] [address] [address]- 9378 Dec, [facility] [address] [id number] [place] [address] 59139- 1203 Nov, [facility] [id number] [place] [address] 63591- 1797 Nov, Lumbar disc disease M51.9 ; Hyperthyroidism E05.90 and Anxiety F41.9 [facility] [address] [id number] [place] [address] 85502- 8056 Nov, [facility] [address] [place] [address] [id number] [place] [address] 91473- 9474 Nov, [facility] [address] [place] [address] [id number] [place] [address] 42632- 9243 October, Arthritis M19.90 [facility] [id number] [place] [address] 78566- 2173 October, Lumbar disc disease M51.9 ; Scoliosis M41.9 ; Arthritis M19.90 and Reactive depression F32.9 [facility] [address] [place] [address] [id number] [place] [address] 35827- 4850 October, Unspecified thoracic, thoracolumbar and lumbosacral intervertebral disc disorder M51.9 [facility] [address] [place] [address] 99722- 5908 October, [facility] [address] [id number] [place] [address] 82922- 9864 October, Lumbar disc disease M51.9 and Anxiety F41.9 [facility] [address] [id number] [place] [address] 40771- 5483 Sep, [facility] [address] [place] [address] 22525- 1386 Sep, Screening for breast cancer Z12.39 ; Hyperthyroidism E05.90 and Scoliosis M41.9 [facility] [address] [facility] [id number] [place] [address]- 2489 Sep, Thyrotoxicosis without thyroid storm E05.90 [facility] [address] [facility] [id number], [place] [address]- 9913 Sep, Thyrotoxicosis without thyroid storm E05.90 [facility] [address] [facility] [id number], [place] [address]- 0524 Sep, Scoliosis M41.9 ; Arthritis M19.90 and [...]
[2018-07-05] MEDS ORDERED: FAMOTIDINE 20MG/2ML IV (PEPCID) IV STA (22:23)
[2018-07-05] MEDS ORDERED: methylPREDNISolone 125 MG (Solu-MEDROL) VIAL IV STA (22:23)
[2018-07-05] MEDS ORDERED: diphenhydrAMINE 50 MG/ML INJ (BENADRYL) IV STA (22:23)
--- OUTSIDE RECORDS SUMMARY | 2018-07-05 22:23 | XMS REPORT ---
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 Active 94304165 Problem Arthritis M19.90 Active 1141436 Problem Scoliosis M41.9 Active 049209595 Problem Mild intermittent asthma without complication J45.20 Active 306838895 Problem Cigarette nicotine dependence without complication F17.210 Active 81645003 Problem Lumbar disc disease M51.9 Active 92617094 Problem Anxiety F41.9 Active 77413307 Problem Tachycardia R00.0 Active 4949552 Problem Strain of neck muscle, subsequent encounter S16.1XXD Active 805043570 ALLERGIES No Information ENCOUNTERS Encounter Location Date Diagnosis [facility] [address] [place] [address] 05642- 2823 Dec, [facility] [id number] [place] [address] 28346- 7893 Nov, Lumbar disc disease M51.9 [facility] [address] [place] [id number] [place] [address] 36498- 1590 Nov, Lumbar disc disease M51.9 [facility] [address], [place] [address]- 2403 October, Lumbar radiculopathy M54.16 [facility] [address] [place] [address] 70088- 7389 October, [facility] [address] [place] [id number] [place] [address] 32000- 5472 October, Lumbar disc disease M51.9 [facility] [address] [place] [address] 02494- 8766 October, [facility] [address] [place] [address] [id number] [place] [address] 03363- 2671 October, Lumbar disc disease M51.9 [facility] [address] [place] [address] [id number] [place] [address] 86205- 3875 October, Lumbar disc disease M51.9 [facility] [address] [id number] [place] [address] 92327- 5729 Sep, [facility] [address] [place] [id number] [place] [address] 54643- 6954 Sep, Lumbar disc disease M51.9 [facility] [address] [place] [id number] [place] [address] 78485- 7002 Aug, [facility] [address] [place] [address] [id number] [place] [address] 29765- 5947 Aug, Lumbar disc disease M51.9 [facility] [address] [place] [id number] [place] [address] 31113- 6629 Aug, Lumbar disc disease M51.9 [facility] [address] [place] [id number] [place] [address] 19912- 2547 Jul, Lumbar disc disease M51.9 [facility] [address] [place] [id number] [place] [address] 08150- 2190 Jul, [facility] [address] [place] [address] [id number] [place] [address] 21081- 7884 Jul, Lumbar disc disease M51.9 and Mild intermittent asthma without complication J45.20 [facility] [address] [place] [id number] [place] [address] 47913- 6065 Jun, [facility] [address] [place] [id number] [place] [address] 90416- 1739 Jun, [facility] [address] [place] [id number] [place] [id number], [address] of the head R93.0 [facility] [id number] [place] [address] 66286- 4426 Jun, Lumbar disc disease M51.9 [facility] [address] [place] [address] 91232- 8698 May, Lumbar disc disease M51.9 and Strain of neck muscle, subsequent encounter S16.1XXD [facility] [address] [place] [id number] [place] [address] 24184- 7918 Apr, Strain of neck muscle, subsequent encounter S16.1XXD [facility] [address] [place] [id number] [place] [address] 00707- 5426 Apr, Strain of neck muscle, subsequent encounter S16.1XXD [facility] [address] [place] [address] 33357- 4889 Apr, [facility] [address] [place] [id number] [place] [address] 32500- 1101 Apr, Strain of neck muscle, subsequent encounter S16.1XXD ; Lumbar disc disease M51.9 and Cigarette nicotine dependence without complication F17.210 [facility] [address] [place] [address] 49041- 4170 Mar, [facility] [address] [place] [address] 28905- 7479 Mar, [facility] [address] [place] [id number] [place] [address] 59038- 2400 Mar, Strain of neck muscle, subsequent encounter S16.1XXD and Lumbar disc disease M51.9 [facility] [address] [place] [id number] [place] [address] 85058- 0773 Feb, Tachycardia R00.0 [facility] [address] [place] [id number] [place] [address] 64904- 0627 Feb, Strain of neck muscle, subsequent encounter S16.1XXD and Tachycardia R00.0 [place] [address] [facility] [id number], [place] [address] 2541 Jan, [facility] [address] [facility] [id number], [place] [address] 2546 Jan, Acute strain of neck muscle, initial encounter S16.1XXA [facility] [address] [facility] [id number], [place] [address] 2546 Jan, Hyperthyroidism E05.90 [facility] [address] [facility] [id number], [place] [address] 2546 Dec, [facility] [address] [facility] [id number] [place] [address] 47978 2546 Dec, Hyperthyroidism E05.90 [facility] [address] [facility] [id number], [place] [address] 2546 Dec, [facility] [address] [place] [id number] [place] [address] 64205 2547 Dec, Hyperthyroidism E05.90 and Lumbar disc disease M51.9 [facility] [address] [facility] [id number], [place] [address] 2546 Dec, [facility] [address], [place] [address]- 2547 Dec, [facility] [address], [place] [address] 2546 Dec, [facility] [address], [place] [address] 2547 Nov, [facility] [address] [facility] [id number], [place] [address] 2548 Nov, Lumbar disc disease M51.9 ; Hyperthyroidism E05.90 and Anxiety F41.9 [facility] [address] [facility] [id number], [place] [address] 2546 Nov, [facility] [address] [facility] [id number], [place] [address] 2546 Nov, [place] [address] [place] [id number] [place] [address] 76285- 3588 October, Arthritis M19.90 [place] [address] [place] [id number] [place] [address] 86432- 1242 October, Lumbar disc disease M51.9 ; Scoliosis M41.9 ; Arthritis M19.90 and Reactive depression F32.9 [place] [address] 12080- 0583 October, Unspecified thoracic, thoracolumbar and lumbosacral intervertebral disc disorder M51.9 [place] [address] 90475- 2159 October, [place] [address] 10888- 8583 October, Lumbar disc disease M51.9 and Anxiety F41.9 [place] [address] [place] [id number] [place] [address] 27872- 6424 Sep, [place] [address] [place] [id number] [place] [address] 38113- 7614 Sep, Screening for breast cancer Z12.39 ; Hyperthyroidism E05.90 and Scoliosis M41.9 [place] [id number] [place] [address] 34964- 4949 Sep, Thyrotoxicosis without thyroid storm E05.90 [place] [address] [place] [id number] [place] [address] 48177- 1654 Sep, Thyrotoxicosis without thyroid storm E05.90 [place] [id number] [place] [address] 42532- 6850 Sep, Scoliosis M41.9 ; Arthritis M19.90 and Hyperthyroidism E05.90 IMMUNIZATIONS No Known Immunizations SOCIAL HISTORY Never Assessed REASON FOR VISIT Controlled meds X's 3-- 09/07 PLAN OF CARE VITAL SIGNS MEDICATIONS Medication Instructions Dosage Frequency Start Date End Date Duration Status Tramadol HCl 50 mg Orally 3 times a day 1 tablet as needed 8h Active Valium 10 mg Orally Twice a day 1 tablet 12h 05 Mar, 2017 Active Percocet 10-325 MG Orally q4 h prn pain 1 tablet as needed Aug, 28 days Active RESULTS No Results PROCEDURES [...] History pyloplasty 2014 Surgical History Ablation 10/2015 Hospitalization History thyroid storm 2015 Hospitalization History respiratory issues. numerous hospitalizations Hospitalization History [facility] Syncope 12/16/2015 Hospitalization History UTI
--- OUTSIDE RECORDS SUMMARY | 2018-07-05 22:23 | XMS REPORT ---
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 Active 66910585 Problem Arthritis M19.90 Active 9684178 Problem Scoliosis M41.9 Active 273290884 Problem Mild intermittent asthma without complication J45.20 Active 527473872 Problem Cigarette nicotine dependence without complication F17.210 Active 00429364 Problem Lumbar disc disease M51.9 Active 09620000 Problem Anxiety F41.9 Active 01816067 Problem Tachycardia R00.0 Active 8259500 Problem Strain of neck muscle, subsequent encounter S16.1XXD Active 117548579 ALLERGIES No Information ENCOUNTERS Encounter Location Date Diagnosis [facility] [address] [place] [address] 13350- 3493 Dec, [facility] [address] [place] [address] 71761- 2420 Nov, Lumbar disc disease M51.9 [facility] [id number] [place] [address] 49603- 0439 Nov, Lumbar disc disease M51.9 [facility] [address] [address] 8163 October, Lumbar radiculopathy M54.16 [facility] [address] [place] [address] 67471- 6188 October, [facility] [address] [place] [address] 23474- 2257 October, Lumbar disc disease M51.9 [facility] [address] [place] [address] 32505- 3319 October, [facility] [id number] [place] [address] 41713- 7074 October, Lumbar disc disease M51.9 [facility] [id number] [place] [address] 17191- 3605 October, Lumbar disc disease M51.9 [facility] [id number] [place] [address] 39753- 6545 Sep, [facility] [id number] [place] [address] 63449- 2670 Sep, Lumbar disc disease M51.9 [facility] [id number] [place] [address] 48421- 0743 Aug, [facility] [id number] [place] [address] 71722- 5950 Aug, Lumbar disc disease M51.9 [facility] [id number] [place] [address] 68421- 9553 Aug, Lumbar disc disease M51.9 [facility] [id number] [place] [address] 17397- 6399 Jul, Lumbar disc disease M51.9 [facility] [id number] [place] [address] 66213- 7344 Jul, [facility] [id number] [place] [address] 66585- 9017 Jul, Lumbar disc disease M51.9 and Mild intermittent asthma without complication J45.20 [facility] [id number] [place] [address] 23732- 9234 Jun, [facility] [id number] [place] [address] 23030- 8455 Jun, [facility] [id number] [place] [id number], [address] of the head R93.0 [facility] [address] [place] [address] 07644- 2076 Jun, Lumbar disc disease M51.9 [facility] [address] [place] [address] 67637- 5899 May, Lumbar disc disease M51.9 and Strain of neck muscle, subsequent encounter S16.1XXD [facility] [id number] [place] [address] 77832- 3076 Apr, Strain of neck muscle, subsequent encounter S16.1XXD [facility] [id number] [place] [address] 01483- 4587 Apr, Strain of neck muscle, subsequent encounter S16.1XXD [facility] [address] [place] [address] 27781- 1274 Apr, [facility] [id number] [place] [address] 85914- 5005 Apr, Strain of neck muscle, subsequent encounter S16.1XXD ; Lumbar disc disease M51.9 and Cigarette nicotine dependence without complication F17.210 [facility] [address] [place] [address] 70858- 7710 Mar, [facility] [address] [place] [address] 97464- 9512 Mar, [facility] [id number] [place] [address] 94401- 2508 Mar, Strain of neck muscle, subsequent encounter S16.1XXD and Lumbar disc disease M51.9 [facility] [id number] [place] [address] 91693- 7678 Feb, Tachycardia R00.0 [facility] [id number] [place] [address] 34115- 4487 Feb, Strain of neck muscle, subsequent encounter S16.1XXD and Tachycardia R00.0 [place] [address] [facility] [id number] [address] 2545 Jan, [facility] [address] [address] 2543 Jan, Acute strain of neck muscle, initial encounter S16.1XXA [facility] [address] [facility] [id number], [place] [address] 2546 Jan, Hyperthyroidism E05.90 [facility] [address] [facility] [id number] [place] [address] 64387 2546 Dec, Hyperthyroidism E05.90 [facility] [address] [facility] [id number] [place] [address] 55302 2546 Dec, [facility] [address] [facility] [id number][place] [address]- 9440 Dec, [facility] [id number] [place] [address] 01189 2549 Dec, Hyperthyroidism E05.90 and Lumbar disc disease M51.9 [facility] [address] [address] 2548 Dec, [facility] [address], [place] [address]- 2549 Dec, [facility] [address] [address] 2540 Dec, [facility] [address] [address] 2540 Nov, [facility] [address] [facility] [id number][place] [address] 2543 Nov, Lumbar disc disease M51.9 ; Hyperthyroidism E05.90 and Anxiety F41.9 [facility] [address] [facility] [id number] [address] 2546 Nov, [facility] [id number] [address] 2546 Nov, [place] [id number] [place] [address] 96356- 3452 October, Arthritis M19.90 [place] [id number] [place] [address] 66469- 8962 October, Lumbar disc disease M51.9 ; Scoliosis M41.9 ; Arthritis M19.90 and Reactive depression F32.9 [place] [address] 28361- 5872 October, Unspecified thoracic, thoracolumbar and lumbosacral intervertebral disc disorder M51.[address] 74206- 2187 October, [place] [address] 40492- 1857 October, Lumbar disc disease M51.9 and Anxiety F41.9 [place] [id number] [place] [address] 38841- 0755 Sep, [place] [id number] [place] [address] 85328- 8579 Sep, Screening for breast cancer Z12.39 ; Hyperthyroidism E05.90 and Scoliosis M41.9 [place] [id number] [place] [address] 46702- 9639 Sep, Thyrotoxicosis without thyroid storm E05.90 [place] [id number] [place] [address] 80876- 9013 Sep, Thyrotoxicosis without thyroid storm E05.90 [place] [id number] [place] [address] 37024- 8701 Sep, Scoliosis M41.9 ; Arthritis M19.90 and Hyperthyroidism E05.90 IMMUNIZATIONS No Known Immunizations SOCIAL HISTORY Never Assessed REASON FOR VISIT Controlled refill request PLAN OF CARE VITAL SIGNS MEDICATIONS Unknown [...]
--- OUTSIDE RECORDS SUMMARY | 2018-07-05 22:23 | XMS REPORT ---
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 Active 14150142 Problem Scoliosis M41.9 Active 215805366 Problem Hyperthyroidism E05.90 Active 28713490 Problem Postablative hypothyroidism E89.0 Active 411817360 Problem Mild intermittent asthma without complication J45.20 Active 756383689 Problem Strain of neck muscle, subsequent encounter S16.1XXD Active 239778536 Problem Lumbar disc disease M51.9 Active 78896381 Problem Cigarette nicotine dependence without complication F17.210 Active 17390512 Problem Tachycardia R00.0 Active 8253581 ALLERGIES No Information ENCOUNTERS Encounter Location Date Diagnosis [place] [id number] [place] [address] 63344- 2581 Dec, Hyperthyroidism E05.90 [facility] [id number] [place] [address] 31234- 7498 Dec, [place] [id number] [place] [address] 47916- 5203 Dec, Lumbar disc disease M51.9 ; Acute cystitis without hematuria N30.00 and Postablative hypothyroidism E89.0 [facility] [id number] [place] [address] 79788- 1800 Nov, Lumbar disc disease M51.9 [facility] [address] [place] [address] 75309- 1077 Nov, Lumbar disc disease M51.9 [place] [id number] [address]- 1020 October, Lumbar radiculopathy M54.16 [facility] [address] [id number], [place] [address]- 7076 October, [facility] [address] [facility] [id number], [place] [address]- 7326 October, Lumbar disc disease M51.9 [facility] [address] [facility] [id number], [place] [address]- 0616 October, [facility] [address] [facility] [id number], [place] [address]- 9003 October, Lumbar disc disease M51.9 [facility] [address] [facility] [id number], [place] [address]- 9196 October, Lumbar disc disease M51.9 [facility] [address] [address]- 0106 Sep, [facility] [address] [facility] [id number], [place] [address]- 2772 Sep, Lumbar disc disease M51.9 [facility] [address] [facility] [id number], [place] [address]- 2678 Aug, [facility] [address] [facility] [id number], [place] [address]- 2266 Aug, Lumbar disc disease M51.9 [facility] [address] [facility] [id number], [place] [address]- 6491 Aug, Lumbar disc disease M51.9 [facility] [address] [facility] [id number], [place] [address]- 6256 Jul, Lumbar disc disease M51.9 [facility] [address] [facility] [id number], [place] [address]- 2066 Jul, [facility] [address] [facility] [id number], [place] [address]- 0876 Jul, Lumbar disc disease M51.9 and Mild intermittent asthma without complication J45.20 [facility] [address] [id number] [address]- 9548 Jun, [facility] [id number] [place] [address] 25020- 5982 Jun, [facility] [id number] [place] [id number], [address] of the head R93.0 [facility] [id number] [place] [address] 03164- 6456 Jun, Lumbar disc disease M51.9 [facility] [id number] [place] [address] 27099- 0139 May, Lumbar disc disease M51.9 and Strain of neck muscle, subsequent encounter S16.1XXD [facility] [id number] [place] [address] 70883- 3963 Apr, Strain of neck muscle, subsequent encounter S16.1XXD [facility] [address] [place] [address] 28785- 3434 Apr, Strain of neck muscle, subsequent encounter S16.1XXD [facility] [id number] [place] [address] 74952- 4090 Apr, [facility] [address] [place] [address] 00362- 4033 Apr, Strain of neck muscle, subsequent encounter S16.1XXD ; Lumbar disc disease M51.9 and Cigarette nicotine dependence without complication F17.210 [facility] [address] [place] [address] 50228- 7216 Mar, [facility] [id number] [place] [address] 10350- 8228 Mar, [facility] [id number] [place] [address] 97298- 8968 Mar, Strain of neck muscle, subsequent encounter S16.1XXD and Lumbar disc disease M51.9 [facility] [address] [id number], [place] [address] 2546 Feb, Tachycardia R00.0 [facility] [address] [id number], [place] [address] 2546 Feb, Strain of neck muscle, subsequent encounter S16.1XXD and Tachycardia R00.0 [facility] [id number] [place] [address] 68230 2546 Jan, [facility] [address] [facility] [id number] [place] [address] 10639 2546 Jan, Acute strain of neck muscle, initial encounter S16.1XXA [facility] [address] [facility] [id number] [place] [address], [place] [address] 2546 Jan, Hyperthyroidism E05.90 [facility] [address] [facility] [id number] [place] [address] 98740 2546 Dec, [facility] [address] [facility] [id number] [place] [address] 76583 2546 Dec, Hyperthyroidism E05.90 [facility] [address] [facility] [id number] [place] [address] 94587 2546 Dec, [facility] [address] [facility] [id number], [place] [address] 2546 Dec, Hyperthyroidism E05.90 and Lumbar disc disease M51.9 [facility] [address] [facility] [id number], [place] [address] 2546 Dec, [facility] [address] [id number], [place] [address] 2546 Dec, [facility] [address] [facility] [id number], [place] [address] 2546 Dec, [facility] [address] [facility] [id number], [place] [address] 2546 Nov, [facility] [id number] [place] [address] 06430- 3204 Nov, Lumbar disc disease M51.9 ; Hyperthyroidism E05.90 and Anxiety F41.9 [facility] [id number] [place] [address] 53199- 5534 Nov, [facility] [id number] [place] [address] 40934- 7530 Nov, [place] [address] 70629- 7255 October, Arthritis M19.90 [place] [address] 38772- 9705 October, Lumbar disc disease M51.9 ; Scoliosis M41.9 ; Arthritis M19.90 and Reactive depression F32.9 [place] [address] [place] [address] [id number] [place] [address] 24755- 7712 October, Unspecified thoracic, thoracolumbar and lumbosacral intervertebral disc disorder M51.9 [place] [address] [address] [id number] [place] [address] 55774- 6064 October, [place] [address] 64028- 1869 October, Lumbar disc disease M51.9 and Anxiety F41.9 [place] [address] [place] [id number] [place] [address] 04488- 9074 Sep, [place] [address] 28508- 7187 Sep, Screening for breast cancer Z12.39 ; Hyperthyroidism E05.90 and Scoliosis M41.9 [place] [address] 36597- 4962 Sep, Thyrotoxicosis without thyroid storm E05.90 [place] [address] [place] [id number] [place] [address] 07637- 2556 Sep, Thyrotoxicosis without thyroid storm E05.90 [place] [address] [facility] [id number] [place] [address]- 6045 Sep, Scoliosis M41.9 ; Arthritis M19.90 and Hyperthyroidism E05.90 IMMUNIZATIONS No Known Immunizations SOCIAL HISTORY Never Assessed REASON FOR VISIT controlled meds X's - 10/05 PLAN OF CARE VITAL SIGNS MEDICATIONS Medication Instructions Dosage Frequency Start Date End Date Duration Status Percocet 10-325 MG Orally q4 h prn pain 1 tablet as needed Sep, 28 days Active Tramadol HCl 50 mg [...]
--- OUTSIDE RECORDS SUMMARY | 2018-07-05 22:23 | XMS REPORT ---
Author Author INDIRA MEJIA [facility] Address [address] [place] [address] Care Team Providers Care Dynamic Balancer Set Up Worker Name Role Phone INDIRA MEJIA Unavailable PROBLEMS Type Condition ICD9-CM Code WCQ54-VB Code Onset Dates Condition Status SNOMED Code Problem Arthritis M19.90 Active 5603722 Problem Anxiety F41.9 Active 51879198 Problem Thyrotoxicosis without thyroid storm E05.90 Active 15106274 Problem Scoliosis M41.9 Active 095198581 Problem Hyperthyroidism E05.90 Active 96296371 Problem Postablative hypothyroidism E89.0 Active 582563491 Problem Mild intermittent asthma without complication J45.20 Active 627353279 Problem Strain of neck muscle, subsequent encounter S16.1XXD Active 020331112 Problem Lumbar disc disease M51.9 Active 27230948 Problem Cigarette nicotine dependence without complication F17.210 Active 85947714 Problem Tachycardia R00.0 Active 6559354 ALLERGIES No Information ENCOUNTERS Encounter Location Date Diagnosis [place] [id number] [place] [address] 95439- 0685 Dec, Hyperthyroidism E05.90 [place] [id number] [place] [address] 31288- 1586 Dec, [place] [address] [address]- [address] Dec, Lumbar disc disease M51.9 ; Acute cystitis without hematuria N30.00 and Postablative hypothyroidism E89.0 [place] [address] 96[address]- 4413 Nov, Lumbar disc disease M51.9 [place] [id number] [place] [address] 63808- 2592 Nov, Lumbar disc disease M51.9 [place] [address] [id number], [place] [address] 77[address] October, Lumbar radiculopathy M54.16 [facility] [address] [id number] [place] [address] October, [facility] [address] [facility] [id number], [place] [address] 9546 October, Lumbar disc disease M51.9 [facility] [address] [id number], [place] [address] 1306 October, [facility] [address] [id number], [place] [address] October, Lumbar disc disease M51.9 [facility] [address] [facility] [id number], [place] [address] 10[address] October, Lumbar disc disease M51.9 [facility] [address] [id number], [place] [address] 6506 Sep, [facility] [address] [id number], [place] [address] 9[address] Sep, Lumbar disc disease M51.9 [facility] [address] [facility] [id number], [place] [address] Aug, [facility] [address] [facility] [id number], [place] [address]- 0746 Aug, Lumbar disc disease M51.9 [facility] [address] [facility] [id number], [place] [address] 3771 Aug, Lumbar disc disease M51.9 [facility] [address] [id number], [place] [address]- 9586 Jul, Lumbar disc disease M51.9 [facility] [address] [facility] [id number], [place] [address]- 8966 Jul, [facility] [address] [facility] [id number], [place] [address]- 5076 Jul, Lumbar disc disease M51.9 and Mild intermittent asthma without complication J45.20 [facility] [address] [id number], [place] [address] 9717 Jun, [facility] [address] [facility] [id number] [place] [address] 11665- 4104 Jun, [facility] [id number] [place] [id number], [address] of the head R93.0 [facility] [address] [facility] [id number] [place] [address] 27046- 7497 Jun, Lumbar disc disease M51.9 [facility] [id number] [place] [address] 10532- 8741 May, Lumbar disc disease M51.9 and Strain of neck muscle, subsequent encounter S16.1XXD [facility] [id number] [place] [address] 82610- 4249 Apr, Strain of neck muscle, subsequent encounter S16.1XXD [facility] [id number] [place] [address] 79107- 0042 Apr, Strain of neck muscle, subsequent encounter S16.1XXD [facility] [id number] [place] [address] 99801- 2414 Apr, [facility] [address] [place] [address] 91286- 2161 Apr, Strain of neck muscle, subsequent encounter S16.1XXD ; Lumbar disc disease M51.9 and Cigarette nicotine dependence without complication F17.210 [facility] [id number] [place] [address] 22567- 9646 Mar, [facility] [id number] [place] [address] 76958- 6005 Mar, [facility] [id number] [place] [address] 25505- 8323 Mar, Strain of neck muscle, subsequent encounter S16.1XXD and Lumbar disc disease M51.9 [facility] [address] [id number], [place] [address] 2546 Feb, Tachycardia R00.0 [facility] [address] [id number], [place] [address] 2546 Feb, Strain of neck muscle, subsequent encounter S16.1XXD and Tachycardia R00.0 [facility] [id number] [place] [address] 59602 2546 Jan, [facility] [id number] [place] [address] 42438- 1232 Jan, Acute strain of neck muscle, initial encounter S16.1XXA [facility] [address] [facility] [id number], [place] [address] 2546 Jan, Hyperthyroidism E05.90 [facility] [address] [facility] [id number] [place] [address] 00430- 9996 Dec, Hyperthyroidism E05.90 [facility] [address] [facility] [id number], [place] [address]- 5126 Dec, [facility] [address] [facility] [id number] [place] [address] 28277- 3821 Dec, [facility] [address] [facility] [id number], [place] [address]- 9204 Dec, Hyperthyroidism E05.90 and Lumbar disc disease M51.9 [facility] [address] [id number], [place] [address] 2546 Dec, [facility] [address] [facility] [id number], [place] [address] 2546 Dec, [facility] [address] [facility] [id number], [place] [address] 2546 Dec, [facility] [address] [facility] [id number], [place] [address]- 5180 Nov, [facility] [id number] [place] [address] 15160- 5759 Nov, Lumbar disc disease M51.9 ; Hyperthyroidism E05.90 and Anxiety F41.9 [facility] [id number] [place] [address] 36230- 9685 Nov, [facility] [id number] [place] [address] 96232- 7762 Nov, [place] [id number] [place] [address] 64100- 0655 October, Arthritis M19.90 [place] [address] 86339- 0568 October, Lumbar disc disease M51.9 ; Scoliosis M41.9 ; Arthritis M19.90 and Reactive depression F32.9 [place] [id number] [place] [address] 08249- 8731 October, Unspecified thoracic, thoracolumbar and lumbosacral intervertebral disc disorder M51.9 [place] [id number] [place] [address] 11761- 2942 October, [place] [id number] [place] [address] 80519- 1211 October, Lumbar disc disease M51.9 and Anxiety F41.9 [place] [id number] [place] [address] 56641- 5071 Sep, [place] [id number] [place] [address] 05559- 9475 Sep, Screening for breast cancer Z12.39 ; Hyperthyroidism E05.90 and Scoliosis M41.9 [place] [id number] [place] [address] 75755- 8809 Sep, Thyrotoxicosis without thyroid storm E05.90 [facility] [id number] [place] [address] 21370- 2994 Sep, Thyrotoxicosis without thyroid storm E05.90 [facility] [address] [facility] [id number] [place] [address]- 3725 Sep, Scoliosis M41.9 ; Arthritis M19.90 and Hyperthyroidism E05.90 IMMUNIZATIONS No Known Immunizations SOCIAL HISTORY Never Assessed REASON FOR VISIT PLAN OF CARE VITAL SIGNS MEDICATIONS Medication Instructions Dosage Frequency Start Date End Date Duration Status ProAir HFA 108 (90 Base) MCG/ACT Inhalation every 6 hrs 2 puffs as needed 6h Sep, Active PredniSONE 20 mg Orally Once a day 2 tablets 24h Sep, Sep, 05 days Active Doxycycline Hyclate 100 mg Orally every 12 hrs 1 capsule 12h Sep, Sep, 07 days Active RESULTS No Results PROCEDURES No [...]
--- OUTSIDE RECORDS SUMMARY | 2018-07-05 22:23 | XMS REPORT ---
Author Author INDIRA MEJIA [facility] Address [address] [place] [address] Care Team Providers Care Parish Nurse Name Role Phone INDIRA MEJIA Unavailable PROBLEMS Type Condition ICD9-CM Code ZME63-WD Code Onset Dates Condition Status SNOMED Code Problem Hyperthyroidism E05.90 Active 32429520 Problem Thyrotoxicosis without thyroid storm E05.90 Active 62421116 Problem Arthritis M19.90 Active 0411751 Problem Scoliosis M41.9 Active 005258226 Problem Mild intermittent asthma without complication J45.20 Active 025002240 Problem Cigarette nicotine dependence without complication F17.210 Active 86769133 Problem Lumbar disc disease M51.9 Active 44743130 Problem Anxiety F41.9 Active 83863576 Problem Tachycardia R00.0 Active 9119255 Problem Strain of neck muscle, subsequent encounter S16.1XXD Active 100520983 ALLERGIES No Information ENCOUNTERS Encounter Location Date Diagnosis [facility] [address] [place] [address] 64184- 3476 Dec, [facility] [address] [place] [address] 94230- 9183 Nov, Lumbar disc disease M51.9 [facility] [id number] [place] [address] 19563- 4164 Nov, Lumbar disc disease M51.9 [facility] [address], [place] [address]- 3547 October, Lumbar radiculopathy M54.16 [facility] [address] [place] [address] 78955- 0093 October, [facility] [address] [place] [address] 90735- 0559 October, Lumbar disc disease M51.9 [facility] [address] [place] [address] 42117- 9883 October, [facility] [id number] [place] [address] 56045- 7649 October, Lumbar disc disease M51.9 [facility] [id number] [place] [address] 57377- 2858 October, Lumbar disc disease M51.9 [facility] [id number] [place] [address] 61641- 0379 Sep, [facility] [id number] [place] [address] 40422- 5588 Sep, Lumbar disc disease M51.9 [facility] [id number] [place] [address] 48417- 9494 Aug, [facility] [id number] [place] [address] 12282- 2015 Aug, Lumbar disc disease M51.9 [facility] [id number] [place] [address] 40785- 5301 Aug, Lumbar disc disease M51.9 [facility] [id number] [place] [address] 74145- 2229 Jul, Lumbar disc disease M51.9 [facility] [id number] [place] [address] 26822- 2704 Jul, [facility] [id number] [place] [address] 50214- 9399 Jul, Lumbar disc disease M51.9 and Mild intermittent asthma without complication J45.20 [facility] [id number] [place] [address] 00943- 5053 Jun, [facility] [id number] [place] [address] 27893- 3651 Jun, [facility] [id number] [place] [id number], [address] of the head R93.0 [facility] [address] [place] [address] 99317- 7109 Jun, Lumbar disc disease M51.9 [facility] [address] [place] [address] 96399- 1938 May, Lumbar disc disease M51.9 and Strain of neck muscle, subsequent encounter S16.1XXD [facility] [id number] [place] [address] 84397- 5560 Apr, Strain of neck muscle, subsequent encounter S16.1XXD [facility] [id number] [place] [address] 19186- 4763 Apr, Strain of neck muscle, subsequent encounter S16.1XXD [facility] [address] [place] [address] 88116- 9125 Apr, [facility] [id number] [place] [address] 81378- 8033 Apr, Strain of neck muscle, subsequent encounter S16.1XXD ; Lumbar disc disease M51.9 and Cigarette nicotine dependence without complication F17.210 [facility] [address] [place] [address] 09891- 8231 Mar, [facility] [address] [place] [address] 97490- 4426 Mar, [facility] [id number] [place] [address] 33663- 7160 Mar, Strain of neck muscle, subsequent encounter S16.1XXD and Lumbar disc disease M51.9 [facility] [id number] [place] [address] 82795- 5022 Feb, Tachycardia R00.0 [facility] [id number] [place] [address] 85177- 8777 Feb, Strain of neck muscle, subsequent encounter S16.1XXD and Tachycardia R00.0 [place] [address] [facility] [id number], [place] [address] 2540 Jan, [facility] [address], [place] [address] 2549 Jan, Acute strain of neck muscle, initial encounter S16.1XXA [facility] [address] [facility] [id number], [place] [address] 2546 Jan, Hyperthyroidism E05.90 [facility] [address] [facility] [id number] [place] [address] 20110 2546 Dec, Hyperthyroidism E05.90 [facility] [address] [facility] [id number] [place] [address] 22260 2546 Dec, [facility] [address] [facility] [id number], [place] [address]- 8537 Dec, [facility] [id number] [place] [address] 76377 2548 Dec, Hyperthyroidism E05.90 and Lumbar disc disease M51.9 [facility] [address], [place] [address] 2542 Dec, [facility] [address], [place] [address]- 2540 Dec, [facility] [address], [place] [address] 2547 Dec, [facility] [address], [place] [address] 254 Nov, [facility] [address] [facility] [id number], [place] [address] 2547 Nov, Lumbar disc disease M51.9 ; Hyperthyroidism E05.90 and Anxiety F41.9 [facility] [address] [facility] [id number], [place] [address] 2546 Nov, [facility] [address] [id number], [place] [address] 2546 Nov, [place] [id number] [place] [address] 13097- 9467 October, Arthritis M19.90 [place] [id number] [place] [address] 75395- 7866 October, Lumbar disc disease M51.9 ; Scoliosis M41.9 ; Arthritis M19.90 and Reactive depression F32.9 [place] [address] 52552- 4719 October, Unspecified thoracic, thoracolumbar and lumbosacral intervertebral disc disorder M51.9 [place] [address] 52335- 0544 October, [place] [address] 84442- 1302 October, Lumbar disc disease M51.9 and Anxiety F41.9 [place] [id number] [place] [address] 80407- 1112 Sep, [place] [address] 28118- 8861 Sep, Screening for breast cancer Z12.39 ; Hyperthyroidism E05.90 and Scoliosis M41.9 [place] [id number] [place] [address] 25085- 3867 Sep, Thyrotoxicosis without thyroid storm E05.90 [place] [id number] [place] [address] 51634- 6999 Sep, Thyrotoxicosis without thyroid storm E05.90 [place] [id number] [place] [address] 74683- 3623 Sep, Scoliosis M41.9 ; Arthritis M19.90 and Hyperthyroidism E05.90 IMMUNIZATIONS No Known Immunizations SOCIAL HISTORY Never Assessed REASON FOR VISIT PLAN OF CARE VITAL SIGNS MEDICATIONS Medication Instructions Dosage Frequency Start Date End Date Duration Status Amitriptyline HCl 25 MG Orally 3 times a day 1 tablet 8h Active RESULTS No Results PROCEDURES No [...]
--- OUTSIDE RECORDS SUMMARY | 2018-07-05 22:23 | XMS REPORT ---
Author Author INDIRA MEJIA [facility] Address [address] [place] [address] Care Team Providers Care Executive Sales Manager Name Role Phone INDIRA MEJIA Unavailable PROBLEMS Type Condition ICD9-CM Code DLA02-DO Code Onset Dates Condition Status SNOMED Code Problem Arthritis M19.90 Active 5581141 Problem Anxiety F41.9 Active 21415573 Problem Thyrotoxicosis without thyroid storm E05.90 Active 07793806 Problem Scoliosis M41.9 Active 159434831 Problem Hyperthyroidism E05.90 Active 41638462 Problem Postablative hypothyroidism E89.0 Active 369910819 Problem Mild intermittent asthma without complication J45.20 Active 459451246 Problem Strain of neck muscle, subsequent encounter S16.1XXD Active 291869980 Problem Lumbar disc disease M51.9 Active 80905446 Problem Cigarette nicotine dependence without complication F17.210 Active 93307692 Problem Tachycardia R00.0 Active 6956027 ALLERGIES Substance Reaction Event Type Date Status Sulfamethoxazole-Trimethoprim hives Drug Allergy October, Active Morphine Sulfate nausea Drug Allergy October, Active ENCOUNTERS Encounter Location Date Diagnosis [facility] [address] [address] Dec, Lumbar disc disease M51.9 [facility] [address] [address] Dec, Hyperthyroidism E05.90 [facility] [address] [address] Dec, [facility] [id number] [place] [address] 06489- 4715 Dec, Lumbar disc disease M51.9 ; Acute cystitis without hematuria N30.00 and Postablative hypothyroidism E89.0 [facility] [id number] [place] [address] 95880- 4704 Nov, Lumbar disc disease M51.9 [facility] [address] [id number], [place] [address] Nov, Lumbar disc disease M51.9 [facility] [address] [id number], [place] [address] October, Lumbar radiculopathy M54.16 [facility] [id number] [place] [address] 92333- 6296 October, [facility] [address] [facility] [id number] [place] [address] 70831- 1666 October, Lumbar disc disease M51.9 [facility] [address] [facility] [id number], [place] [address] 8266 October, [facility] [address] [facility] [id number] [place] [address] 14098- 8026 October, Lumbar disc disease M51.9 [facility] [address] [facility] [id number], [place] [address] 49[address] October, Lumbar disc disease M51.9 [facility] [address] [facility] [id number], [place] [address] 1676 Sep, [facility] [address] [facility] [id number], [place] [address] Sep, Lumbar disc disease M51.9 [facility] [address] [facility] [id number], [place] [address]26 Aug, [facility] [address] [facility] [id number], [place] [address] 2616 Aug, Lumbar disc disease M51.9 [facility] [address] [facility] [id number] [address] Aug, Lumbar disc disease M51.9 [facility] [address] [facility] [id number], [place] [address] 3456 Jul, Lumbar disc disease M51.9 [facility] [id number] [place] [address] 54189- 3768 Jul, [facility] [id number] [place] [address] 25126- 6156 05 Jul, 2017 Lumbar disc disease M51.9 and Mild intermittent asthma without complication J45.20 [facility] [id number] [place] [address] 39623- 5355 Jun, [facility] [id number] [place] [address] 28311- 6476 Jun, [facility] [id number] Jun, Abnormal CT of the head R93.0 [facility] [id number] [place] [address] 86472- 9687 Jun, Lumbar disc disease M51.9 [facility] [id number] [place] [address] 33579- 8226 May, Lumbar disc disease M51.9 and Strain of neck muscle, subsequent encounter S16.1XXD [facility] [id number] [place] [address] 57609- 7736 Apr, Strain of neck muscle, subsequent encounter S16.1XXD [facility] [address] [place] [address] 26664- 6262 Apr, Strain of neck muscle, subsequent encounter S16.1XXD [facility] [address] [place] [address] 82013- 5446 Apr, [facility] [id number] [place] [address] 81498- 1779 06 Apr, 2017 Strain of neck muscle, subsequent encounter S16.1XXD ; Lumbar disc disease M51.9 and Cigarette nicotine dependence without complication F17.210 [facility] [address] [place] [address] 72674- 0366 Mar, [facility] [address] [id number], [place] [address] 36[address] Mar, [facility] [address] [facility] [id number] [address] Mar, Strain of neck muscle, subsequent encounter S16.1XXD and Lumbar disc disease M51.9 [facility] [address] [id number], [place] [address] Feb, Tachycardia R00.0 [facility] [address] [id number], [place] [address] 2543 Feb, Strain of neck muscle, subsequent encounter S16.1XXD and Tachycardia R00.0 [facility] [address] [facility] [id number], [place] [address] 2094 Jan, [facility] [address] [facility] [id number] [place] [address] 66825- 7834 Jan, Acute strain of neck muscle, initial encounter S16.1XXA [facility] [address] [facility] [id number], [place] [address] 4529 Jan, Hyperthyroidism E05.90 [facility] [address] [facility] [id number], [place] [address]- 2496 Dec, Hyperthyroidism E05.90 [facility] [address] [facility] [id number], [place] [address]- 2546 Dec, [facility] [address] [facility] [id number], [place] [address]- 254 Dec, [facility] [address] [facility] [id number], [place] [address]- 2541 Dec, Hyperthyroidism E05.90 and Lumbar disc disease M51.9 [facility] [address] [id number], [place] [address]- 2546 Dec, [facility] [address] [facility] [id number], [place] [address]- 2540 Dec, [facility] [id number] [place] [address] 59550- 9923 Dec, [facility] [id number] [place] [address] 98816- 9616 Nov, [facility] [id number] [place] [address] 47051- 4817 Nov, Lumbar disc disease M51.9 ; Hyperthyroidism E05.90 and Anxiety F41.9 [facility] [id number] [place] [address] 54490- 4068 Nov, [facility] [id number] [place] [address] 44785- 1603 Nov, [facility] [id number] [place] [address] 54087- 9351 October, Arthritis M19.90 [facility] [address] [address]- 9817 October, Lumbar disc disease M51.9 ; Scoliosis M41.9 ; Arthritis M19.90 and Reactive depression F32.9 [facility] [id number] [place] [address] 62879- 9713 October, Unspecified thoracic, thoracolumbar and lumbosacral intervertebral disc disorder M51.9 [facility] [id number] [place] [address] 10631- 6608 October, [facility] [id number] [place] [address] 51919- 2844 October, Lumbar disc disease M51.9 and Anxiety F41.9 [facility] [id number] [place] [address] 92912- 3936 Sep, [facility] [id number] [place] [address] 41973- 7904 Sep, Screening for breast cancer Z12.39 ; Hyperthyroidism E05.90 and Scoliosis M41.9 [facility] [address] [id number], [place] [address]- 6712 Sep, Thyrotoxicosis without thyroid storm E05.90 [facility] [address] [facility] [id number], [place] [address]- 1671 Sep, Thyrotoxicosis without thyroid storm E05.90 [facility] [address] [facility] [id number], [place] [address]- 9943 Sep, Scoliosis M41.9 ; Arthritis M19.90 and Hyperthyroidism E05.90 IMMUNIZATIONS No Known Immunizations SOCIAL HISTORY Never Assessed REASON FOR VISIT Pain management (chronic), Med refills and tramadol isnt really working for break through pains-Tyrone MILLS PLAN OF CARE Activity Details Follow Up 3 Months Reason: VITAL SIGNS Height 66 in 2017-10-27 Weight 134.6 lbs 2017-10-27 Temperature 98.7 degrees Fahrenheit 2017-10-27 Heart Rate 116 bpm 2017-10-27 Respiratory Rate 18 2017-10-27 Oximetry 98 % 2017-10-27 BMI 21.72 kg/m2 2017-10-27 Blood pressure systolic 128 mmHg 2017-10-27 Blood pressure diastolic 92 mmHg 2017-10-27 MEDICATIONS Medication Instructions Dosage Frequency Start Date End Date Duration Status Valium 10 mg Orally Twice a day 1 tablet 12h Mar, Active Tramadol HCl 50 mg Orally 3 times a day 1 tablet as needed 8h Active ProAir HFA 108 (90 Base) MCG/ACT Inhalation every 6 hrs 2 puffs as needed 6h Sep, Active Levothyroxine Sodium 88 MCG Orally Once a day 1 tablet on an empty stomach in the morning 24h Active Amitriptyline HCl 25 MG Orally 3 times a day 1 tablet 8h Active Percocet 10-325 MG Orally q4 h prn pain 1 tablet as needed Sep, 28 days Active Atenolol 25 mg Orally Once a day 0.5 tablet 24h Sep, Active Neurontin 600 MG Orally 4 times a day 1 6h 30 days Active Ventolin HFA 108 (90 Base) MCG/ACT Inhalation every 4 hrs 2 puffs as needed 4h Active RESULTS No Results PROCEDURES No Known [...]
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
--- OUTSIDE RECORDS SUMMARY | 2018-07-05 22:24 | XMS REPORT ---
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 Active 25341286 Problem Arthritis M19.90 Active 5799847 Problem Scoliosis M41.9 Active 348635244 Problem Mild intermittent asthma without complication J45.20 Active 704194424 Problem Cigarette nicotine dependence without complication F17.210 Active 38766616 Problem Lumbar disc disease M51.9 Active 28030344 Problem Anxiety F41.9 Active 09354348 Problem Tachycardia R00.0 Active 3244285 Problem Strain of neck muscle, subsequent encounter S16.1XXD Active 815200352 ALLERGIES No Information ENCOUNTERS Encounter Location Date Diagnosis [facility] [id number] [place] [address] 92412- 8151 Nov, Lumbar disc disease M51.9 [facility] [address] [address] October, Lumbar radiculopathy M54.16 [facility] [address] [address] 6[address] October, [facility] [id number] [place] [address] 39645- 6248 October, Lumbar disc disease M51.9 [facility] [id number] [place] [address] 68332- 3053 October, [facility] [id number] [place] [address] 43506- 8626 October, Lumbar disc disease M51.9 [facility] [address] [address] 7489 October, Lumbar disc disease M51.9 [facility] [id number] [place] [address] 30414- 4239 Sep, [facility] [id number] [place] [address] 25360- 0414 Sep, Lumbar disc disease M51.9 [facility] [id number] [place] [address] 36626- 5680 Aug, [facility] [id number] [place] [address] 94741- 0001 Aug, Lumbar disc disease M51.9 [facility] [id number] [place] [address] 14888- 6198 Aug, Lumbar disc disease M51.9 [facility] [id number] [place] [address] 90772- 6826 Jul, Lumbar disc disease M51.9 [facility] [id number] [place] [address] 46969- 2437 Jul, [facility] [id number] [place] [address] 42057- 0686 Jul, Lumbar disc disease M51.9 and Mild intermittent asthma without complication J45.20 [facility] [id number] [place] [address] 67041- 9669 Jun, [facility] [id number] [place] [address] 32760- 6466 Jun, [facility] [id number] [place] [id number], [address] of the head R93.0 [facility] [id number] [place] [address] 28330- 1883 Jun, Lumbar disc disease M51.9 [facility] [id number] [place] [address] 23864- 2391 May, Lumbar disc disease M51.9 and Strain of neck muscle, subsequent encounter S16.1XXD [facility] [address] [address] 5257 Apr, Strain of neck muscle, subsequent encounter S16.1XXD [facility] [id number] [place] [address] 49433- 3111 Apr, Strain of neck muscle, subsequent encounter S16.1XXD [facility] [id number] [place] [address] 63904- 7383 Apr, [facility] [id number] [place] [address] 22339- 5686 Apr, Strain of neck muscle, subsequent encounter S16.1XXD ; Lumbar disc disease M51.9 and Cigarette nicotine dependence without complication F17.210 [facility] [id number] [place] [address] 03941- 4617 Mar, [facility] [id number] [place] [address] 61127- 0302 Mar, [facility] [id number] [place] [address] 93124- 8827 Mar, Strain of neck muscle, subsequent encounter S16.1XXD and Lumbar disc disease M51.9 [facility] [id number] [place] [address] 54305- 4865 Feb, Tachycardia R00.0 [facility] [id number] [place] [address] 26715- 1273 Feb, Strain of neck muscle, subsequent encounter S16.1XXD and Tachycardia R00.0 [facility] [id number] [place] [address] 27107- 3375 Jan, [facility] [id number] [address] 1263 Jan, Acute strain of neck muscle, initial encounter S16.1XXA [facility] [id number] [address] 254 Jan, Hyperthyroidism E05.90 [facility] [id number] [place] [address] 77169 2546 Dec, Hyperthyroidism E05.90 [facility] [id number] [place] [address] 30484 2546 Dec, [facility] [id number] [place] [address] 01694 254 Dec, [facility] [id number] [place] [address] 64248- 7920 Dec, Hyperthyroidism E05.90 and Lumbar disc disease M51.9 [facility] [id number] [place] [address] 36520- 0091 Dec, [facility] [id number] [place] [address] 91264- 6633 Dec, [facility] [id number] [place] [address] 65539 2544 Dec, [facility] [id number] [place] [address] 79255- 2422 Nov, [facility] [id number] [place] [address] 85467- 9612 Nov, Lumbar disc disease M51.9 ; Hyperthyroidism E05.90 and Anxiety F41.9 [facility] [id number] [place] [address] 65413 2543 Nov, [facility] [id number] [place] [address] 14594 2545 Nov, [facility] [id number] [place] [address] 13992 2542 October, Arthritis M19.90 [facility] [id number] [place] [address] 95218 2548 October, Lumbar disc disease M51.9 ; Scoliosis M41.9 ; Arthritis M19.90 and Reactive depression F32.[address] 57395- 0419 October, Unspecified thoracic, thoracolumbar and lumbosacral intervertebral disc disorder M51.9 [place] [address] 82849- 8613 October, [place] [address] 01009- 6280 October, Lumbar disc disease M51.9 and Anxiety F41.[address] 407026- 6847 Sep, [address] 56462- 3007 Sep, Screening for breast cancer Z12.39 ; Hyperthyroidism E05.90 and Scoliosis M41.[address] 35038- 2956 Sep, Thyrotoxicosis without thyroid storm E05.[address] 49060- 3403 Sep, Thyrotoxicosis without thyroid storm E05.[address] 39140- 2706 Sep, Scoliosis M41.9 ; Arthritis M19.90 and Hyperthyroidism E05.90 IMMUNIZATIONS No Known Immunizations SOCIAL HISTORY Never Assessed REASON FOR VISIT Controlled meds x's 3-- 07/13 PLAN OF CARE VITAL SIGNS MEDICATIONS Medication Instructions Dosage Frequency Start Date End Date Duration Status Percocet 10-325 MG Orally q4 h prn pain 1 tablet as needed Jun, 28 days Active Valium 10 mg Orally [...]
--- OUTSIDE RECORDS SUMMARY | 2018-07-05 22:24 | XMS REPORT ---
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 Active 48153453 Problem Arthritis M19.90 Active 7158420 Problem Scoliosis M41.9 Active 810770899 Problem Mild intermittent asthma without complication J45.20 Active 918986293 Problem Cigarette nicotine dependence without complication F17.210 Active 40204125 Problem Lumbar disc disease M51.9 Active 87060122 Problem Anxiety F41.9 Active 05946100 Problem Tachycardia R00.0 Active 5363502 Problem Strain of neck muscle, subsequent encounter S16.1XXD Active 054214375 ALLERGIES No Information ENCOUNTERS Encounter Location Date Diagnosis [place] [id number] [place] [address] 30575- 4646 Nov, Lumbar disc disease M51.9 [facility] [id number] [place] [address] 51347- 8555 Nov, Lumbar disc disease M51.9 [facility] [id number] [place] [address] 77910- 1647 October, Lumbar radiculopathy M54.16 [facility] [id number] [place] [address] 47966- 9086 October, [facility] [id number] [place] [address] 35171- 9237 October, Lumbar disc disease M51.9 [facility] [address] [place] [address] 82655- 5138 October, [facility] [address], [place] [address]- 2100 October, Lumbar disc disease M51.9 [facility] [id number] [place] [address] 11605- 3667 October, Lumbar disc disease M51.9 [facility] [id number] [place] [address] 54582- 5163 Sep, [facility] [id number] [place] [address] 79018- 3348 Sep, Lumbar disc disease M51.9 [facility] [id number] [place] [address] 91293- 2825 Aug, [facility] [id number] [place] [address] 29886- 8434 Aug, Lumbar disc disease M51.9 [facility] [id number] [place] [address] 39434- 8245 Aug, Lumbar disc disease M51.9 [facility] [id number] [place] [address] 96205- 4870 Jul, Lumbar disc disease M51.9 [facility] [id number] [place] [address] 41244- 3882 Jul, [facility] [address] [place] [address] 48515- 2908 Jul, Lumbar disc disease M51.9 and Mild intermittent asthma without complication J45.20 [facility] [address] [place] [address] 89217- 8715 Jun, [facility] [id number] [place] [address] 93048- 7263 Jun, [facility] [id number] [place] [id number], [address] of the head R93.0 [facility] [id number] [place] [address] 01838- 3899 Jun, Lumbar disc disease M51.9 [facility] [address] [id number] [address]- 0656 May, Lumbar disc disease M51.9 and Strain of neck muscle, subsequent encounter S16.1XXD [facility] [address] [id number], [place] [address]- 7046 Apr, Strain of neck muscle, subsequent encounter S16.1XXD [facility] [address] [id number], [place] [address]- 1542 Apr, Strain of neck muscle, subsequent encounter S16.1XXD [facility] [address] [facility] [id number] [place] [address] 40807- 4232 Apr, [facility] [address] [facility] [id number], [place] [address]- 6856 Apr, Strain of neck muscle, subsequent encounter S16.1XXD ; Lumbar disc disease M51.9 and Cigarette nicotine dependence without complication F17.210 [facility] [address] [facility] [id number], [place] [address]- 1231 Mar, [facility] [address] [facility] [id number] [place] [address] 63904- 5983 Mar, [facility] [address] [facility] [id number], [place] [address]- 5434 Mar, Strain of neck muscle, subsequent encounter S16.1XXD and Lumbar disc disease M51.9 [facility] [address] [id number], [place] [address]- 2546 Feb, Tachycardia R00.0 [facility] [address] [facility] [id number] [place] [address] 80631- 7206 Feb, Strain of neck muscle, subsequent encounter S16.1XXD and Tachycardia R00.0 [facility] [address] [facility] [id number], [place] [address]- 0886 Jan, [facility] [address] [facility] [id number], [place] [address]- 9564 Jan, Acute strain of neck muscle, initial encounter S16.1XXA [facility] [address] [facility] [id number], [place] [address] 2546 Jan, Hyperthyroidism E05.90 [facility] [address] [facility] [id number], [place] [address] 2546 Dec, Hyperthyroidism E05.90 [facility] [address] [facility] [id number] [place] [address] 86232 2546 Dec, [facility] [address] [place] [address] 50134- 4016 Dec, [facility] [address] [facility] [id number], [place] [address]- 2921 Dec, Hyperthyroidism E05.90 and Lumbar disc disease M51.9 [facility] [address] [place] [address] 80074 2540 Dec, [facility] [address] [place] [address] 40919- 5060 Dec, [facility] [address], [place] [address]- 4389 Dec, [facility] [address], [place] [address]- 8851 Nov, [facility] [address], [place] [address] 2544 Nov, Lumbar disc disease M51.9 ; Hyperthyroidism E05.90 and Anxiety F41.9 [facility] [address] [facility] [id number], [place] [address] 2546 Nov, [facility] [id number] [address] 2541 Nov, [facility] [address], [place] [address] 2546 October, Arthritis M19.90 [place] [id number] [place] [address] 18685- 3817 October, Lumbar disc disease M51.9 ; Scoliosis M41.9 ; Arthritis M19.90 and Reactive depression F32.9 [place] [id number] [place] [address] 00812- 7910 October, Unspecified thoracic, thoracolumbar and lumbosacral intervertebral disc disorder M51.9 [place] [address] 07855- 4062 October, [place] [address] 06526- 9266 October, Lumbar disc disease M51.9 and Anxiety F41.9 [place] [address] 42291- 4939 Sep, [place] [address] 49770- 3611 Sep, Screening for breast cancer Z12.39 ; Hyperthyroidism E05.90 and Scoliosis M41.[address] 6[address]21- 5380 Sep, Thyrotoxicosis without thyroid storm E05.90 [place] [address] 65319- 9405 Sep, Thyrotoxicosis without thyroid storm E05.90 [place] [address] 15339- 9914 Sep, Scoliosis M41.9 ; Arthritis M19.90 and [...] h prn pain 1 tablet as needed Jul, 28 days Active RESULTS No Results PROCEDURES [...] History pyloplasty 2013 Surgical History Ablation 10/2015 Hospitalization History thyroid storm 2015 Hospitalization History respiratory issues. numerous hospitalizations Hospitalization History [facility] Syncope 12/16/2015 Hospitalization History UTI
--- OUTSIDE RECORDS SUMMARY | 2018-07-05 22:24 | XMS REPORT ---
Author Author INDIRA MEJIA [facility] Address [address] [place] [address] Care Team Providers Care Veterinary Laboratory Diagnostician Name Role Phone INDIRA MEJIA Unavailable PROBLEMS Type Condition ICD9-CM Code DVA24-TK Code Onset Dates Condition Status SNOMED Code Problem Hyperthyroidism E05.90 Active 10612422 Problem Thyrotoxicosis without thyroid storm E05.90 Active 00182334 Problem Arthritis M19.90 Active 5646722 Problem Scoliosis M41.9 Active 943661913 Problem Mild intermittent asthma without complication J45.20 Active 283115926 Problem Cigarette nicotine dependence without complication F17.210 Active 20296396 Problem Lumbar disc disease M51.9 Active 60976880 Problem Anxiety F41.9 Active 72966788 Problem Tachycardia R00.0 Active 9547497 Problem Strain of neck muscle, subsequent encounter S16.1XXD Active 105112915 ALLERGIES No Information ENCOUNTERS Encounter Location Date Diagnosis [facility] [address] [place] [address] 42378- 6182 Nov, Lumbar disc disease M51.9 [facility] [address], [place] [address] 4099 October, Lumbar radiculopathy M54.16 [facility] [address], [place] [address] 3946 October, [facility] [address] [place] [address] 59026- 0741 October, Lumbar disc disease M51.9 [facility] [address] [place] [address] 17448- 3263 October, [facility] [address] [place] [address] 12213- 7266 October, Lumbar disc disease M51.9 [facility] [address], [place] [address] 8208 October, Lumbar disc disease M51.9 [facility] [id number] [place] [address] 06704- 0867 Sep, [facility] [id number] [place] [address] 97497- 3255 Sep, Lumbar disc disease M51.9 [facility] [id number] [place] [address] 23927- 5795 Aug, [facility] [id number] [place] [address] 06131- 4531 Aug, Lumbar disc disease M51.9 [facility] [id number] [place] [address] 64411- 0330 Aug, Lumbar disc disease M51.9 [facility] [id number] [place] [address] 49682- 7171 Jul, Lumbar disc disease M51.9 [facility] [id number] [place] [address] 81433- 2176 Jul, [facility] [id number] [place] [address] 81136- 9733 Jul, Lumbar disc disease M51.9 and Mild intermittent asthma without complication J45.20 [facility] [address] [place] [address] 36648- 7197 Jun, [facility] [id number] [place] [address] 31122- 1021 Jun, [facility] [id number] [place] [id number], [address] of the head R93.0 [facility] [address] [place] [address] 90760- 1585 Jun, Lumbar disc disease M51.9 [facility] [id number] [place] [address] 09708- 5381 May, Lumbar disc disease M51.9 and Strain of neck muscle, subsequent encounter S16.1XXD [facility] [address], [place] [address]- 4245 Apr, Strain of neck muscle, subsequent encounter S16.1XXD [facility] [address] [place] [address] 21527- 1384 Apr, Strain of neck muscle, subsequent encounter S16.1XXD [facility] [id number] [place] [address] 87967- 1457 Apr, [facility] [id number] [place] [address] 58404- 6824 Apr, Strain of neck muscle, subsequent encounter S16.1XXD ; Lumbar disc disease M51.9 and Cigarette nicotine dependence without complication F17.210 [facility] [id number] [place] [address] 47682- 7518 Mar, [facility] [id number] [place] [address] 25452- 8265 Mar, [facility] [id number] [place] [address] 96446- 6455 Mar, Strain of neck muscle, subsequent encounter S16.1XXD and Lumbar disc disease M51.9 [facility] [address] [place] [address] 28071- 6383 Feb, Tachycardia R00.0 [facility] [id number] [place] [address] 78089- 1353 Feb, Strain of neck muscle, subsequent encounter S16.1XXD and Tachycardia R00.0 [facility] [id number] [place] [address] 09179- 4296 Jan, [facility] [id number] [address]- 8435 Jan, Acute strain of neck muscle, initial encounter S16.1XXA [facility] [id number], [place] [address] 2547 Jan, Hyperthyroidism E05.90 [facility] [id number] [place] [address] 41065 2546 Dec, Hyperthyroidism E05.90 [facility] [id number] [place] [address] 85353 2546 Dec, [facility] [id number] [place] [address] 96481 2543 Dec, [facility] [id number] [place] [address] 96888- 1390 Dec, Hyperthyroidism E05.90 and Lumbar disc disease M51.9 [facility] [id number] [place] [address] 79539- 7279 Dec, [facility] [id number] [place] [address] 23267- 1634 Dec, [facility] [id number] [place] [address] 19801 2547 Dec, [facility] [id number] [place] [address] 50266- 0080 Nov, [facility] [id number] [place] [address] 05698- 3441 Nov, Lumbar disc disease M51.9 ; Hyperthyroidism E05.90 and Anxiety F41.9 [facility] [address] [place] [address] 58498 2549 Nov, [facility] [id number] [place] [address] 87795 2543 Nov, [facility] [id number] [place] [address] 61739 2545 October, Arthritis M19.90 [facility] [address] [place] [address] 80351 2541 October, Lumbar disc disease M51.9 ; Scoliosis M41.9 ; Arthritis M19.90 and Reactive depression F32.[address] 50663- 5280 October, Unspecified thoracic, thoracolumbar and lumbosacral intervertebral disc disorder M51.9 [place] [address] 36518- 1082 October, [place] [address] 01538- 5095 October, Lumbar disc disease M51.9 and Anxiety F41.[address] 28245- 2827 Sep, [address] 57979- 2847 Sep, Screening for breast cancer Z12.39 ; Hyperthyroidism E05.90 and Scoliosis M41.[address] 12428- 6469 Sep, Thyrotoxicosis without thyroid storm E05.[address] 85474- 1092 Sep, Thyrotoxicosis without thyroid storm E05.[address] 76385- 8730 Sep, Scoliosis M41.9 ; Arthritis M19.90 and Hyperthyroidism E05.90 IMMUNIZATIONS No Known Immunizations SOCIAL HISTORY Never Assessed REASON FOR VISIT Oxycodone, Tramadol, and Valium 06/15 PLAN OF CARE VITAL SIGNS MEDICATIONS Medication Instructions Dosage Frequency Start Date End Date Duration Status Tramadol HCl 50 mg Orally 3 times a day 1 tablet as needed 8h Active Percocet 10-325 MG Orally q4 h prn pain 1 tablet as needed May, 28 days Active Valium 10 mg Orally Twice a day 1 tablet 12h 05 Mar, 2017 Active RESULTS No Results PROCEDURES No Known [...]
--- OUTSIDE RECORDS SUMMARY | 2018-07-05 22:25 | XMS REPORT ---
Author Author INDIRA MEJIA [facility] Address [address] [place] [address] Care Team Providers Care Sausage Cutter Name Role Phone INDIRA MEJIA Unavailable PROBLEMS Type Condition ICD9-CM Code ETE88-RR Code Onset Dates Condition Status SNOMED Code Problem Hyperthyroidism E05.90 Active 68356683 Problem Thyrotoxicosis without thyroid storm E05.90 Active 51515693 Problem Arthritis M19.90 Active 6980238 Problem Scoliosis M41.9 Active 240088564 Problem Mild intermittent asthma without complication J45.20 Active 333488872 Problem Cigarette nicotine dependence without complication F17.210 Active 01923452 Problem Lumbar disc disease M51.9 Active 47959934 Problem Anxiety F41.9 Active 78968228 Problem Tachycardia R00.0 Active 9482970 Problem Strain of neck muscle, subsequent encounter S16.1XXD Active 974812180 ALLERGIES No Information ENCOUNTERS Encounter Location Date Diagnosis [facility] [address] [place] [address] 65096- 6744 Nov, Lumbar disc disease M51.9 [facility] [address] [address]- 4822 October, Lumbar radiculopathy M54.16 [facility] [address] [address]- 1559 October, [facility] [address] [place] [address] 72008- 8412 October, Lumbar disc disease M51.9 [facility] [address] [place] [address] 12118- 8638 October, [facility] [address] [place] [address] 42250- 2798 October, Lumbar disc disease M51.9 [facility] [address] [address]- 4989 October, Lumbar disc disease M51.9 [facility] [id number] [place] [address] 67728- 8264 Sep, [facility] [id number] [place] [address] 04270- 4518 Sep, Lumbar disc disease M51.9 [facility] [id number] [place] [address] 05842- 4500 Aug, [facility] [id number] [place] [address] 54573- 1392 Aug, Lumbar disc disease M51.9 [facility] [id number] [place] [address] 72960- 7621 Aug, Lumbar disc disease M51.9 [facility] [id number] [place] [address] 65100- 8125 Jul, Lumbar disc disease M51.9 [facility] [id number] [place] [address] 45836- 8681 Jul, [facility] [id number] [place] [address] 85804- 9792 Jul, Lumbar disc disease M51.9 and Mild intermittent asthma without complication J45.20 [facility] [address] [place] [address] 74849- 8434 Jun, [facility] [id number] [place] [address] 96718- 9462 Jun, [facility] [id number] [place] [id number], [address] of the head R93.0 [facility] [address] [place] [address] 04412- 1497 Jun, Lumbar disc disease M51.9 [facility] [id number] [place] [address] 88102- 6257 May, Lumbar disc disease M51.9 and Strain of neck muscle, subsequent encounter S16.1XXD [facility] [address] [address]- 4573 Apr, Strain of neck muscle, subsequent encounter S16.1XXD [facility] [address] [place] [address] 82736- 1112 Apr, Strain of neck muscle, subsequent encounter S16.1XXD [facility] [id number] [place] [address] 40969- 7429 Apr, [facility] [id number] [place] [address] 96794- 4012 Apr, Strain of neck muscle, subsequent encounter S16.1XXD ; Lumbar disc disease M51.9 and Cigarette nicotine dependence without complication F17.210 [facility] [id number] [place] [address] 69404- 0357 Mar, [facility] [id number] [place] [address] 32449- 1510 Mar, [facility] [id number] [place] [address] 70055- 3305 Mar, Strain of neck muscle, subsequent encounter S16.1XXD and Lumbar disc disease M51.9 [facility] [address] [place] [address] 57531- 8254 Feb, Tachycardia R00.0 [facility] [id number] [place] [address] 91065- 1069 Feb, Strain of neck muscle, subsequent encounter S16.1XXD and Tachycardia R00.0 [facility] [id number] [place] [address] 00751- 9950 Jan, [facility] [id number] [address]- 6667 Jan, Acute strain of neck muscle, initial encounter S16.1XXA [facility] [id number] [address] 2544 Jan, Hyperthyroidism E05.90 [facility] [id number] [place] [address] 68769 2546 Dec, Hyperthyroidism E05.90 [facility] [id number] [place] [address] 21503 2546 Dec, [facility] [id number] [place] [address] 26638 2548 Dec, [facility] [id number] [place] [address] 80383- 5286 Dec, Hyperthyroidism E05.90 and Lumbar disc disease M51.9 [facility] [id number] [place] [address] 77771- 6147 Dec, [facility] [id number] [place] [address] 63883- 7923 Dec, [facility] [id number] [place] [address] 40761 2547 Dec, [facility] [id number] [place] [address] 88788- 0503 Nov, [facility] [id number] [place] [address] 56677- 8557 Nov, Lumbar disc disease M51.9 ; Hyperthyroidism E05.90 and Anxiety F41.9 [facility] [address] [place] [address] 50746 254 Nov, [facility] [id number] [place] [address] 42795 2547 Nov, [facility] [id number] [place] [address] 62064 2542 October, Arthritis M19.90 [facility] [address] [place] [address] 74596 2543 October, Lumbar disc disease M51.9 ; Scoliosis M41.9 ; Arthritis M19.90 and Reactive depression F32.[address] 67941- 5682 October, Unspecified thoracic, thoracolumbar and lumbosacral intervertebral disc disorder M51.[address] 90900- 3778 October, [place] [address]- 5132 October, Lumbar disc disease M51.9 and Anxiety F41.9 [place] [address]133- 1256 Sep, [address] 77056- 3089 Sep, Screening for breast cancer Z12.39 ; Hyperthyroidism E05.90 and Scoliosis M41.[address] 17784- 6632 Sep, Thyrotoxicosis without thyroid storm E05.[address] 89113- 1167 Sep, Thyrotoxicosis without thyroid storm E05.[address] 61758- 1551 Sep, Scoliosis M41.9 ; Arthritis M19.90 and Hyperthyroidism E05.90 IMMUNIZATIONS No Known Immunizations SOCIAL HISTORY Never Assessed REASON FOR VISIT PLAN OF CARE VITAL SIGNS MEDICATIONS Medication Instructions Dosage Frequency Start Date End Date Duration Status Amitriptyline HCl 25 MG Orally Once a [...]
--- OUTSIDE RECORDS SUMMARY | 2018-07-05 22:25 | XMS REPORT ---
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 Active 64849418 Problem Arthritis M19.90 Active 0829231 Problem Scoliosis M41.9 Active 880517864 Problem Mild intermittent asthma without complication J45.20 Active 931393917 Problem Cigarette nicotine dependence without complication F17.210 Active 84310768 Problem Lumbar disc disease M51.9 Active 37877193 Problem Anxiety F41.9 Active 35126466 Problem Tachycardia R00.0 Active 6941062 Problem Strain of neck muscle, subsequent encounter S16.1XXD Active 212152832 ALLERGIES No Information ENCOUNTERS Encounter Location Date Diagnosis [facility] [address], [place] [address]- 9059 October, [facility] [address], [place] [address]- 0647 Sep, [facility] [address], [place] [address]- 9922 Sep, Lumbar disc disease M51.9 [facility] [address] [place] [address] 30130- 9883 Aug, [facility] [address] [place] [address] 63122- 1393 Aug, Lumbar disc disease M51.9 [facility] [id number], [place] [address]- 2674 Aug, Lumbar disc disease M51.9 [facility] [address] [address]- 1821 12 Jul, 2017 Lumbar disc disease M51.9 [facility] [id number] [place] [address] 87460- 8266 07 Jul, 2017 [facility] [address] [place] [address] 11899- 9719 05 Jul, 2017 Lumbar disc disease M51.9 and Mild intermittent asthma without complication J45.20 [facility] [id number] [place] [address] 55458- 9990 Jun, [facility] [id number] [place] [address] 80954- 8032 Jun, [facility] [place] [id number] [place] [id number], [address] of the head R93.0 [facility] [id number] [place] [address] 93513- 8490 Jun, Lumbar disc disease M51.9 [facility] [address] [place] [address] 96777- 7527 May, Lumbar disc disease M51.9 and Strain of neck muscle, subsequent encounter S16.1XXD [facility] [address], [place] [address]- 1191 Apr, Strain of neck muscle, subsequent encounter S16.1XXD [facility] [address] [place] [address] 12116- 3816 Apr, Strain of neck muscle, subsequent encounter S16.1XXD [facility] [address] [place] [address] 73386- 2381 Apr, [facility] [address] [place] [address] 70952- 6142 06 Apr, 2017 Strain of neck muscle, subsequent encounter S16.1XXD ; Lumbar disc disease M51.9 and Cigarette nicotine dependence without complication F17.210 [facility] [id number] [address]- 9456 Mar, [facility] [address] [facility] [id number], [place] [address]- 4236 Mar, [facility] [address] [facility] [id number], [place] [address] 2546 Mar, Strain of neck muscle, subsequent encounter S16.1XXD and Lumbar disc disease M51.9 [facility] [address] [facility] [id number] [place] [address] 23543 2546 Feb, Tachycardia R00.0 [facility] [address] [facility] [id number] [place] [address] 83573 2546 Feb, Strain of neck muscle, subsequent encounter S16.1XXD and Tachycardia R00.0 [facility] [address], [place] [address]- 2696 Jan, [facility] [address] [facility] [id number] [place] [address] 62430- 2544 Jan, Acute strain of neck muscle, initial encounter S16.1XXA [facility] [address] [facility] [id number], [place] [address] 2546 Jan, Hyperthyroidism E05.90 [facility] [address] [facility] [id number], [place] [address] 2546 Dec, [facility] [address] [facility] [id number], [place] [address] 2546 Dec, Hyperthyroidism E05.90 [facility] [address] [facility] [id number], [place] [address] 2546 Dec, [facility] [address] [facility] [id number], [place] [address] 2546 Dec, Hyperthyroidism E05.90 and Lumbar disc disease M51.9 [facility] [address] [facility] [id number], [place] [address] 2546 Dec, [facility] [address] [address]- 0213 Dec, [facility] [id number] [place] [address] 55549- 2648 Dec, [facility] [id number] [place] [address] 62258- 7420 Nov, [facility] [id number] [place] [address] 23183- 1308 Nov, Lumbar disc disease M51.9 ; Hyperthyroidism E05.90 and Anxiety F41.9 [facility] [id number] [place] [address] 58216- 0697 Nov, [facility] [id number] [place] [address] 19545- 9996 Nov, [facility] [id number] [place] [address] 14456- 5031 October, Arthritis M19.90 [facility] [id number] [place] [address] 72437- 6071 October, Lumbar disc disease M51.9 ; Scoliosis M41.9 ; Arthritis M19.90 and Reactive depression F32.9 [facility] [id number] [place] [address] [phone] October, Unspecified thoracic, thoracolumbar and lumbosacral intervertebral disc disorder M51.9 [facility] [id number] [place] [address] [phone]- [phone] October, [facility] [id number] [place] [address] [phone]- [phone] October, Lumbar disc disease M51.9 and Anxiety F41.9 [facility] [id number] [place] [address] [phone] Sep, [facility] [id number] [place] [address] [phone]- [phone] Sep, Screening for breast cancer Z12.39 ; Hyperthyroidism E05.90 and Scoliosis M41.9 [facility] [address] [facility] [id number] [address] Sep, Thyrotoxicosis without thyroid storm E05.90 [facility] [address] [facility] [id number], [place] [address] Sep, Thyrotoxicosis without thyroid storm E05.90 [facility] [address] [facility] [id number], [place] [address] Sep, Scoliosis M41.9 ; Arthritis M19.90 and Hyperthyroidism E05.90 IMMUNIZATIONS No Known Immunizations SOCIAL HISTORY Never Assessed REASON FOR VISIT Atenolol PLAN OF CARE VITAL SIGNS MEDICATIONS Medication Instructions Dosage Frequency Start Date End Date Duration Status Atenolol 25 mg Orally Once a day 0.5 tablet 24h Sep, Active RESULTS No Results PROCEDURES No Known [...]
--- OUTSIDE RECORDS SUMMARY | 2018-07-05 22:25 | XMS REPORT ---
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 Active 68834261 Problem Arthritis M19.90 Active 6934148 Problem Scoliosis M41.9 Active 587089142 Problem Mild intermittent asthma without complication J45.20 Active 375163613 Problem Cigarette nicotine dependence without complication F17.210 Active 16666569 Problem Lumbar disc disease M51.9 Active 68819400 Problem Anxiety F41.9 Active 56880992 Problem Tachycardia R00.0 Active 6362413 Problem Strain of neck muscle, subsequent encounter S16.1XXD Active 440349953 ALLERGIES No Information ENCOUNTERS Encounter Location Date Diagnosis [facility] [id number] [place] [address] 34405- 7655 Nov, Lumbar disc disease M51.9 [facility] [address], [place] [address] October, Lumbar radiculopathy M54.16 [facility] [address], [place] [address] 9[address] October, [facility] [id number] [place] [address] 47797- 7419 October, Lumbar disc disease M51.9 [facility] [id number] [place] [address] 85740- 4678 October, [facility] [id number] [place] [address] 29730- 0793 October, Lumbar disc disease M51.9 [facility] [address], [place] [address] 3608 October, Lumbar disc disease M51.9 [facility] [id number] [place] [address] 20677- 9269 Sep, [facility] [id number] [place] [address] 09796- 7291 Sep, Lumbar disc disease M51.9 [facility] [id number] [place] [address] 01450- 3261 Aug, [facility] [id number] [place] [address] 68210- 6610 Aug, Lumbar disc disease M51.9 [facility] [id number] [place] [address] 32525- 3030 Aug, Lumbar disc disease M51.9 [facility] [id number] [place] [address] 01552- 3365 Jul, Lumbar disc disease M51.9 [facility] [id number] [place] [address] 55906- 8192 Jul, [facility] [id number] [place] [address] 72332- 6322 Jul, Lumbar disc disease M51.9 and Mild intermittent asthma without complication J45.20 [facility] [id number] [place] [address] 54602- 5208 Jun, [facility] [id number] [place] [address] 74106- 8601 Jun, [facility] [id number] [place] [phone], [address] of the head R93.0 [facility] [id number] [place] [address] 00170- 4761 Jun, Lumbar disc disease M51.9 [facility] [id number] [place] [address] 60017- 4886 May, Lumbar disc disease M51.9 and Strain of neck muscle, subsequent encounter S16.1XXD [facility] [address], [place] [address] 0014 Apr, Strain of neck muscle, subsequent encounter S16.1XXD [facility] [id number] [place] [address] 69894- 4142 Apr, Strain of neck muscle, subsequent encounter S16.1XXD [facility] [id number] [place] [address] 04373- 6322 Apr, [facility] [id number] [place] [address] 97183- 3687 Apr, Strain of neck muscle, subsequent encounter S16.1XXD ; Lumbar disc disease M51.9 and Cigarette nicotine dependence without complication F17.210 [facility] [id number] [place] [address] 14562- 0565 Mar, [facility] [id number] [place] [address] 15571- 5286 Mar, [facility] [id number] [place] [address] 95448- 3819 Mar, Strain of neck muscle, subsequent encounter S16.1XXD and Lumbar disc disease M51.9 [facility] [id number] [place] [address] 11873- 9899 Feb, Tachycardia R00.0 [facility] [id number] [place] [address] 15689- 4453 Feb, Strain of neck muscle, subsequent encounter S16.1XXD and Tachycardia R00.0 [facility] [id number] [place] [address] 07541- 9848 Jan, [facility] [id number], [place] [address] 8821 Jan, Acute strain of neck muscle, initial encounter S16.1XXA [facility] [id number] [address] 2543 Jan, Hyperthyroidism E05.90 [facility] [id number] [place] [address] 63152 2546 Dec, Hyperthyroidism E05.90 [facility] [id number] [place] [address] 29372 2546 Dec, [facility] [id number] [place] [address] 45542 254 Dec, [facility] [id number] [place] [address] 67142- 5701 Dec, Hyperthyroidism E05.90 and Lumbar disc disease M51.9 [facility] [id number] [place] [address] 47855- 3129 Dec, [facility] [id number] [place] [address] 83916- 2858 Dec, [facility] [id number] [place] [address] 04944 2549 Dec, [facility] [id number] [place] [address] 90465- 8696 Nov, [facility] [id number] [place] [address] 38835- 1927 Nov, Lumbar disc disease M51.9 ; Hyperthyroidism E05.90 and Anxiety F41.9 [facility] [id number] [place] [address] 92630 2544 Nov, [facility] [id number] [place] [address] 54123 2542 Nov, [facility] [id number] [place] [address] 32868 2548 October, Arthritis M19.90 [facility] [id number] [place] [address] 71272 2548 October, Lumbar disc disease M51.9 ; Scoliosis M41.9 ; Arthritis M19.90 and Reactive depression F32.[address] 79048- 7410 October, Unspecified thoracic, thoracolumbar and lumbosacral intervertebral disc disorder M51.[address] 20982- 9551 October, [address] 48612- 8104 October, Lumbar disc disease M51.9 and Anxiety F41.9 [place] [address]- 3670 Sep, [address] 86103- 7241 Sep, Screening for breast cancer Z12.39 ; Hyperthyroidism E05.90 and Scoliosis M41.[address] 73862- 0794 Sep, Thyrotoxicosis without thyroid storm E05.[address] 39822- 7168 Sep, Thyrotoxicosis without thyroid storm E05.[address] 43471- 2021 Sep, Scoliosis M41.9 ; Arthritis M19.90 and Hyperthyroidism E05.90 IMMUNIZATIONS No Known Immunizations SOCIAL HISTORY Never Assessed REASON FOR VISIT Referal Request For MRI PLAN OF CARE VITAL SIGNS MEDICATIONS Unknown [...]
--- OUTSIDE RECORDS SUMMARY | 2018-07-05 22:25 | XMS REPORT ---
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 Active 40806953 Problem Arthritis M19.90 Active 2377036 Problem Scoliosis M41.9 Active 826976181 Problem Mild intermittent asthma without complication J45.20 Active 381582229 Problem Cigarette nicotine dependence without complication F17.210 Active 37079507 Problem Lumbar disc disease M51.9 Active 88427150 Problem Anxiety F41.9 Active 38731532 Problem Tachycardia R00.0 Active 8066542 Problem Strain of neck muscle, subsequent encounter S16.1XXD Active 623823525 ALLERGIES No Information ENCOUNTERS Encounter Location Date Diagnosis [facility] [id number] [place] [address] 80454- 6384 Nov, Lumbar disc disease M51.9 [facility] [address], [place] [address]- 0481 October, Lumbar radiculopathy M54.16 [facility] [address], [place] [address]- 0933 October, [facility] [id number] [place] [address] 04137- 9790 October, Lumbar disc disease M51.9 [facility] [id number] [place] [address] 13401- 7973 October, [facility] [id number] [place] [address] 25946- 7657 October, Lumbar disc disease M51.9 [facility] [address], [place] [address]- 4559 October, Lumbar disc disease M51.9 [facility] [id number] [place] [address] 96363- 1342 Sep, [facility] [id number] [place] [address] 76810- 3731 Sep, Lumbar disc disease M51.9 [facility] [id number] [place] [address] 26074- 8957 Aug, [facility] [id number] [place] [address] 89124- 5998 Aug, Lumbar disc disease M51.9 [facility] [id number] [place] [address] 92655- 5709 Aug, Lumbar disc disease M51.9 [facility] [id number] [place] [address] 92337- 5945 Jul, Lumbar disc disease M51.9 [facility] [id number] [place] [address] 38134- 5439 Jul, [facility] [id number] [place] [address] 86920- 2328 Jul, Lumbar disc disease M51.9 and Mild intermittent asthma without complication J45.20 [facility] [id number] [place] [address] 67229- 9032 Jun, [facility] [id number] [place] [address] 35980- 6738 Jun, [facility] [id number] [place] [id number], [address] of the head R93.0 [facility] [id number] [place] [address] 32244- 6796 Jun, Lumbar disc disease M51.9 [facility] [id number] [place] [address] 26410- 9952 May, Lumbar disc disease M51.9 and Strain of neck muscle, subsequent encounter S16.1XXD [facility] [address], [place] [address]- 2493 Apr, Strain of neck muscle, subsequent encounter S16.1XXD [facility] [id number] [place] [address] 80044- 8749 Apr, Strain of neck muscle, subsequent encounter S16.1XXD [facility] [id number] [place] [address] 37038- 4487 Apr, [facility] [id number] [place] [address] 95941- 9902 Apr, Strain of neck muscle, subsequent encounter S16.1XXD ; Lumbar disc disease M51.9 and Cigarette nicotine dependence without complication F17.210 [facility] [id number] [place] [address] 19797- 0762 Mar, [facility] [id number] [place] [address] 94703- 0584 Mar, [facility] [id number] [place] [address] 76149- 9341 Mar, Strain of neck muscle, subsequent encounter S16.1XXD and Lumbar disc disease M51.9 [facility] [id number] [place] [address] 64558- 4718 Feb, Tachycardia R00.0 [facility] [id number] [place] [address] 02396- 5285 Feb, Strain of neck muscle, subsequent encounter S16.1XXD and Tachycardia R00.0 [facility] [id number] [place] [address] 66257- 3127 Jan, [facility] [id number], [place] [address]- 5158 Jan, Acute strain of neck muscle, initial encounter S16.1XXA [facility] [id number], [place] [address] 2541 Jan, Hyperthyroidism E05.90 [facility] [id number] [place] [address] 87065 2546 Dec, Hyperthyroidism E05.90 [facility] [id number] [place] [address] 20415 2546 Dec, [facility] [id number] [place] [address] 18174 2547 Dec, [facility] [id number] [place] [address] 17120- 2580 Dec, Hyperthyroidism E05.90 and Lumbar disc disease M51.9 [facility] [id number] [place] [address] 19210- 1741 Dec, [facility] [id number] [place] [address] 10503- 6322 Dec, [facility] [id number] [place] [address] 47942 2542 Dec, [facility] [id number] [place] [address] 28995- 4894 Nov, [facility] [id number] [place] [address] 80800- 2936 Nov, Lumbar disc disease M51.9 ; Hyperthyroidism E05.90 and Anxiety F41.9 [facility] [id number] [place] [address] 85145 2549 Nov, [facility] [id number] [place] [address] 68852 2544 Nov, [facility] [id number] [place] [address] 28043 2540 October, Arthritis M19.90 [facility] [id number] [place] [address] 18810 2544 October, Lumbar disc disease M51.9 ; Scoliosis M41.9 ; Arthritis M19.90 and Reactive depression F32.[address] 27228- 4206 October, Unspecified thoracic, thoracolumbar and lumbosacral intervertebral disc disorder M51.[address] 07981- 2803 October, [place] [address] [place] [id number]- 2080 October, Lumbar disc disease M51.9 and Anxiety F41.9 [place] [address]0525- 8809 Sep, [address] 82790- 5472 Sep, Screening for breast cancer Z12.39 ; Hyperthyroidism E05.90 and Scoliosis M41.[address] 73155- 8952 Sep, Thyrotoxicosis without thyroid storm E05.[address] 83479- 4810 Sep, Thyrotoxicosis without thyroid storm E05.[address] 48100- 5406 Sep, Scoliosis M41.9 ; Arthritis M19.90 and Hyperthyroidism E05.90 IMMUNIZATIONS No Known Immunizations SOCIAL HISTORY Never Assessed REASON FOR VISIT Abnormal CT PLAN OF CARE VITAL SIGNS MEDICATIONS Unknown Medications RESULTS Name Result Date Reference Range MRI : Brain w/o Contrast 2017-07-27 PROCEDURES No Known procedures INSTRUCTIONS MEDICATIONS ADMINISTERED [...]
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
--- NOTE | 2018-07-05 23:00 | NUR ---
PT REPORTS THROAT DISCOMFORT IS IMPROVING, BUT STATES," I STILL FEEL LIKE SOMETHING IS IN THERE WHEN I PUT MY HEAD BACK."
--- NOTE | 2018-07-05 23:07 | ED General ---
General Chief Complaint: Allergic Reaction Stated Complaint: ALLERGIC REACTION Nursing Triage Note: PT TO ROOM #3 [facility] CART FROM HOME WITH C/O SOB AFTER EATING A SUSPECTED BRAZIL NUT. [facility] ADM ALBUTEROL BRTX IN TRANSIT TO ED. UPON ARRIVAL TO ED PT A&OX4. INITIAL O2 SAT 98% VIA RA WITH LUNG SOUNDS CTA. PT REPORTS @ APPROX 2100 THIS EVENING SHE ATE A PIECE OF BREAD WHICH SHE BELIVES CONTAINED A BRAZIL NUT, AND THEN BEGAN TO FEEL SOB. PT STATES, "I FEEL LIKE SOMETHING IS STUCK IN MY THROAT." DRY HACKING COUGH NOTED. NO THROAT SWELLING NOTED. PT REPORTS CHEST TIGHTNESS. Nursing Sepsis Screen: No Definite Risk Source of Information: Patient, EMS History of Present Illness Date Seen by Provider: Jul 05, 2018 Time Seen by Provider: 22:14 Initial Comments PT ARRIVES VIA EMS FROM HOME PT STATES SHE IS HAVING AN ALLERGIC REACTION STATES SHE IS ALLERGIC TO BRAZIL NUTS--PRIOR REACTION HAS BEEN SWELLING OF LIPS AND EYES, ITCHING, WHEEZING STATES SHE WAS EATING SOME BREAD ( MULTIGRAIN BREAD WITH SUNFLOWER AND FLAX SEEDS, IN BAKERY THAT PROCESSES PECANS, WALNUTS, COCONUT AND ALMONDS) AND SHORTLY AFTERWARD, SHE BEGAN HAVING WHEEZING, COUGH, CHEST TIGHTNESS AND FEELING LIKE HER THROAT HAS SOMETHING STUCK AND CALLED EMS AROUND 2100 PT STATES SHE HAS ASTHMA AND EMPHYSEMA AND WAS WHEEZING EARLIER AND USED HER ALBUTEROL INHALER AROUND 1900, AND THOSE SYMPTOMS RESOLVED. NO SWELLING TO LIPS OR EYES, AND NO ITCHING OR RASH NO DROOLING EMS GAVE NEB TREATMENT AND IS FEELING BETTER, BUT STILL FEELS LIKE SOMETHING IS IN HER THROAT. PT DID NOT TAKE ANY MEDICATIONS AT HOME NO RECENT ILLNESS, NO FEVER OR SORE THROAT OR URI SYMPTOMS OR COUGH/CONGESTION, ETC. PCP: DR. BADILLO Allergies and Home Medications Allergies Coded Allergies: Sulfa (Sulfonamide Antibiotics) (Verified Allergy, Unknown, HIVES, 02/23/16 ) Home Medications Albuterol Sulfate 1 Puff Puff, 2 PUFF IH Q4H, (Reported) 1 PUFF = 90 MCG Albuterol Sulfate 2.5 Mg/3 Ml Vial.neb, 2.5 MG IH Q6H PRN for SHORTNESS OF BREATH Prescribed by: THIAGO THAYER on 10/04/17 1720 Alprazolam 1 Mg Tablet, 1 MG PO BID PRN for SPASMS, (Reported) Cefdinir 300 Mg Capsule, 300 MG PO twice a day Prescribed by: RIKY SANTANA on 05/27/18 1207 Gabapentin 300 Mg Capsule, 600 MG PO HS, (Reported) Ipratropium/Albuterol Sulfate 3 Ml Ampul.neb, 3 ML IH Q4H PRN for SHORTNESS OF BREATH Prescribed by: ESTRELLA JACKSON on 02/12/16 0849 Levothyroxine Sodium 100 Mcg Tablet, 88 MCG PO DAILY, (Reported) Oxycodone HCl/Acetaminophen 1 Each Tablet, 1 EACH PO Q4H PRN for BACK PAIN, ( Reported) Review of Systems Review of Systems Constitutional: no symptoms reported EENTM: see HPI Respiratory: see HPI Cardiovascular: no symptoms reported Gastrointestinal: no symptoms reported Genitourinary: no symptoms reported Musculoskeletal: no symptoms reported Skin: no symptoms reported Psychiatric/Neurological: Anxiety Hematologic/Lymphatic: No Symptoms Reported Immunological/Allergic: see HPI, food allergy Past Jywkgcr-Tmryva-Akjmqt Hx Patient Social History Alcohol Use: Occasionally Uses Number of Drinks Today: AA Alcohol Beverage of Choice: Beer Recreational Drug Use: No Smoking Status: Current Everyday Smoker (1 1/2 PPD--NOW DOWN TO LESS THAN A PACK A DAY) Type Used: Cigarettes 2nd Hand Smoke Exposure: Yes Recent Foreign Travel: No Contact w/Someone Who Travel: No Recent Infectious Disease Expo: No Recent Hopitalizations: No Physical Abuse: No Sexual Abuse: No Immunizations Up To Date Tetanus Booster (TDap): Less than 5yrs PED Vaccines UTD: Yes Seasonal Allergies Seasonal Allergies: No Past Medical History Surgeries: Yes (PYELOPLASTY/URETERAL REPAIR/URETERAL STENT; X 1 ) Section, Renal, Tubal Ligation Respiratory: Yes Asthma, COPD, Emphysema Currently Using CPAP: No Currently Using BIPAP: No Cardiac: Yes (TACHYCARDIA WHEN HYPERTHYROIDISM) Syncope Neurological: Yes Concussion, Neuropathy 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 Disorders: No Female 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 Disorders: Denies 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 THERAPY MANAGER History: Tubal Ligation, Menopausal Sexually Transmitted Disease: No HIV/AIDS: No Genitourinary: Yes Kidney Infection Gastrointestinal: Yes (HEPATITIS C-NO TREATMENT) Gastroesophageal Reflux, Liver Disease/Jaundice, Hepatitis Musculoskeletal: Yes (SCIATICA, scoliosis, spinal stenosis, 5 BULGING DISCS) Degenerate Disk Disease, Scoliosis, Chronic Back Pain Endocrine: Yes (GRAVES DISEASE) Hyperthyroidism, Hypothyroidsim HEENT: No Cancer: No Psychosocial: Yes Anxiety Integumentary: No Blood Disorders: No Family Medical History Alzheimer's disease 19 MOTHER FH: epilepsy 19 MOTHER FH: lupus 19 MOTHER Fibromyalgia 19 MOTHER Hypertension 19 MOTHER Thyroid disease 19 MOTHER (HYPOTHYROID) Physical Exam Vital Signs Vital Signs - First Documented 07/05/18 22:15 Temp 98.1 Pulse 96 Resp 18 B/P (MAP) 127/103 (111) Pulse Ox 98 O2 Delivery Room Air Capillary Refill : Less Than 3 Seconds Height, Weight, BMI Height: 5'4.00" Weight: 120lbs. 5.0oz. 54.174338nz; 18.5 BMI Method:Estimated General Appearance: No Apparent Distress, WD/WN, Anxious, Other (PT WITH CONSTANT CLEARING OF THROAT AND HARSH FORCED COUGH; NO DROOLING, PT TALKING IN NORMAL VOICE AND NO SPONTANEIOUS COUGHING--ONLY FORCED COUGHING. ) HEENT: PERRL/EOMI, Normal ENT Inspection, Pharynx Normal, Moist Mucous Membranes, Other (NO SWELLING NOTED ANYWHERE. 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 specialist II- XII Norm as Tested, Other (ANXIOUS) Skin: Normal Color, Warm/Dry; No Rash; Tattoos/Piercings Progress/Results/Core Measures Suspected Sepsis Recent Fever Within 48 Hours: No Infection Criteria Present: None New/Unexplained Altered Menta: No Sepsis Screen: No Definite Risk SIRS Temperature:98.1 Pulse: 96 Respiratory Rate: 18 Blood Pressure 127 /103 Mean: 111 Results/Orders My Orders Orders - CATE CORBIN DO Saline Lock/Iv-Start (07/05/18 22:23) Monitor-Rhythm Ecg Trace Only (07/05/18 22:23) Diphenhydramine Injection (Benadryl Inje (07/05/18 22:23) Methylprednisolone Sod Succ (Solu-Medrol (07/05/18 22:23) Famotidine Injection (Pepcid Injection) (07/05/18 22:23) Ct Neck (Soft Tissue) Wo (07/06/18 00:01) Vital Signs/I&O 07/05/18 22:15 Temp 98.1 Pulse 96 Resp 18 B/P (MAP) 127/103 (111) Pulse Ox 98 O2 Delivery Room Air Capillary Refill : Less Than 3 Seconds Blood Pressure Mean: 111 Progress Note : Progress Note GIVEN BENADRYL, SOLU-MEDROL AND PEPCID PT ABLE TO SWALLOW ICE CHIPS AND WATER WITHOUT ANY DIFFICULTY PT STATES IT STILL FEELS LIKE SOMETHING IS IN HER THROAT, BUT PT IS NO LONGER CLEARING HER THROAT OR FORCING A COUGH. WILL OBTAIN CT PT SEEMS CALMER. PT IS SYMPTOM-FREE AT DISMISSAL Departure Impression Primary Impression: POSSIBLE ALLERGIC REACTION Additional Impression: Multiple lung nodules on CT Disposition: HOME, SELF-CARE Condition: Improved Departure-Patient Inst. Referrals: INDIRA MEJIA MD (PCP/Family) Primary Care Physician Patient Instructions: Food Allergy Add. Discharge Instructions: LOTS OF CLEAR LIQUIDS AVOID ANY KIND OF NUT TAKE BENADRYL 50 MG EVERY 4 HOURS NEEDED IF YOUR SYMPTOMS RETURN RETURN TO ER IF WORSE FOLLOW UP WITH YOUR DR FOR FURTHER EVALUATION OF LUNG NODULES All discharge instructions reviewed with patient and/or family. Voiced understanding. CATE CORBIN DO Jul 05, 2018 23:07
[2018-07-06 01:20] VITALS: BP 144/99
--- NOTE | 2018-07-06 08:25 | Diagnostic Imaging Report ---
PROCEDURE: CT neck soft tissue without contrast. TECHNIQUE: Multiple contiguous axial images were obtained through the neck without the use of intravenous contrast. INDICATION: Foreign body sensation in throat. COMPARISON: None. FINDINGS: The pharyngeal and laryngeal soft tissues are symmetric bilaterally with no discrete mass on this noncontrast exam. The airway is widely patent. No retropharyngeal fluid collections. No mass, fluid collection or lymphadenopathy in the neck is identified. The thyroid and major salivary glands are unremarkable. The floor of the mouth, tongue base and epiglottis are negative. Moderate spondylotic changes in the cervical spine at C5-C6. No acute osseous findings. The visualized paranasal sinuses, mastoids and skull base are negative. Advanced paraseptal emphysema in the lung apices. 6 mm solid pulmonary nodule in the left lung apex. There are a few smaller pulmonary nodules bilaterally. IMPRESSION: 1. Normal aerodigestive tract. Specifically, no radiopaque foreign body. 2. Advanced paraseptal emphysema in the lung apices. Solid pulmonary nodules measuring up to 6 mm on the left. Recommend dedicated noncontrast chest CT for further evaluation. Dictated by: Dictated on workstation # [id number]
== END 2018-07-06 01:20 | disposition home or self-care (01) ==
LOC: EDUNIT# 22:13 → ER 22:14
DX: R91.8 Other nonspecific abnormal finding of lung field (principal); J43.9 Emphysema, unspecified; E05.90 Thyrotoxicosis, unspecified without thyrotoxic crisis or storm; K21.9 Gastro-esophageal reflux disease without esophagitis; E03.9 Hypothyroidism, unspecified; E05.00 Thyrotoxicosis with diffuse goiter without thyrotoxic crisis or storm; F41.9 Anxiety disorder, unspecified; F17.210 Nicotine dependence, cigarettes, uncomplicated; Z88.2 Allergy status to sulfonamides; Z87.19 Personal history of other diseases of the digestive system; Z82.49 Family history of ischemic heart disease and other diseases of the circulatory system; Z87.448 Personal history of other diseases of urinary system; Z79.51 Long term (current) use of inhaled steroids; Z98.890 Other specified postprocedural states; Z98.51 Tubal ligation status; Z96.0 Presence of urogenital implants
CPT/HCPCS: 70490; 93041; 96374; 96375

== ENCOUNTER 2019-03-11 13:34 | Emergency (ER) | payer BC, OTHER ==
[~2019-03-11] VITALS: Ht 170 cm; Wt 60.0 kg
--- NOTE | 2019-03-11 15:25 | ED Headache ---
General Chief Complaint: Head/Cervical Problems Stated Complaint: HEADACHE Nursing Triage Note: PT AMBULATE TO [facility] WITHOUT DIFFICULTY WITH C/O HEADACHE. PT STATES WAS SEEN BY HER PCP AND AN MRI WAS ORDERED BUT THAT IT WAS ORDERED INCORRECTLY SO IT COULD NOT BE DONE. Nursing Sepsis Screen: No Definite Risk Source: patient Exam Limitations: no limitations History of Present Illness Date Seen by Provider: Mar 11, 2019 Time Seen by Provider: 16:57 Initial Comments To ER with reports of occipital headache for about 8 days. She states that she was scheduled to have an MRI ordered. She reports history as chiari malformation diagnosed on previous MRI. She saw Dr. Mon in [place] but was told nothing needed to be done. His headache persists despite her Valium, Percocet, Ultram at home. Timing/Duration: 1 week Severity/Quality: moderate Location: occipital Prior Headaches/Recent Trauma: no recent headache/trauma Associated Symptoms: denies symptoms Allergies and Home Medications Allergies Coded Allergies: Sulfa (Sulfonamide Antibiotics) (Verified Allergy, Unknown, HIVES, 02/23/16) Home Medications Albuterol Sulfate 1 Puff Puff, 2 PUFF IH Q4H, (Reported) 1 PUFF = 90 MCG Albuterol Sulfate 2.5 Mg/3 Ml Vial.neb, 2.5 MG IH Q6H PRN for SHORTNESS OF BREATH Prescribed by: THIAGO THAYER on 10/04/17 1720 Alprazolam 1 Mg Tablet, 1 MG PO BID PRN for SPASMS, (Reported) Cefdinir 300 Mg Capsule, 300 MG PO twice a day Prescribed by: RIKY SANTANA on 05/27/18 1207 Gabapentin 300 Mg Capsule, 600 MG PO HS, (Reported) Ipratropium/Albuterol Sulfate 3 Ml Ampul.neb, 3 ML IH Q4H PRN for SHORTNESS OF BREATH Prescribed by: ESTRELLA JACKSON on 02/12/16 0849 Levothyroxine Sodium 100 Mcg Tablet, 88 MCG PO DAILY, (Reported) Oxycodone HCl/Acetaminophen 1 Each Tablet, 1 EACH PO Q4H PRN for BACK PAIN, (Reported) Patient Home Medication List Home Medication List Reviewed: Yes Review of Systems Review of Systems Constitutional: see HPI Eyes: No Symptoms Reported Ears, Nose, Mouth, Throat: no symptoms reported Respiratory: no symptoms reported Cardiovascular: no symptoms reported Genitourinary: no symptoms reported Musculoskeletal: see HPI Skin: no symptoms reported Psychiatric/Neurological: No Symptoms Reported Past Rwfypsg-Nhmxsk-Lkbyiy Hx Patient Social History Alcohol Use: Denies Use Number of Drinks Today: AA Alcohol Beverage of Choice: Beer Recreational Drug Use: No Smoking Status: Current Everyday Smoker Type Used: Cigarettes 2nd Hand Smoke Exposure: Yes Recent Foreign Travel: No Contact w/Someone Who Travel: No Recent Infectious Disease Expo: No Recent Hopitalizations: No Physical Abuse: No Sexual Abuse: No Mistreated: No Fear: No Immunizations Up To Date Tetanus Booster (TDap): Less than 5yrs PED Vaccines UTD: Yes Seasonal Allergies Seasonal Allergies: No Past Medical History Surgeries: Yes (PYELOPLASTY/URETERAL REPAIR/URETERAL STENT; X 1 ) Section, Renal, Tubal Ligation Respiratory: Yes Asthma, COPD, Emphysema Currently Using CPAP: No Currently Using BIPAP: No Cardiac: Yes (TACHYCARDIA WHEN HYPERTHYROIDISM) Syncope Neurological: Yes Concussion, Neuropathy 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 Disorders: No Female 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 Disorders: 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, 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 Sexually Transmitted Disease: No HIV/AIDS: No Genitourinary: Yes Kidney Infection Gastrointestinal: Yes (HEPATITIS C-NO TREATMENT) Gastroesophageal Reflux, Liver Disease/Jaundice, Hepatitis Musculoskeletal: Yes (SCIATICA, scoliosis, spinal stenosis, 5 BULGING DISCS) Degenerate Disk Disease, Scoliosis, Chronic Back Pain Endocrine: Yes (GRAVES DISEASE) Hyperthyroidism, Hypothyroidsim HEENT: No Cancer: No Psychosocial: Yes Anxiety Integumentary: No Blood Disorders: No Family Medical History Alzheimer's disease 19 MOTHER FH: epilepsy 19 MOTHER FH: lupus 19 MOTHER Fibromyalgia 19 MOTHER Hypertension 19 MOTHER Thyroid disease 19 MOTHER (HYPOTHYROID) Physical Exam Vital Signs Vital Signs - First Documented 03/11/19 14:12 Temp 37.0 Pulse 103 Resp 18 B/P (MAP) 161/129 (140) Pulse Ox 96 O2 Delivery Room Air Capillary Refill : Less Than 3 Seconds Height, Weight, BMI Height: 5'4.00" Weight: 120lbs. 5.0oz. [age]yo; 20.00 BMI Method:Estimated General Appearance: WD/WN, no apparent distress, other (wears dark sunglasses inside. The CT today reveals trivial pathology. The MRI done last year did not mention any Chiari malformation) HEENT: PERRL/EOMI, normal ENT inspection Neck: non-tender, full range of motion Respiratory: no respiratory distress, no accessory muscle use Extremities: normal range of motion, non-tender Psychiatric: alert Progress/Results/Core Measures Results/Orders My Orders Orders - ALEM NAVARRO APRN Ct Head Wo (03/11/19 15:19) Ketorolac Injection (Toradol Injection) (03/11/19 15:30) Diphenhydramine Injection (Benadryl Inje (03/11/19 15:30) Prochlorperazine Injection (Compazine In (03/11/19 15:30) Ketorolac Injection (Toradol Injection) (03/11/19 16:15) Ns Iv 1000 Ml (Sodium Chloride 0.9%) (03/11/19 16:45) Diphenhydramine Injection (Benadryl Inje (03/11/19 16:45) Prochlorperazine Injection (Compazine In (03/11/19 16:45) Dexamethasone Injection (Decadron Inject (03/11/19 16:45) Ed Iv/Invasive Line Start (03/11/19 16:42) Medications Given in ED Current Medications Medications Dose Ordered Sig/Kayla Route Start Time Stop Time Status Last Admin Dose Admin Diphenhydramine HCl 25 mg ONCE ONCE IM 03/11/19 15:30 03/11/19 15:31 DC 03/11/19 16:06 25 MG Ketorolac Tromethamine 60 mg ONCE ONCE IM 03/11/19 16:15 03/11/19 16:16 DC 03/11/19 16:07 60 MG Prochlorperazine Edisylate 5 mg ONCE ONCE IM 03/11/19 15:30 03/11/19 15:31 DC 03/11/19 16:07 5 MG Vital Signs/I&O 03/11/19 14:12 Temp 37.0 Pulse 103 Resp 18 B/P (MAP) 161/129 (140) Pulse Ox 96 O2 Delivery Room Air Blood Pressure Mean: 140 Departure Communication (Admissions) 1700-patient denies improvement with Compazine and Benadryl and Toradol intramuscularly. This failed to improve her symptoms. I then offered a an occipital nerve block which the patient agreed to. 1708-after the occipital nerve block patient has had complete resolution of her pain is now laughing and smiling and ready to go home. Impression Primary Impression: Headache Qualified Codes: R51 - Headache Disposition: 01 HOME, SELF-CARE Condition: Stable Departure-Patient Inst. Decision time for Depature: 17:04 Referrals: INDIRA MEJIA MD (PCP/Family) Primary Care Physician Patient Instructions: Headache, Adult (DC) Add. Discharge Instructions: 1. Return to ER for any concerns 2. All discharge instructions reviewed with patient and/or family. Voiced under standing. ALEM NAVARRO PL[employer] CHIE[employer] Mar 11, 2019 15:25
[2019-03-11] MEDS ORDERED: KETOROLAC 30 MG/ML VIAL IVP ONE (15:30)
[2019-03-11] MEDS ORDERED: diphenhydrAMINE 50 MG/ML INJ (BENADRYL) IM ONE (15:30)
[2019-03-11] MEDS ORDERED: PROCHLORPERAZINE 10 MG/2ML INJ (COMPAZINE) IM ONE (15:30)
[2019-03-11] MEDS ORDERED: KETOROLAC 30 MG/ML VIAL IM ONE (16:15)
--- NOTE | 2019-03-11 16:40 | Diagnostic Imaging Report ---
CLINICAL INDICATION: Patient with headache, nausea, fainting, and nosebleed x8 days. EXAM: Axial CT scan of the brain performed without IV contrast. Auto Exposure Controls were utilized during the CT exam to meet ALARA standards for radiation dose reduction. COMPARISON: MRI of the brain without contrast dated 07/27/2017. Head CT without contrast dated 07/16/2017. FINDINGS: There is skull streak artifact which obscures portions of the brainstem and posterior fossa. There is no evidence of acute cerebral infarct, intracranial hemorrhage, or gross mass effect. Stable low-lying cerebellar tonsils. Foramen magnum is not significantly crowded. The brain parenchymal volume appears appropriate for patient's age. There is normal chadwick-white matter distinction. There is no significant midline shift or herniation. There is no evidence of hydrocephalus. The basal cisterns are unremarkable. The skull, extracranial soft tissue, and orbits are unremarkable. The paranasal sinuses are unremarkable. Temporal bones show no significant abnormality. IMPRESSION: Stable CT scan of the brain with no evidence of interval acute intracranial process. Dictated by: Dictated on workstation # [id number]
[2019-03-11] MEDS ORDERED: PROCHLORPERAZINE 10 MG/2ML INJ (COMPAZINE) IV ONE (16:45)
[2019-03-11] MEDS ORDERED: DEXAMETHASONE 10 MG/ML (DECADRON) 1 ML VIAL IV ONE (16:45)
[2019-03-11] MEDS ORDERED: NS IV 1000 ML 1,000 ML IV SCH (16:45)
[2019-03-11] MEDS ORDERED: diphenhydrAMINE 50 MG/ML INJ (BENADRYL) IVP ONE (16:45)
[2019-03-11 17:21] VITALS: BP 140/86
== END 2019-03-11 17:21 | disposition home or self-care (01) ==
LOC: EDUNIT# 13:34 → ER 13:35
DX: R51 Headache (principal); J43.9 Emphysema, unspecified; J45.909 Unspecified asthma, uncomplicated; E05.00 Thyrotoxicosis with diffuse goiter without thyrotoxic crisis or storm; G62.9 Polyneuropathy, unspecified; K21.9 Gastro-esophageal reflux disease without esophagitis; B19.20 Unspecified viral hepatitis C without hepatic coma; E03.9 Hypothyroidism, unspecified; F41.9 Anxiety disorder, unspecified; F17.210 Nicotine dependence, cigarettes, uncomplicated; Z88.2 Allergy status to sulfonamides; Z98.51 Tubal ligation status; Z82.49 Family history of ischemic heart disease and other diseases of the circulatory system
CPT/HCPCS: 70450; 99284

== ENCOUNTER → 2019-03-25 | Outpatient (CLI) | payer BC ==
[~2019-03-25] MED LIST changes: +GADOBUTROL 7.5 MMOL/7.5 ML (GADAVIST) VIAL IV ONE
--- NOTE | 2019-03-25 15:58 | Diagnostic Imaging Report ---
PROCEDURE: MR imaging of the brain with and without contrast. TECHNIQUE: Multiplanar, multisequence MR imaging of the brain was performed with and without contrast. INDICATION: Increasing headaches and head pressure. Patient has known Chiari malformation. COMPARISON: Correlation is made with prior MRI of the brain from 07/27/2017. FINDINGS: No diffusion restriction is identified. Ventricular size is normal. No mass effect or midline shift is identified. No acute intra-axial or extra-axial hemorrhage is detected. No abnormal enhancement following contrast administration is identified. The corpus callosum is unremarkable. The sella and parasellar structures are unremarkable. Low lying cerebellar tonsils are again noted and are similar to prior exam. IMPRESSION: Overall stable pre-and post contrast MRI of the brain when compared with prior exam from 07/27/2017. No acute features detected. Dictated by: Dictated on workstation # [id number]
== END ==
LOC: RAD 14:51
PROVIDERS: ATTEND Internal Medicine
DX: G93.5 Compression of brain (principal)
CPT/HCPCS: 70553

== ENCOUNTER 2019-07-06 19:12 | Emergency (ER) | payer SELFPAY ==
[~2019-07-06] VITALS: Ht 168 cm; Wt 57.0 kg
[~2019-07-06 19:12] MED LIST changes: -GADOBUTROL 7.5 MMOL/7.5 ML (GADAVIST) VIAL IV ONE
--- NOTE | 2019-07-06 19:22 | ED Upper Extremity ---
General Chief Complaint: Upper Extremity Stated Complaint: L ARM PAIN Source: patient Exam Limitations: no limitations History of Present Illness Date Seen by Provider: Jul 06, 2019 Time Seen by Provider: 19:20 Initial Comments To ER with left arm pain. This is primarily left shoulder pain and it began while she was walking her Rottweiler, the dog took off and jerked her arm. She heard a popping noise and had a tearing sensation in the left shoulder. She did not fall. Onset: this evening Severity: moderate Pain/Injury Location: left shoulder Method of Injury: fell Modifying Factors: Worse With Movement Allergies and Home Medications Allergies Coded Allergies: Sulfa (Sulfonamide Antibiotics) (Verified Allergy, Unknown, HIVES, 02/23/16) Home Medications Albuterol Sulfate 1 Puff Puff, 2 PUFF IH Q4H, (Reported) 1 PUFF = 90 MCG Albuterol Sulfate 2.5 Mg/3 Ml Vial.neb, 2.5 MG IH Q6H PRN for SHORTNESS OF BREATH Prescribed by: THIAGO THAYER on 10/04/17 1720 Alprazolam 1 Mg Tablet, 1 MG PO BID PRN for SPASMS, (Reported) Cefdinir 300 Mg Capsule, 300 MG PO twice a day Prescribed by: RIKY SANTANA on 05/27/18 1207 Gabapentin 300 Mg Capsule, 600 MG PO HS, (Reported) Ipratropium/Albuterol Sulfate 3 Ml Ampul.neb, 3 ML IH Q4H PRN for SHORTNESS OF BREATH Prescribed by: ESTRELLA JACKSON on 02/12/16 0849 Levothyroxine Sodium 100 Mcg Tablet, 88 MCG PO DAILY, (Reported) Oxycodone HCl/Acetaminophen 1 Each Tablet, 1 EACH PO Q4H PRN for BACK PAIN, (Reported) Patient Home Medication List Home Medication List Reviewed: Yes Review of Systems Constitutional: see HPI EENTM: see HPI Respiratory: no symptoms reported Cardiovascular: no symptoms reported Genitourinary: no symptoms reported Musculoskeletal: see HPI Skin: no symptoms reported Psychiatric/Neurological: No Symptoms Reported Past Curzlqi-Nssmnd-Ojzecq Hx Patient Social History Alcohol Beverage of Choice: Beer Type Used: Cigarettes 2nd Hand Smoke Exposure: Yes Recent Foreign Travel: No Contact w/Someone Who Travel: No Recent Hopitalizations: No Immunizations Up To Date Tetanus Booster (TDap): Less than 5yrs PED Vaccines UTD: Yes Seasonal Allergies Seasonal Allergies: No Past Medical History Surgeries: Yes (PYELOPLASTY/URETERAL REPAIR/URETERAL STENT; X 1 ) Section, Renal, Tubal Ligation Respiratory: Yes Asthma, COPD, Emphysema Currently Using CPAP: No Currently Using BIPAP: No Cardiac: Yes (TACHYCARDIA WHEN HYPERTHYROIDISM) Syncope Neurological: Yes Concussion, Neuropathy 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 Disorders: No 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, 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 Sexually Transmitted Disease: No HIV/AIDS: No Genitourinary: Yes Kidney Infection Gastrointestinal: Yes (HEPATITIS C-NO TREATMENT) Gastroesophageal Reflux, Liver Disease/Jaundice, Hepatitis Musculoskeletal: Yes (SCIATICA, scoliosis, spinal stenosis, 5 BULGING DISCS) Degenerate Disk Disease, Scoliosis, Chronic Back Pain Endocrine: Yes (GRAVES DISEASE) Hyperthyroidism, Hypothyroidsim HEENT: No Cancer: No Psychosocial: Yes Anxiety Integumentary: No Blood Disorders: No Family Medical History Alzheimer's disease 19 MOTHER FH: epilepsy 19 MOTHER FH: lupus 19 MOTHER Fibromyalgia 19 MOTHER Hypertension 19 MOTHER Thyroid disease 19 MOTHER (HYPOTHYROID) Physical Exam Vital Signs Vital Signs - First Documented 07/06/19 19:20 Temp 37.0 Pulse 112 Resp 22 Pulse Ox 98 O2 Delivery Room Air Capillary Refill : Height, Weight, BMI Height: 5'4.00" Weight: 120lbs. 5.0oz. 54.448437wk; 20.00 BMI Method:Estimated General Appearance: WD/WN, no apparent distress, other (she is unable to abduct the arm at the shoulder on the left.) Respiratory: no respiratory distress, no accessory muscle use Gastrointestinal: normal bowel sounds, non tender, soft Shoulder: normal inspection, limited ROM, pain, soft tissue tenderness; No swelling Elbow/Forearm: normal inspection, non-tender Wrist: Yes normal inspection, Yes non-tender Hand: normal inspection, non-tender Neurologic/Psychiatric: alert, normal mood/affect, oriented x 3 Skin: normal color, warm/dry Progress/Results/Core Measures Results/Orders My Orders Orders - ALEM NAVARRO APRN Shoulder, Left, 3 Views (07/06/19 19:19) Ketorolac Injection (Toradol Injection) (07/06/19 19:30) Orphenadrine Injection (Norflex Injectio (07/06/19 19:30) Medications Given in ED Current Medications Medications Dose Ordered Sig/Kayla Route Start Time Stop Time Status Last Admin Dose Admin Ketorolac Tromethamine 60 mg ONCE ONCE IM 07/06/19 19:30 07/06/19 19:31 DC 07/06/19 19:32 60 MG Orphenadrine Citrate 60 mg ONCE ONCE IM 07/06/19 19:30 07/06/19 19:31 DC 07/06/19 19:33 60 MG Vital Signs/I&O 07/06/19 07/06/19 19:20 19:32 Temp 37.0 37.0 Pulse 112 Resp 22 B/P (MAP) Pulse Ox 98 O2 Delivery Room Air Departure Impression Primary Impression: Injury of left rotator cuff Qualified Codes: S46.002A - Unspecified injury of muscle(s) and tendon(s) of the rotator cuff of left shoulder, initial encounter Disposition: HOME, SELF-CARE Condition: Stable Departure-Patient Inst. Decision time for Depature: 20:11 Referrals: INDIRA MEJIA MD (PCP/Family) Primary Care Physician Patient Instructions: Rotator Cuff Injury Add. Discharge Instructions: Sling as needed for comfort. If symptoms persist need to follow-up with primary care to discuss obtaining an MRI of the shoulder.In The meantime keep arm in sling for comfort and use the pain medication that you already have. All discharge instructions reviewed with patient and/or family. Voiced understanding. ALEM NAVARRO APRN Jul 06, 2019 19:22
[2019-07-06] MEDS ORDERED: KETOROLAC 60 MG/2 ML VIAL IM ONE (19:30)
[2019-07-06] MEDS ORDERED: ORPHENADRINE 60 MG/2 ML (NORFLEX) AMP IM ONE (19:30)
--- NOTE | 2019-07-06 20:26 | Diagnostic Imaging Report ---
EXAMINATION: Left shoulder at 7:35 PM INDICATION: Shoulder pain Three views were obtained. There are no prior studies available for comparison. On the AP view there is a faint linear lucency extending longitudinally through the superior margin of the greater tuberosity of the humerus. This finding cannot be identified on the other two projections. Even so, it is suspicious for a nondisplaced fracture. There is no fracture, dislocation or acute bony abnormality evident otherwise. The shoulder joint is fairly well maintained. The humeral head is slightly more superiorly positioned with respect to the glenoid than usually seen. This appearance does raise a question of an injury to the rotator cuff. If further imaging is desired, then MRI would be recommended. IMPRESSION: 1. The linear lucency extending through the superior margin of the greater tuberosity seen only on one view is suspicious for a nondisplaced fracture. If further evaluation is desired, then MRI would be recommended. MRI could also provide additional information regarding the integrity of the rotator cuff. 2. There is no evidence for an acute bony abnormality otherwise.. 3. These results were discussed with Shay Palafox APRN. Dictated by: Dictated on workstation # [id number]
== END 2019-07-06 20:30 | disposition home or self-care (01) ==
LOC: EDUNIT# 19:12 → ER 19:14
DX: S46.002A Unspecified injury of muscle(s) and tendon(s) of the rotator cuff of left shoulder, initial encounter (principal); J43.9 Emphysema, unspecified; J45.909 Unspecified asthma, uncomplicated; K21.9 Gastro-esophageal reflux disease without esophagitis; E03.9 Hypothyroidism, unspecified; E05.00 Thyrotoxicosis with diffuse goiter without thyrotoxic crisis or storm; F41.9 Anxiety disorder, unspecified; Z88.2 Allergy status to sulfonamides; Z77.22 Contact with and (suspected) exposure to environmental tobacco smoke (acute) (chronic); Z98.51 Tubal ligation status; Z82.49 Family history of ischemic heart disease and other diseases of the circulatory system; X50.1XXA Overexertion from prolonged static or awkward postures, initial encounter
CPT/HCPCS: 73030; 96372